=== PATIENT | female | born 1995 | race Caucasian/White ===

== ENCOUNTER 2025-06-30 09:51 | Inpatient (IN) | payer BC, SELFPAY ==
[2025-06-30] VITALS (17 sets, daily range): BP systolic 102–128; BP diastolic 62–83; PULSE 65–107; RESP 12–20; TEMP 35.9–36.8; O2SAT 95–100; BMI 37.8
[2025-06-30] MEDS: Lactated Ringers 1,000 ML 999 ML IV ×2 (10:20→15:11)
[2025-06-30 10:31] LABS: Hematocrit 33.8 % (37-47); Hemoglobin 11.8 g/dL (12.0-15.0); Immature Granulocytes Count 0.270 X10^3/uL (0.0-0.0); Mean Corp Hgb Conc 34.9 g/dL (32-36); Mean Corpuscular Volume 92.9 fL (81-99); Mean Platelet Vol. 11.2 fl (6.2-12.0); NRBC Flagged by Analyzer 0 % (0-5); Platelet Count 233 K/mm3 (150-450); RBC Distribution Width CV 13.2 % (11.6-14.6); RBC Distribution Width SD 44.2 fl (35.1-43.9); Red Blood Count 3.64 M/mm3 (4.2-5.4); White Blood Count 11.5 K/mm3 (4.4-11.0)
[2025-06-30 11:17] LABS: Syphilis Antibodies Nonreactive (Nonreactive)
[2025-06-30] MEDS: Lactated Ringers 1,000 ML 150 ML IV (11:19)
[2025-06-30] MEDS: Cefazolin 1 GM/5 ML Vial 2 GM IV (16:02)
[2025-06-30] MEDS: 0.9% Normal Saline (1000mL) 850 ML IV (16:03)
[2025-06-30] MEDS: morphine PF (epidural) 5 MG/10 ML Vial INTRATH (16:09)
[2025-06-30] MEDS: Azithromycin 500 MG in 0.9% Normal Saline (250mL Bag) 250 ML 250 MG IV (16:15)
[2025-06-30] MEDS: Azithromycin 500 MG Vial (SNAP) IV (16:15)
--- NOTE | 2025-06-30 16:16 | HP.PCM_ITS ---
History and Physical Date of Admission: 07/07/25 HPI: The patient is a 30 year old female presenting for pre-operative visit. She is scheduled for , for previous c/s on 07/04/25. Procedure discussed along with risks, benefits and complications. Other alternatives discussed for management. Consent form signed? Yes. ? ? PAST MEDICAL HISTORY No past medical history on file. ? ? PAST SURGICAL HISTORY PAST SURGICAL HISTORYProcedureLateralityDate? DELIVERY ONLY?11/11/2021? [facility] & in 2022?[facility]???Pt reported 08/09/2023 ? ? ? CURRENT MEDICATIONS Current Outpatient MedicationsMedicationSigDispenseRefill?sertraline (ZOLOFT) 50 mg tabletTake 1 tablet by mouth once daily.90 tablet1?ferrous sulfate (IRON PO) Take by mouth.???ondansetron (ZOFRAN) 4 mg tabletTake 1 tablet by mouth every 8 hours as needed for nausea/vomiting.10 tablet0?MAGNESIUM ORALTake by mouth.??? Vitamin w/ Iron ( VITAMIN PLUS LOW IRON) 27 mg iron- 1 mgTake 1 tablet by mouth once daily.???No current facility-administered medications for this visit. ? ? ALLERGIES: Patient has no known allergies. ? PERSONAL HISTORY: SOCIAL HISTORY Social History?Tobacco Use?Smoking status:Never?Smokeless tobacco:NeverVaping Use?Vaping status:Never UsedSubstance Use Topics?Alcohol use:Never?Drug use:Never ? FAMILY HISTORY: FAMILY HISTORY FAMILY HISTORY ProblemRelationAge of Onset?No Known ProblemsMother??No Known ProblemsFather??No Known ProblemsSister??No Known ProblemsBrother? ? ? REVIEW OF SYMPTOMS: GENERAL: denies fevers or chills ENDOCRINOLOGY: has not been on steroids Cardiology : denies palpitations or chest pain Respiratory: denies SOB or cough Hematology: denies history of prolonged bleeding or easy bruising or VTE Allergy: Denies history of personal or family history of allergy to anesthesia ? PHYSICAL EXAMINATION: ? VITALS: Blood pressure 118/73, pulse 100, height 157.5 cm (5' 2), weight 78.9 kg (174 lb), last menstrual period 10/03/2024, SpO2 97%, not currently . ? GENERAL: The patient is well nourished, well hydrated in no acute distress. , The patient is oriented to time, place, and person. NECK: Supple. No lynphadenopathy, normal thyroid, no thyromegaly. LUNGS: Clear to auscultation bilaterally. no wheezes, rhonchi or rales HEART: Regular rate and rhythm, Normal heart sounds, and No murmurs or gallops abd- soft, nontender, gravid ? IMPRESSION: Estimated Date of Delivery: 07/10/25 h/o 2 c/s ? PLAN: The risks/benefits/alternatives and personal involved for the planned c- section were reviewed with the patient. Her questions were answered to her satisfaction and she desires to proceed. Consent was signed. I reviewed with her postop instructions and expectations. ? ? I have reviewed and updated past medical and surgical history, medications and allergies Assessment & Plan Assessment/Plan (1) Previous delivery affecting : 06/19/25 0377 <Electronically signed by Paty Staton MD>
--- NOTE | 2025-06-30 16:18 | PCM.HP.OB ---
HPI - General General Date of Admission: 06/30/25 Date of Service: 06/30/25 Chief Complaint: c/sectoin HPI Narrative NOEMI NIELSEN, is a 30 F who presents 3 para 1-0-1-1 with a EDC of 07/07/2025 presents today for repeat section. She denies any vaginal bleeding or leaking of fluid. She has had good movement. [facility] Medical History (Updated 06/30/25 @ 16:[address] Paty Staton MD) History of blood transfusion Family history of hearing loss at age younger than 7 years hemorrhage depression Home Medications ?Medication ?Instructions ?Recorded ?Last Taken ?Type vit no.95-ferrous 1 tab PO DAILY 06/30/25 06/29/25 History fumarate 28 mg-folic acid 800 mcg tablet ( Formula) Allergy/AdvReac Type Severity Reaction Status Date / Time No Known Allergies Allergy Verified 06/30/25 10:14 Surgical History (Updated 06/30/25 @ 16:[address] Paty Staton MD) H/O wisdom tooth extraction Previous section Social History Smoking Status: Never smoker History Elective abortions Hx Para 1 Spontaneous abortions Hx # Term Pregnancies Ectopic pregnancies Hx # Pregnancies Multiple births # of living children ROS Constitutional Constitutional: Denies fatigue, fever(s) or malaise Eyes Eyes: Denies change in vision ENT HEENT: Denies dizziness or headache(s) Cardiovascular Cardiovascular: Denies chest pain, dyspnea or lightheadedness Respiratory/Chest Respiratory/Chest: Denies cough or dyspnea Gastrointestinal Gastrointestinal: Denies change in bowel habits Genitourinary Genitourinary: Denies burning urination or genital lesions Integumentary Integumentary: Denies rash Neurologic Neurologic: Denies confusion, dizziness, headache(s), numbness or weakness Vital Signs Vital Signs Vital Signs: 06/30/25 10:55 Temperature 98.3 F Temperature Source Temporal Pulse Rate 107 H Respiratory Rate 16 Blood Pressure 128/83 H Blood Pressure Mean 98 Blood Pressure Source Monitor Blood Pressure Position Semi-Fowlers Blood Pressure Location Right Arm Pulse Ox 96 Oxygen Delivery Method Room Air Weight Weight: 97 kg Body Mass Index (BMI) 37.8 Physical Exam Const alert and no apparent distress General Appearance: cooperative HEENT normocephalic Resp normal respiratory effort Cardio regular rate GI soft to palpation GI Narrative: gravid, nontender, appropriate for gestational age Extremity no calf tenderness General Extremity: edema Skin no wounds Rashes: No rashes noted Psych activity/motor behavior normal Labs Labs Labs: Blood Type A NEGATIVE Antibody Screen NEGATIVE Hct 33.8 % (37-47) L Hgb 11.8 g/dL (12.0-15.0) L Syphilis Total Ab Nonreactive (Nonreactive) Assessment & Plan (1) 39 weeks gestation of : PLAN: Response and alternatives to previous section were discussed with the patient her questions were answered to her satisfaction she desires to proceed. Will receive preop antibiotic prophylaxis. Otherwise preoperative and postoperative routine care anticipated. (2) Previous delivery affecting :
--- NOTE | 2025-06-30 17:00 | PCM.POST.ANE ---
Anesthesia: Postop Eval I Current Vital Signs Temperature: 98 F Pulse Rate: 85 Blood Pressure: 121/73 Respiratory Rate: 16 Pulse Ox: 95 Oxygen Delivery Method: Room Air Assessment Airway patent: Yes Spontaneous unlabored respirations: Yes Mental status: Awake and Calm nausea: No Vomiting: No Anesthesia Complication: No Fluid Hydration Crystalloid volume administer (ml): 1,000 Total IV fluid infused: 1,000 Progress Note Anesthesia document: Postop Eval 1 completed: Yes
--- NOTE | 2025-06-30 17:04 | OP.PCM_ITS ---
Assessment & Plan (1) Previous delivery affecting : (2) 39 weeks gestation of : Maternal Data Information Final NAGI: 07/07/25 Gestational age: 39 0/7 Operative Report (OB) Details Procedure Type: low transverse Date of Procedure: 06/30/25 Procedure Start Time: 16:27 Procedure Stop Time: 16:58 Time of Delivery: 16:29 Pre-Operative Diagnosis: Repeat Elective Post-Operative Diagnosis: Same as Pre-operative diagnosis Classification: Scheduled Type of Anesthesia: Spinal Antibiotic Given: Ancef 2 grams IV x1 and Zithromax 500 mg/5 mL X1 Drain: Valadez to straight drain Estimated Blood Loss: 700 Fluids Replaced: 1000 Findings Description of surgery: The patient was taken to the operating room. She was prepped and draped in the dorsal supine position with a leftward tilt. A Pfannenstiel skin incision was made approximately 2 cm above the symphysis pubis and carried through to underlying layer fascia with the scalpel. The fascia was incised incised in the midline and extended laterally with the Hurd scissors. The fascia was dissected off the rectus muscles with blunt and sharp dissection. The rectus muscles were in the midline and the peritoneum was entered bluntly. The peritoneal incision was stretched and the bladder blade was placed. The uterine incision was made in a low transverse fashion with the scalpel and extended superiorly and inferiorly with blunt dissection. The amniotic membranes were ruptured bluntly and clear amniotic fluid returned. The 's head was brought to the incision in the flexed position and delivered without difficulty. The remainder of the was delivered with gentle traction and fundal pressure in the standard fashion. The mouth and nares were bulb suctioned. The cord was clamped and cut as the was stimulated. Cord clamping was delayed. The was handed off to the waiting nursing staff. The placenta was delivered with fundal massage and gentle traction in the standard fashion. The uterus was exteriorized and cleared of all clots and debris. The cervix was dilated with a ring forcep. The uterine incision was closed with #1 Vicryl in a running locked fashion. A second layer of the same suture was used in an imbricating fashion. The incision was examined and was found to be hemostatic. The uterus was placed back into the peritoneal cavity and hemostasis was again confirmed. The rectus muscles were examined and any bleeding was Bovie cauterized. The parietal peritoneum and rectus muscles were closed en bloc with an 0 Vicryl running suture. The rectus fascia was examined and any bleeding was Bovie cauterized and the rectus fascia was closed with 1 Vicryl suture in a running standard fashion. The subcutaneous tissue was examining and any bleeding was Bovie cauterized. The subcutaneous tissue was reapproximated with 3-0 Vicryl suture. The skin was closed in a subcuticular fashion by the NETWORK INTERN with me present in the labor and delivery suite. I performed the remainder of the procedure with assistance. All sponge, lap, and needle counts were correct. The patient was taken to her room for recovery in a stable condition. Surgical findings: Vigorous female infant. Normal tubes and ovaries. Presentation: Vertex Amniotic Membrane Rupture Type: Artificial Amniotic Fluid Description: Clear Placental Delivery Description: Expressed Placenta Disposition: [facility] Specimen collected: No Cord Vessel Description: 3 Vessels Cord Entanglement: Around neck x 2, loose Nuchal Cord Compression: Without compression A gender: Female (Ivana) (1 minute): 8 (5 minute): 9 Delayed Cord Clamping: Yes Associate Professor Of Violin leather scraper: Yes Manager Of Investigations: Torsten Arevalo Tasks completed by congressional assistant: Closing and Retracting Additional assistant corporate controller?: No Complications Complications: No
--- NOTE | 2025-06-30 17:04 | POSTOPAN2_ITS ---
Anesthesia Postop Eval I Sum Postop Eval Completion status Anesthesia document: Postop Eval 1 completed: Yes Anesthesia Postop Eval I Summary Anesthesia Postop Eval I Summary: Anesthesia Postop Eval I: Assessment Summary Airway patent Yes 06/30/25 17:01 BOAT CREW DECK HAND.MDOT Spontaneous unlabored Yes 06/30/25 17:01 BOAT CREW DECK HAND.OT respirations Mental status Awake,Calm 06/30/25 17:01 BOAT CREW DECK HAND.MDOT nausea No 06/30/25 17:01 BOAT CREW DECK HAND.MDOT Vomiting No 06/30/25 17:01 BOAT CREW DECK HAND.MDOT Anesthesia Postop Eval I: Fluid Summary Crystalloid volume administer 1,000 06/30/25 17:01 BOAT CREW DECK HAND.MDOT (ml) Colloids volume administered ( ml) Blood Product volume administered (ml) Total IV fluid infused 1,000 06/30/25 17:01 BOAT CREW DECK HAND.CHRISTAL Anesthesia Postop Eval I: Summary Notes Anesthesia Complication No 06/30/25 17:01 BOAT CREW DECK HAND.CHRISTAL Anesthesia Complication Comment: Post-operative progress note Anesthesia: Postop Eval II Evaluation Mental status: Awake and Calm Pain Level: 0 nausea: No Vomiting: No Complications Anesthesia Complication: No
--- NOTE | 2025-06-30 17:04 | PCM.POSTANE2 ---
Anesthesia Postop Eval I Sum Postop Eval Completion status Anesthesia document: Postop Eval 1 completed: Yes Anesthesia Postop Eval I Summary Anesthesia Postop Eval I Summary: Anesthesia Postop Eval I: Assessment Summary Airway patent Yes 06/30/25 17:01 DIRECTOR OF GIFT PLANNING.MDOT Spontaneous unlabored Yes 06/30/25 17:01 DIRECTOR OF GIFT PLANNING.OT respirations Mental status Awake,Calm 06/30/25 17:01 DIRECTOR OF GIFT PLANNING.MDOT nausea No 06/30/25 17:01 DIRECTOR OF GIFT PLANNING.MDOT Vomiting No 06/30/25 17:01 DIRECTOR OF GIFT PLANNING.MDOT Anesthesia Postop Eval I: Fluid Summary Crystalloid volume administer 1,000 06/30/25 17:01 DIRECTOR OF GIFT PLANNING.MDOT (ml) Colloids volume administered ( ml) Blood Product volume administered (ml) Total IV fluid infused 1,000 06/30/25 17:01 DIRECTOR OF GIFT PLANNING.CHRISTAL Anesthesia Postop Eval I: Summary Notes Anesthesia Complication No 06/30/25 17:01 DIRECTOR OF GIFT PLANNING.CHRISTAL Anesthesia Complication Comment: Post-operative progress note Anesthesia: Postop Eval II Evaluation Mental status: Awake and Calm Pain Level: 0 nausea: No Vomiting: No Complications Anesthesia Complication: No
[2025-06-30] MEDS: Oxytocin 15 Units/NS 250ml 15 UNITS/250 ML IV.SOLN 83 UNITS IV (17:10)
[2025-06-30] MEDS: Ketorolac 30 MG/ML Syringe IV (17:59)
--- OUTSIDE RECORDS SUMMARY | 2025-06-30 21:22 | XMS RPT_ITS | CCD ---
Author Organization [facility] Care Team Providers Care Electrician Sound Name Role Phone JOSE BANQUET KITCHEN SUPERVISOR - RIKKI, SERGO Fischer Primary Care [facility] HEMAL LUIS Referring Unavailable SERGO FENG Primary Care Unavailable ROS MANSFIELD Attending Unavailable JOSESERGO GARCIA Primary Care Unavailable ROS MANSFIELD Attending Unavailable HEMAL LUIS Referring Unavailable HEMAL LUIS MD Attending Unavailable JOSE BANQUET KITCHEN SUPERVISOR - RIKKI, SERGO Fischer Primary Care U tara ZAMBRANO BANQUET KITCHEN SUPERVISOR-RIKKI, MARINA Attending Unavail able JOSE BANQUET KITCHEN SUPERVISOR - FIELD LABORER, SERGO Fischer Primary Care U AUNDREA Renteria MD Attending Unavailable JOSE BANQUET KITCHEN SUPERVISOR - FIELD LABORER, SERGO Fischer Primary Care U tara LUIS MD, HEMAL Attending Unavailable JOSE BANQUET KITCHEN SUPERVISOR - RIKKI, SERGO Fischer Primary Care U tara LUIS MD, HEMAL Attending Unavailable JOSE BANQUET KITCHEN SUPERVISOR - RIKKI, SERGO Fischer Primary Care U tara LUIS MD, HEMAL Attending Unavailable JOSE BANQUET KITCHEN SUPERVISOR - FIELD LABORER, SERGO Fischer Primary Care U tara LUIS MD, HEMAL Attending Unavailable JOSE BANQUET KITCHEN SUPERVISOR - FIELD LABORER, SERGO Fischer Primary Care U tara LUIS MD, HEMAL Attending Unavailable JOSE BANQUET KITCHEN SUPERVISOR - FIELD LABORER, SERGO Fischer Primary Care U tara LUIS MD, HEMAL Attending Unavailable JOSE BANQUET KITCHEN SUPERVISOR - RIKKI, SERGO Fischer Primary Care U JOEY Carbone Attending Unavailable JOSE BANQUET KITCHEN SUPERVISOR - FIELD LABORER, SERGO Fischer Primary Care U JOEY Carbone Admitting Unavailable AUNDREA ROBB MD Attending Unavailable JOSE BANQUET KITCHEN SUPERVISOR - RIKKI, SERGO Fischer Primary Care U AUNDREA Renteria MD Consulting Unavailable SpinkSergo lopez CNP Primary Care Provider Warner Tai MD Unavailable JOSE, SERGO Amado Primary Care Unavailable KYLE DUCKWORTH Attending Unavailable WISWELL, KALYANI Referring Unavailable JOSE, SERGO D Primary Care Unavailable WISWELL, KALYANI Referring Unavailable JOSE, SERGO D Primary Care Unavailable MARYBEL TAIKE Referring Unavailable JOSE, SERGO D Primary Care Unavailable REJI LEOS Attending Unavailable HEVER, DANIELLE Referring Unavailable JOSE, SERGO D Primary Care Unavailable WISWELL, KALYANI Attending Unavailable SELF Referring Unavailable JOSE, SERGO D Primary Care Unavailable DANIELLE KATHLEEN Referring Unavailable JOSE, SERGO Amado Primary Care Unavailable JOSE, SERGO D Primary Care Unavailable WARNER TAI Referring Unavailable JOSE, SERGO D Primary Care Unavailable ILDA MEDINA Attending Unavailable JOSE, SERGO D Primary Care Unavailable JOSE, SERGO D Primary Care Unavailable GIA ESCOBAR Attending Unavailable DANIELLE KATHLEEN Attending Unavailable JOSE, SERGO Amado Primary Care Unavailable SELF Referring Unavailable JOSE, SERGO D Primary Care Unavailable DANIELLE KATHLEEN Attending Unavailable WISWELL, KALYANI Referring Unavailable JOSE, SERGO Amado Primary Care Unavailable JOSE, SERGO D Primary Care Unavailable LEELA, KALYANI Referring Unavailable WARNER TAI Attending Unavailable JOSE, SERGO D Primary Care Unavailable WISWELL, KALYANI Referring Unavailable JOSE, SERGO D Primary Care Unavailable GIA ESCOBAR Attending Unavailable KALYANI DOUGHERTY Attending Unavailable JOSE, SERGO Amado Primary Care Unavailable JOSE, SERGO D Primary Care Unavailable NOE JOSE Attending Unavailable WISWELL, KALYANI Referring Unavailable JOSE, SERGO D Primary Care Unavailable JOSE, SERGO D Primary Care Unavailable GIA ESCOBAR Attending Unavailable REJI LEOS Attending Unavailable JOSE, SERGO Amado Primary Care Unavailable JOSE, SERGO D Primary Care Unavailable GIA ESCOBAR Attending Unavailable Reji Leos Attending Unavailable Spink MAINTENANCE TEAM MEMBER, Sergo Arroyo Primary Care Unav ailable Reji Leos Admitting Unavailable Reji Leos Referring Unavailable Medications Current Medications Medication Drug Class(es) Dates Sig (Normalized) Sig (Original) acetaminophen 500 mg oral tablet (2 sources) Start: 12-11-2022 End: 01-08-2023 Tylenol Extra Strength 500 mg oral tablet Dose : 500 mg = 1 tab(s), Oral, q4h, X 14 day(s), # 30 tab(s), 1 Refill(s), 01/08/23 19:44:00 EST, Pharmacy: [facility], 160, cm, 12/10/22 17:42:00 EST, Height Start Date: 12/11/22 Stop Date: 01/08/23 Status: Ordered acetaminophen 325 mg / oxyCODONE hydrochloride 5 mg oral tablet (1 source) Opioid Agonist Start: 12-11-2022 End: 12-18-2022 take 1 tablet by mouth every six hours as needed for pain Percocet 5 mg-325 mg oral tablet Dose = 1 tab(s), Oral, q6hr, PRN for pain, X 7 day(s), # 20 tab(s), 0 Refill(s), Pharmacy: [facility], S/P section, 160, cm, 12/10/22 17:42:00 EST, Height, 103.63 Start Date: 12/11/22 Stop Date: 12/18/22 Status: Ordered Breast Pump (5 sources) Start: 05-29-2025 End: 05-29-2026 Breast Pump Use as directed 1 each 05/29/2025 05/29/2026 Active calcium polycarbophil 625 mg oral tablet (3 sources) Start: 05-03-2022 take 1 tablet by mouth four times daily Fiber Tabs Dose : 625 mg =, Oral, QID, 0 Refill(s) Start Date: 05/03/22 Status: Ordered Zyrtec (4 sources) Histamine-1 Receptor Antagonist Start: 08-24-2022 ZyrTEC qDay, 0 Refill(s) Start Date: 08/24/22 Status: Ordered cetirizine HCl ( ZYRTEC PO) Take by mouth. Active docusate sodium 100 mg oral capsule (3 sources) Start: 05-03-2022 Colace 100 mg oral capsule Dose : 100 mg = 1 cap(s), Oral, BID, PRN as needed for constipation, # 20 cap(s), 0 Refill(s), Pharmacy: [facility], 7 weeks gestation of PCOS (polycystic ovarian syndrome), 162, cm, 06/21/22 9:49:00 EDT, Height Start Date: 05/03/22 Status: Ordered doxylamine succinate 25 mg oral tablet (3 sources) Start: 05-06-2022 doxylamine 25 mg oral tablet Dose : 25 mg = 1 tab(s), Oral, BID, PRN as needed for sleep, # 28 tab(s), 0 Refill(s), Pharmacy: [facility], Hyperemesis of , 162, cm, 05/03/22 9:49:00 EDT, Height Start Date: 05/06/22 Status: Ordered ferrous sulfate 325 mg oral tablet (6 sources) Start: 10-12-2022 IRON (ferrous sulfate 325 mg) 65 mg oral tablet Dose : 325 mg = 1 tab(s), Oral, qDay, Take with food., # 60 tab(s), 3 Refill(s) Start Date: 10/12/22 Status: Ordered fexofenadine hydrochloride 180 mg oral tablet (1 source) Histamine-1 Receptor Antagonist Start: 03-15-2022 End: 09-11-2022 Daisy 24 Hour Allergy oral tablet Dose : 180 mg = 1 tab(s), Oral, Daily, may change to generic, # 30 tab(s), 5 Refill(s), Pharmacy: [facility], Seasonal allergies, 162, cm, 03/15/22 8:16:00 EDT, Height Start Date: 03/15/22 Stop Date: 09/11/22 Status: Ordered ibuprofen 600 mg oral tablet (2 sources) Nonsteroidal Anti-inflammatory Drug Start: 12-26-2022 End: 01-15-2023 ibuprofen 600 mg oral tablet Dose : 600 mg = 1 tab(s), Oral, q6h, PRN for pain, Take with food or milk., X 10 day(s), # 40 tab(s), 1 Refill(s), 01/15/23 14:52:00 EST, Pharmacy: [facility], 160, cm, 12/10/22 17:42:00 EST, Height Start Date: 12/26/22 Stop Date: 01/15/23 Status: Ordered Start: 12-11-2022 End: 12-25-2022 ibuprofen 800 mg oral tablet Dose : 800 mg = 1 tab(s), Oral, q8h, X 14 day(s), # 42 tab(s), 0 Refill(s), 12/25/22 19:44:00 EST, Pharmacy: [facility], 160, cm, 12/10/22 17:42:00 EST, Height Start Date: 12/11/22 Stop Date: 12/25/22 Status: Ordered metFORMIN hydrochloride 500 mg oral tablet (1 source) Biguanide Start: 03-15-2022 End: 09-11-2022 metFORMIN 500 mg oral tablet EXTENDED RELEASE Dose : 500 mg = 1 tab(s), Oral, qDay, # 90 tab(s), 1 Refill(s), Pharmacy: [facility], PCOS (polycystic ovarian syndrome), 162, cm, 03/15/22 8:16:00 EDT, Height, kg, 03/15/22 8:16:00 EDT, Dosing Weight Start Date: 03/15/22 Stop Date: 09/11/22 Status: Ordered 25/iron/folate 6/dha (PRENA1 ORAL) (20 sources) take 1 tablet by mouth once daily 25/iron/folate 6/dha (PRENA1 ORAL) Take 1 tablet by mouth once daily. Active Multivitamins with Vitamin B Complex, Vitamin C, Minerals and L-Methylfolate oral capsule (17 sources) Start: 11-02-2021 take 1 capsule by mouth once daily Multivitamins with Vitamin B Complex, Vitamin C, Minerals and L-Methylfolate oral capsule Dose = 1 cap(s), Oral, Daily, 0 Refill(s) Start Date: 11/02/21 Status: Ordered promethazine hydrochloride 12.5 mg oral tablet (3 sources) Phenothiazine Start: 05-06-2022 promethazine 12.5 mg oral tablet Dose : 12.5 mg = 1 tab(s), Oral, q4h, PRN as needed for nausea/vomiting, # 30 tab(s), 1 Refill(s), Pharmacy: [facility], Hyperemesis of , 162, cm, 05/03/22 9:49:00 EDT, Height Start Date: 05/06/22 Status: Ordered sertraline 50 mg oral tablet (1 source) Serotonin Reuptake Inhibitor Start: 01-19-2023 End: 06-18-2023 sertraline 50 mg oral tablet Dose : 50 mg = 1 tab(s), Oral, qDay, # 30 tab(s), 4 Refill(s), Pharmacy: [id number], 160, cm, 12/10/22 17:42:00 EST, Height Start Date: 01/19/23 Stop Date: 06/18/23 Status: Ordered simethicone 125 mg oral capsule (1 source) Start: 12-13-2022 Gas-X Extra Strength 125 mg oral capsule Dose : 125 mg = 1 cap(s), Oral, QID, PRN abdominal discomfort, # 30 cap(s), 0 Refill(s), Pharmacy: [id number], 160, cm, 12/10/22 17:42:00 EST, Height Start Date: 12/13/22 Status: Ordered spironolactone 25 mg oral tablet (1 source) Aldosterone Antagonist Start: 03-15-2022 End: 09-11-2022 spironolactone 25 mg oral tablet Dose : 25 mg = 1 tab(s), Oral, qDay, # 30 tab(s), 5 Refill(s), Pharmacy: [id number], PCOS (polycystic ovarian syndrome), 162, cm, 03/15/22 8:16:00 EDT, Height Start Date: 03/15/22 Stop Date: 09/11/22 Status: Ordered Completed/Discontinued Medications Medication Drug Class(es) Dates Sig (Normalized) Sig (Original) norgestimate-ethinyl estradiol (SPRINTEC, 28, ORAL) (1 source) End: 12-05-2024 norgestimate-ethinyl estradiol (SPRINTEC, 28, ORAL) Take by mouth. 12/05/2024 Discontinued (Course of therapy completed) ondansetron 4 mg disintegrating oral tablet (17 sources) Serotonin-3 Receptor Antagonist Start: 12-05-2024 End: 02-18-2025 take 1 tablet by mouth every eight hours as needed ondansetron orally disintegrating (ZOFRAN ODT) 4 mg disintegrating tablet Indications: Nausea and vomiting during (HCC) Take 1 tablet by mouth every 8 hours as needed. 20 tablet 1 12/05/2024 02/18/2025 Discontinued (Course of therapy completed) Start: 04-25-2022 ondansetron 4 mg oral tablet Dose : 4 mg = 1 tab(s), Oral, q8h, PRN Nausea/Vomiting, # 20 tab(s), 0 Refill(s), Pharmacy: [facility], 162, cm, 04/15/22 8:23:00 EDT, Height Start Date: 04/25/22 Status: Ordered Vitamin B6 50 mg oral tablet (5 sources) Start: 05-06-2022 End: 06-17-2022 Vitamin B6 50 mg oral tablet Dose : 50 mg = 1 tab(s), Oral, BID, # 28 tab(s), 2 Refill(s), Pharmacy: [facility], Hyperemesis of , 162, cm, 05/03/22 9:49:00 EDT, Height Start Date: 05/06/22 Stop Date: 06/17/22 Status: Ordered Problems Active Problems Problem Classification Problem Date Documented Date Episodic/Chronic Allergic reactions (18 sources) Allergy to food 01-24-2020 Episodic Conditions associated with dizziness or vertigo (1 source) Lightheadedness; Translations: [Dizziness and giddiness] 02-18-2025 Episodic Contraceptive and procreative management (6 sources) Contraception 07-26-2019 Episodic Disorders of lipid metabolism (12 sources) Hypercholesterolemia 04-15-2022 Chronic Esophageal disorders (18 sources) Gastroesophageal reflux disease 05-11-2021 Chronic Immunizations and screening for infectious disease (2 sources) Vaccination needed; Translations: [Encounter for immunization] Onset: 04-17-2004-17-2025 Episodic Menstrual disorders (20 sources) Amenorrhea; Translations: [Irregular periods] 11-02-2021 Chronic Miscellaneous mental health disorders (1 source) depression 02-06-2023 Episodic Other complications of ; puerperium affecting management of mother (1 source) Failed induction of labor; Translations: [Failed induction of labor, unspecified] Onset: 12-11-19 Episodic Other complications of (13 sources) Maternal obesity complicating , childbirth and the puerperium, antepartum; Translations: [Obesity complicating , unspecified trimester] Onset: 01-28-20 23 Chronic Other complications of (5 sources) Obesity; Translations: [Obesity complicating , unspecified trimester] 04-17-2025 Chronic Other complications of (1 source) Obesity complicating , unspecified trimester; Translations: [Obesity in (HCC)] Onset: 05-01-20 Chronic Other complications of (1 source) Finding related to ; Translations: [Other specified related conditions, unspecified trimester] Onset: 12-10-19 Episodic Other complications of (1 source) Supervision of high risk , unspecified, second trimester; Translations: [Supervision of high risk in second trimester (HCC)] Onset: 05-29-20 Episodic Other congenital anomalies (20 sources) Metaphyseal chondrodysplasia, [place]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; Translations: [Other specified osteochondrodysplasias] 12-23-2024 Chronic Other congenital anomalies (1 source) Other specified osteochondrodysplasias; 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)] Onset: 12-23-19 Chronic Other endocrine disorders (13 sources) Polycystic ovary syndrome 11-18-2021 Chroni c Other female genital disorders (18 sources) History of abnormal cervical Papanicolaou smear 07-26-2019 Episodic Other gastrointestinal disorders (18 sources) Constipation 05-17-2021 Episodic Other lower respiratory disease (2 sources) Dyspnea; Translations: [Shortness of breath] 01-30-2025 Episodic Other screening for suspected conditions (not mental disorders or infectious disease) (5 sources) Cancer cervix screening status; Translations: [Encounter for screening for malignant neoplasm of cervix] Onset: 04-17-2012-05-2024 Episodic Other upper respiratory disease (13 sources) Seasonal allergy 03-15-2022 Chronic Polyhydramnios and other problems of amniotic cavity (1 source) Premature rupture of membranes; Translations: [Premature rupture of membranes, unspecified as to length of time between rupture and onset of labor, unspecified weeks of gestation] Onset: 12-10-19 Episodic Residual codes; unclassified (17 sources) Increased body mass index 06-11-2020 Episod ic Residual codes; unclassified (12 sources) H/O: miscarriage 03-15-2022 Episodic Residual codes; unclassified (1 source) Gestation period, 40 weeks; Translations: [40 weeks gestation of ] Onset: 12-10-19 Episodic Residual codes; unclassified (1 source) Genetic disorder carrier; 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] Onset: 12-10-19 Episodic Residual codes; unclassified (1 source) Gestation period, 9 weeks; Translations: [9 weeks gestation of ] 12-05-2024 Episodic Residual codes; unclassified (5 sources) Gestation period, 13 weeks; Translations: [13 weeks gestation of ] 01-02-2025 Episodic Residual codes; unclassified (2 sources) Gestation period, 17 weeks; Translations: [17 weeks gestation of ] 01-30-2025 Episodic Residual codes; unclassified (1 source) Gestation period, 20 weeks; Translations: [20 weeks gestation of ] 02-18-2025 Episodic Residual codes; unclassified (1 source) Gestation period, 24 weeks; Translations: [24 weeks gestation of ] 03-20-2025 Episodic Residual codes; unclassified (1 source) Gestation period, 30 weeks; Translations: [30 weeks gestation of ] 05-01-2025 Episodic Residual codes; unclassified (1 source) Gestation period, 32 weeks; Translations: [32 weeks gestation of ] 05-15-2025 Episodic Residual codes; unclassified (1 source) Gestation period, 34 weeks; Translations: [34 weeks gestation of ] 05-29-2025 Episodic Residual codes; unclassified (1 source) Gestation period, 36 weeks; Translations: [36 weeks gestation of ] 06-09-2025 Episodic Residual codes; unclassified (1 source) Gestation period, 38 weeks; Translations: [38 weeks gestation of ] 06-23-2025 Episodic Residual codes; unclassified (1 source) 38 weeks gestation of ; Translations: [38 weeks gestation of (HCC)] Onset: 06-23-20 Episodic Residual codes; unclassified (1 source) 37 weeks gestation of ; Translations: [37 weeks gestation of (HCC)] Onset: 06-17-20 Episodic Residual codes; unclassified (1 source) 36 weeks gestation of ; Translations: [36 weeks gestation of (HCC)] Onset: 06-09-20 Episodic Residual codes; unclassified (1 source) 34 weeks gestation of ; Translations: [34 weeks gestation of (HCC)] Onset: 05-29-20 25 Episodic Residual codes; unclassified (1 source) 32 weeks gestation of ; Translations: [32 weeks gestation of (HCC)] Onset: 05-15-20 25 Episodic Residual codes; unclassified (1 source) 30 weeks gestation of ; Translations: [30 weeks gestation of (HCC)] Onset: 05-01-20 25 Episodic Residual codes; unclassified (1 source) 24 weeks gestation of ; Translations: [24 weeks gestation of (HCC)] Onset: 04-17-20 25 Episodic Unclassified (20 sources) Patient encounter status 06-11-2020 Past or Other Problems Problem Classification Problem Date Documented Da te Episodic/Chronic Cardiac dysrhythmias (20 sources) Palpitations; Translations: [Palpitations] Onset: 02-20-2025 01-30-2025 Episodic Other circulatory disease (20 sources) Bleeds profusely; Translations: [Hemorrhage, not elsewhere classified] Onset: 01-02-2025 01-02-2025 Episodic Other circulatory disease (1 source) Hemorrhage, not elsewhere classified; Translations: [Excessive bleeding] Onset: 01-09-2025 Episodic Other complications of ; puerperium affecting management of mother (20 sources) hemorrhage; Translations: [Other immediate hemorrhage] Onset: 12-05-2024 Episodic Other complications of ; puerperium affecting management of mother (1 source) Other immediate hemorrhage; Translations: [Other immediate hemorrhage (HCC)] Onset: 12-05-2024 Episodic Other complications of (20 sources) Vomiting of , unspecified; Translations: [Unspecified vomiting of , unspecified as to episode of care or not applicable] Onset: 12-05-2024 12-05-2024 Episodic Other complications of (20 sources) RhD negative; Translations: [Other specified related conditions, unspecified trimester] Onset: 01-03-2025 01-03-2025 Episodic Other complications of (20 sources) High risk ; Translations: [Supervision of high risk , unspecified, second trimester] Onset: 12-05-2024 02-20-2025 Episodic Other complications of (1 source) Supervision of high risk , unspecified, third trimester; Translations: [Supervision of high risk in third trimester (HCC)] Onset: 02-20-2025 Episodic Other complications of (1 source) Other specified related conditions, unspecified trimester; Translations: [Rh negative state in antepartum period ([facility])] Onset: 01-03-2025 Episodic Other lower respiratory disease (1 source) Shortness of breath; Translations: [Shortness of breath] Onset: 01-30-2025 Episodic Other and delivery including normal (20 sources) test positive; Translations: [] Onset: 03-10-2022 04-15-2022 Episodic Comment on above: [facility] Status documented as Yes on Admission Residual codes; unclassified (2 sources) History of uterine scar from previous surgery; Translations: [History of uterine scar from previous surgery] Onset: 12-11-2022 Episodic Residual codes; unclassified (1 source) 20 weeks gestation of ; Translations: [20 weeks gestation of ([facility])] Onset: 02-20-2025 Episodic Residual codes; unclassified (1 source) Unspecified blood type, Rh negative; Translations: [Rh negative state in antepartum period ([facility])] Onset: 01-03-2025 Episodic Residual codes; unclassified (2 sources) 13 weeks gestation of ; Translations: [13 weeks gestation of ([facility])] Onset: 01-08-2025 Episodic Residual codes; unclassified (1 source) 17 weeks gestation of ; Translations: [17 weeks gestation of ([facility])] Onset: 02-18-2025 Episodic Residual codes; unclassified (1 source) 9 weeks gestation of ; Translations: [9 weeks gestation of ] Onset: 01-02-2025 Episodic Results Test Name Value Interpretation Reference Range Facility CBC W/Diff, Automatedon 06-13 Absolute Lymph 2.14 X10 3/uL Normal 0.83-4.51 [facility] Comment on above: Performed By: #### Brain JAQUEZ, L100.0100 #### [facility] [address] [place], [place], [address] Absolute Neut 7.8 X10 3/uL High 2.0-7.7 [facility] Comment on above: Performed By: #### Brain JAQUEZ, L100.0100 #### [facility] [address] [place], [address] Basophils/100 WBC (Bld) 0.3 % Normal 0-1 [facility] Comment on above: Performed By: #### Brain JAQUEZ, L100.0100 #### [facility] [address] [place], [address] Eosinophils/100 WBC (Bld) 0.5 % Normal 0-5 [facility] Comment on above: Performed By: #### Brain JAQUEZ, L100.0100 #### [facility] [address] [place], [address] Erythrocyte distribution width (RBC) [Ratio] 13.2 % Normal 11.6-14.6 [facility] Comment on above: Performed By: #### Brain JAQUEZ, L100.0100 #### [facility] [address] [place], [address] Hematocrit (Bld) [Volume fraction] 33.8 % Low 37-47 [facility] Comment on above: Performed By: #### Brain JAQUEZ, L100.0100 #### [facility] [address] [place], [address] Hemoglobin (Bld) [Mass/Vol] 11.8 g/dL Low 12.0-15.0 [facility] Comment on above: Performed By: #### Brain JAQUEZ, L100.0100 #### [facility] [address] [place], [address] IG% 2.300 High 0.0-0.9 [facility] Comment on above: Result Comment: IG% - Immature Granulocytes (promyelocytes, myelocytes and metamyelocytes) > 1% indicates that a LEFT SHIFT is Present. Performed By: #### Brain JAQUEZ, L100.0100 #### [facility] [address] [place], [address] Lymphocytes/100 WBC (Bld) 18.6 % Low 19-41 [facility] Comment on above: Performed By: #### Brain JAQUEZ, L100.0100 #### [facility] [address] [place], [address] MCH (RBC) [Entitic mass] 32.4 pg High 27.0-32.0 [facility] Comment on above: Performed By: #### Brain JAQUEZ, L100.0100 #### [facility] [address] [place], [address] MCHC (RBC) [Mass/Vol] 34.9 g/dL Normal 32-36 [facility] Comment on above: Performed By: #### Brain JAQUEZ, L100.0100 #### [facility] [address] [place], [address] MCV (RBC) [Entitic vol] 92.9 fL Normal 81-99 [facility] Comment on above: Performed By: #### Brain JAQUEZ, L100.0100 #### [facility] [address] [place], [address] Monocytes/100 WBC (Bld) 10.9 % High 0-10 [facility] Comment on above: Performed By: #### Brain JAQUEZ, L100.0100 #### [facility] [address] [place], [address] Neutrophils/100 WBC (Bld) 67.4 % Normal 47-70 [facility] Comment on above: Performed By: #### Brain JAQUEZ, L100.0100 #### [facility] [address] [place], [address] Nucleated RBC (Bld) [#/Vol] 0 10*3/uL Normal 0-5 [facility] Comment on above: Performed By: #### Brain JAQUEZ, L100.0100 #### [facility] [address] [place], [address] Platelet mean volume (Bld) [Entitic vol] 11.2 fL Normal 6.2-12.0 [facility] Comment on above: Performed By: #### Brain JAQUEZ, L100.0100 #### [facility] [address] [place], [address] Platelets (Bld) [#/Vol] 233 10*3/uL Normal 150-450 [facility] Comment on above: Performed By: #### Brain JAQUEZ, L100.0100 #### [facility] [address] [place], [address] RBC (Bld) [#/Vol] 3.64 10*6/uL Low 4.2-5.4 [facility] Comment on above: Performed By: #### Brain JAQUEZ, L100.0100 #### [facility] [address] [place], [address] RDW SD 44.2 fl High 35.1-43.9 [facility] Comment on above: Performed By: #### Brain JAQUEZ, L100.0100 #### [facility] [address] [place], [address] WBC (Bld) [#/Vol] 11.5 10*3/uL High 4.4-11.0 [facility] Comment on above: Performed By: #### Brain JAQUEZ, L100.0100 #### [facility] [address] [place], [address] Type AND Screenon 06-30-2025 ABO and Rh group Nom (Bld) Blood group A Rh(D) negative Normal [facility] Comment on above: Order Comment: S Performed By: #### Brain JAQUEZ, L100.0100 #### [facility] [address] [place], [address] URINE OB DIP B/Oon Glucose Ql (U) Negative Neg mg/dL [facility] Interpretation and review of laboratory results Normal [facility] Protein.monoclonal (U) [Mass/Vol] Negative Neg mg/dL [facility] HISTORY PHYSICALon HISTORY PHYSICAL HNO ID: [id number] Author: REJI LEOS MD Service: ? Author Type: Physician Type: H&P Filed: 06/17/2025 10:21 Note Text: Pre-Op History and Physical HPI: The patient is a 30 year old female presenting for pre-operative visit. She is scheduled for , for previous c/s on 06/30/25. Procedure discussed along with risks, benefits and complications. Other alternatives discussed for management. Consent form signed? Yes. 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 Breast Pump Use as directed 1 each 0 25/iron/folate 6/dha (PRENA1 ORAL) Take 1 tablet by mouth once daily. No current facility-administere d medications for this visit. ALLERGIES: Patient has no known allergies. PERSONAL HISTORY: Social History Tobacco Use Smoking status: Never Smokeless tobacco: Never Vaping Use Vaping status: Never Used Substance Use Topics Alcohol use: Not Currently Drug use: Never FAMILY HISTORY: FAMILY HISTORY Problem Relation Age of Onset No Known Problems Mother Heart Attack Father Diabetes Father No Known Problems Brother Diabetes Maternal Grandmother other (bone cancer) Paternal Grandfather Prostate Cancer Paternal Grandfather REVIEW OF SYMPTOMS: GENERAL: denies fevers or chills ENDOCRINOLOGY: has not been on steroids Cardiology : denies palpitations or chest pain Respiratory: denies SOB or cough Hematology: denies history of prolonged bleeding or easy bruising or VTE Allergy: Denies history of personal or family history of allergy to anesthesia PHYSICAL EXAMINATION: VITALS: Blood pressure 114/76, pulse 97, height 162.6 cm (5' 4), weight 97.5 kg (215 lb), last menstrual period 09/30/2024, SpO2 98%. GENERAL: The patient is well nourished, well hydrated in no acute distress. , The patient is oriented to time, place, and person. NECK: Supple. No lynphadenopathy, normal thyroid, no thyromegaly. LUNGS: Clear to auscultation bilaterally. no wheezes, rhonchi or rales HEART: Regular rate and rhythm, Normal heart sounds, and No murmurs or gallops abd- soft, nontender, gravid, pannus moderate IMPRESSION: Estimated Date of Delivery: 07/07/25` PLAN: The risks/benefits/alter natives and personal involved for the planned were reviewed with the patient. Her questions were answered to her satisfaction and she desires to proceed. Consent was signed. I reviewed with her postop instructions and expectations. I have reviewed and updated past medical and surgical history, medications and allergies Reji Leos M.D. Normal [facility] ROUTINE, GROUP B ST REPTOCOCCUS BY PCRon 06-09-2025 ROUTINE, GROUP B STREPTOCOCCUS BY PCR Not detected Normal [facility] Comment on above: Performed By: #### G BPCR ####[facility] LABCLIA [id number] [address]Marline 05-30-2025 [facility] ZULEYKA NIELSEN ([id number]) 1995 F Date Time Provider Department 05/30/25 REJI LEOS OBGYWM During your visit today, we recorded the following information about you: Katya Leonard RN 05/30/2025 9:43 AM Signed Written order received from [employer] for breast pump. Placed in RR inbox for signature. JOHN Gordillo Lindsey, RN 05/30/2025 10:37 AM Signed Order signed and faxed. Ena Wolff RN Allergies As of Date: 05/30/2025 (No Known Allergies) Date Reviewed: 05/29/2025 Reviewed by: Reji Leos MD - Fully Assessed Reason for Visit: Breast pump [Other] Prescriptions as of 05/30/2025 - Breast Pump Use as directed - 25/iron/folate 6/dha (PRENA1 ORAL) Take 1 tablet by mouth once daily. 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 Interpretation and review of laboratory results Normal [facility] Protein.monoclonal (U) [Mass/Vol] Negative Neg mg/dL [facility] CBC W Auto Differential pane l (Bld)on 04-17-2025 Basophils (Bld) [#/Vol] 0.06 10*3/uL Normal <0.11 [facility] Comment on above: Order Comment: Speci men Type: BLOOD SPECIMENOrdering Facility: [facility] Address: [address] [place], [place] [address] Performed By: #### 5 7021-8 ####[facility] [place] CORONELRED BOIL[place] SPRINGSCHRISTIN [id number] [place] [address] [place] Basophils/100 WBC (Bld) 0.5 % Normal [facility] Comment on above: Order Comment: Speci men Type: BLOOD SPECIMENOrdering Facility: [facility] Address: [address] [place] [address] Performed By: #### 5 7021-8 ####[facility] ERNCLIA [id number] [place] [address] [place] Differential cell count method Nom (Bld) Auto Normal [facility] Comment on above: Order Comment: Speci men Type: BLOOD SPECIMENOrdering Facility: [facility] Address: [address] [place] [address] Performed By: #### 5 7021-8 ####[facility]NC[facility] [id number] [place] [address] [place] Eosinophils (Bld) [#/Vol] 0.07 10*3/uL Normal <0.46 [facility] Comment on above: Order Comment: Speci men Type: BLOOD SPECIMENOrdering Facility: [facility] Address: [address] [place] [address] Performed By: #### 5 7021-8 ####[facility] ERNCLIA [id number] [place] [address] [place] Eosinophils/100 WBC (Bld) 0.6 % Normal [facility] Comment on above: Order Comment: Speci men Type: BLOOD SPECIMENOrdering Facility: [facility] Address: [address] [place] [address] Performed By: #### 5 7021-8 ####[facility] [id number] [place] [address] [place] Erythrocyte distribution width (RBC) [Ratio] 13.8 % Normal 11.5-15.0 [facility] Comment on above: Order Comment: Speci men Type: BLOOD SPECIMENOrdering Facility: [facility] Address: [address] [place] [address] Performed By: #### 5 7021-8 ####[facility] ERNCLI [id number] [place] [address] [place] Hematocrit (Bld) [Volume fraction] 32.9 % Low 36.0-46.0 [facility] Comment on above: Order Comment: Speci men Type: BLOOD SPECIMENOrdering Facility: [facility] Address: [address] [place] [address] Performed By: #### 5 7021-8 ####[facility] BERNARED [place]IL[place] SPRINGSCHRISTIN [id number] [place] [address] [place] Hemoglobin (Bld) [Mass/Vol] 11.2 g/dL Low 11.5-15.5 [facility] Comment on above: Order Comment: Speci men Type: BLOOD SPECIMENOrdering Facility: [facility] Address: [address] [place] [address] Performed By: #### 5 7021-8 ####[facility] ERNILESHJacquie [id number] [place] [address] [place] Immature granulocytes (Bld) [#/Vol] 0.28 10*3/uL High <0.10 [facility] Comment on above: Order Comment: Speci men Type: BLOOD SPECIMENOrdering Facility: [facility] Address: [address] [place] [address] Performed By: #### 5 7021-8 ####[facility] ERMARSHALA [id number] [place] [address] [place] Immature granulocytes/100 WBC (Bld) 2.5 % Normal [facility] Comment on above: Order Comment: Speci men Type: BLOOD SPECIMENOrdering Facility: [facility] Address: [address] [place] [address] Performed By: #### 5 7021-8 ####[facility] ERNCLIA [id number] [place] [address] [place] Lymphocytes (Bld) [#/Vol] 2.13 10*3/uL Normal 1.00-4.00 [facility] Comment on above: Order Comment: Speci men Type: BLOOD SPECIMENOrdering Facility: [facility] Address: [address] [place] [address] Performed By: #### 5 7021-8 ####[facility]NC[facility] [id number] [place] [address] [place] Lymphocytes/100 WBC (Bld) 18.7 % Normal [facility] Comment on above: Order Comment: Speci men Type: BLOOD SPECIMENOrdering Facility: [facility] Address: [address] [place] [address] Performed By: #### 5 7021-8 ####[facility]NC[facility] [id number] [place] [address] [place] MCH (RBC) [Entitic mass] 31.9 pg Normal 26.0-34.0 [facility] Comment on above: Order Comment: Speci men Type: BLOOD SPECIMENOrdering Facility: [facility] Address: [address] [place] [address] Performed By: #### 5 7021-8 ####[facility] [id number] [place] [address] [place] MCHC (RBC) [Mass/Vol] 34.0 g/dL Normal 30.5-36.0 [facility] Comment on above: Order Comment: Speci men Type: BLOOD SPECIMENOrdering Facility: [facility] Address: [address] [place] [address] Performed By: #### 5 7021-8 ####[facility] ERNC[facility] [id number] [place] [address] [place] MCV (RBC) [Entitic vol] 93.7 fL Normal 80.0-100.0 [facility] Comment on above: Order Comment: Speci men Type: BLOOD SPECIMENOrdering Facility: [facility] Address: [address] [place] [address] Performed By: #### 5 7021-8 ####[facility] MILLTOWNCLIA [id number] [place] [address] [place] Monocytes (Bld) [#/Vol] 0.98 10*3/uL High <0.87 [facility] Comment on above: Order Comment: Speci men Type: BLOOD SPECIMENOrdering Facility: [facility] Address: [address] [place] [address] Performed By: #### 5 7021-8 ####[facility] MILLWNCLIA [id number] [place] [address] [place] Monocytes/100 WBC (Bld) 8.6 % Normal [facility] Comment on above: Order Comment: Speci men Type: BLOOD SPECIMENOrdering Facility: [facility] Address: [address] [place] [address] Performed By: #### 5 7021-8 ####[facility] [id number] [place] [address] [place] Neutrophils (Bld) [#/Vol] 7.87 10*3/uL High 1.45-7.50 [facility] Comment on above: Order Comment: Speci men Type: BLOOD SPECIMENOrdering Facility: [facility] Address: [address] [place] [address] Performed By: #### 5 7021-8 ####[facility] MILLTOWNCLIA [id number] [place] [address] [place] Neutrophils/100 WBC (Bld) 69.1 % Normal [facility] Comment on above: Order Comment: Speci men Type: BLOOD SPECIMENOrdering Facility: [facility] Address: [address] [place] [address] Performed By: #### 5 7021-8 ####[facility] MILLWNCLIA [id number] [place] [address] [place] Nucleated RBC (Bld) [#/Vol] 10*3/uL Normal <0.01 [facility] Comment on above: Order Comment: Speci men Type: BLOOD SPECIMENOrdering Facility: [facility] Address: [address] [place] [address] Performed By: #### 5 7021-8 ####[facility] ERNILESHPATRICEA [id number] [place] [address] [place] Nucleated RBC/100 WBC (Bld) [Ratio] 0.0 /100 WBC Normal [facility] Comment on above: Order Comment: Speci men Type: BLOOD SPECIMENOrdering Facility: [facility] Address: [address] [place] [address] Performed By: #### 5 7021-8 ####[facility] ERNILESHJacquie [id number] [place] [address] [place] Platelet mean volume (Bld) [Entitic vol] 10.1 fL Normal 9.0-12.7 [facility] Comment on above: Order Comment: Speci men Type: BLOOD SPECIMENOrdering Facility: [facility] Address: [address] [place] [address] Performed By: #### 5 7021-8 ####[facility] ERMARSHALA [id number] [place] [address] [place] Platelets (Bld) [#/Vol] 224 10*3/uL Normal 150-400 [facility] Comment on above: Order Comment: Speci men Type: BLOOD SPECIMENOrdering Facility: [facility] Address: [address] [place] [address] Performed By: #### 5 7021-8 ####[facility] ERNCLIA [id number] [place] [address] [place] RBC (Bld) [#/Vol] 3.51 10*6/uL Low 3.90-5.20 [facility] Comment on above: Order Comment: Speci men Type: BLOOD SPECIMENOrdering Facility: [facility] Address: [address] [place] [address] Performed By: #### 5 7021-8 ####[facility] ERNC[facility] [id number] [place] [address] [place] WBC (Bld) [#/Vol] 11.39 10*3/uL High 3.70-11.00 [facility] Comment on above: Order Comment: Speci men Type: BLOOD SPECIMENOrdering Facility: [facility] Address: [address] [place] [address] Performed By: #### 5 7021-8 ####[facility] [id number] [place] [address] [place] GESTATIONAL GLUCOSE SCREEN, 1-HOUR, 50 GRAM, NON-FASTINGon 04-17-2025 Glucose [Mass/Vol] 91 mg/dL Normal 74-134 [facility] Comment on above: Order Comment: Speci men Type: BLOOD SPECIMENOrdering Facility: [facility] Address: [address] [place] [address] Result Comment: [facility] Congress of Obstetricians and Gynecologists (Ge/Shawn) guidelines state a gestational diabetes mellitus positive screen is made, in women not previously diagnosed with overt diabetes, when the 1 hr plasma glucose level is equal to or above 140 mg/dL. The [facility] [employer] [facility] [place] recommends a 135 mg/dL cutoff. Performed By: #### G LTGST ####[facility] [id number] [place] [address] [place] Reagin and Treponema pallidu m IgG and IgM [Interp]on 04-17-2025 T. pallidum IgG+IgM IA Ql (S) Non-Reactive Normal Nonreactive [facility] Comment on above: Order Comment: Speci men Type: BLOOD SPECIMENOrdering Facility: [facility] Address: [address] [place] [address] Performed By: #### 7 3752-8 ####[facility] LABCLIA [id number] [place] [address] [place] Reagin+T pallidum IgG+IgM Se rPl-Impon 04-17-2025 Reagin and Treponema pallidum IgG and IgM [Interp] Cannot exclude recent Treponemal infection if specimen collected within 7-10 days after appearance of suspect lesions or 2-3 weeks after an exposure. Clinical correlation is required. Normal [facility] Comment on above: Order Comment: Speci men Type: BLOOD SPECIMENOrdering Facility: [facility] Address: [address] [place] [address] Performed By: #### 7 3752-8 ####[facility] LABCLIA [id number] [place] [address] [place] TYPE + SCREEN PRENATALon ABO A Normal [facility] Comment on above: Order Comment: Speci men Type: BLOOD SPECIMENOrdering Facility: [facility] Address: [address] [place] [address] Performed By: #### T SPN ####[facility] BLOOD BANKCLIA [id number] [place] [address] [place] Rh Nom (Bld) Negative Normal [facility] Comment on above: Order Comment: Speci men Type: BLOOD SPECIMENOrdering Facility: [facility] Address: [address] [place] [address] Performed By: #### T SPN ####[facility] BLOOD BANKCLIA [id number] [place] [address] [place] TYPE AND SCREEN EXPIRATION 04/20/2025 23:59 Normal [facility] Comment on above: Order Comment: Speci men Type: BLOOD SPECIMENOrdering Facility: [facility] Address: [address] [place] [address] Performed By: #### T SPN ####[facility] BLOOD BANKIA [id number] [address] STATES OF [facility] ECHOon 03-06-2025 Echocardiography Echocardiography Report: Transthoracic Echo [facility] Date of service: 03/06/2025 8:51:11 AM OPERATOR Ordering physician: WARNER TAI Indication: Palpitations Technologist: Jayne Vang RD Interpreting physician: Jazmin Carvajal MD PATIENT: Name: ZULEYKA NIELSEN : 1995 Age: 30 years Gender: F Primary rhythm: sinus. Height: 162.60 cm BSA: 1.95 m Weight: 83.92 kg BMI: 31.7 kg/m Heart rate 89 bpm Blood pressure 118/70 mmHg Color Doppler was utilized to interrogate the cardiac valves assessed and spectral Doppler was utilized to determine the flow velocities and pressure gradients reported in this exam. Myocardial strain analysis was performed in this exam to aid in the assessment of cardiac function. MEASUREMENTS: Value Indexed Normal Max aortic dimension 2.6 cm Ao < 3.8 Left atrial volume 59 ml (biplane A-L) 30 ml/m Laila <= 34 LV ID (diastole) 5.3 cm (2D) 2.73 cm/m LV ID (systole) 3.7 cm (2D) 1.88 cm/m IVS, leaflet tips 0.8 cm (2D) Posterior wall thickness 0.8 cm (2D) Left ventricular mass 153 g (2D) 78 g/m Global peak long strain -20.5 % LV stroke volume 72 ml (2D biplane) LV end diastolic volume 124 ml (2D biplane) 63.9 ml/m 29<=EDVi<62 LV end systolic volume 52 ml (2D biplane) 26.9 ml/m Ejection Fraction 58 % (2D biplane) EF > 54 FINDINGS: LEFT VENTRICLE The left ventricle is mildly dilated. Left ventricular systolic function is normal. Global LV myocardial strain is normal. Normal left ventricular diastolic function. Mitral annular lateral E/e': 6.0. Mitral annular septal E/e': 9.0. Wall Motion: All scored segments are normal. RIGHT VENTRICLE The right ventricle is normal in size. Right ventricular systolic function is normal. RV systolic tissue Doppler velocity is 13.0 cm/s. Tricuspid annular displacement is 2.4 cm. Estimated right ventricular systolic pressure is likely underestimated due to a weak or incomplete tricuspid regurgitation signal and is, at least, 19 mmHg consistent with normal pulmonary artery pressures. Estimated right atrial pressure is 3 mmHg (although IVC not seen). LEFT ATRIUM The left atrial cavity is normal in size. Pulmonary Veins: The pulmonary venous pattern showed normal systolic flow. RIGHT ATRIUM The right atrial cavity is normal in size. Inferior Vena Cava: The inferior vena cava appears normal measuring 1.1 cm. MITRAL VALVE The mitral valve leaflets are structurally normal. There is trace mitral valve regurgitation. The pressure half time is 51 msec. The peak mitral E/A ratio is 1.73. The average mitral E/e' ratio is 7.5. The mitral flow deceleration time is 176 msec. TRICUSPID VALVE The tricuspid valve leaflets are structurally normal. There is trace tricuspid valve regurgitation. AORTIC VALVE The aortic valve cusps are structurally normal. There is no aortic valve regurgitation. Tricuspid aortic valve. The peak gradient is 13 mmHg (peak velocity = 178.6 cm/s). PULMONIC VALVE The pulmonic valve cusps are structurally normal. There is mild (1+) pulmonic valve regurgitation. AORTA The visualized aorta is normal in size. Measurements - Mid ascending aorta 2.6 cm. INTERATRIAL SEPTUM The interatrial septum is mobile. There is no evidence of intracardiac shunting as detected by Doppler. PERICARDIUM There is no pericardial effusion. CONCLUSIONS: - Exam indication: Palpitations - The left ventricle is mildly dilated. Left ventricular systolic function is normal. EF = 58 5% (2D biplane) Normal left ventricular diastolic function. - The right ventricle is normal in size. Right ventricular systolic function is normal. - The patient has not had a prior CC echocardiographic exam for comparison. * * * Final * * * [facility] [employer] : [id number]. [id number] Normal [facility] CNOVon 02-18-2025 CNOV Office Visit (CARD P) ZULEYKA NIELSEN ([id number]) 1995 F Date Time Provider Department 02/18/25 9:30 AM WARNER TAI During your visit today, we recorded the following information about you: Pulse Blood pressure 90/minute 111/64 Warner Tai MD 02/18/2025 10:18 AM Signed Heart, Vascular, [facility] Thor[facility] [place] Department of Cardiovascular Medicine SECTION OF PREVENTIVE CARDIOLOGY Zuleyka Nielsen 02/17/2025 CHIEF COMPLAINT: Patient presents with: CARD New Patient Consult: Heart rate goes up unexpectedly and feels like she can't catch breath. Palpitations Palpitations: Dizziness HISTORY OF PRESENT CARDIOVASCULAR ILLNESS: Zuleyka Nielsen is a 29 year old female with a PMH significant for family history of atherosclerotic cardiovascular disease and current (20 weeks). Presents for evaluation of palpitations and occasional light-headedness. Referred by Kalyani Dougherty MD. No issues with previous , delivered in 11/2022. For past appx 6 week she has noted heart rate higher (symptomatic and per her Apple Watch.) She has occasional light-headedness. Heart rate described as 130-140 bpm. Can last for 10-30 minutes. No overt syncope. Upon cardiovascular review of systems the patient denies chest pain, syncope, PND , orthopnea, intermittent claudication. CARDIAC RISK FACTORS: Not specified Family History of CAD: Positive (male<55, female<65) Father myocardial infarction in 40s (he was a smoker). 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 No current facility-administere d medications for this visit. ALLERGIES: ALLERGIES No Known Allergies FAMILY AND SOCIAL HISTORY: Lifestyle Tobacco use in the last year: No Alcohol Use: Not Currently PHYSICAL EXAMINATION: Vital Signs and General Appearance BP 111/64 (BP Site: Right Arm, BP Position: Sitting, BP Cuff Size: Regular Adult) Pulse 90 LMP 09/30/2024 Average Blood Pressure: No BP recorded. No weight on file for this encounter. Well developed, well nourished, alert, active 29 year old female in no apparent distress. Eyes: Normal, PERRLA Skin: Xanthomas - none Neck: Normal, supple with full range of motion Lungs: Clear to auscultation and percussion Lower Extremities: Normal exam of the extremities Neurological:Oriente d to person, place and time and No focal motor or sensory deficits Pulses: Carotid: Left: 2+, Right: 2+, Bruit: No Posterior Tibial:Right 2+, Posterior Tibial:Left 2+, Heart Sounds: S1: Normal S2: Normal S3: Absent S4: Absent Murmurs: Systolic Murmur Present: No Diastolic Murmur Present: No Xanthomas: No CLINICAL TESTING RESULTS: I have personally reviewed the following: Most recent ECG Tracing: (sinus with sinus arrhtymia and non-specific st abnormality), (performed on 02/18/25), which I independently visualized. Most Recent TTE: (none),(performed on none) Other recent cardiac testing: none LABS: No results found for: GLUC, BUN, CREAT, NA, K, CHLOR, CO2, TPROT, ALB, CA, ALKPHOS, TBILI, AST, ALT WBC (k/uL) Date Value 01/02/2025 9.17 RBC (m/uL) Date Value 01/02/2025 3.95 Hemoglobin (g/dL) Date Value 01/02/2025 11.9 Hematocrit (%) Date Value 01/09/2025 34.5 (L) MCV (fL) Date Value 01/02/2025 88.9 MCH (pg) Date Value 01/02/2025 30.1 MCHC (g/dL) Date Value 01/02/2025 33.9 RDW-CV (%) Date Value 01/02/2025 12.5 Platelet Count (k/uL) Date Value 01/09/2025 266 MPV (fL) Date Value 01/02/2025 9.5 INR (no units) Date Value 01/09/2025 1.0 No results found for: CHOL, HDL, LDL, TG PATIENT ENTERED QUESTIONNAIRE SCORES 02/17/2025 PHQ-9 PHQ-2 Score 0 02/17/2025 JOE - 2/7 SCORES JOE-2 Score 0 02/17/2025 PROMIS Global Health - (T-Scores - the mean of general population = 50. Five points is a clinically meaningful difference.) Physical T-Score 50.8 Mental T-Score 45.8 This consultation was requested by Kalyani Dougherty MD for an opinion regarding palpitations , and my final recommendations will be communicated back to the requesting physician and primary care provider by way of shared medical record or letter summarizing my evaluation. ASSESSMENT AND PLAN: In addition to the above history and physical exam, the results of prior labs and testing, were reviewed. The following plans and goals have been established to (more content not included)... Normal [facility] [id number] 02-18-2025 ECG01 Ventricular Rate : 89 BPM Atrial Rate : 89 BPM P-R Interval : 132 ms QRS Duration : 78 ms Q-T Interval : 340 ms QTC Calculation(Bazett) : 413 ms Calculated P Ravalli : 77 degrees Calculated R Ravalli : -10 degrees Calculated T Ravalli : 67 degrees NORMAL SINUS RHYTHM WITH SINUS ARRHYTHMIA NONSPECIFIC ST ABNORMALITY Confirmed by EDWIGE MOSER M.D. ([id number]) on 02/21/2025 10:35:20 AM NAME : ZULEYKA NIELSEN PID : [id number] : 1995 Gender : Female Race : ORD : Procedure Date : Feb 18 2025 08:54:25 Edit Date : Feb 21 2025 10:35:22 Diagnosis: NORMAL SINUS RHYTHM WITH SINUS ARRHYTHMIA NONSPECIFIC ST ABNORMALITY Confirmed by MTIZI MOSER M.D.OPAL ([id number]) on 02/21/2025 10:35:20 AM Test Reason : Location : 314 : J14 J14 Overread By : EDWIGE MOSER M.D. Edited By : EDWIGE MOSER M.D. Referred By : KALYANI DOUGHERTY Acquired by : DONALDO GOLDEN [facility] ZULEY[facility] NIELSEN ([id number]) 1995 F Date Time Provider Department 02/03/25 NOE JOSE During your visit today, we recorded the following information about you: Gianna Hidalgo 02/03/2025 1:59 PM Signed Patient was informed to follow up with Dr. Jose regarding 01/09 lab results, per Marina Dougherty. Please advise. Abdi Ford RN 02/03/2025 3:55 PM Signed Message was sent to Dr. Jose. Key Ford RN Allergies As of Date: 02/03/2025 (No Known Allergies) Date Reviewed: 01/30/2025 Reviewed by: Zuleyka Vargas MA - Fully Assessed Reason for Visit: Patient Question [0107] Prescriptions as of 02/04/2025 - ondansetron orally disintegrating (ZOFRAN ODT) 4 mg disintegrating tablet Take 1 tablet by mouth every 8 hours as needed. - 25/iron/folate 6/dha (PRENA1 ORAL) Take 1 tablet by mouth once daily. 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 No intervention needed now, but might be worth rechecking shortly after delivery, especially if there seems to be excessive post bleeding. Noe Jose MD February 03, 2025 Allergies As of Date: 02/03/2025 (No Known Allergies) Date Reviewed: 01/30/2025 Reviewed by: Zuleyka Vargas MA - Fully Assessed Prescriptions as of 02/03/2025 - ondansetron orally disintegrating (ZOFRAN ODT) 4 mg disintegrating tablet Take 1 tablet by mouth every 8 hours as needed. - 25/iron/folate 6/dha (PRENA1 ORAL) Take 1 tablet by mouth once daily. 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] Excessive bleeding [R58] 01/02/2025 Rh negative state in antepartum period [O26.899*01/03/2025 Encounter Status:Closed by NOE JOSE on 02/03/25 Normal [facility] T4 Free SerPl-mCncon 025 Free T4 [Mass/Vol] 0.9 ng/dL Normal 0.9-1.7 [facility] Comment on above: Order Comment: Speci men Type: BLOOD SPECIMENOrdering Facility: [facility] Address: [address] [place] [id number] Performed By: #### 3 024-7, 3016-3 ####[facility] LABIA [id number] [place] [address] [place] TSH SerPl-aCncon 01-30-2025 TSH Qn 1.710 m[IU]/L Normal 0.270-4.200 [facility] Comment on above: Order Comment: Godwin bella Type: BLOOD SPECIMENOrdering Facility: [facility] Address: [address] [place] [address] Result Comment: If t he patient is , TSH reference range varies by gestational period: First Trimester (weeks 9-12): 0.180-2.990 mIU/L Second Trimester: 0.110-3.980 mIU/L Third Trimester: 0.480-4.710 mIU/L García Porter et al. A Practical Approach for the Verifications and Determination of Site- and Trimester-Specific Reference Intervals for Thyroid Function tests in . Thyroid, 2019:29:3:412-420. Donald Peterson, et al. 2017 Guidelines of the [place] Thyroid Association for the Diagnosis and Management of Thyroid Disease during and the . Thyroid, 2017:27:3:315-389. Performed By: #### 3 024-7, 3016-3 ####[facility] LABIA [id number] [place] [id number] [place] Hematocrit Auto (Bld) [Volum e fraction]on 01-09-2025 Hematocrit (Bld) [Volume fraction] 34.5 % Low 36.0-46.0 [facility] Comment on above: Order Comment: Godwin bella Type: BLOOD SPECIMENOrdering Facility: [facility] Address: [address] [place] [address] Performed By: #### 4 544-3, 777-3 ####[facility] JAMILAH [facility] [id number] [place] [id number] [place] PLATELET FUNCTION SCREENon 0 01-09-2025 Platelet function (closure time) collagen+ADP induced (Bld) [Time] 78 CT (seconds) Normal <118 [facility] Comment on above: Order Comment: Godwin bella Type: BLOOD SPECIMENOrdering Facility: [facility] Address: [address] [place] [address] Performed By: #### P LTSCN ####[facility] LABIA [id number] [address] [place] Platelet function (closure time) collagen+EPINEPHrine induced (Bld) [Time] 111 CT (seconds) Normal <194 [facility] Comment on above: Order Comment: Godwin bella Type: BLOOD SPECIMENOrdering Facility: [facility] Address: [address] [place] [address] Performed By: #### P LTSCN ####[facility] LABIA [id number] [address] [place] PT panel Coag (PPP)on 2024 INR Coag (PPP) [Relative time] 1.0 {INR} Normal 0.9-1.3 [facility] Comment on above: Order Comment: Godwin jena Type: BLOOD SPECIMENOrdering Facility: [facility] Address: [address] [place] [address] Result Comment: Mery min K Antagonist (VKA) Therapeutic Range: INR 2 to 3 (Target INR of 2.5) Note: For patients treated with VKA drugs, such as warfarin, the [place] [employer] 2012 Guideline recommends a therapeutic INR range of 2 to 3 (target INR of 2.5). This recommendation includes high-risk patients with antiphospholipid syndrome with previous arterial or venous thromboembolism, current-generation mechanical or bioprosthetic aortic heart valve replacement. Note: Patients with mechanical aortic valve replacement and additional risk factors for thromboembolic events (atrial fibrillation, previous thromboembolism, LV dysfunction, hypercoagulable conditions) or an older generation mechanical AVR (i.e., ball in-Cage) or any mechanical MVR should have a INR therapeutic range of 2.5 to 3.5 (target INR of 3). Alejandra GH, et al. Chest 2012, 141:7S-47S Shy RA et al. JACC 2017, 70: 252-289 Performed By: #### 3 4528-0, 62189-0 ####[facility] ERNCLIA [id number] [place] [address] [place] PT Coag (PPP) [Time] 10.0 s Normal <13.1 [facility] Comment on above: Order Comment: Speci men Type: BLOOD SPECIMENOrdering Facility: [facility] Address: [address] [place] [address] Performed By: #### 3 4528-0, 71478-6 ####[facility] [id number] [place] [id number] [place] Platelets Auto (Bld) [#/Vol] on 01-09-2025 Platelets (Bld) [#/Vol] 266 10*3/uL Normal 150-400 [facility] Comment on above: Order Comment: Speci men Type: BLOOD SPECIMENOrdering Facility: [facility] Address: [address] [place] [address] Performed By: #### 4 544-3, 777-3 ####[facility] [id number] [address] [place] VON WILLEBRAND PNL (VWFPN)on 01-09-2025 Bound rFVIII/vWf Ag IA (P) [Relative ratio] 0.7 Normal >=0.5 [facility] Comment on above: Order Comment: Speci men Type: BLOOD SPECIMENOrdering Facility: [facility] Address: [address] [place] [address] Performed By: #### L [id number], [id number] ####[facility] LABCLIA [id number] [address] [place] Coagulation factor VIII activity actual/normal Coag (PPP) [Relative time] 138 % Normal 50-173 [facility] Comment on above: Order Comment: Speci men Type: BLOOD SPECIMENOrdering Facility: [facility] Address: [address] [place] [address] Performed By: #### L [id number], [id number] ####[facility] LABCLIA [id number] [place] [address] [place] GPIBM ACTIVITY >160 High 44-156 [facility] Comment on above: Order Comment: Speci men Type: BLOOD SPECIMENOrdering Facility: [facility] Address: [address] [place] [address] Result Comment: This test was developed, and its performance characteristics determined by the [facility] Department of Pathology and Laboratory Medicine. It has not been cleared or approved by the FDA. The [facility] Department of Pathology and Laboratory Medicine is regulated under CLIA as qualified to perform high-complexity testing. This test is used for clinical purposes. It should not be regarded as investigational or for research. Performed By: #### L [id number], [id number] ####[facility] LABCLIA [id number] [place] [address] [place] Platelet aggregation ristocetin induced Ql (PRP) Normal dose response Normal Normal dose response [facility] Comment on above: Order Comment: Speci men Type: BLOOD SPECIMENOrdering Facility: [facility] Address: [address] [place] [address] Performed By: #### L [id number], [id number] ####[facility] LABCLIA [id number] [place] [address] [place] vWf Ag actual/normal IA (PPP) [Relative mass conc] 191 % High 50-173 [facility] Comment on above: Order Comment: Speci men Type: BLOOD SPECIMENOrdering Facility: [facility] Address: [address] [place] [address] Performed By: #### L [id number], [id number] ####[facility] LABCLIA [id number] [place] [address] [place] vWf multimers Ql (PPP) Normal [facility] Comment on above: Order Comment: Speci men Type: BLOOD SPECIMENOrdering Facility: [facility] Address: [address] [place] [address] Result Comment: Assa y of von Willebrand multimers was performed by an agarose gel electrophoresis followed by immunofixation with anti-von Willebrand factor antiserum. There is a normal multimer distribution with high intensity of bands. Reviewed by Apryl Goddard DO, [facility] This test was developed, and its performance characteristics determined by the [facility] Department of Pathology and Laboratory Medicine. It has not been cleared or approved by the FDA. The [facility] Department of Pathology and Laboratory Medicine is regulated under CLIA as qualified to perform high-complexity testing. This test is used for clinical purposes. It should not be regarded as investigational or for research. Performed By: #### L [id number], [id number] ####[facility] LABCLIA [id number] [place] [address] [place] vWf ristocetin cofactor act/vWf Ag (PPP) [Ratio] Normal [facility] Comment on above: Order Comment: [facility] Type: BLOOD SPECIMENOrdering Facility: [facility] Address: [address] [place] [address] Result Comment: Not calculated Performed By: #### L [id number], [id number] ####[facility] LABCLIA [id number] [address] [place] vWf.collagen binding activity actual/normal IA (PPP) [Relative ratio] 178 % High 41-161 [facility] Comment on above: Order Comment: [facility] Type: BLOOD SPECIMENOrdering Facility: [facility] Address: [address] [place] [address] Result Comment: This test was developed, and its performance characteristics determined by the [facility] Department of Pathology and Laboratory Medicine. It has not been cleared or approved by the FDA. The [facility] Department of Pathology and Laboratory Medicine is regulated under CLIA as qualified to perform high-complexity testing. This test is used for clinical purposes. It should not be regarded as investigational or for research. Performed By: #### L [id number], [id number] ####[facility] LABCLIA [id number] [place] [address] [place] vWf.collagen binding activity/vWf Ag IA (PPP) [Ratio] 0.9 Normal >=0.6 [facility] Comment on above: Order Comment: Godwin bella Type: BLOOD SPECIMENOrdering Facility: [facility] Address: [address] [place] [address] Performed By: #### L [id number], [id number] ####[facility] [id number] [place] [address] [place] VWF PANEL (VWFPN) INTERPon 0 01-09-2025 Pathologist name Reviewed by Apryl Goddard DO, MPH Normal [facility] Comment on above: Order Comment: Godwin bella Type: BLOOD SPECIMENOrdering Facility: [facility] Address: [address] [place] [address] Performed By: #### L [id number], [id number] ####[facility] [id number] [address] [place] von Willebrand evaluation (PPP) [Interp] Normal [facility] Comment on above: Order Comment: Godwin bella Type: BLOOD SPECIMENOrdering Facility: [facility] Address: [address] [place] [address] Result Comment: Meagan jiang - see comment below. SIGNIFICANT FINDINGS: 1. Elevated levels of von Willebrand factor (VWF) antigen and VWF functional activity (GpIbM and collagen binding assay), in the setting of Laboratory testing was performed to evaluate the presence of von Willebrand Disease. Both the PT and APTT results are normal. PLATELET FUNCTION SCREEN: The closure times (platelet adhesion and aggregation) with both the COL/EPI cartridge and the COL/ADP cartridge are normal. A platelet disorder or von Willebrand disease are less likely. However, some patients with intrinsic platelet dysfunction, anti-platelet drug effect, or platelet storage pool disorders may have normal closure times with this test. A normal platelet function screening test result does not exclude abnormalities of the vasculature, coagulation system or fibrinolytic system as a cause of a bleeding disorder. VON WILLEBRAND TESTING: The von Willebrand factor (VWF) antigen and VWF functional activity (GpIbM and collagen binding assay) are elevated, with a normal level of factor VIII. The ristocetin induced platelet aggregation shows a normal dose response. The von Willebrand multimer assay was performed by agarose gel electrophoresis followed by immunofixation with anti-von Willebrand factor antiserum. There is a normal multimer distribution with high intensity of bands. SUMMARY: There is no definitive laboratory evidence for Von Willebrand Disease (VWD) at this time. There is increased VWF antigen and VWF activity. Increased VWF may be observed in a variety of acquired settings, including . The patient is currently 13 weeks . Increased VWF during may mask laboratory findings of von Willebrand disease. Consider repeat testing post- for further evaluation, if clinically indicated. Performed By: #### L [id number], [id number] ####[facility] LABCLIA [id number] [place] [address] [place] aPTT PPPon 01-09-2025 aPTT Coag (PPP) [Time] 25.5 s Normal 23.0-32.4 [facility] Comment on above: Order Comment: Speci men Type: BLOOD SPECIMENOrdering Facility: [facility] Address: [address] [place] [address] Performed By: #### 3 4528-0, 08257-4 ####[facility] [id number] [place] [address] [place] CNOVSPon 01-08-2025 CNOVSP Visit (SP) Office (NIECY) ZULEYKA NIELSEN ([id number]) 1995 F Date Time Provider Department 01/08/25 11:00 AM NOE JOSE During your visit today, we recorded the following information about you: Temperature Pulse Blood pressure Weight 98.4 degrees 95/minute 144/82 82.1 kg Height 1.626 m Noe Jose MD 01/08/2025 11:35 AM Signed HISTORY OF PRESENT ILLNESS: Zuleyka Nielsen is a 29 year old female 4 years ago wisdom teeth our 4 years. No unusual bleeding with that, also had addition tooth extractions 10 years ago also uneventful. Was on no meds. Had a c section with first , had hemorrhage with that, needed a blood transfusion. Had continued bleeding post , took a oral medicine which helped stop the bleeding. Periods had been heavy and irregular has been on OCP which helped. Mother also bled after first child, nut no issues with second delivery. She is currently 14 weeks . CLINICAL IMPRESSION: Episodes of hemorrhage in patients past history. Not clear she actually has a coagulopathy RECOMMENDATION/PLAN: 1. Will check vMD panel, though even if normal will not exclude as she is . 2. We can follow up after blood is drawn, ee if any interventions need to be planned. Written and verbal health teaching given to patient, patient verbalizes understanding and agrees with treatment plan. 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 PAST SURGICAL HISTORY Procedure Laterality Date DELIVERY ONLY 12/11/2022 TOOTH EXTRACTION 2019 had excessive bleeding with procedure FAMILY HISTORY Problem Relation Age of Onset No Known Problems Mother Heart Attack Father Diabetes Father No Known Problems Brother Diabetes Maternal Grandmother other (bone cancer) Paternal Grandfather Prostate Cancer Paternal Grandfather Social History Tobacco Use Smoking status: Never Smokeless tobacco: Never Vaping Use Vaping status: Never Used Substance Use Topics Alcohol use: Not Currently Drug use: Never ALLERGIES: ALLERGIES No Known Allergies CURRENT OUTPATIENT MEDICATIONS: ondansetron orally disintegrating (ZOFRAN ODT) 4 mg disintegrating tablet Take 1 tablet by mouth every 8 hours as needed. 25/iron/folate 6/dha (PRENA1 ORAL) Take 1 tablet by mouth once daily. REVIEW OF SYSTEMS: GENERAL: No fever, night sweats, weight loss or malaise. All other reviewed and negative other than HPI. PHYSICAL EXAMINATION: VITAL SIGNS: BP 144/82 Pulse 95 Temp (Src) 98.4 (Temporal) Ht 5' 4 (1.63m) Wt 181 lb (82.1kg) SpO2 100% LMP 09/30/2024 BMI 31.05 kg/(m2). GENERAL APPEARANCE: Well appearing, in no acute distress, alert and oriented x3, well-hydrated, well nourished. I spent a total of 45 minutes on the date of the service which included preparing to see the patient, [id number] patient care, completing clinical documentation, obtaining and/or reviewing separately obtained history, counseling and educating the patient/family/careg iver, ordering medications, tests, or procedures, independently interpreting results (not separately reported), and communicating results to the patient/family/careg iver. Electronically Signed: Noe Jose MD January 08, 2025 11:06 AM Referring Provider: KALYANI DOUGHERTY [[id number]] Allergies As of Date: 01/08/2025 (No Known Allergies) Date Reviewed: 01/08/2025 Reviewed by: Nita Mistry Ma, MA - Fully Assessed Reason for Visit: New Patient Evaluation [154] Visit Diagnoses:13 weeks gestation of [Z3A.13] Encounter for supervision of normal in multigravida [Z34.80] Excessive bleeding [R58] Order(s):CONSULT TO HEMATOLOGY [9014] Order #: [id number]: 1 VON [place] DX PANEL [SQVWFPN] Order #: [id number] FUTURE Follow-up and Disposition History for Encounter Date Provider Department Center 01/08/2025 [id number] JOSE [place] Prescriptions as of 01/08/2025 - ondansetron orally disintegrating (ZOFRAN ODT) 4 mg disintegrating tablet Take 1 tablet by mouth every 8 hours as needed. - 25/iron/folate 6/dha (PRENA1 ORAL) Take 1 tablet by mouth once daily. 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 Normal [facility] CBC W Auto Differential pane l (Bld)on 01-02-2025 Basophils (Bld) [#/Vol] 10*3/uL Normal <0.11 [facility] Comment on above: Order Comment: Speci men Type: BLOOD SPECIMENOrdering Facility: [facility] Address: [address] [place] [address] Performed By: #### 5 7021-8 ####[facility] MILLWNCLIA [id number] [place] [address] [place] Basophils/100 WBC (Bld) 0.2 % Normal [facility] Comment on above: Order Comment: Speci men Type: BLOOD SPECIMENOrdering Facility: [facility] Address: [address] [place] [address] Performed By: #### 5 7021-8 ####[facility] [id number] [place] [address] [place] Differential cell count method Nom (Bld) Auto Normal [facility] Comment on above: Order Comment: Speci men Type: BLOOD SPECIMENOrdering Facility: [facility] Address: [address] [place] [address] Performed By: #### 5 7021-8 ####[facility] MILLWNCLIA [id number] [place] [address] [place] Eosinophils (Bld) [#/Vol] 0.07 10*3/uL Normal <0.46 [facility] Comment on above: Order Comment: Speci men Type: BLOOD SPECIMENOrdering Facility: [facility] Address: [address] [place] [address] Performed By: #### 5 7021-8 ####[facility] MILLWNCLIA [id number] [place] [address] [place] Eosinophils/100 WBC (Bld) 0.8 % Normal [facility] Comment on above: Order Comment: Speci men Type: BLOOD SPECIMENOrdering Facility: [facility] Address: [address] [place] [address] Performed By: #### 5 7021-8 ####[facility] ERCHRISTIN [id number] [place] [address] [place] Erythrocyte distribution width (RBC) [Ratio] 12.5 % Normal 11.5-15.0 [facility] Comment on above: Order Comment: Speci men Type: BLOOD SPECIMENOrdering Facility: [facility] Address: [address] [place] [address] Performed By: #### 5 7021-8 ####[facility] ERNCKENDRICK [id number] [place] [address] [place] Hematocrit (Bld) [Volume fraction] 35.1 % Low 36.0-46.0 [facility] Comment on above: Order Comment: Speci men Type: BLOOD SPECIMENOrdering Facility: [facility] Address: [address] [place] [address] Performed By: #### 5 7021-8 ####[facility] ERNCPATRICE [id number] [place] [address] [place] Hemoglobin (Bld) [Mass/Vol] 11.9 g/dL Normal 11.5-15.5 [facility] Comment on above: Order Comment: Speci men Type: BLOOD SPECIMENOrdering Facility: [facility] Address: [address] [place] [address] Performed By: #### 5 7021-8 ####[facility] ERNCLIA [id number] [place] [address] [place] Immature granulocytes (Bld) [#/Vol] 0.05 10*3/uL Normal <0.10 [facility] Comment on above: Order Comment: Speci men Type: BLOOD SPECIMENOrdering Facility: [facility] Address: [address] [place] [address] Performed By: #### 5 7021-8 ####[facility] BERNAMaidaNCKENDRICK [id number] [place] [address] [place] Immature granulocytes/100 WBC (Bld) 0.5 % Normal [facility] Comment on above: Order Comment: Speci men Type: BLOOD SPECIMENOrdering Facility: [facility] Address: [address] [place] [address] Performed By: #### 5 7021-8 ####[facility] ERNCASH[facility] [id number] [place] [address] [place] Lymphocytes (Bld) [#/Vol] 2.86 10*3/uL Normal 1.00-4.00 [facility] Comment on above: Order Comment: Speci men Type: BLOOD SPECIMENOrdering Facility: [facility] Address: [address] [place] [address] Performed By: #### 5 7021-8 ####[facility] [id number] [place] [address] [place] Lymphocytes/100 WBC (Bld) 31.2 % Normal [facility] Comment on above: Order Comment: Speci men Type: BLOOD SPECIMENOrdering Facility: [facility] Address: [address] [place] [address] Performed By: #### 5 7021-8 ####[facility] [id number] [place] [address] [place] MCH (RBC) [Entitic mass] 30.1 pg Normal 26.0-34.0 [facility] Comment on above: Order Comment: Speci men Type: BLOOD SPECIMENOrdering Facility: [facility] Address: [address] [place] [address] Performed By: #### 5 7021-8 ####[facility] ERNCLIA [id number] [place] [address] [place] MCHC (RBC) [Mass/Vol] 33.9 g/dL Normal 30.5-36.0 [facility] Comment on above: Order Comment: Speci men Type: BLOOD SPECIMENOrdering Facility: [facility] Address: [address] [place] [address] Performed By: #### 5 7021-8 ####[facility] ERNCLIA [id number] [place] [address] [place] MCV (RBC) [Entitic vol] 88.9 fL Normal 80.0-100.0 [facility] Comment on above: Order Comment: Speci men Type: BLOOD SPECIMENOrdering Facility: [facility] Address: [address] [place] [address] Performed By: #### 5 7021-8 ####[facility] [id number] [place] [address] [place] Monocytes (Bld) [#/Vol] 0.75 10*3/uL Normal <0.87 [facility] Comment on above: Order Comment: Speci men Type: BLOOD SPECIMENOrdering Facility: [facility] Address: [address] [place] [address] Performed By: #### 5 7021-8 ####[facility] [id number] [address] [place] Monocytes/100 WBC (Bld) 8.2 % Normal [facility] Comment on above: Order Comment: Speci men Type: BLOOD SPECIMENOrdering Facility: [facility] Address: [address] [place] [address] Performed By: #### 5 7021-8 ####[facility] ERNCASH[facility] [id number] [place] [address] [place] Neutrophils (Bld) [#/Vol] 5.42 10*3/uL Normal 1.45-7.50 [facility] Comment on above: Order Comment: Speci men Type: BLOOD SPECIMENOrdering Facility: [facility] Address: [address] [place] [address] Performed By: #### 5 7021-8 ####[facility] [id number] [place] [address] [place] Neutrophils/100 WBC (Bld) 59.1 % Normal [facility] Comment on above: Order Comment: Speci men Type: BLOOD SPECIMENOrdering Facility: [facility] Address: [address] [place] [address] Performed By: #### 5 7021-8 ####[facility] ERNC[facility] [id number] [place] [address] [place] Nucleated RBC (Bld) [#/Vol] 10*3/uL Normal <0.01 [facility] Comment on above: Order Comment: Speci men Type: BLOOD SPECIMENOrdering Facility: [facility] Address: [address] [place] [address] Performed By: #### 5 7021-8 ####[facility] ERNCLI [id number] [place] [address] [place] Nucleated RBC/100 WBC (Bld) [Ratio] 0.0 /100 WBC Normal [facility] Comment on above: Order Comment: Speci men Type: BLOOD SPECIMENOrdering Facility: [facility] Address: [address] [place] [address] Performed By: #### 5 7021-8 ####[facility] ERNCLI [id number] [place] [address] [place] Platelet mean volume (Bld) [Entitic vol] 9.5 fL Normal 9.0-12.7 [facility] Comment on above: Order Comment: Speci men Type: BLOOD SPECIMENOrdering Facility: [facility] Address: [address] [place] [address] Performed By: #### 5 7021-8 ####[facility] MONAENCPATRICEA [id number] [place] [address] [place] Platelets (Bld) [#/Vol] 278 10*3/uL Normal 150-400 [facility] Comment on above: Order Comment: Speci men Type: BLOOD SPECIMENOrdering Facility: [facility] Address: [address] [place] [address] Performed By: #### 5 7021-8 ####[facility] BERNARED BOILING SPRINGSNCLIA [id number] [place] [address] [place] RBC (Bld) [#/Vol] 3.95 10*6/uL Normal 3.90-5.20 [facility] Comment on above: Order Comment: Speci men Type: BLOOD SPECIMENOrdering Facility: [facility] Address: [address] [place] [address] Performed By: #### 5 7021-8 ####[facility] ERNCLIA [id number] [place] [address] [place] WBC (Bld) [#/Vol] 9.17 10*3/uL Normal 3.70-11.00 [facility] Comment on above: Order Comment: Speci men Type: BLOOD SPECIMENOrdering Facility: [facility] Address: [address] [place] [address] Performed By: #### 5 7021-8 ####[facility] ERNCLIA [id number] [address] [place] Examination level ultrasound on 01-02-2025 Indication First trimester anatomic survey Maternal obesity, BMI >30 Impression REMOTE READ The patient is referred for a first trimester anatomy scan including nuchal translucency measurement as clinically indicated. - Single, live, intrauterine . - [place] rump length measurement is consistent with the established gestational age. - No malformations visualized on first trimester anatomic assessment. - The nuchal translucency measurement is 1.5 mm. - Not all structural malformations can be detected by ultrasound examination. Maternal Structures: Right Ovary: Size 37 mm x 15 mm x 23 mm Left Ovary: Size 36 mm x 29 mm x 13 mm Recommendations - A standard anatomic survey at 16 weeks can be offered and a detailed exam at 20 weeks is recommended for increased risk. Maternal Assessment Height 163 cm Height (ft) 5 ft Height (in) 4 in Physical Exam Initial weight (lb) 182 lb Initial BMI 31.24 kg/m Maternal assessment other: 3 Para 1 Method Transabdominal ultrasound examination Pratt . Number of fetuses: 1 Dating LMP on: 09/30/2024 GA by LMP 13 w + 3 d NAGI by LMP: 07/07/2025 GA by prior assessment 13 w + 3 d NAGI by prior assessment: 07/07/2025 Ultrasound examination on: 01/02/2025 GA by U/S based upon: CRL GA by U/S 13 w + 6 d NAGI by U/S: 07/04/2025 Assigned: based on stated NAGI, selected on 01/02/2025 Assigned GA 13 w + 3 d Assigned NAGI: 07/07/2025 General Evaluation Cardiac activity present Placenta: anterior Cord vessels: 3 vessel cord Amniotic fluid: normal amount Biometry Standard FHR 161 bpm CRL 77.9 mm 13w 6d 73% Hadlock NT 1.50 mm First Trimester Anatomy Calvarium: normal Falx cerebri: normal Choroid plexus: normal Profile: visualized Nasal bone: normal Retronasal triangle: normal Maxilla: normal Mandible: normal Nuchal translucency: Unremarkable Situs: normal Cardiac position: normal Cardiac axis: normal 4-chamber view: visualized 4-chamber view with color: normal 4-pkdfzo-mqfabgg view: normal Abdominal cord insertion: normal Stomach: normal Kidneys: normal Bladder: normal Color doppler of perivesical umbilical arteries: normal Vertebral alignment: normal Arms: normal Hands: normal Legs: normal Feet: normal Maternal Structures Uterus / Cervix Uterus: Visualized Uterus length 155 mm Uterus width 103 mm Uterus height 80 mm Uterus Vol 669.9 cm Ovaries / Tubes / Adnexa Rt ovary: Visualized Rt ovary D1 37 mm Rt ovary D2 15 mm Rt ovary D3 23 mm Rt ovary Vol 6.4 cm Lt ovary: Visualized Lt ovary D1 36 mm Lt ovary D2 29 mm Lt ovary D3 13 mm Lt ovary Vol 6.8 cm Performed By: Ena Brown RDMS, RVT Read By: Billie Gay M.D. MATERNAL MEDICINE [facility] Radiology Study observation (narrative) [facility] HBV surface Ag Ser Qlon 12-15 HBV surface Ag Ql (S) Negative Normal Negative [facility] Comment on above: Order Comment: Speci men Type: BLOOD SPECIMENOrdering Facility: [facility] Address: [address] [place] [address] Performed By: #### 5 195-3, 68786-2, 84505-6 ####[facility] LABCLIA [id number] [place] [address] [place] HCV Ab Ser Qlon 01-02-2025 HCV Ab Ql (S) Negative Normal Negative [facility] Comment on above: Order Comment: Speci men Type: BLOOD SPECIMENOrdering Facility: [facility] Address: [address] [place] [address] Result Comment: The result suggests no evidence of active infection with Hepatitis C virus. Should recent infection be suspected, repeat testing may be considered 4-6 weeks after this draw. Performed By: #### 1 6128-1 ####[facility] LABCLIA [id number] [place] [address] [place] HIV 1+2 Ab IA Qlon HIV 1 and 2 Ab IA.rapid Nom (S/P/Bld) Normal [facility] Comment on above: Order Comment: Speci men Type: BLOOD SPECIMENOrdering Facility: [facility] Address: [address] [place] [address] Result Comment: Test not indicated. Performed By: #### 5 195-3, 34074-6, 03414-6 ####[facility] LABCLIA [id number] [place] [address] [place] HIV 1+2 Ab+HIV1 p24 Ag IA Ql Non-Reactive Normal Nonreactive [facility] Comment on above: Order Comment: Speci men Type: BLOOD SPECIMENOrdering Facility: [facility] Address: [address] [place] [address] Performed By: #### 5 195-3, 33649-4, 99876-4 ####[facility] LABCLIA [id number] [place] [address] [place] HIV immunoassay testing algorithm interpretation (S/P/Bld) [Interp] Normal [facility] Comment on above: Order Comment: Speci men Type: BLOOD SPECIMENOrdering Facility: [facility] Address: [address] [place] [address] Result Comment: No e vidence of HIV-1 or HIV-2 infection. Should recent infection be suspected, repeat testing may be considered 2-3 weeks after this draw. [place] Rev. Code 3701.243(E): This information has been disclosed to you from confidential records protected from disclosure by state law. ???You shall make no further disclosure of this information without the specific, written, and informed release of the individual to whom it pertains or as otherwise permitted by state law. A general authorization for the release of medical or other information is not sufficient for the purpose of the release of HIV test results or diagnoses. Performed By: #### 5 195-3, 26864-7, 34757-3 ####[facility] LABCLIA [id number] [place] [address] [place] HbA1c (Bld)on 01-02-2025 Average glucose Estimated from glycated hemoglobin (Bld) [Mass/Vol] 94 mg/dL Normal [facility] Comment on above: Order Comment: Speci men Type: BLOOD SPECIMENOrdering Facility: [facility] Address: [address] [place] [address] Result Comment: eAG: (Estimated average glucose) is a calculated value from HgbA1c and is inbound customer service representative of the average blood glucose level in the last 2-3 month period. Performed By: #### 5 5454-3 ####[facility] LABCLIA [id number] [place] [address] [place] HbA1c (Bld) [Mass fraction] 4.9 % Normal 4.3-5.6 [facility] Comment on above: Order Comment: Godwin bella Type: BLOOD SPECIMENOrdering Facility: [facility] Address: [address] [place] [address] Result Comment: Amer [place] Diabetes Association guidelines indicate that patients with HgbA1c in the range 5.7-6.4% are at increased risk for development of diabetes, and intervention by lifestyle modification may be beneficial. HgbA1c greater or equal to 6.5% is considered diagnostic of diabetes. Performed By: #### 5 5454-3 ####[facility] LABCLIA [id number] [address] [place] RUBELLA IGG ANTIBODYon 01-02 RUBELLA IGG AB, QUAL Positive Normal Positive [facility] Comment on above: Order Comment: Godwin bella Type: BLOOD SPECIMENOrdering Facility: [facility] Address: [address] [place] [address] Result Comment: The result suggests recent or past exposure to Rubella virus or history of Rubella vaccination. Positive result may also be seen due to presence of passively-transferred antibodies. Please correlate with patient's history. Performed By: #### R UBIGG ####[facility] LABCLIA [id number] [place] [address] [place] Reagin and Treponema pallidu m IgG and IgM [Interp]on 01-02-2025 T. pallidum IgG+IgM IA Ql (S) Non-Reactive Normal Nonreactive [facility] Comment on above: Order Comment: Godwin bella Type: BLOOD SPECIMENOrdering Facility: [facility] Address: [address] [place] [address] Performed By: #### 5 195-3, 92869-6, 85150-1 ####[facility] LABCLIA [id number] [address] [place] Reagin+T pallidum IgG+IgM Se rPl-Impon 01-02-2025 Reagin and Treponema pallidum IgG and IgM [Interp] Cannot exclude recent Treponemal infection if specimen collected within 7-10 days after appearance of suspect lesions or 2-3 weeks after an exposure. Clinical correlation is required. Normal [facility] Comment on above: Order Comment: Speci men Type: BLOOD SPECIMENOrdering Facility: [facility] Address: [address] [place] [address] Performed By: #### 5 195-3, 01152-0, 75209-0 ####[facility] LABCLIA [id number] [place] [address] [place] TYPE + SCREEN PRENATALon ABO A Normal [facility] Comment on above: Order Comment: Speci men Type: BLOOD SPECIMENOrdering Facility: [facility] Address: [address] [place] [address] Performed By: #### T SPN ####[facility] BLOOD BANKCLIA [id number] [place] [address] [place] Rh Nom (Bld) Negative Normal [facility] Comment on above: Order Comment: Speci men Type: BLOOD SPECIMENOrdering Facility: [facility] Address: [address] [place] [address] Performed By: #### T SPN ####[facility] BLOOD BANKIA [id number] [place] [address] [place] TYPE AND SCREEN EXPIRATION 01/05/2025 23:59 Normal [facility] Comment on above: Order Comment: Speci men Type: BLOOD SPECIMENOrdering Facility: [facility] Address: [address] [place] [address] Performed By: #### T SPN ####[facility] BLOOD BANKCLIA [id number] [place] [address] [place] Bacteria Ur Culton Bacteria identified Cx Nom (U) ORGANISM ID: 1 10,000 -<50,000 CFU/ml Normal urogenital omntserrat Normal [facility] Comment on above: Performed By: #### 6 30-4 ####[facility] LABCLIA [id number] [place] [address] [place] C. trachomatis+N. gonorrhoea e DNA ALVARO+probe Ql (Unsp spec)on 12-05-2024 C. trachomatis rRNA ALVARO+probe Ql (Unsp spec) Not detected Normal Not detected [facility] Comment on above: Order Comment: Speci men Type: SWABOrdering Facility: [facility] Address: [address] [place] [address] Performed By: #### 3 6902-5 ####[facility] LABCLIA [id number] [place] [address] [place] N. gonorrhoeae rRNA ALVARO+probe Ql (Unsp spec) Not detected Normal Not detected [facility] Comment on above: Order Comment: Speci men Type: SWABOrdering Facility: [facility] Address: [address] [place] [address] Performed By: #### 3 6902-5 ####[facility] LABCLIA [id number] [place] [address] [place] PAP TESTon 12-05-2024 ADEQUACY Satisfactory for interpretation. Normal [facility] Comment on above: Order Comment: Speci men Type: FLUID SPECIMENOrdering Facility: [facility] Address: [address] [place] [address] Performed By: #### L [id number] ####[facility]ATORYCLIA [id number] [place] [address] [place] [facility] LABCLIA [id number] [place] [address] [place] CASE REPORT Normal [facility] Comment on above: Order Comment: Speci men Type: FLUID SPECIMENOrdering Facility: [facility] Address: [address], [place] [address] Result Comment: Gyne cologic Cytology Report Case: [id number] Authorizing Provider: Danielle Kathleen APRN.FIELD LABORER Collected: 12/05/2024 09:06 AM Ordering Location: OB/Gynecology Received: 12/05/2024 01:51 PM First Screen: [place], [place], ASCP Specimen: Pap Test, ThinPrep, Cervix Performed By: #### L [id number] ####[facility]ORATORYCLIA [id number] [address] LABCLIA [id number] [place] [address] [place] CLINICAL HISTORY, CYTOLOGY, SHEET MILL SUPERVISOR Routine Exam Normal [facility] Comment on above: Order Comment: Speci men Type: FLUID SPECIMENOrdering Facility: [facility] Address: [address] [place] [address] Performed By: #### L [id number] ####[facility] LABORATORYCLIA [id number] [address] LABCLIA [id number] [address] [place] FINAL PERFORMING LAB Normal [facility] Comment on above: Order Comment: Speci men Type: FLUID SPECIMENOrdering Facility: [facility] Address: [address] [place] [address] Result Comment: Tech nical component, dairy associate screening performed at [facility], [address] [facility], [place] [id number] CLIA# [id number] Diagnostic interpretation performed at [facility], [address] [place] [id number] CLIA# [id number] Phonograph Mechanic: Nithya Arellano M.D. Performed By: #### L [id number] ####[facility] LABORATORYCLIA [id number] [address] LABCLIA [id number] [place] [address] [place] INTERPRETATION, CYTOLOGY, SHEET MILL SUPERVISOR Normal [facility] Comment on above: Order Comment: Speci men Type: FLUID SPECIMENOrdering Facility: [facility] Address: [address] [place] [address] Result Comment: Nega tive for intraepithelial lesion or malignancy. Performed By: #### L [id number] ####[facility]ORATORYCLIA [id number] [address] LABCLIA [id number] [place] [address] [place] LMP 09/30/2024 Normal [facility] Comment on above: Order Comment: Speci men Type: FLUID SPECIMENOrdering Facility: [facility] Address: [address] [place] [address] Performed By: #### L [id number] ####[facility]ORATORYCLIA [id number] [address] LABCLIA [id number] [place] [address] [place] PAP DISCLAIMER COMMENT The Pap Smear is a screening test for cervical cancer. False negative results occur with all screening tests, emphasizing the need for rescreening at recommended intervals, and clinical correlation. Normal [facility] Comment on above: Order Comment: Speci men Type: FLUID SPECIMENOrdering Facility: [facility] Address: [address] [place] [address] Performed By: #### L [id number] ####[facility]ORATORYCLIA [id number] [address] LABCLIA [id number] [place] [address] [place] PAP TRIGONOMETRY TEACHER COMMENT This specimen has been analyzed by the ThinPrep Imaging System, an automated imaging and review system, which assists the laboratory in evaluating cells on ThinPrep Pap tests. Following automated imaging, selected chance from every slide are reviewed by a dairy associate. Normal [facility] Comment on above: Order Comment: Speci men Type: FLUID SPECIMENOrdering Facility: [facility] Address: [address] [place] [address] Performed By: #### L [id number] ####[facility]ORATORYCLIA [id number] [place] [id number] [facility] LABCLIA [id number] [address] POC GOLF COURSE MECHANIC ULTRASOUNDon 12-05-19 Indication Confirmation of intrauterine . Confirmation of cardiac activity. Estimation of gestational age Impression cardiac activity is visualized, CRL is appropriate for clinical dates, corresponding to NAGI 07/07/25 Recommendations Additional follow-up as clinically indicated. Method Transvaginal ultrasound examination. View: Adequate visualization Pratt . Number of embryos: 1 Dating LMP on: 09/30/2024 GA by LMP 9 w + 3 d NAGI by LMP: 07/07/2025 Ultrasound examination on: 12/05/2024 GA by U/S based upon: CRL GA by U/S 9 w + 3 d NAGI by U/S: 07/07/2025 Assigned: based on the LMP, selected on 12/05/2024 Assigned GA 9 w + 3 d Assigned NAGI: 07/07/2025 Biometry Standard FHR 151 bpm CRL 26.8 mm 9w 3d 52% Hadlock Assessment Gestational sac: visualized Location: intrauterine Yolk sac: visualized Embryo: visualized CRL 26.8 mm 9w 3d 52% Hadlock Cardiac activity: present FHR 151 bpm General Evaluation Cardiac activity present. FHR 151 bpm. movements: present Performed By: Danielle Kathleen CNP Read By: Danielle Kathleen CNP MATERNAL MEDICINE [facility] Radiology Study observation (narrative) [facility] [employer] Cytology Reporton 2022 [employer]ster Cytology Report . Pathology Reports Accession: Collected Date/Time: Received Date/Time: Pathologist: [id number] 05/25/2023 09:05 EDT 05/25/2023 18:00 EDT Fire [employer]ster Cytology Report SPECIMEN: Specimen Description: Liquid Prep Reflex ASCUS+ Specimen: Cervical/Endocervica l Screening or Diagnostic: Screening RELEVANT HISTORY: LMP: 04/2023 SPECIMEN ADEQUACY: SATISFACTORY FOR EVALUATION Endocervical/Transfo rmational zone component absent/insufficient INTERPRETATION/RESUL TS: NEGATIVE FOR INTRAEPITHELIAL LESION OR MALIGNANCY COMMENT: Shift in montserrat consistent with bacterial vaginosis Electronically Signed by Pathology report verified by [facility] Screened by: LDIsidor Electronically signed by Richard Pate Sign-Out Date: 06/02/2023 15:23 Performing Lab: [facility], [address] [place] [address] Pathology Dept Disclaimer The Pap test is a screening test for cervical cancer. As evidenced by published data, it is subject to both inherent false negative and false positive results. Your patient's results should be interpreted in context with pertinent clinical history including gynecological examination. Normal [facility] ([place]) .Auto Diffon 12-28-2022 Basophil, Absolute 0.1 10 3/mcL Normal 0.0-0.2 [facility] ([place]) Comment on above: Performed By: #### A OREN WEISSIFF, CBC #### [address] [address] Basophils/100 WBC (Bld) 0.6 % Normal 0.0-2.5 [facility] ([place] Comment on above: Performed By: #### A OREN WEISSIFF, CBC #### [address] [address] Eosinophil, Absolute 0.1 10 3/mcL Normal 0.0-0.4 [facility] ([place]) Comment on above: Performed By: #### A ISELAORENIFF, CBC #### [address] [address] Eosinophils/100 WBC (Bld) 1.2 % Normal 0.0-7.0 [facility] ([place] Comment on above: Performed By: #### A ISELAORENIFF, CBC #### [address] [address] Lymphocyte, Absolute 1.7 10 3/mcL Normal 0.8-3.9 [facility] ([place]) Comment on above: Performed By: #### A ISELAMARTIR, CBC #### [address] [address] Lymphocytes/100 WBC (Bld) 14.8 % Normal 10.0-50.0 [facility] ([place]) Comment on above: Performed By: #### A OREN WEISSIFF, CBC #### [address] [address] Monocyte, Absolute 0.9 10 3/mcL Normal 0.2-1.0 [facility] ([place]) Comment on above: Performed By: #### A ISELAMARTIR, CBC #### [address] [address] Monocytes/100 WBC (Bld) 7.3 % Normal 1.7-13.0 [facility] ([place]) Comment on above: Performed By: #### A MARTIR WEISS, CBC #### [address] [address] Neutrophils/100 WBC (Bld) 76.1 % Normal 37.0-80.0 [facility] ([place]) Comment on above: Performed By: #### A MARTIR WEISS, CBC #### [address] [address] .NEUABSon 12-28-2022 Neutrophil, Absolute 9.0 10 3/mcL High 2.9-6.2 [facility] ([place]) Comment on above: Performed By: #### A MARTIR WEISS, CBC #### [address] [address] CBCon 12-28-2022 Erythrocyte distribution width (RBC) [Ratio] 14.7 % High 11.5-14.5 [facility] ([place]) Comment on above: Performed By: #### A MARTIR WEISS, CBC #### [address] [address] Hematocrit (Bld) [Volume fraction] 34.1 % Low 37.0-47.0 [facility] ([place]) Comment on above: Performed By: #### A ISELA ADKULWINDER, CBC #### [address] [address] Hgb 11.2 G/dL Low 12.0-16.0 [facility] ([place] Comment on above: Performed By: #### A MARTIR WEISS, CBC #### [address] [address] MCH (RBC) [Entitic mass] 29.7 pg Normal 27.0-31.2 [facility] ([place] Comment on above: Performed By: #### A MARTIR WEISS, CBC #### [address] [address] MCHC 33.0 G/dL Normal 33.0-37.0 [facility] ([place] Comment on above: Performed By: #### A MARTIR WEISS, CBC #### [address] [address] MCV (RBC) [Entitic vol] 90.1 fL Normal 80.0-94.0 [facility] ([place] Comment on above: Performed By: #### A MARTIR WEISS, CBC #### [address] [address] Platelet 563 10 3/mcL High 130-400 [facility] ([place] Comment on above: Performed By: #### A MARTIR WEISS, CBC #### [address] [address] Platelet mean volume (Bld) [Entitic vol] 8.1 fL Normal 7.4-10.4 [facility] ([place] Comment on above: Performed By: #### A MARTIR WEISS, CBC #### [address] [address] RBC 3.78 10 6/mcL Low 4.20-5.40 [facility] ([place] Comment on above: Performed By: #### A MARTIR WEISS, CBC #### [address] [address] WBC 11.8 10 3/mcL High 4.6-10.8 [facility] ([place] Comment on above: Performed By: #### A MARTIR WEISS, CBC #### [place] [id number] [place] [address] LABORATORYOrdered By: Austen Toth on 12-28-2022 Basophil, Absolute 0.1 103/mcL Invalid Interpretation Code 0.0 - 0.2 10^3/mcL AO Workflow SS Basophils/100 WBC (Bld) 0.6 % Invalid Interpretation Code 0.0 - 2.5 % AO Workflow SS Eosinophil, Absolute 0.1 103/mcL Invalid Interpretation Code 0.0 - 0.4 10^3/mcL AO Workflow SS Eosinophils/100 WBC (Bld) 1.2 % Invalid Interpretation Code 0.0 - 7.0 % AO Workflow SS Erythrocyte distribution width (RBC) [Ratio] 14.7 % Invalid Interpretation Code 11.5 - 14.5 % AO Workflow SS Hematocrit (Bld) [Volume fraction] 34.1 % Invalid Interpretation Code 37.0 - 47.0 % AO Workflow SS Hemoglobin (Bld) [Mass/Vol] 11.2 G/dL Invalid Interpretation Code 12.0 - 16.0 G/dL AO Workflow SS Lymphocyte, Absolute 1.7 103/mcL Invalid Interpretation Code 0.8 - 3.9 10^3/mcL AO Workflow SS Lymphocytes/100 WBC (Bld) 14.8 % Invalid Interpretation Code 10.0 - 50.0 % AO Workflow SS MCH (RBC) [Entitic mass] 29.7 pg Invalid Interpretation Code 27.0 - 31.2 pg AO Workflow SS MCHC 33.0 G/dL Invalid Interpretation Code 33.0 - 37.0 G/dL AO Workflow SS MCV (RBC) [Entitic vol] 90.1 fL Invalid Interpretation Code 80.0 - 94.0 fL AO Workflow SS Monocyte, Absolute 0.9 103/mcL Invalid Interpretation Code 0.2 - 1.0 10^3/mcL AO Workflow SS Monocytes/100 WBC (Bld) 7.3 % Invalid Interpretation Code 1.7 - 13.0 % AO Workflow SS Neutrophil, Absolute 9.0 103/mcL Invalid Interpretation Code 2.9 - 6.2 10^3/mcL AO Workflow SS Neutrophils/100 WBC (Bld) 76.1 % Invalid Interpretation Code 37.0 - 80.0 % AO Workflow SS Platelet mean volume (Bld) [Entitic vol] 8.1 fL Invalid Interpretation Code 7.4 - 10.4 fL AO Workflow SS Platelets (Bld) [#/Vol] 563 103/mcL Invalid Interpretation Code 130 - 400 10^3/mcL AO Workflow SS RBC (Bld) [#/Vol] 3.78 106/mcL Invalid Interpretation Code 4.20 - 5.40 10^6/mcL AO Workflow SS WBC (Bld) [#/Vol] 11.8 103/mcL Invalid Interpretation Code 4.6 - 10.8 10^3/mcL AO Workflow SS HHon 12-13-2022 Hematocrit (Bld) [Volume fraction] 21.0 % Low 37.0-47.0 [facility] ([place] Comment on above: Performed By: #### A MARTIR WEISS, CBC #### [address] [address] Hgb 7.5 G/dL Low 12.0-16.0 [facility] ([place] Comment on above: Performed By: #### A MARTIR WEISS, CBC #### [address] [address] LABORATORYOrdered By: Angelica Doe on 12-13-2022 Hematocrit (Bld) [Volume fraction] 21.0 % Invalid Interpretation Code 37.0 - 47.0 % AO Workflow SS Hemoglobin (Bld) [Mass/Vol] 7.5 G/dL Invalid Interpretation Code 12.0 - 16.0 G/dL AO Workflow SS .Auto Diffon 12-12-2022 Basophil, Absolute 0.0 10 3/mcL Normal 0.0-0.2 [facility] ([place] Comment on above: Performed By: #### A DIFF, CBC, ANEU #### [address] [address] Basophils/100 WBC (Bld) 0.2 % Normal 0.0-2.5 [facility] ([place] Comment on above: Performed By: #### A DIFF, CBC, ANEU #### [address] [address] Eosinophil, Absolute 0.0 10 3/mcL Normal 0.0-0.4 [facility] ([place]) Comment on above: Performed By: #### A DIFF, CBC, ANEU #### [address] [address] Eosinophils/100 WBC (Bld) 0.0 % Normal 0.0-7.0 [facility] ([place] Comment on above: Performed By: #### A DIFF, CBC, ANEU #### [address] [address] Lymphocyte, Absolute 1.1 10 3/mcL Normal 0.8-3.9 [facility] ([place] Comment on above: Performed By: #### A DIFF, CBC, ANEU #### [address] [address] Lymphocytes/100 WBC (Bld) 7.2 % Low 10.0-50.0 [facility] ([place] Comment on above: Performed By: #### A DIFF, CBC, ANEU #### [address] [address] Monocyte, Absolute 1.2 10 3/mcL High 0.2-1.0 [facility] ([place] Comment on above: Performed By: #### A DIFF, CBC, ANEU #### [address] [address] Monocytes/100 WBC (Bld) 8.0 % Normal 1.7-13.0 [facility] ([place] Comment on above: Performed By: #### A DIFF, CBC, ANEU #### [address] [address] Neutrophils/100 WBC (Bld) 84.6 % High 37.0-80.0 [facility] ([place] Comment on above: Performed By: #### A DIFF, CBC, ANEU #### [address] [address] .NEUABSon 12-12-2022 Neutrophil, Absolute 12.4 10 3/mcL High 2.9-6.2 [facility] ([place] Comment on above: Performed By: #### A ISELA, ADIFF, CBC #### [address] [address] CBCon 12-12-2022 Erythrocyte distribution width (RBC) [Ratio] 14.1 % Normal 11.5-14.5 [facility] ([place] Comment on above: Performed By: #### A DIFF, CBC, ANEU #### [address] [address] Hematocrit (Bld) [Volume fraction] 22.6 % Low 37.0-47.0 [facility] ([place] Comment on above: Performed By: #### A DIFF, CBC, ANEU #### [address] [address] Hgb 7.9 G/dL Low 12.0-16.0 [facility] ([place] Comment on above: Performed By: #### A DIFF, CBC, ANEU #### [address] [address] MCH (RBC) [Entitic mass] 31.4 pg High 27.0-31.2 [facility] ([place] Comment on above: Performed By: #### A DIFF, CBC, ANEU #### [address] [address] MCHC 34.8 G/dL Normal 33.0-37.0 [facility] ([place] Comment on above: Performed By: #### A DIFF, CBC, ANEU #### [address] [address] MCV (RBC) [Entitic vol] 90.0 fL Normal 80.0-94.0 [facility] ([place] Comment on above: Performed By: #### A DIFF, CBC, ANEU #### [address] [address] Platelet 159 10 3/mcL Normal 130-400 [facility] ([place] Comment on above: Performed By: #### A DIFF, CBC, ANEU #### [address] [address] Platelet mean volume (Bld) [Entitic vol] 9.8 fL Normal 7.4-10.4 [facility] ([place] Comment on above: Performed By: #### A DIFF, CBC, ANEU #### [address] [address] RBC 2.51 10 6/mcL Low 4.20-5.40 [facility] ([place] Comment on above: Performed By: #### A DIFF, CBC, ANEU #### [address] [address] WBC 14.7 10 3/mcL High 4.6-10.8 [facility] ([place] Comment on above: Performed By: #### A DIFF, CBC, ANEU #### [place] [address] HHon 12-12-2022 Hematocrit (Bld) [Volume fraction] 19.6 % Low 37.0-47.0 [facility] ([place] Comment on above: Performed By: #### A ISELA, ADIFF, CBC #### [place] [address] Hgb 6.8 G/dL Critically abnormal 12.0-16.0 [facility] ([place] Comment on above: Performed By: #### A ISELA, ADIFF, CBC #### [place] [address] LABORATORYOrdered By: Chantel Maldonado on 12-12-2022 Hematocrit (Bld) [Volume fraction] 19.6 % Invalid Interpretation Code 37.0 - 47.0 % AO Workflow SS Hemoglobin (Bld) [Mass/Vol] 6.8 G/dL Invalid Interpretation Code 12.0 - 16.0 G/dL AO Workflow SS LABORATORYOrdered By: Ariana Burden on 12-12-2022 RBC Product Ready RBC Ready for Pickup (12/12/22 6:58 AM) Invalid Interpretation Code AO BB SS Basophil, Absolute 0.0 103/mcL Invalid Interpretation Code 0.0 - 0.2 10^3/mcL AO Workflow SS Basophils/100 WBC (Bld) 0.2 % Invalid Interpretation Code 0.0 - 2.5 % AO Workflow SS Eosinophil, Absolute 0.0 103/mcL Invalid Interpretation Code 0.0 - 0.4 10^3/mcL AO Workflow SS Eosinophils/100 WBC (Bld) 0.0 % Invalid Interpretation Code 0.0 - 7.0 % AO Workflow SS Erythrocyte distribution width (RBC) [Ratio] 14.1 % Invalid Interpretation Code 11.5 - 14.5 % AO Workflow SS Hematocrit (Bld) [Volume fraction] 22.6 % Invalid Interpretation Code 37.0 - 47.0 % AO Workflow SS Hemoglobin (Bld) [Mass/Vol] 7.9 G/dL Invalid Interpretation Code 12.0 - 16.0 G/dL AO Workflow SS Lymphocyte, Absolute 1.1 103/mcL Invalid Interpretation Code 0.8 - 3.9 10^3/mcL AO Workflow SS Lymphocytes/100 WBC (Bld) 7.2 % Invalid Interpretation Code 10.0 - 50.0 % AO Workflow SS MCH (RBC) [Entitic mass] 31.4 pg Invalid Interpretation Code 27.0 - 31.2 pg AO Workflow SS MCHC 34.8 G/dL Invalid Interpretation Code 33.0 - 37.0 G/dL AO Workflow SS MCV (RBC) [Entitic vol] 90.0 fL Invalid Interpretation Code 80.0 - 94.0 fL AO Workflow SS Monocyte, Absolute 1.2 103/mcL Invalid Interpretation Code 0.2 - 1.0 10^3/mcL AO Workflow SS Monocytes/100 WBC (Bld) 8.0 % Invalid Interpretation Code 1.7 - 13.0 % AO Workflow SS Neutrophil, Absolute 12.4 103/mcL Invalid Interpretation Code 2.9 - 6.2 10^3/mcL AO Workflow SS Neutrophils/100 WBC (Bld) 84.6 % Invalid Interpretation Code 37.0 - 80.0 % AO Workflow SS Platelet mean volume (Bld) [Entitic vol] 9.8 fL Invalid Interpretation Code 7.4 - 10.4 fL AO Workflow SS Platelets (Bld) [#/Vol] 159 103/mcL Invalid Interpretation Code 130 - 400 10^3/mcL AO Workflow SS RBC (Bld) [#/Vol] 2.51 106/mcL Invalid Interpretation Code 4.20 - 5.40 10^6/mcL AO Workflow SS WBC (Bld) [#/Vol] 14.7 103/mcL Invalid Interpretation Code 4.6 - 10.8 10^3/mcL AO Workflow SS RBC (Product)on 12-12-2022 RBC Product Ready RBC Ready for Pickup Normal [facility] ([place]) Comment on above: Performed By: #### A MARTIR WEISS, CBC #### [address] [address] RPRon 12-12-2022 Reagin Ab RPR Ql (S) Non-Reactive Normal Non-Reactive [facility] ([place]) Comment on above: Result Comment: The RPR test is a non-treponemal assay useful as an aid in the diagnosis of primary and secondary syphilis. It converts to positive generally within 2 weeks after the appearance of a lesion. This test is also useful for monitoring response to antibiotic therapy. A positive RPR screening test will be followed by the FTA ABS test. False positive RPR tests may occur in 1) patients with underlying autoimmune disorders, 2) elderly patients, 3) , and 4) other conditions with abnormal serum globulins. Performed By: #### A MARTIR WEISS, CBC #### [address] [address] .Auto Diffon 12-11-2022 Basophil, Absolute 0.1 10 3/mcL Normal 0.0-0.2 [facility] ([place] Comment on above: Performed By: #### A MARTIR WEISS, CBC #### [address] [address] Basophils/100 WBC (Bld) 0.6 % Normal 0.0-2.5 [facility] ([place] Comment on above: Performed By: #### A MARTIR WEISS, CBC #### [address] [address] Eosinophil, Absolute 0.0 10 3/mcL Normal 0.0-0.4 [facility] ([place]) Comment on above: Performed By: #### A MARTIR WEISS, CBC #### [address] [address] Eosinophils/100 WBC (Bld) 0.4 % Normal 0.0-7.0 [facility] ([place] Comment on above: Performed By: #### A MARTIR WEISS, CBC #### [address] [address] Lymphocyte, Absolute 1.5 10 3/mcL Normal 0.8-3.9 [facility] ([place]) Comment on above: Performed By: #### A MARTIR WEISS, CBC #### [address] [address] Lymphocytes/100 WBC (Bld) 13.9 % Normal 10.0-50.0 [facility] ([place] Comment on above: Performed By: #### A MARTIR WEISS, CBC #### [address] [address] Monocyte, Absolute 0.8 10 3/mcL Normal 0.2-1.0 [facility] ([place] Comment on above: Performed By: #### A MARTIR WEISS, CBC #### [address] [address] Monocytes/100 WBC (Bld) 7.7 % Normal 1.7-13.0 [facility] ([place] Comment on above: Performed By: #### A MARTIR WEISS, CBC #### [address] [address] Neutrophils/100 WBC (Bld) 77.4 % Normal 37.0-80.0 [facility] ([place] Comment on above: Performed By: #### A MARTIR WEISS, CBC #### [address] [address] .NEUABSon 12-11-2022 Neutrophil, Absolute 8.5 10 3/mcL High 2.9-6.2 [facility] ([place]) Comment on above: Performed By: #### A MARTIR WEISS, CBC #### [address] [address] CBCon 12-11-2022 Erythrocyte distribution width (RBC) [Ratio] 14.6 % High 11.5-14.5 [facility] ([place] Comment on above: Performed By: #### A MARTIR WEISS, CBC #### [address] [address] Hematocrit (Bld) [Volume fraction] 30.3 % Low 37.0-47.0 [facility] ([place] Comment on above: Performed By: #### A MARTIR WEISS, CBC #### [address] [address] Hgb 10.4 G/dL Low 12.0-16.0 [facility] ([place] Comment on above: Performed By: #### A MARTIR WEISS, CBC #### [address] [address] MCH (RBC) [Entitic mass] 31.3 pg High 27.0-31.2 [facility] ([place] Comment on above: Performed By: #### A MARTIR WEISS, CBC #### [address] [address] MCHC 34.4 G/dL Normal 33.0-37.0 [facility] ([place] Comment on above: Performed By: #### A MARTIR WEISS, CBC #### [address] [address] MCV (RBC) [Entitic vol] 90.9 fL Normal 80.0-94.0 [facility] ([place] Comment on above: Performed By: #### A MARTIR WEISS, CBC #### [address] [address] Platelet 192 10 3/mcL Normal 130-400 [facility] ([place] Comment on above: Performed By: #### A MARTIR WEISS, CBC #### [address] [address] Platelet mean volume (Bld) [Entitic vol] 9.9 fL Normal 7.4-10.4 [facility] ([place] Comment on above: Performed By: #### A MARTIR WEISS, CBC #### [address] [address] RBC 3.33 10 6/mcL Low 4.20-5.40 [facility] ([place] Comment on above: Performed By: #### A MARTIR WEISS, CBC #### [address] [address] WBC 11.0 10 3/mcL High 4.6-10.8 [facility] ([place] Comment on above: Performed By: #### A ISELA, ADIFF, CBC #### [place] [id number] [place], [place] [address] LABORATORYOrdered By: Светлана Marroquin on 12-11-2022 Basophil, Absolute 0.1 103/mcL Invalid Interpretation Code 0.0 - 0.2 10^3/mcL AO Workflow SS Basophils/100 WBC (Bld) 0.6 % Invalid Interpretation Code 0.0 - 2.5 % AO Workflow SS Eosinophil, Absolute 0.0 103/mcL Invalid Interpretation Code 0.0 - 0.4 10^3/mcL AO Workflow SS Eosinophils/100 WBC (Bld) 0.4 % Invalid Interpretation Code 0.0 - 7.0 % AO Workflow SS Erythrocyte distribution width (RBC) [Ratio] 14.6 % Invalid Interpretation Code 11.5 - 14.5 % AO Workflow SS Lymphocyte, Absolute 1.5 103/mcL Invalid Interpretation Code 0.8 - 3.9 10^3/mcL AO Workflow SS Lymphocytes/100 WBC (Bld) 13.9 % Invalid Interpretation Code 10.0 - 50.0 % AO Workflow SS MCH (RBC) [Entitic mass] 31.3 pg Invalid Interpretation Code 27.0 - 31.2 pg AO Workflow SS MCHC 34.4 G/dL Invalid Interpretation Code 33.0 - 37.0 G/dL AO Workflow SS MCV (RBC) [Entitic vol] 90.9 fL Invalid Interpretation Code 80.0 - 94.0 fL AO Workflow SS Monocyte, Absolute 0.8 103/mcL Invalid Interpretation Code 0.2 - 1.0 10^3/mcL AO Workflow SS Monocytes/100 WBC (Bld) 7.7 % Invalid Interpretation Code 1.7 - 13.0 % AO Workflow SS Neutrophil, Absolute 8.5 103/mcL Invalid Interpretation Code 2.9 - 6.2 10^3/mcL AO Workflow SS Neutrophils/100 WBC (Bld) 77.4 % Invalid Interpretation Code 37.0 - 80.0 % AO Workflow SS Platelet mean volume (Bld) [Entitic vol] 9.9 fL Invalid Interpretation Code 7.4 - 10.4 fL AO Workflow SS Platelets (Bld) [#/Vol] 192 103/mcL Invalid Interpretation Code 130 - 400 10^3/mcL AO Workflow SS RBC (Bld) [#/Vol] 3.33 106/mcL Invalid Interpretation Code 4.20 - 5.40 10^6/mcL AO Workflow SS WBC (Bld) [#/Vol] 11.0 103/mcL Invalid Interpretation Code 4.6 - 10.8 10^3/mcL AO Workflow SS .Auto Diffon 12-10-2022 Basophil, Absolute 0.0 10 3/mcL Normal 0.0-0.2 [facility] ([place] Comment on above: Performed By: #### A MARTIR WEISS, CBC #### [address] [address] Basophils/100 WBC (Bld) 0.4 % Normal 0.0-2.5 [facility] ([place] Comment on above: Performed By: #### A MARTIR WEISS, CBC #### [address] [address] Eosinophil, Absolute 0.0 10 3/mcL Normal 0.0-0.4 [facility] ([place]) Comment on above: Performed By: #### A MARTIR WEISS, CBC #### [address] [address] Eosinophils/100 WBC (Bld) 0.5 % Normal 0.0-7.0 [facility] ([place] Comment on above: Performed By: #### A MARTIR WEISS, CBC #### [address] [address] Lymphocyte, Absolute 1.4 10 3/mcL Normal 0.8-3.9 [facility] ([place]) Comment on above: Performed By: #### A MARTIR WEISS, CBC #### [address] [id number] Lymphocytes/100 WBC (Bld) 15.2 % Normal 10.0-50.0 [facility] ([place]) Comment on above: Performed By: #### A MARTIR WEISS, CBC #### [address] [address] Monocyte, Absolute 0.8 10 3/mcL Normal 0.2-1.0 [facility] ([place]) Comment on above: Performed By: #### A MARTIR WEISS, CBC #### [address] [address] Monocytes/100 WBC (Bld) 8.0 % Normal 1.7-13.0 [facility] ([place]) Comment on above: Performed By: #### A MARTIR WEISS, CBC #### [address] [address] Neutrophils/100 WBC (Bld) 75.9 % Normal 37.0-80.0 [facility] ([place]) Comment on above: Performed By: #### A MARTIR WEISS, CBC #### [address] [address] .NEUABSon 12-10-2022 Neutrophil, Absolute 7.1 10 3/mcL High 2.9-6.2 [facility] ([place]) Comment on above: Performed By: #### A MARTIR WEISS, CBC #### [address] [address] CBCon 12-10-2022 Erythrocyte distribution width (RBC) [Ratio] 14.6 % High 11.5-14.5 [facility] ([place] Comment on above: Performed By: #### A MARTIR WEISS, CBC #### [address] [address] Hematocrit (Bld) [Volume fraction] 35.4 % Low 37.0-47.0 [facility] ([place] Comment on above: Performed By: #### A MARTIR WEISS, CBC #### [address] [address] Hgb 12.2 G/dL Normal 12.0-16.0 [facility] ([place] Comment on above: Performed By: #### A MARTIR WEISS, CBC #### [address] [address] MCH (RBC) [Entitic mass] 31.4 pg High 27.0-31.2 [facility] ([place] Comment on above: Performed By: #### A MARTIR WEISS, CBC #### [address] [address] MCHC 34.6 G/dL Normal 33.0-37.0 [facility] ([place] Comment on above: Performed By: #### A MARTIR WEISS, CBC #### [place] [address] [address] MCV (RBC) [Entitic vol] 90.7 fL Normal 80.0-94.0 [facility] ([place] Comment on above: Performed By: #### A MARTIR WEISS, CBC #### [place] [address] [address] Platelet 199 10 3/mcL Normal 130-400 [facility] ([place] Comment on above: Performed By: #### A MARTIR WEISS, CBC #### [place] [address] [address] Platelet mean volume (Bld) [Entitic vol] 10.5 fL High 7.4-10.4 [facility] ([place] Comment on above: Performed By: #### A MARTIR WEISS, CBC #### [address] [address] RBC 3.90 10 6/mcL Low 4.20-5.40 [facility] ([place] Comment on above: Performed By: #### A MARTIR WEISS, CBC #### [address] [address] WBC 9.4 10 3/mcL Normal 4.6-10.8 [facility] ([place] Comment on above: Performed By: #### A MARTIR WEISS, CBC #### [place] [address] [address] Gel ABOon 12-10-2022 ABO/Rh Interp Negative Invalid Interpretation Code [facility] ([place] Comment on above: Performed By: #### A MARTIR WEISS, CBC #### [place] [address] [address] Gel ABSon 12-10-2022 Antibody Screen Gel Negative Normal [facility] ([place]) Comment on above: Performed By: #### A MARTIR WEISS, CBC #### [place] [address] LABORATORYOrdered By: Светлана Marroquin on 12-10-2022 ABO/Rh Interp Negative Invalid Interpretation Code AO BB SS Antibody Screen Gel Negative ABSC (12/10/22 7:06 PM) Invalid Interpretation Code AO BB SS Basophil, Absolute 0.0 103/mcL Invalid Interpretation Code 0.0 - 0.2 10^3/mcL AO Workflow SS Basophils/100 WBC (Bld) 0.4 % Invalid Interpretation Code 0.0 - 2.5 % AO Workflow SS Eosinophil, Absolute 0.0 103/mcL Invalid Interpretation Code 0.0 - 0.4 10^3/mcL AO Workflow SS Eosinophils/100 WBC (Bld) 0.5 % Invalid Interpretation Code 0.0 - 7.0 % AO Workflow SS Erythrocyte distribution width (RBC) [Ratio] 14.6 % Invalid Interpretation Code 11.5 - 14.5 % AO Workflow SS Lymphocyte, Absolute 1.4 103/mcL Invalid Interpretation Code 0.8 - 3.9 10^3/mcL AO Workflow SS Lymphocytes/100 WBC (Bld) 15.2 % Invalid Interpretation Code 10.0 - 50.0 % AO Workflow SS MCH (RBC) [Entitic mass] 31.4 pg Invalid Interpretation Code 27.0 - 31.2 pg AO Workflow SS MCHC 34.6 G/dL Invalid Interpretation Code 33.0 - 37.0 G/dL AO Workflow SS MCV (RBC) [Entitic vol] 90.7 fL Invalid Interpretation Code 80.0 - 94.0 fL AO Workflow SS Monocyte, Absolute 0.8 103/mcL Invalid Interpretation Code 0.2 - 1.0 10^3/mcL AO Workflow SS Monocytes/100 WBC (Bld) 8.0 % Invalid Interpretation Code 1.7 - 13.0 % AO Workflow SS Neutrophil, Absolute 7.1 103/mcL Invalid Interpretation Code 2.9 - 6.2 10^3/mcL AO Workflow SS Neutrophils/100 WBC (Bld) 75.9 % Invalid Interpretation Code 37.0 - 80.0 % AO Workflow SS Platelet mean volume (Bld) [Entitic vol] 10.5 fL Invalid Interpretation Code 7.4 - 10.4 fL AO Workflow SS Platelets (Bld) [#/Vol] 199 103/mcL Invalid Interpretation Code 130 - 400 10^3/mcL AO Workflow SS RBC (Bld) [#/Vol] 3.90 106/mcL Invalid Interpretation Code 4.20 - 5.40 10^6/mcL AO Workflow SS WBC (Bld) [#/Vol] 9.4 103/mcL Invalid Interpretation Code 4.6 - 10.8 10^3/mcL AO Workflow SS LABORATORYOrdered By: Nicanor Cadet on 12-10-2022 Reagin Ab RPR Ql (S) Non-Reactive (12/10/22 7:06 PM) Invalid Interpretation Code Non-Reactive AH Man Viro/Sero SS GBSPCRon 11-11-2022 Group B Strep (PCR) Negative Normal Negative [facility] ([place]) Comment on above: Performed By: #### T 3 #### [place] [address] #### TSH #### [place] [address] Group B Strep PCR Int Normal [facility] ([place]) Comment on above: Result Comment: Grou p B Streptococcus DNA not detected by real-time PCR. A negative result does not rule out the possibility of Group B streptococcus. Assay should be used as an adjunct to clinical observations and other information available to the physician. The test is not intended to differentiate carriers of Group B streptococcus from those with streptococcal disease. See Below Performed By: #### T 3 #### [place] [address] #### TSH #### [place] [address] LABORATORYOrdered By: Chantel Maldonado on 11-10-2022 Group B Strep PCR Int Group B Streptococcus DNA not detected by real-time PCR. A negative result does not rule out the possibility of Group B streptococcus. Assay should be used as an adjunct to clinical observations and other information available to the physician. The test is not intended to differentiate carriers of Group B streptococcus from those with streptococcal disease. Invalid Interpretation Code AO Auto Urine SS S. agalactiae DNA ALVARO+probe Ql (Unsp spec) Negative *NA* (11/10/22 8:15 AM) Invalid Interpretation Code Negative AO Auto Urine SS Gel ABOon 09-21-2022 ABO/Rh Interp Negative Invalid Interpretation Code [facility] ([place] Comment on above: Performed By: #### A MARTIR WEISS, CBC #### [address] [address] Gel ABSon 09-21-2022 Antibody Screen Gel Negative Normal [facility] ([place] Comment on above: Performed By: #### A MARTIR WEISS, CBC #### [address] [address] LABORATORYOrdered By: Josiah Ledezma on 09-21-2022 ABO/Rh Interp Negative Invalid Interpretation Code AO BB SS Antibody Screen Gel Negative ABSC (09/21/22 10:07 AM) Invalid Interpretation Code AO BB SS RPRon 09-07-2022 Reagin Ab RPR Ql (S) Non-Reactive Normal Non-Reactive [facility] ([place]) Comment on above: Result Comment: The RPR test is a non-treponemal assay useful as an aid in the diagnosis of primary and secondary syphilis. It converts to positive generally within 2 weeks after the appearance of a lesion. This test is also useful for monitoring response to antibiotic therapy. A positive RPR screening test will be followed by the FTA ABS test. False positive RPR tests may occur in 1) patients with underlying autoimmune disorders, 2) elderly patients, 3) , and 4) other conditions with abnormal serum globulins. Performed By: #### T 3 #### [place] [address] #### TSH #### [address] [address] .Manual Diffon 09-06-2022 Bands 2.0 % Normal 0.0-5.0 [facility] ([place] Comment on above: Performed By: #### A MARTIR WEISS, CBC #### [address] [address] Basophil %, Manual 0.0 % Normal 0.0-2.5 [facility] ([place]) Comment on above: Performed By: #### A MARTIR WEISS, CBC #### [address] [address] Basophil, Abs Manual 0.0 10 3/mcL Normal 0.0-0.2 [facility] ([place]) Comment on above: Performed By: #### A MARTIR WEISS, CBC #### [address] [address] Eosinophil %, Manual 0.0 % Normal 0.0-7.0 [facility] ([place]) Comment on above: Performed By: #### A MARTIR WEISS, CBC #### [address] [address] Eosinophil, Abs Manual 0.0 10 3/mcL Normal 0.0-0.4 [facility] ([place] Comment on above: Performed By: #### A MARTIR WEISS, CBC #### [address] [address] Lymphocyte %, Manual 11.0 % Normal 10.0-50.0 [facility] ([place] Comment on above: Performed By: #### A MARTIR WEISS, CBC #### [address] [address] Lymphocyte, Abs Manual 1.4 10 3/mcL Normal 0.8-3.9 [facility] ([place] Comment on above: Performed By: #### A MARTIR WEISS, CBC #### [address] [address] Metamyelocyte 2.0 % Normal [facility] ([place] Comment on above: Performed By: #### A MARTIR WEISS, CBC #### [address] [address] Monocyte %, Manual 7.0 % Normal 1.7-13.0 [facility] ([place] Comment on above: Performed By: #### A MARTIR WEISS, CBC #### [address] [address] Monocyte, Abs Manual 0.9 10 3/mcL Normal 0.2-1.0 [facility] ([place] Comment on above: Performed By: #### A MARTIR WEISS, CBC #### [place] [id number] Neutrophil %, Manual 78.0 % Normal 37.0-80.0 [facility] ([place] Comment on above: Performed By: #### A MARTIR WEISS, CBC #### [address] [address] Neutrophil, Abs Manual 10.1 10 3/mcL High 2.9-6.2 [facility] ([place] Comment on above: Performed By: #### A MARTIR WEISS, CBC #### [address] [address] Nucleated RBC 0.0 /100 WBC Normal [facility] ([place] Comment on above: Performed By: #### A MARTIR WEISS, CBC #### [address] [address] .Morphon 09-06-2022 Platelet Estimate Normal Normal [facility] ([place] Comment on above: Performed By: #### A MARTIR WEISS, CBC #### [address] [address] Toxic Gran 1+ Normal [facility] ([place] Comment on above: Performed By: #### A MARTIR WEISS, CBC #### [address] [address] CBCon 09-06-2022 Erythrocyte distribution width (RBC) [Ratio] 14.0 % Normal 11.5-14.5 [facility] ([place] Comment on above: Performed By: #### A MARTIR WEISS, CBC #### [address] [address] Hematocrit (Bld) [Volume fraction] 32.8 % Low 37.0-47.0 [facility] ([place] Comment on above: Performed By: #### A MARTIR WEISS, CBC #### [address] [address] Hgb 11.7 G/dL Low 12.0-16.0 [facility] ([place] Comment on above: Performed By: #### A MARTIR WEISS, CBC #### [address] [address] MCH (RBC) [Entitic mass] 32.6 pg High 27.0-31.2 [facility] ([place] Comment on above: Performed By: #### A MARTIR WEISS, CBC #### [address] [address] MCHC 35.6 G/dL Normal 33.0-37.0 [facility] ([place] Comment on above: Performed By: #### A MARTIR WEISS, CBC #### [address] [address] MCV (RBC) [Entitic vol] 91.5 fL Normal 80.0-94.0 [facility] ([place] Comment on above: Performed By: #### A MARTIR WEISS, CBC #### [address] [address] Platelet 259 10 3/mcL Normal 130-400 [facility] ([place] Comment on above: Performed By: #### A MARTIR WEISS, CBC #### [address] [address] Platelet mean volume (Bld) [Entitic vol] 8.9 fL Normal 7.4-10.4 [facility] ([place] Comment on above: Performed By: #### A MARTIR WEISS, CBC #### [address] [address] RBC 3.58 10 6/mcL Low 4.20-5.40 [facility] ([place] Comment on above: Performed By: #### A MARTIR WEISS, CBC #### [address] [address] WBC 12.9 10 3/mcL High 4.6-10.8 [facility] ([place] Comment on above: Performed By: #### A MARTIR WEISS, CBC #### [address] [address] [id number] 09-06-2022 Glucose [Mass/Vol] 95 mg/dL Normal 70-140 [facility] ([place]) Comment on above: Performed By: #### A MARTIR WEISS, CBC #### [place] [address] LABORATORYOrdered By: Светлана Marroquin on 09-06-2022 Glucose [Mass/Vol] 95 mg/dL Invalid Interpretation Code 70 - 140 mg/dL AO ADM SS LABORATORYOrdered By: Lucila Velásquez on 09-06-2022 Bands 2.0 1 Invalid Interpretation Code 0.0 - 5.0 % AO Workflow SS Basophil %, Manual 0.0 1 Invalid Interpretation Code 0.0 - 2.5 % AO Workflow SS Basophil, Abs Manual 0.0 103/mcL Invalid Interpretation Code 0.0 - 0.2 10^3/mcL AO Workflow SS Eosinophil %, Manual 0.0 1 Invalid Interpretation Code 0.0 - 7.0 % AO Workflow SS Eosinophils (Bld) [#/Vol] 0.0 103/mcL Invalid Interpretation Code 0.0 - 0.4 10^3/mcL AO Workflow SS Erythrocyte distribution width (RBC) [Ratio] 14.0 % Invalid Interpretation Code 11.5 - 14.5 % AO Workflow SS Hematocrit (Bld) [Volume fraction] 32.8 % Invalid Interpretation Code 37.0 - 47.0 % AO Workflow SS Hemoglobin (Bld) [Mass/Vol] 11.7 G/dL Invalid Interpretation Code 12.0 - 16.0 G/dL AO Workflow SS Lymphocyte %, Manual 11.0 1 Invalid Interpretation Code 10.0 - 50.0 % AO Workflow SS Lymphocyte, Abs Manual 1.4 103/mcL Invalid Interpretation Code 0.8 - 3.9 10^3/mcL AO Workflow SS MCH (RBC) [Entitic mass] 32.6 pg Invalid Interpretation Code 27.0 - 31.2 pg AO Workflow SS MCHC 35.6 G/dL Invalid Interpretation Code 33.0 - 37.0 G/dL AO Workflow SS MCV (RBC) [Entitic vol] 91.5 fL Invalid Interpretation Code 80.0 - 94.0 fL AO Workflow SS Metamyelocytes/100 WBC (Bld) 2.0 % Invalid Interpretation Code AO Workflow SS Monocyte %, Manual 7.0 1 Invalid Interpretation Code 1.7 - 13.0 % AO Workflow SS Monocyte, Abs Manual 0.9 103/mcL Invalid Interpretation Code 0.2 - 1.0 10^3/mcL AO Workflow SS Neutrophil %, Manual 78.0 1 Invalid Interpretation Code 37.0 - 80.0 % AO Workflow SS Neutrophil, Abs Manual 10.1 103/mcL Invalid Interpretation Code 2.9 - 6.2 10^3/mcL AO Workflow SS Nucleated RBC 0.0 /100 WBC Invalid Interpretation Code AO Workflow SS Platelet Estimate Normal *NA* (09/06/22 8:02 AM) Invalid Interpretation Code AO Workflow SS Platelet mean volume (Bld) [Entitic vol] 8.9 fL Invalid Interpretation Code 7.4 - 10.4 fL AO Workflow SS Platelets (Bld) [#/Vol] 259 103/mcL Invalid Interpretation Code 130 - 400 10^3/mcL AO Workflow SS RBC (Bld) [#/Vol] 3.58 106/mcL Invalid Interpretation Code 4.20 - 5.40 10^6/mcL AO Workflow SS Toxic Gran 1+ *NA* (09/06/22 8:02 AM) Invalid Interpretation Code AO Workflow SS WBC (Bld) [#/Vol] 12.9 103/mcL Invalid Interpretation Code 4.6 - 10.8 10^3/mcL AO Workflow SS .Auto Diffon 08-02-2022 Basophil, Absolute 0.0 10 3/mcL Normal 0.0-0.2 [facility] ([place] Comment on above: Performed By: #### T 3 #### [place] [address] #### TSH #### [address] [address] Basophils/100 WBC (Bld) 0.3 % Normal 0.0-2.5 [facility] ([place] Comment on above: Performed By: #### T 3 #### [place] [address] #### TSH #### [address] [address] Eosinophil, Absolute 0.1 10 3/mcL Normal 0.0-0.4 [facility] ([place]) Comment on above: Performed By: #### T 3 #### [place] [address] #### TSH #### [address] [address] Eosinophils/100 WBC (Bld) 0.8 % Normal 0.0-7.0 [facility] ([place]) Comment on above: Performed By: #### T 3 #### [place] [address] #### TSH #### [address] [address] Lymphocyte, Absolute 1.7 10 3/mcL Normal 0.8-3.9 [facility] ([place]) Comment on above: Performed By: #### T 3 #### [place] [address] #### TSH #### [address] [address] Lymphocytes/100 WBC (Bld) 14.0 % Normal 10.0-50.0 [facility] ([place]) Comment on above: Performed By: #### T 3 #### [place] [address] #### TSH #### [address] [address] Monocyte, Absolute 1.2 10 3/mcL High 0.2-1.0 [facility] ([place]) Comment on above: Performed By: #### T 3 #### [place] [address] #### TSH #### [address] [address] Monocytes/100 WBC (Bld) 9.3 % Normal 1.7-13.0 [facility] ([place]) Comment on above: Performed By: #### T 3 #### [place] [address] #### TSH #### [address] [address] Neutrophils/100 WBC (Bld) 75.6 % Normal 37.0-80.0 [facility] ([place]) Comment on above: Performed By: #### T 3 #### [place] [address] #### TSH #### [address] [address] .NEUABSon 08-02-2022 Neutrophil, Absolute 9.4 10 3/mcL High 2.9-6.2 [facility] ([place]) Comment on above: Performed By: #### T 3 #### [place] [address] #### TSH #### [address] [address] CBCon 08-02-2022 Erythrocyte distribution width (RBC) [Ratio] 14.1 % Normal 11.5-14.5 [facility] ([place] Comment on above: Performed By: #### T 3 #### [place] [address] #### TSH #### [place] [address] Hematocrit (Bld) [Volume fraction] 32.5 % Low 37.0-47.0 [facility] ([place] Comment on above: Performed By: #### T 3 #### [place] [address] #### TSH #### [place] [address] Hgb 11.3 G/dL Low 12.0-16.0 [facility] ([place] Comment on above: Performed By: #### T 3 #### [place] [address] #### TSH #### [place] [address] MCH (RBC) [Entitic mass] 31.3 pg High 27.0-31.2 [facility] ([place] Comment on above: Performed By: #### T 3 #### [place] [address] #### TSH #### [place] [address] MCHC 34.7 G/dL Normal 33.0-37.0 [facility] ([place] Comment on above: Performed By: #### T 3 #### [place] [address] #### TSH #### [address] [address] MCV (RBC) [Entitic vol] 90.3 fL Normal 80.0-94.0 [facility] ([place] Comment on above: Performed By: #### T 3 #### [place] [address] #### TSH #### [address] [address] Platelet 257 10 3/mcL Normal 130-400 [facility] ([place] Comment on above: Performed By: #### T 3 #### [place] [address] #### TSH #### [address] [address] Platelet mean volume (Bld) [Entitic vol] 8.7 fL Normal 7.4-10.4 [facility] ([place] Comment on above: Performed By: #### T 3 #### [place] [address] #### TSH #### [place] [address] RBC 3.60 10 6/mcL Low 4.20-5.40 [facility] ([place] Comment on above: Performed By: #### T 3 #### [place] [address] #### TSH #### [place] [address] WBC 12.5 10 3/mcL High 4.6-10.8 [facility] ([place] Comment on above: Performed By: #### T 3 #### [place] [address] #### TSH #### [place] [address] LABORATORYOrdered By: Ariana Burden on 08-02-2022 Basophil, Absolute 0.0 103/mcL Invalid Interpretation Code 0.0 - 0.2 10^3/mcL AO Workflow SS Basophils/100 WBC (Bld) 0.3 % Invalid Interpretation Code 0.0 - 2.5 % AO Workflow SS Eosinophil, Absolute 0.1 103/mcL Invalid Interpretation Code 0.0 - 0.4 10^3/mcL AO Workflow SS Eosinophils/100 WBC (Bld) 0.8 % Invalid Interpretation Code 0.0 - 7.0 % AO Workflow SS Erythrocyte distribution width (RBC) [Ratio] 14.1 % Invalid Interpretation Code 11.5 - 14.5 % AO Workflow SS Hematocrit (Bld) [Volume fraction] 32.5 % Invalid Interpretation Code 37.0 - 47.0 % AO Workflow SS Hemoglobin (Bld) [Mass/Vol] 11.3 G/dL Invalid Interpretation Code 12.0 - 16.0 G/dL AO Workflow SS Lymphocyte, Absolute 1.7 103/mcL Invalid Interpretation Code 0.8 - 3.9 10^3/mcL AO Workflow SS Lymphocytes/100 WBC (Bld) 14.0 % Invalid Interpretation Code 10.0 - 50.0 % AO Workflow SS MCH (RBC) [Entitic mass] 31.3 pg Invalid Interpretation Code 27.0 - 31.2 pg AO Workflow SS MCHC 34.7 G/dL Invalid Interpretation Code 33.0 - 37.0 G/dL AO Workflow SS MCV (RBC) [Entitic vol] 90.3 fL Invalid Interpretation Code 80.0 - 94.0 fL AO Workflow SS Monocyte, Absolute 1.2 103/mcL Invalid Interpretation Code 0.2 - 1.0 10^3/mcL AO Workflow SS Monocytes/100 WBC (Bld) 9.3 % Invalid Interpretation Code 1.7 - 13.0 % AO Workflow SS Neutrophil, Absolute 9.4 103/mcL Invalid Interpretation Code 2.9 - 6.2 10^3/mcL AO Workflow SS Neutrophils/100 WBC (Bld) 75.6 % Invalid Interpretation Code 37.0 - 80.0 % AO Workflow SS Platelet mean volume (Bld) [Entitic vol] 8.7 fL Invalid Interpretation Code 7.4 - 10.4 fL AO Workflow SS Platelets (Bld) [#/Vol] 257 103/mcL Invalid Interpretation Code 130 - 400 10^3/mcL AO Workflow SS RBC (Bld) [#/Vol] 3.60 106/mcL Invalid Interpretation Code 4.20 - 5.40 10^6/mcL AO Workflow SS TSH Qn 2.08 m[IU]/L Invalid Interpretation Code 0.36 - 3.74 mcIU/mL AO ADM SS WBC (Bld) [#/Vol] 12.5 103/mcL Invalid Interpretation Code 4.6 - 10.8 10^3/mcL AO Workflow SS LABORATORYOrdered By: SYSTEM SYSTEM on 08-02-2022 T3 [Mass/Vol] 156 ng/dL Invalid Interpretation Code 60 - 181 ng/dL AH ADM SS T3on 08-02-2022 Total T3 156 ng/dL Normal 60-181 [facility] ([place] Comment on above: Performed By: #### T 3 #### [place] [address] #### TSH #### [address] [address] TSHon 08-02-2022 TSH Qn 2.08 m[IU]/L Normal 0.36-3.74 [facility] ([place]) Comment on above: Performed By: #### T 3 #### [place] [address] #### TSH #### [address] [address] Progress Noteon 07-04-2022 [employer] Authentication Interface Message Text [facility] - at [address] [place] OFFICE VISIT NOTE DOS: 07/04/2022 07/04/2022 Chief Complaint She presents for review of progress in thus far and for comprehensive review of her maternal -obstetric- risks in this . The reasons for the visit are as highlighted in the concluding summary communication to director of teenage activities which is my problem-based office review. History of Present Illness Zuleyka is a 27 y.o. female at 17w5d. She denies history of for fever, chills, breathing difficulties, chest pain, or abdominal pain. The patient feels well. No history of vaginal bleeding or leakage of fluid vaginally. Obstetric History OB History Para Term AB Living 2 0 0 0 1 0 SAB IAB Ectopic Multiple Live Births 1 0 0 0 # Outcome Date GA Lbr [place]/2nd Weight Sex Delivery Anes PTL Lv 2 Current 1 SAB 10/2021 9w0d - I reviewed it at patient encounter and pertinent aspects are integrated into the below problem list-based assessment Past Medical History No past medical history on file. - I reviewed it at patient encounter and pertinent aspects are integrated into the below problem list-based assessment Social History - I reviewed it at patient encounter and pertinent aspects are integrated into the below problem list-based assessment Family History - I reviewed it at patient encounter, including screening genetic pedigree as available, and pertinent aspects are integrated into the below problem list-based assessment Medications and Allergies . No Known Allergies - I reviewed it at patient encounter and are integrated into the below problem list-based assessment. Allergies were reviewed Laboratory Studies and Imaging studies - I reviewed it at patient encounter and pertinent aspects are integrated into assessments. Vitals BP 129/73 Pulse 98 Temp 36.9 C (98.4 F) (Oral) Resp 18 Ht 160 cm Wt 81.1 kg (178 lb 14.4 oz) LMP 03/10/2022 SpO2 97% BMI 31.69 kg/m - heart rate as per imaging report today, as applicable and available. ASSESSMENT AND PLAN After integrating maternal and obstetric and considerations, my recommendations are as assembled. Active Non-Hospital Problems Diagnosis Date Noted Advice given about COVID-19 virus infection 07/04/2022 07/04/2022 - Office Visit - MD Viktor: 17w5d . Infectious disease: She has not received COVID vaccination. The CDC and ACOG recommendation is in favor of COVID vaccination, given the increased risk for severe disease when COVID infection occurs during . care, antepartum 07/04/2022 07/04/2022 - Office Visit - MD Viktor: 17w5d . Stable Co-Morbidities and Lifestyle: She is in excellent general health. She has no adverse lifestyle. Care: Reviewed care. She is Rh- and is implications were discussed. Covid precautions are in place. Her BP is 129/73. She presently has complaint. She provides no history of abdominal pain or cramping, nausea, vomiting, or vaginal bleeding. Care plan discussed with patient 07/04/2022 07/04/2022 - Office Visit - MD Viktor: 17w5d . Current Medications: Daily Vitamins. She will start aspirin 81 mg daily. 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 She decides against Vistara and MaterniT Genome which would mitigate some of the risks associated with generous nuchal translucency. She has a low risk NIPT Follow-Up Imaging: She is scheduled with us for echocardiography at 22 weeks given history of generous nuchal translucency in the first trimester in the office. Additionally because the placenta circumvallate and pedigree indicative of skeletal dysplasia risk, follow-up ultrasound at 32 and 36 weeks have been scheduled. Patient Education: COVID vaccination was recommended. Optimal weight gain of 20 pounds. Advised to start low-dose aspirin. Delivery Plans: The obstetric goal is for vaginal delivery at complete-term gestation i.e., 39-40 weeks as per routine obstetric practices. Ultimately, the mode and timing of delivery should be based on potentially evolving obstetric and condition. Post-Delivery Care: Standard maternal and care is anticipated. pediatric evaluation of the , prior to discharge, is recommended to identify any need for pediatric evaluations and follow-up - based on findings at examination and the finding of generous nuchal translucency in the first trimester. At risk for genetic disorder 07/04/2022 07/04/2022 - Office Visit - MD Viktor: [id number] . Genetic Risks: She met with our genetic counselor and subsequently met with me for MFM cons (more content not included)... Normal [facility] LABORATORYOrdered By: Josiah Ledezma on 05-18-2022 ABO/Rh Interp Negative Invalid Interpretation Code AO BB SS Antibody Screen Gel Negative ABSC (05/18/22 1:25 PM) Invalid Interpretation Code AO BB SS LABORATORYOrdered By: Светлана Marroquin on 05-18-2022 Basophil, Absolute 0.0 103/mcL Invalid Interpretation Code 0.0 - 0.2 10^3/mcL AO Workflow SS Basophils/100 WBC (Bld) 0.3 % Invalid Interpretation Code 0.0 - 2.5 % AO Workflow SS Eosinophil, Absolute 0.1 103/mcL Invalid Interpretation Code 0.0 - 0.4 10^3/mcL AO Workflow SS Eosinophils/100 WBC (Bld) 0.7 % Invalid Interpretation Code 0.0 - 7.0 % AO Workflow SS Erythrocyte distribution width (RBC) [Ratio] 12.5 % Invalid Interpretation Code 11.5 - 14.5 % AO Workflow SS Hematocrit (Bld) [Volume fraction] 36.9 % Invalid Interpretation Code 37.0 - 47.0 % AO Workflow SS Hemoglobin (Bld) [Mass/Vol] 13.0 G/dL Invalid Interpretation Code 12.0 - 16.0 G/dL AO Workflow SS Lymphocyte, Absolute 2.4 103/mcL Invalid Interpretation Code 0.8 - 3.9 10^3/mcL AO Workflow SS Lymphocytes/100 WBC (Bld) 22.5 % Invalid Interpretation Code 10.0 - 50.0 % AO Workflow SS MCH (RBC) [Entitic mass] 31.1 pg Invalid Interpretation Code 27.0 - 31.2 pg AO Workflow SS MCHC 35.4 G/dL Invalid Interpretation Code 33.0 - 37.0 G/dL AO Workflow SS MCV (RBC) [Entitic vol] 87.9 fL Invalid Interpretation Code 80.0 - 94.0 fL AO Workflow SS Monocyte, Absolute 0.7 103/mcL Invalid Interpretation Code 0.2 - 1.0 10^3/mcL AO Workflow SS Monocytes/100 WBC (Bld) 6.5 % Invalid Interpretation Code 1.7 - 13.0 % AO Workflow SS Neutrophil, Absolute 7.5 103/mcL Invalid Interpretation Code 2.9 - 6.2 10^3/mcL AO Workflow SS Neutrophils/100 WBC (Bld) 70.0 % Invalid Interpretation Code 37.0 - 80.0 % AO Workflow SS Platelet mean volume (Bld) [Entitic vol] 8.8 fL Invalid Interpretation Code 7.4 - 10.4 fL AO Workflow SS Platelets (Bld) [#/Vol] 284 103/mcL Invalid Interpretation Code 130 - 400 10^3/mcL AO Workflow SS RBC (Bld) [#/Vol] 4.19 106/mcL Invalid Interpretation Code 4.20 - 5.40 10^6/mcL AO Workflow SS WBC 10.7 103/mcL Invalid Interpretation Code 4.6 - 10.8 10^3/mcL AO Workflow SS LABORATORYOrdered By: SYSTEM SYSTEM on 05-18-2022 Hep B Surf Ag Non-Reactive (05/18/22 1:25 PM) Invalid Interpretation Code Non-Reactive AH ADM SS Monocyte distribution width Auto (Bld) [Entitic vol] Not Performed 1 *NA* (05/18/22 1:25 PM) Invalid Interpretation Code 0.00 - 20.00 AO Hematology S Comment on above: Result Comment: MDW testing performed only on adult ER patients between the ages of 18-89 years. LABORATORYOrdered By: Chantel Norman on 05-18-2022 HIV 1 p24 Ab Ql (S) Non-Reactive (05/18/22 1:25 PM) Invalid Interpretation Code Non-Reactive AO Rapid Testing SS HIV 1+2 Ab IA.rapid Ql (Unsp spec) Non-Reactive (05/18/22 1:25 PM) Invalid Interpretation Code Non-Reactive AO Rapid Testing SS HIV P24 Int Non-Reactive Invalid Interpretation Code AO Rapid Testing SS RHIV 1/2 Ab Int Non-Reactive Invalid Interpretation Code AO Rapid Testing SS LABORATORYOrdered By: Nithya Haro on 05-18-2022 Hep C Ab Non-Reactive (05/18/22 1:24 PM) Invalid Interpretation Code Non-Reactive AH ADM SS Hep C Ab Int Nonreactive: Samples with a value < 0.80 are considered nonreactive (negative) for antibodies to HCV.A negative test result does not exclude the possibility of exposure to or infection with HCV. HCV antibodies may be undetectable in some stages of the infection and in some clinical conditions. Invalid Interpretation Code AH Chemistry S LABORATORYOrdered By: Chantel Maldonado on 05-18-2022 TSH Qn 0.72 m[IU]/L Invalid Interpretation Code 0.36 - 3.74 mcIU/mL AO ADM SS LABORATORYOrdered By: Ariana Burden on 03-23-2022 Albumin BCP dye [Mass/Vol] 4.1 G/dL Invalid Interpretation Code 3.5 - 5.0 G/dL AO ADM SS Albumin/Globulin [Mass ratio] 1.1 {ratio} Invalid Interpretation Code 1.1 - 2.5 ratio AO ADM SS ALP [Catalytic activity/Vol] 64 U/L Invalid Interpretation Code 40 - 135 U/L AO ADM SS ALT With P-5'-P [Catalytic activity/Vol] 27 U/L Invalid Interpretation Code 14 - 59 U/L AO ADM SS AST With P-5'-P [Catalytic activity/Vol] 13 U/L Invalid Interpretation Code 10 - 40 U/L AO ADM SS Bilirubin [Mass/Vol] 0.4 mg/dL Invalid Interpretation Code 0.2 - 1.0 mg/dL AO ADM SS Calcium [Mass/Vol] 9.3 mg/dL Invalid Interpretation Code 8.4 - 10.2 mg/dL AO ADM SS Chloride [Moles/Vol] 101 mmol/L Invalid Interpretation Code 98 - 107 mmol/L AO ADM SS Cholesterol [Mass/Vol] 216 mg/dL Invalid Interpretation Code 0 - 200 mg/dL AO ADM SS Cholesterol in HDL [Mass/Vol] 65 mg/dL Invalid Interpretation Code 40 - 60 mg/dL AO ADM SS Cholesterol in LDL [Mass/Vol] 142 mg/dL Invalid Interpretation Code 0 - 130 mg/dL AO ADM SS CO2 [Moles/Vol] 28 mmol/L Invalid Interpretation Code 22 - 29 mmol/L AO ADM SS Creatinine [Mass/Vol] 0.90 mg/dL Invalid Interpretation Code 0.55 - 1.02 mg/dL AO ADM SS Electrolyte Balance 8.0 mEq/L Invalid Interpretation Code 4.0 - 15.0 mEq/L AO ADM SS Globulin 3.9 G/dL Invalid Interpretation Code AO ADM SS Glucose [Mass/Vol] 92 mg/dL Invalid Interpretation Code 70 - 105 mg/dL AO ADM SS Potassium [Moles/Vol] 4.2 mmol/L Invalid Interpretation Code 3.5 - 5.1 mmol/L AO ADM SS Protein [Mass/Vol] 8.0 G/dL Invalid Interpretation Code 6.4 - 8.2 G/dL AO ADM SS Sodium [Moles/Vol] 137 mmol/L Invalid Interpretation Code 136 - 145 mmol/L AO ADM SS Triglyceride [Mass/Vol] 43 mg/dL Invalid Interpretation Code 0 - 150 mg/dL AO ADM SS TSH Qn 2.44 m[IU]/L Invalid Interpretation Code 0.36 - 3.74 mcIU/mL AO ADM SS Urea nitrogen [Mass/Vol] 14 mg/dL Invalid Interpretation Code 7 - 18 mg/dL AO ADM SS Urea nitrogen/Creatinine [Mass ratio] 16 ratio Invalid Interpretation Code 7 - 27 ratio AO ADM SS LABORATORYOrdered By: SYSTEM SYSTEM on 03-23-2022 GFR 92 ml/min/1.73sqm Invalid Interpretation Code AO Chemistry S GFR Non- 76 ml/min/1.73sqm Invalid Interpretation Code AO Chemistry S Parathyrin.intact [Mass/Vol] 34.3 pg/mL Invalid Interpretation Code 18.5 - 88.0 pg/mL AH ADM SS Prolactin [Mass/Vol] 22.3 ng/mL Invalid Interpretation Code 2.0 - 30.0 ng/mL AH ADM SS LABORATORYOrdered By: Chantel Maldonado on 11-02-2021 HCG Qn mIU/mL Invalid Interpretation Code AO ADM SS LABORATORYOrdered By: Chantel Maldonado on 10-29-2021 HCG Qn 1.8 m[IU]/mL Invalid Interpretation Code AO ADM SS Albumin BCP dye [Mass/Vol] 4.1 G/dL Invalid Interpretation Code 3.5 - 5.0 G/dL AO ADM SS Albumin/Globulin [Mass ratio] 1.1 {ratio} Invalid Interpretation Code 1.1 - 2.5 ratio AO ADM SS ALP [Catalytic activity/Vol] 69 U/L Invalid Interpretation Code 40 - 135 U/L AO ADM SS ALT With P-5'-P [Catalytic activity/Vol] 37 U/L Invalid Interpretation Code 14 - 59 U/L AO ADM SS AST With P-5'-P [Catalytic activity/Vol] 15 U/L Invalid Interpretation Code 10 - 40 U/L AO ADM SS Bilirubin [Mass/Vol] 0.3 mg/dL Invalid Interpretation Code 0.2 - 1.0 mg/dL AO ADM SS Calcium [Mass/Vol] 9.4 mg/dL Invalid Interpretation Code 8.4 - 10.2 mg/dL AO ADM SS Chloride [Moles/Vol] 102 mmol/L Invalid Interpretation Code 98 - 107 mmol/L AO ADM SS CO2 [Moles/Vol] 25 mmol/L Invalid Interpretation Code 22 - 29 mmol/L AO ADM SS Creatinine [Mass/Vol] 1.02 mg/dL Invalid Interpretation Code 0.55 - 1.02 mg/dL AO ADM SS Electrolyte Balance 12.0 mEq/L Invalid Interpretation Code AO ADM SS Globulin 3.9 G/dL Invalid Interpretation Code AO ADM SS Glucose [Mass/Vol] 113 mg/dL Invalid Interpretation Code 70 - 105 mg/dL AO ADM SS Potassium [Moles/Vol] 4.0 mmol/L Invalid Interpretation Code 3.5 - 5.1 mmol/L AO ADM SS Protein [Mass/Vol] 8.0 G/dL Invalid Interpretation Code 6.4 - 8.2 G/dL AO ADM SS Sodium [Moles/Vol] 139 mmol/L Invalid Interpretation Code 136 - 145 mmol/L AO ADM SS TSH Qn 2.10 m[IU]/L Invalid Interpretation Code 0.36 - 3.74 mcIU/mL AO ADM SS Urea nitrogen [Mass/Vol] 15 mg/dL Invalid Interpretation Code 7 - 18 mg/dL AO ADM SS Urea nitrogen/Creatinine [Mass ratio] 15 ratio Invalid Interpretation Code 7 - 27 ratio AO ADM SS LABORATORYOrdered By: Austen Toth on 10-29-2021 Basophil, Absolute 0.00 103/mcL Invalid Interpretation Code 0.00 - 0.19 10^3/mcL AO Auto Heme SS Basophils/100 WBC (Bld) 0.5 % Invalid Interpretation Code 0.0 - 2.5 % AO Auto Heme SS Eosinophil, Absolute 0.10 103/mcL Invalid Interpretation Code 0.00 - 0.40 10^3/mcL AO Auto Heme SS Eosinophils/100 WBC (Bld) 1.4 % Invalid Interpretation Code 0.0 - 7.0 % AO Auto Heme SS Erythrocyte distribution width (RBC) [Ratio] 12.5 % Invalid Interpretation Code 11.5 - 14.5 % AO Auto Heme SS Hematocrit (Bld) [Volume fraction] 40.0 % Invalid Interpretation Code 37.0 - 47.0 % AO Auto Heme SS Hemoglobin (Bld) [Mass/Vol] 13.6 G/dL Invalid Interpretation Code 12.0 - 16.0 G/dL AO Auto Heme SS Lymphocyte, Absolute 2.60 103/mcL Invalid Interpretation Code 0.77 - 3.85 10^3/mcL AO Auto Heme SS Lymphocytes/100 WBC (Bld) 26.9 % Invalid Interpretation Code 10.0 - 50.0 % AO Auto Heme SS MCH (RBC) [Entitic mass] 29.7 pg Invalid Interpretation Code 27.0 - 31.2 pg AO Auto Heme SS MCHC (RBC) [Mass/Vol] 34.0 G/dL Invalid Interpretation Code 33.0 - 37.0 G/dL AO Auto Heme SS MCV (RBC) [Entitic vol] 87.5 fL Invalid Interpretation Code 80.0 - 94.0 fL AO Auto Heme SS Monocyte, Absolute 1.10 103/mcL Invalid Interpretation Code 0.15 - 1.00 10^3/mcL AO Auto Heme SS Monocytes/100 WBC (Bld) 11.2 % Invalid Interpretation Code 1.7 - 13.0 % AO Auto Heme SS Neutrophil, Absolute 5.80 103/mcL Invalid Interpretation Code 2.85 - 6.16 10^3/mcL AO Auto Heme SS Neutrophils/100 WBC (Bld) 60.0 % Invalid Interpretation Code 37.0 - 80.0 % AO Auto Heme SS Platelet mean volume (Bld) [Entitic vol] 9.0 fL Invalid Interpretation Code 7.4 - 10.4 fL AO Auto Heme SS Platelets (Bld) [#/Vol] 305 103/mcL Invalid Interpretation Code 130 - 400 10^3/mcL AO Auto Heme SS RBC (Bld) [#/Vol] 4.57 106/mcL Invalid Interpretation Code 4.20 - 5.40 10^6/mcL AO Auto Heme SS WBC (Bld) [#/Vol] 9.80 103/mcL Invalid Interpretation Code 4.60 - 10.80 10^3/mcL AO Auto Heme SS LABORATORYOrdered By: SYSTEM SYSTEM on 10-29-2021 Follitropin Qn 2.1 m[IU]/mL Invalid Interpretation Code AH ADM SS GFR 81 ml/min/1.73sqm Invalid Interpretation Code AO Chemistry S GFR Non- 67 ml/min/1.73sqm Invalid Interpretation Code AO Chemistry S Lutropin Qn 7.3 m[IU]/mL Invalid Interpretation Code ADM SS Parathyrin.intact [Mass/Vol] 36.1 pg/mL Invalid Interpretation Code 18.5 - 88.0 pg/mL AH ADM SS Progesterone [Mass/Vol] 7.9 ng/mL Invalid Interpretation Code AH ADM SS Prolactin [Mass/Vol] 11.8 ng/mL Invalid Interpretation Code 2.0 - 30.0 ng/mL AH ADM SS Vital Signs Date Time Vital Sign Value Performing Clinician Facility 06-23-2025 09:47-0400 Body mass index (BMI) [Ratio] 37.08 kg/m2 Gia Escobar MD Work Phone: [facility] 06-23-2025 09:47-0400 Body weight 97.98 kg Gia Escobar MD Work Phone: [facility] 06-23-2025 09:47-0400 Diastolic blood pressure 80 mm[Hg] Gia Escobar MD Work Phone: [facility] 06-23-2025 09:47-0400 Systolic blood pressure 128 mm[Hg] Gia Escobar MD Work Phone: [facility] 06-09-2025 09:44-0400 Body mass index (BMI) [Ratio] 36.39 kg/m2 Gia Escobar MD Work Phone: [facility] 06-09-2025 09:44-0400 Body weight 96.16 kg Gia Escobar MD Work Phone: [facility] 06-09-2025 09:44-0400 Diastolic blood pressure 64 mm[Hg] Gia Escobar MD Work Phone: [facility] 06-09-2025 09:44-0400 Systolic blood pressure 118 mm[Hg] Gia Escobar MD Work Phone: [facility] 05-29-2025 15:55-0400 Body mass index (BMI) [Ratio] 36.22 kg/m2 Reji Leos MD Work Phone: [facility] 05-29-2025 15:55-0400 Body weight 95.71 kg Reji Leos MD Work Phone: [facility] 05-29-2025 15:55-0400 Diastolic blood pressure 70 mm[Hg] Reji Leos MD Work Phone: [facility] 05-29-2025 15:55-0400 Systolic blood pressure 124 mm[Hg] Reji Leos MD Work Phone: [facility] 05-15-2025 09:52-0400 Body mass index (BMI) [Ratio] 35.36 kg/m2 Gia Escobar MD Work Phone: [facility] 05-15-2025 09:52-0400 Body weight 93.44 kg Gia Escobar MD Work Phone: [facility] 05-15-2025 09:52-0400 Diastolic blood pressure 60 mm[Hg] Gia Escobar MD Work Phone: [facility] 05-15-2025 09:52-0400 Systolic blood pressure 116 mm[Hg] Gia Escobar MD Work Phone: [facility] 05-01-2025 09:54-0400 Body mass index (BMI) [Ratio] 34.67 kg/m2 Ilda Medina MD Work Phone: [facility] 05-01-2025 09:54-0400 Body weight 91.63 kg Ilda Medina MD Work Phone: [facility] 05-01-2025 09:54-0400 Diastolic blood pressure 64 mm[Hg] Ilda Medina MD Work Phone: [facility] 05-01-2025 09:54-0400 Systolic blood pressure 106 mm[Hg] Ilda Medina MD Work Phone: [facility] 04-17-2025 09:01-0400 Body mass index (BMI) [Ratio] 34.67 kg/m2 Gia Escobar MD Work Phone: [facility] 04-17-2025 09:01-0400 Body weight 91.63 kg Gia Escobar MD Work Phone: [facility] 04-17-2025 09:01-0400 Diastolic blood pressure 60 mm[Hg] Gia Escobar MD Work Phone: [facility] 04-17-2025 09:01-0400 Systolic blood pressure 124 mm[Hg] Gia Escobar MD Work Phone: [facility] 03-20-2025 09:31-0400 Body mass index (BMI) [Ratio] 32.89 kg/m2 Danielle Hever [employer] Work Phone: [facility] 03-20-2025 09:31-0400 Body weight 86.91 kg Danielle Hever [employer] Work Phone: [facility] 03-20-2025 09:31-0400 Diastolic blood pressure 72 mm[Hg] Danielle Brighton [employer] Work Phone: [facility] 03-20-2025 09:31-0400 Systolic blood pressure 120 mm[Hg] Danielle Brighton [employer] Work Phone: [facility] 02-18-2025 09:26-0400 Diastolic blood pressure 64 mm[Hg] Warner Tai MD Work Phone: [facility] 02-18-2025 09:26-0400 Heart rate 90 /min Warner Tai MD Work Phone: [facility] 02-18-2025 09:26-0400 Systolic blood pressure 111 mm[Hg] Warner Tai MD Work Phone: [facility] 01-30-2025 09:11-0400 Body mass index (BMI) [Ratio] 31.38 kg/m2 Kalyani Dougherty MD Work Phone: [facility] 01-30-2025 09:11-0400 Body weight 82.92 kg Kalyani Dougherty MD Work Phone: [facility] 01-30-2025 09:11-0400 Diastolic blood pressure 78 mm[Hg] Kalyani Dougherty MD Work Phone: [facility] 01-30-2025 09:11-0400 Systolic blood pressure 110 mm[Hg] Kalyani Dougherty MD Work Phone: [facility] 01-08-2025 10:56-0500 Body height 162.6 cm Noe Jose MD Work Phone: [facility] 01-08-2025 10:56-0500 Body mass index (BMI) [Ratio] 31.07 kg/m2 Noe Jose MD Work Phone: [facility] 01-08-2025 10:56-0500 Body temperature 98.4 [degF] Noe Jose MD Work Phone: [facility] 01-08-2025 10:56-0500 Body weight 82.1 kg Noe Jose MD Work Phone: [facility] 01-08-2025 10:56-0500 Diastolic blood pressure 82 mm[Hg] Noe Jose MD Work Phone: [facility] 01-08-2025 10:56-0500 Heart rate 95 /min Noe Jose MD Work Phone: [facility] 01-08-2025 10:56-0500 SaO2% (BldA) [Mass fraction] 100 % Noe Jose MD Work Phone: [facility] 01-08-2025 10:56-0500 Systolic blood pressure 144 mm[Hg] Noe Jose MD Work Phone: [facility] 01-02-2025 10:03-0500 Body height 161.3 cm Kalyani Dougherty MD Work Phone: [facility] 01-02-2025 10:03-0500 Body mass index (BMI) [Ratio] 31.56 kg/m2 Kalyani Dougherty MD Work Phone: [facility] 01-02-2025 10:03-0500 Body weight 82.1 kg Kalyani Dougherty MD Work Phone: [facility] 01-02-2025 10:03-0500 Diastolic blood pressure 60 mm[Hg] Kalyani Dougherty MD Work Phone: [facility] 01-02-2025 10:03-0500 Systolic blood pressure 100 mm[Hg] Kalyani Dougherty MD Work Phone: [facility] 12-05-2024 08:52-0500 Body height 63 cm Danielle Hever [employer] Work Phone: [facility] 12-05-2024 08:19-0500 Body mass index (BMI) [Ratio] 208.23 kg/m2 Danielle Brighton [employer] Work Phone: [facility] 12-05-2024 08:19-0500 Body weight 82.64 kg Danielle Hever [employer] Work Phone: [facility] 12-05-2024 08:19-0500 Diastolic blood pressure 70 mm[Hg] Danielle Brighton [employer] Work Phone: [facility] 12-05-2024 08:19-0500 Systolic blood pressure 124 mm[Hg] Danielle Kathleen [employer] Work Phone: [facility] 12-13-2022 15:12-0500 Body temperature 98.42 [degF] JOEY CAMPBELL MD [facility] 12-13-2022 15:12-0500 Diastolic Blood Pressure Non-Invasive 79 1 JOEY CAMPBELL MD [facility] 12-13-2022 15:12-0500 Heart rate 59 /min JOEY CAMPBELL MD [facility] 12-13-2022 15:12-0500 Respiratory rate 16 /min JOEY CAMPBELL MD [facility] 12-13-2022 15:12-0500 Systolic Blood Pressure Non-Invasive 143 1 JOEY CAMPBELL MD [facility] 12-13-2022 08:10-0500 Body temperature 98.6 [degF] JOEY CAMPBELL MD [facility] 12-13-2022 08:10-0500 Diastolic Blood Pressure Non-Invasive 79 1 JOEY CAMPBELL MD [facility] 12-13-2022 08:10-0500 Heart rate 75 /min JOEY CAMPBELL MD [facility] 12-13-2022 08:10-0500 Respiratory rate 16 /min JOEY CAMPBELL MD [facility] 12-13-2022 08:10-0500 Systolic Blood Pressure Non-Invasive 126 1 JOEY CAMPBELL MD [facility] 12-13-2022 01:00-0500 Body temperature 97.7 [degF] JOEY CAMPBELL MD [facility] 12-13-2022 01:00-0500 Diastolic Blood Pressure Non-Invasive 68 1 JOEY CAMPBELL MD [facility] 12-13-2022 01:00-0500 Heart rate 76 /min JOEY CAMPBELL MD [facility] 12-13-2022 01:00-0500 Respiratory rate 18 /min JOEY CAMPBELL MD [facility] 12-13-2022 01:00-0500 Systolic Blood Pressure Non-Invasive 119 1 JOEY CAMPBELL MD [facility] 12-12-2022 17:06-0500 Signs/Symptoms Transfusion Reaction JOEY CAMPBELL MD [facility] 12-12-2022 16:06-0500 Signs/Symptoms Transfusion Reaction No JOEY CAMPBELL MD [facility] 12-12-2022 16:06-0500 Diastolic blood pressure 78 mm[Hg] JOEY CAMPBELL MD [facility] 12-12-2022 16:06-0500 Heart rate 85 /min JOEY CAMPBELL MD [facility] 12-12-2022 16:06-0500 Systolic blood pressure 129 mm[Hg] JOEY CAMPBELL MD [facility] 12-12-2022 15:57-0500 Signs/Symptoms Transfusion Reaction JOEY CAMPBELL MD [facility] 12-12-2022 13:35-0500 Inspected Blood Donor Unit Appearance JOEY CAMPBELL MD [facility] 12-11-2022 20:40-0500 Respiratory Rate - Anes 0 br/min JOEY CAMPBELL MD [facility] 12-11-2022 20:35-0500 Respiratory Rate - Anes 0 br/min JOEY CAMPBELL MD [facility] 12-11-2022 20:30-0500 Respiratory Rate - Anes 0 br/min JOEY CAMPBELL MD [facility] 12-11-2022 18:30-0500 Blood Pressure Cuff Size JOEY CAMPBELL MD [facility] 12-11-2022 18:30-0500 Blood Pressure Location JOEY CAMPBELL MD [facility] 12-11-2022 18:30-0500 Blood Pressure Method JOEY CAMPBELL MD [facility] 12-11-2022 18:30-0500 Body temperature 97.88 [degF] JOEY CAMPBELL MD [facility] 12-11-2022 17:48-0500 Body temperature 97.52 [degF] JOEY CAMPBELL MD [facility] 12-11-2022 16:45-0500 Blood Pressure Cuff Size JOEY CAMPBELL MD [facility] 12-11-2022 16:45-0500 Blood Pressure Location JOEY CAMPBELL MD [facility] 12-11-2022 16:45-0500 Blood Pressure Method JOEY CAMPBELL MD [facility] 12-11-2022 16:30-0500 Body temperature 97.88 [degF] JOEY CAMPBELL MD [facility] 12-11-2022 15:30-0500 Blood Pressure Cuff Size JOEY CAMPBELL MD [facility] 12-11-2022 15:30-0500 Blood Pressure Location JOEY CAMPBELL MD [facility] 12-11-2022 15:30-0500 Blood Pressure Method JOEY CAMPBELL MD [facility] 12-10-2022 17:42-0500 Body height 160 cm JOEY CAMPBELL MD [facility] 12-10-2022 17:42-0500 Body weight 103.63 kg JOEY CAMPBELL MD [facility] 12-10-2022 17:42-0500 Body weight 40.48 kg/m2 JOEY CAMPBELL MD [facility] Encounters Encounter Date Encounter Type Care Provider Facility Start: 06-30-2025 Evaluation and manag ement of inpatient Reji Leos Facility:[facility] Start: 06-24-2025 End: 06-24-2025 ambulatory Zuleyka Liao MA [facility] Start: 06-24-2025 End: 06-24-2025 Patient encounter procedure Zuleyka Liao MA [facility] Comment on above: Population Health Na vigation Outreach (Ob/peds) Start: 06-23-2025 End: 06-23-2025 Patient encounter procedure Gia Escobar MD Work Phone: OB/Gynecology Comment on above: 38 weeks gestation o f (HCC) (Primary Dx); Supervision of high risk in third trimester (HCC); Hx of section; Obesity in (HCC) Start: 06-23-2025 End: 06-23-2025 ambulatory SERGO FENG Facility:[facility] Start: 06-17-2025 End: 06-17-2025 ambulatory REJI LEOS Facility:[facility] Start: 06-09-2025 End: 06-09-2025 Patient encounter procedure Gia Escobar MD Work Phone: OB/Gynecology Comment on above: Supervision of high risk in third trimester (HCC) (Primary Dx); 36 weeks gestation of (HCC); Hx of section; Obesity in (HCC) Start: 06-09-2025 End: 06-09-2025 ambulatory SERGO FENG Facility:[facility] Start: 05-30-2025 End: 05-30-2025 Telephone encounter Reji Leos MD Work Phone: OB/Gynecology Comment on above: Breast pump Start: 05-29-2025 End: 05-29-2025 Patient encounter procedure Reji Leos MD Work Phone: OB/Gynecology Comment on above: Supervision of high risk in third trimester (HCC) (Primary Dx); Hx of section; 34 weeks gestation of (HCC); Supervision of high risk in second trimester (HCC) Start: 05-29-2025 End: 05-29-2025 ambulatory SERGO FENG Facility:[facility] Start: 05-15-2025 End: 05-15-2025 Patient encounter procedure Gia Escobar MD Work Phone: OB/Gynecology Comment on above: Supervision of high risk in third trimester (HCC) (Primary Dx); Hx of section; Obesity in (HCC); Cartilage-hair hypoplasia syndrome (HCC); Other immediate hemorrhage (HCC); 32 weeks gestation of (HCC) Start: 05-15-2025 End: 05-15-2025 ambulatory SERGO FENG Facility:[facility] Start: 05-01-2025 End: 05-01-2025 Patient encounter procedure Ilda Medina MD Work Phone: OB/Gynecology Comment on above: Supervision of high risk in third trimester (HCC) (Primary Dx); Hx of section; Obesity in (HCC); 30 weeks gestation of (HCC) Start: 05-01-2025 End: 05-01-2025 ambulatory SERGO FEGN Facility:[facility] Start: 04-17-2025 End: 04-17-2025 Patient encounter procedure Gia Escobar MD Work Phone: OB/Gynecology Comment on above: Supervision of high risk in third trimester (HCC) (Primary Dx); Hx of section; Cartilage-hair hypoplasia syndrome (HCC); Other immediate hemorrhage (HCC); Heart palpitations; Obesity in (HCC); Need for vaccination Start: 04-17-2025 End: 04-17-2025 ambulatory SERGO FENG Facility:[facility] Start: 03-20-2025 End: 03-20-2025 ambulatory SERGO FENG Facility:[facility] Start: 03-20-2025 End: 03-20-2025 Patient encounter procedure Danielle Kathleen APRN.CNP Work Phone: OB/Gynecology Comment on above: Screening for diabet es mellitus (Primary Dx); 24 weeks gestation of (HCC); Supervision of high risk in second trimester (HCC); Rh negative state in antepartum period (HCC) Start: 03-07-2025 End: 05-07-2025 Follow-up encounter Warner Tai MD Work Phone: Preventive Cardiology Start: 03-06-2025 End: 03-06-2025 ambulatory SERGO FENG Facility:[facility] Start: 02-20-2025 End: 04-22-2025 Follow-up encounter Kalyani Dougherty MD Work Phone: OB/Gynecology Start: 02-20-2025 End: 02-20-2025 ambulatory SERGO FENG Facility:[facility] Start: 02-18-2025 End: 02-18-2025 ambulatory [facility] Work Phone: Cardiology Comment on above: Event (Zio patch- 14 days) Start: 02-18-2025 End: 02-18-2025 Patient encounter procedure Warner Tai MD Work Phone: Preventive Cardiology Comment on above: Palpitations (Primar y Dx); 20 weeks gestation of (HCC); Lightheaded Start: 02-18-2025 End: 02-18-2025 ambulatory SERGO FENG Facility:[facility] Start: 02-03-2025 End: 02-04-2025 Telephone encounter Noe Jose MD Work Phone: Hematology/Oncology Comment on above: Patient Question Start: 01-30-2025 End: 01-30-2025 ambulatory KALYANI DOUGHERTY Facility:[facility] Start: 01-30-2025 End: 01-30-2025 Patient encounter procedure Kalyani Dougherty MD Work Phone: OB/Gynecology Comment on above: Encounter for superv ision of normal in multigravida (Primary Dx); 17 weeks gestation of ; Shortness of breath; Palpitations Start: 01-09-2025 End: 01-09-2025 ambulatory SERGO FENG Facility:[facility] Start: 01-08-2025 End: 01-08-2025 ambulatory Noe Jose MD Work Phone: Hematology/Oncology Comment on above: 13 weeks gestation o f ; Encounter for supervision of normal in multigravida; Excessive bleeding Start: 01-08-2025 End: 01-08-2025 Patient encounter procedure Noe Jose MD Work Phone: Hematology/Oncology Start: 01-02-2025 End: 03-04-2025 Follow-up encounter Reji Leos MD Work Phone: OB/Gynecology Start: 01-02-2025 End: 01-02-2025 ambulatory [facility] Facility:[facility] Start: 01-02-2025 End: 01-02-2025 [facility] Facility:[facility] Start: 01-02-2025 End: 01-02-2025 Patient encounter procedure Whi Tech [employer] Maternal Medicine Comment on above: Encounter for antena elizabeth screening for malformation using ultrasound (Primary Dx); 13 weeks gestation of ; Encounter for (NT) nuchal translucency scan 13 weeks gestation o f (Primary Dx); Encounter for supervision of normal in multigravida; Excessive bleeding; Hx of section Start: 12-05-2024 End: 12-05-2024 ambulatory [facility] Facility:[facility] Start: 12-05-2024 End: 12-05-2024 Patient encounter procedure Danielle Kathleen [employer] SUPERVISOR.FIELD LABORER Work Phone: OB/Gynecology Comment on above: with uncer tain dates, antepartum (Primary Dx); 9 weeks gestation of ; Screening for cervical cancer; Encounter for supervision of normal in multigravida; Nausea and vomiting during ; Hx of section; Other immediate hemorrhage Start: 05-25-2023 End: 05-30-2023 ambulatory AUNDREA ROBB MD Facility:B Start: 05-25-2023 End: 05-30-2023 Encounter for gynecological examination (general) (routine) without abnormal findings AUNDREA ROBB MD Facility:B Start: 05-25-2023 End: 05-29-2023 Outreach Lab AUNDREA ROBB MD [facility] Start: 12-28-2022 End: 12-29-2022 ambulatory MARINA ZAMBRANO [employer] SUPERVISOR-FIELD LABORER Facility:B Start: 12-28-2022 End: 12-28-2022 Patient encounter procedure MARINA ZAMBRANO [employer] SUPERVISOR-FIELD LABORER [facility] Start: 12-10-2022 End: 12-13-2022 Evaluation and management of inpatient JOEY CAMPBELL Facility:B Start: 12-10-2022 End: 12-13-2022 Evaluation and management of inpatient JOEY CAMPBELL MD [facility] Start: 12-09-2022 End: 12-10-2022 ambulatory HEMAL LUIS MD Facility:B Start: 12-09-2022 End: 12-09-2022 Patient encounter procedure HEMAL LUIS MD [facility] Start: 11-10-2022 End: 11-15-2022 ambulatory AUNDREA ROBB MD Facility:B Start: 11-10-2022 End: 11-14-2022 Outreach Lab AUNDREA ROBB MD [facility] Start: 10-26-2022 End: 10-27-2022 ambulatory HEMAL LUIS MD Facility:B Start: 10-26-2022 End: 10-26-2022 Patient encounter procedure HEMAL LUIS MD [facility] Start: 09-21-2022 End: 09-22-2022 ambulatory HEMAL LUIS MD Facility:B Start: 09-21-2022 End: 09-21-2022 Patient encounter procedure HEMAL LUIS MD [facility] Start: 09-06-2022 End: 09-07-2022 ambulatory HEMAL LUIS MD Facility:B Start: 09-06-2022 End: 09-06-2022 Patient encounter procedure HEMAL LUIS MD [facility] Start: 08-02-2022 End: 08-03-2022 ambulatory HEMAL LUIS MD Facility:B Start: 08-02-2022 End: 08-02-2022 Patient encounter procedure HEMAL LUIS MD [facility] Start: 08-02-2022 End: 08-02-2022 ambulatory HEMAL LIUS [facility] Start: 07-04-2022 End: 07-04-2022 ambulatory SERGO FENG [facility] Start: 06-14-2022 End: 06-15-2022 ambulatory HEMAL LUIS MD Facility:B Start: 06-14-2022 End: 06-14-2022 Patient encounter procedure HEMAL LUIS MD [facility] Start: 06-10-2022 End: 06-11-2022 ambulatory HEMAL LUIS MD Facility:B Start: 06-10-2022 End: 06-10-2022 Patient encounter procedure HEMAL LUIS MD [facility] Start: 05-18-2022 End: 05-18-2022 Patient encounter procedure HEMAL LUIS MD [facility] Start: 03-23-2022 End: 03-23-2022 Patient encounter procedure SERGO FENG [employer] SUPERVISOR - FIELD LABORER [facility] Start: 11-15-2021 End: 11-15-2021 Patient encounter procedure SERGO FENG [employer] SUPERVISOR - FIELD LABORER [facility] Start: 11-02-2021 End: 11-06-2021 Outreach Lab HEMAL LUIS MD [facility] Start: 11-02-2021 End: 11-02-2021 Patient encounter procedure SERGO FENG [employer] SUPERVISOR - FIELD LABORER [facility] Start: 10-29-2021 End: 10-29-2021 Patient encounter procedure SERGO FENG [employer] SUPERVISOR - FIELD LABORER [facility] Procedures Date Procedure Procedure Detail Performing Clinician Start: 06-23-2025 Urnls dip stick/tabl et rgnt non-auto w/o micrscp Gia Escobar MD Work Phone: Start: 05-29-2025 Urnls dip stick/tabl et rgnt non-auto w/o micrscp Reji Leos MD Work Phone: Start: 06-05-2025 Antibody screen SERGO FENG Comment on above: Order Comment: Speci men Type: BLOOD SPECIMENOrdering Facility: [facility] Address: [address] [place] [address] Performed By: #### T SPN ####CC MAIN BLOOD BANKCLIA [id number] [address] Start: 01-02-2025 Antibody screen SERGO FENG Comment on above: Order Comment: Speci men Type: BLOOD SPECIMENOrdering Facility: [facility] Address: [address] [place] [address] Performed By: #### T SPN ####CC MAIN BLOOD BANKCLIA [id number] [address] [place] Start: 01-02-2025 Us preg uterus after 1st trimest 11/13 gestation Danielle Hever [employer] SUPERVISOR.FIELD LABORER Work Phone: Start: 12-05-2024 H/O: section Hx of ce sarean section Danielle Brighton [employer] SUPERVISOR.FIELD LABORER Work Phone: Start: 12-05-2024 Us uterus l imited fetuses Danielle Brighton [employer] SUPERVISOR.FIELD LABORER Work Phone: Start: 12-05-2024 Adult depression scr eening assessment Kalyani Dougherty MD Work Phone: Start: 12-11-2022 section MARINA ZAMBRANO [employer] SUPERVISOR-FIELD LABORER Dentition (body structure) R JUAN FENG [employer] SUPERVISOR - FIELD LABORER Comment on above: wisdom teeth H/O: section Hx of cesa rean section Kalyani Dougherty MD Work Phone: H/O: section Hx of cesa rean section Gia Escobar MD Work Phone: H/O: section Hx of cesa rean section Ilda Medina MD Work Phone: H/O: section Hx of cesa rean section Gia Escobar MD Work Phone: H/O: section Hx of cesa rean section Reji Leos MD Work Phone: H/O: section Hx of cesa rean section Gia Escobar MD Work Phone: H/O: section Hx of cesa rean section Gia Escobar MD Work Phone: Plan of Treatment Date Care Activity Detail Author Start: 02-27-2072 RSV Vaccine (1 - 1-d ose 75+ series) RSV Vaccine (1 - 1-dose 75+ series) [facility] Start: 04-17-2035 Urine microalbumin profile [facility] Start: 10-12-2032 Urine microalbumin profile DTaP,Tdap,Td Vaccine (2 - Td or Tdap) [facility] Start: 12-05-2027 Screening for malign ant neoplasm of cervix Cervical Cancer Screening [facility] Start: 12-05-2025 Anxiety Screening Anxiety Screening [facility] Start: 12-05-2025 Depression Screening Depression Scre ening [facility] Start: 08-11-2025 End: 08-11-2025 Patient encounter procedure 08/11/2025 11:30 AM EDT Office Visit OB/Gynecology [address] [place] [id number] Reji Leos MD [address] [phone] [phone] WEEK POST OP OB/Gynecology Comment on above: 6 WEEK POST OP Start: 07-14-2025 Influenza vaccination C [facility] Start: 07-07-2025 End: 07-07-2025 Patient encounter procedure 07/07/2025 9:20 AM EDT Office Visit OB/Gynecology [address] [place] [phone] Reji Leos MD [address] [place] [id number] 1 week incision check OB/Gynecology Comment on above: 1 week incision chec k Start: 06-23-2025 End: 06-23-2025 Patient encounter procedure 06/23/2025 9:50 AM EDT Routine Office Visit OB/Gynecology [address] [place] [address] Gia Escobar MD [address] [place] [address] OB OB/Gynecology Comment on above: OB Start: 06-17-2025 End: 06-17-2025 Patient encounter procedure 06/17/2025 10:10 AM EDT Routine Office Visit OB/Gynecology [address] [place] [address] Reji Leos MD [address] [place] [address] OB Pre Op C/S 06/30 @ [facility] OB/Gynecology Comment on above: OB Pre Op C/S 06/30 @ [facility] Start: 06-09-2025 End: 06-09-2025 Patient encounter procedure 06/09/2025 9:40 AM EDT Routine Office Visit OB/Gynecology [address] [place] [address] Gia Escobar MD [address] [place] [address] OB OB/Gynecology Comment on above: OB Start: 05-29-2025 End: 05-29-2025 Patient encounter procedure 05/29/2025 1:50 PM EDT Routine Office Visit OB/Gynecology [address] [place] [address] Reji Leos MD [address] [place] [address] Ob OB/Gynecology Comment on above: Ob Start: 05-15-2025 End: 05-15-2025 Patient encounter procedure 05/15/2025 9:50 AM EDT Routine Office Visit OB/Gynecology [address] [place] [address] Gia Escobar MD [address] [place] [address] Ob OB/Gynecology Comment on above: Ob Start: 05-01-2025 End: 05-01-2025 Patient encounter procedure 05/01/2025 9:50 AM EDT Routine Office Visit OB/Gynecology [address] [place] [address] Ilda Medina MD [address] [place] [address] ob OB/Gynecology Comment on above: ob Start: 04-20-2025 End: 07-20-2025 ANEMIA REFLEX PANEL ANEMIA REFLEX PANEL Lab Routine 24 weeks gestation of ([facility]) Supervision of high risk in second trimester ([facility]) Rh negative state in antepartum period ([facility]) Expected: 04/20/2025 (Approximate), Expires: 07/20/[address] [facility] Comment on above: Expected: 04/20/2025 (Approximate), Expires: 07/20/2025 Start: 04-20-2025 End: 03-20-2026 GESTATIONAL GLUCOSE SCREEN, 1-HOUR, 50 GRAM, NON-FASTING GESTATIONAL GLUCOSE SCREEN, 1-HOUR, 50 GRAM, NON-FASTING Lab Routine Screening for diabetes mellitus 24 weeks gestation of ([facility]) Supervision of high risk in second trimester ([facility]) Rh negative state in antepartum period ([facility]) Expected: 04/20/2025 (Approximate), Expires: 03/20/2026 [facility] Work Phone: Comment on above: Expected: 04/20/2025 (Approximate), Expires: 03/20/2026 Start: 04-20-2025 End: 03-20-2026 SYPHILIS TREPONEMAL W/REFLEX SYPHILIS TREPONEMAL W/REFLEX Lab Routine 24 weeks gestation of ([facility]) Supervision of high risk in second trimester ([facility]) Rh negative state in antepartum period ([facility]) Expected: 04/20/2025 (Approximate), Expires: 03/20/[address] [facility] Comment on above: Expected: 04/20/2025 (Approximate), Expires: 03/20/2026 Start: 04-20-2025 End: 07-20-2025 TYPE + SCREEN TYPE + SCREEN Blood Bank Routine 24 weeks gestation of ([facility]) Supervision of high risk in second trimester ([facility]) Rh negative state in antepartum period ([facility]) Expected: 04/20/2025 (Approximate), Expires: 07/20/[address] [facility] Comment on above: Expected: 04/20/2025 (Approximate), Expires: 07/20/2025 Start: 04-17-2025 End: 04-17-2025 Patient encounter procedure 04/17/2025 9:00 AM EDT Routine Office Visit OB/Gynecology [address] [place] [address] Gia Escobar MD [address] [place] [address] OB OB/Gynecology Comment on above: OB Start: 04-17-2025 End: 04-17-2025 ambulatory 04/17/2025 8:45 AM EDT Results Only [facility] [address] [place] [address] Glucose test [facility] Comment on above: Glucose test Start: 03-20-2025 End: 03-20-2025 Patient encounter procedure 03/20/2025 9:10 AM EDT Routine Office Visit OB/Gynecology [address] [place] [address] Kalyani Dougherty MD [address] [place] [address] OB OB/Gynecology Comment on above: OB Start: 03-06-2025 End: 03-06-2025 Patient encounter procedure 03/06/2025 8:50 AM EDT Office Visit Cardiology [address] [place] [address] Palpitations [R00.2] Cardiology Comment on above: Palpitations [R00.2] Start: 02-20-2025 End: 02-20-2025 Patient encounter procedure Maternal Medicine Comment on above: Anatomy Anatomy/OB Start: 01-30-2025 End: 05-01-2025 Thyrotropin [Units/volume] in Serum or Plasma [facility] Work Phone: Comment on above: Expected: 01/30/2025 , Expires: 05/01/2025 Start: 01-30-2025 End: 05-01-2025 Thyroxine (T4) free [Mass/volume] in Serum or Plasma [facility] Comment on above: Expected: 01/30/2025 , Expires: 05/01/2025 Start: 01-30-2025 End: 01-30-2025 Patient encounter procedure 01/30/2025 9:10 AM EDT Routine Office Visit OB/Gynecology [address] [place] [address] Kalyani Dougherty MD [address] [place] [address] OB OB/Gynecology Comment on above: OB Start: 01-09-2025 End: 01-09-2025 ambulatory 01/09/2025 8:00 AM EST Results Only [place] [facility] [address] [place] [address] [facility]* [facility] Comment on above: [facility]ON WILLEBRAND* Start: 01-08-2025 End: 04-09-2025 VON WILLE[facility]AND DX PANEL VON WILLEBRAND DX PANEL Lab Routine Excessive bleeding Expected: 01/08/2025, Expires: 04/09/2025 [facility] Work Phone: Comment on above: Expected: 01/08/2025 , Expires: 04/09/2025 Start: 01-02-2025 End: 01-02-2026 OBSTETRIC ULTRASOUND WHI OBSTETRIC ULTRASOUND WHI Anc Imaging Routine 13 weeks gestation of Encounter for supervision of normal in multigravida Expected: 01/02/2025, Expires: 01/02/2026 [facility] Work Phone: Comment on above: Expected: 01/02/2025 , Expires: 01/02/2026 Start: 01-02-2025 End: 01-02-2025 Patient encounter procedure Maternal Medicine Comment on above: Nuchal [place] LMP 09/30 Start: 12-05-2024 End: 03-06-2025 ANEMIA REFLEX PANEL ANEMIA REFLEX PANEL Lab Routine with uncertain dates, antepartum 9 weeks gestation of Encounter for supervision of normal in multigravida Expected: 12/05/2024, Expires: 03/06/[address] [facility] [place] Work Phone: Comment on above: Expected: 12/05/2024 , Expires: 03/06/2025 Start: 12-05-2024 End: 03-06-2025 Hemoglobin A1c in Blood HEMOGLOBIN A1C Lab Routine with uncertain dates, antepartum 9 weeks gestation of Encounter for supervision of normal in multigravida Expected: 12/05/2024, Expires: 03/06/[address] [facility] Comment on above: Expected: 12/05/2024 , Expires: 03/06/2025 Start: 12-05-2024 End: 03-06-2025 Hepatitis B virus surface Ag [Presence] in Serum HEPATITIS B SURFACE ANTIGEN Lab Routine with uncertain dates, antepartum 9 weeks gestation of Encounter for supervision of normal in multigravida Expected: 12/05/2024, Expires: 03/06/[address] [facility] Comment on above: Expected: 12/05/2024 , Expires: 03/06/2025 Start: 12-05-2024 End: 03-06-2025 Hepatitis C virus Ab [Presence] in Serum HEPATITIS C ANTIBODY IA WITH CONFIRMATION Lab Routine with uncertain dates, antepartum 9 weeks gestation of Encounter for supervision of normal in multigravida Expected: 12/05/2024, Expires: 03/06/[address] [facility] Comment on above: Expected: 12/05/2024 , Expires: 03/06/2025 Start: 12-05-2024 End: 03-06-2025 HIV 1+2 Ab [Presence] in Serum or Plasma by Immunoassay HIV 1/2 COMBO WITH REFLEX TO DIFFERENTIATION Lab Routine with uncertain dates, antepartum 9 weeks gestation of Encounter for supervision of normal in multigravida Expected: 12/05/2024, Expires: 03/06/[address] [facility] Comment on above: Expected: 12/05/2024 , Expires: 03/06/2025 Start: 12-05-2024 End: 12-05-2025 OBSTETRIC ULTRASOUND WHI OBSTETRIC ULTRASOUND WHI Anc Imaging Routine with uncertain dates, antepartum 9 weeks gestation of Encounter for supervision of normal in multigravida Expected: 12/05/2024, Expires: 12/05/[address] [facility] Comment on above: Expected: 12/05/2024 , Expires: 12/05/2025 Start: 12-05-2024 End: 03-06-2025 RUBELLA IGG ANTIBODY RUBELLA IGG ANTIBODY Lab Routine with uncertain dates, antepartum 9 weeks gestation of Encounter for supervision of normal in multigravida Expected: 12/05/2024, Expires: 03/06/[address] [facility] Comment on above: Expected: 12/05/2024 , Expires: 03/06/2025 Start: 12-05-2024 End: 03-06-2025 SYPHILIS TREPONEMAL W/REFLEX SYPHILIS TREPONEMAL W/REFLEX Lab Routine with uncertain dates, antepartum 9 weeks gestation of Encounter for supervision of normal in multigravida Expected: 12/05/2024, Expires: 03/06/[address] [facility] Comment on above: Expected: 12/05/2024 , Expires: 03/06/2025 Start: 12-05-2024 End: 03-06-2025 TYPE + SCREEN TYPE + SCREEN Blood Bank Routine with uncertain dates, antepartum 9 weeks gestation of Encounter for supervision of normal in multigravida Expected: 12/05/2024, Expires: 03/06/[address] [facility] Comment on above: Expected: 12/05/2024 , Expires: 03/06/2025 Start: 07-14-2024 Covid-19 Vaccine () Covid-19 Vaccine () [facility] Start: 07-14-2024 Influenza vaccination Influenza Vacc ine (#1) [facility] Start: 02-27-2024 HPV Vaccine (1 - 3-d ose SCDM series) HPV Vaccine (1 - 3-dose SCDM series) [facility] Start: 2018 Screening for malign ant neoplasm of cervix Cervical Cancer Screening [facility] Start: 02-27-2016 Hepatitis B Vaccine (1 of 3 - 19+ 3-dose series) Hepatitis B Vaccine (1 of 3 - 19+ 3-dose series) [facility] Start: 02-27-2016 Urine microalbumin profile DTaP,Tdap,Td Vaccine (1 - Tdap) [facility] Start: 2015 Anxiety Screening Anxiety Screening [facility] Start: 2015 [facility]: 2015 Hepatitis C screening Hepatitis C Sc reening [facility] Start: 2015 HIV screening HIV Screening [facility] Bacteria identified in Urine by Culture BACTERIAL CULTURE, URINE Microbiology Routine with uncertain dates, antepartum 9 weeks gestation of Encounter for supervision of normal in multigravida 12/05/2024 9:06 AM [facility] Chlamydia trachomatis+Neisseria gonorrhoeae DNA [Presence] in Unspecified specimen by ALVARO with probe detection GONORRHEA/CHLAMYDIA NAAT Lab Routine with uncertain dates, antepartum 9 weeks gestation of Encounter for supervision of normal in multigravida 12/05/2024 9:06 AM [facility] End: 02-18-2026 Echocardiography ECHO Cardiology Routine Palpitations 1 Occurrences starting 02/18/2025 until 02/18/[address] [facility] Comment on above: 1 Occurrences starti ng 02/18/2025 until 02/18/2026 OUTSIDE VENDOR CARDI AC OUTPATIENT EXTENDED RHYTHM RECORDING (WITHOUT TELEMETRY) OUTSIDE VENDOR CARDIAC OUTPATIENT EXTENDED RHYTHM RECORDING (WITHOUT TELEMETRY) Holter Routine Palpitations Ordered: 02/18/2025 [facility] Work Phone: Comment on above: Ordered: 02/18/2025 PAP TEST PAP TEST Lab Rou reji with uncertain dates, antepartum 9 weeks gestation of Screening for cervical cancer Encounter for supervision of normal in multigravida 12/05/2024 9:06 AM [facility] ROUTINE, GR OUP B STREPTOCOCCUS BY PCR ROUTINE, GROUP B STREPTOCOCCUS BY PCR Microbiology Routine 36 weeks gestation of (HCC) 06/09/2025 1:44 PM EDT [facility] URINE OB DIP B/O URINE OB DIP B/ O Lab Routine Supervision of high risk in third trimester (HCC) Hx of section Obesity in (HCC) Cartilage-hair hypoplasia syndrome (HCC) Other immediate hemorrhage (HCC) 32 weeks gestation of (HCC) Ordered: 05/15/2025 [facility] Work Phone: Comment on above: Ordered: 05/15/2025 URINE OB DIP B/O URINE OB DIP B/ O Lab Routine 36 weeks gestation of (HCC) Supervision of high risk in third trimester (HCC) Hx of section Obesity in (HCC) Ordered: 06/09/2025 [facility] Work Phone: Comment on above: Ordered: 06/09/2025 Immunizations Immunization Date Immunization Notes Care Provider Mariel river 04-17-2025 RHO(D) immune globul in- IV or IM Gia Escobar MD Work Phone: [facility] 04-17-2025 tetanus toxoid, redu rishi diphtheria toxoid, and acellular pertussis vaccine, adsorbed Gia Escobar MD Work Phone: [facility] 10-12-2022 tetanus toxoid, redu rishi diphtheria toxoid, and acellular pertussis vaccine, adsorbed; Translations: [Boostrix (Tdap)] HEMAL LUIS MD [facility] Comment on above: Result Comment: [facility]# [id number] 06-07-2002 diphtheria, tetanus toxoids and acellular pertussis vaccine, unspecified formulation Reji Leos MD Work Phone: [facility] 06-07-2002 measles, mumps and rubella virus vaccine Reji Leos MD Work Phone: [facility] 06-07-2002 poliovirus vaccine, inactivated Reji Leos MD Work Phone: [facility] 03-15-1999 diphtheria, tetanus toxoids and acellular pertussis vaccine, unspecified formulation Reji Leos MD Work Phone: [facility] 03-15-1999 haemophilus influenz ae type b vaccine, PRP-OMP conjugate Reji Leos MD Work Phone: [facility] 03-15-1999 hepatitis B vaccine, pediatric or pediatric/adolescent dosage Reji Leos MD Work Phone: [facility] 03-23-1998 diphtheria, tetanus toxoids and acellular pertussis vaccine, unspecified formulation Reji Leos MD Work Phone: [facility] 03-23-1998 haemophilus influenz ae type b vaccine, PRP-OMP conjugate Reji Leos MD [facility] Phone: [facility] [facility] 03-23-1998 measles, mumps and rubella virus vaccine Reji Leos MD Work Phone: [facility] 03-23-1998 trivalent poliovirus vaccine, live, oral Reji Leos MD Work Phone: [facility] 1997 diphtheria, tetanus toxoids and acellular pertussis vaccine, unspecified formulation Reji Leos MD Work Phone: [facility] 1997 haemophilus influenz ae type b vaccine, PRP-OMP conjugate Reji Leos MD Work Phone: [facility] 1997 trivalent poliovirus vaccine, live, oral Reji Leos MD Work Phone: [facility] 1997 diphtheria, tetanus toxoids and acellular pertussis vaccine, unspecified formulation Reji Leos MD Work Phone: [facility] 1997 hepatitis B vaccine, pediatric or pediatric/adolescent dosage Reji Leos MD Work Phone: [facility] 1997 trivalent poliovirus vaccine, live, oral Reji Leos MD Work Phone: [facility] 1997 hepatitis B vaccine, pediatric or pediatric/adolescent dosage Reji Leos MD Work Phone: [facility] Payers Date Payer Category Payer Self-pay 2024 [facility] [id number] 2024 Unknown RASHAD QUINONES [employer] PPO [id number] 2024-Present [phone] [id number] [place] [address] PPO [id number] 2022 Unknown [id number] 2022 Unknown [id number] 1997 Unknown [id number] .9 1997 Unknown [id number] [id number] 1997 Unknown [id number] [id number] .1997 Unknown [id number] 2.840.1.747075.3.579.2 .1997 Unknown [id number] [id number] .1997 Unknown [id number] [id number] .1997 Unknown [id number] [id number] .1997 Unknown [id number] [id number] .1997 Unknown [id number] [id number] .627 1997 Unknown [id number] [id number] .627 1997 Unknown [id number] [id number] .627 1997 Unknown [id number] [id number] .627 1997 Unknown [id number] [id number] .627 Unknown [id number] .462 Social History Date Type Detail Facility Start: 07-26-2019 End: 11-29-2024 Never smoked tobacco (finding) [facility] Comment on above: No smoke exposure Start: 1995 Sex Assigned At Female A [facility] Start: 11-29-2024 Tobacco use and exposure Smokeless tobacco non-user [facility] Start: 12-05-2024 End: 06-23-2025 Alcoholic beverage intake Ex-drinker (finding) [facility] Start: 12-05-2024 End: 01-02-2025 History of Social function [facility] Start: 12-05-2024 End: 01-02-2025 Tobacco use panel [facility] Start: 04-04-2018 National Score (1-10 0), lower number is lower risk Not on file [facility] Start: 11-29-2024 Education [address] [facility] Start: 10-14-[address] [facility] Start: 11-29-2024 Gender identity Identifies as female gender (finding) [facility] Start: 11-29-2024 Sexual orientation Heterosexual (vero carranza) [facility] Goals Date Patient Goal Desired Activity /State Personal health goal Functional Status Date Assessment Result Facility 12-13-2022 Functional Status Precautions maintained [facility] 12-13-2022 Functional Status [facility] 12-13-2022 [facility] [place] [facility] Functional Status [facility]-12-[facility] [place] 12-11-2022 Functional Status [facility]iated [facility] 12-10-2022 Functional Status [facility] 12-10-2022 [facility] Mental Status Date Assessment Result Facility 12-13-2022 Mental Status Orientation Oriented x 4 [facility] 12-13-2022 Mental Status [facility] 12-12-2022 Mental Status [facility] Clinical Notes 06-09-2022 to 06-24-2025 Zuleyka Liao MA - 06/24/2025 10:28 AM EDTPrenatal Quick Notes - Gia Escobar MD - 06/23/2025 9:54 AM EDTPrenatal Quick Notes - Gia Escobar MD - 06/23/2025 9:54 AM EDTPatient Instructions Note Date & Type Note Facility 06-24-2025 Note HNO ID: [id number] Author: ZULEYKA LIAO MA Service: ? Author Type: Director Process Engineering Type: Progress Notes Filed: 06/24/2025 14:15 Note Text: POPULATION HEALTH NAVIGATION OUTREACH Action/FYI Embedded Engineer updated per documentation. Reason for Outreach Medicaid OB/Peds Care Gaps due: N/A Patient Contacted: Unable or unnecessary to reach patient: [place] global security architect added Navigation Signature: Zuleyka Hummel MA June 24, 2025 10:28 AM [facility] 06-24-2025 History of Presen t illness Narrative POPULATION HEALTH NAVIGATION OUTREACH Action/FYI Embedded Engineer updated per documentation. Reason for Outreach Medicaid OB/Peds Care Gaps due: N/A Patient Contacted: Unable or unnecessary to reach patient: [place] global security architect added Navigation Signature: Zuleyka Hummel MA June 24, 2025 10:28 AM documented in this encounter [facility] 06-24-2025 Note Patient Outreach (SARANYA TROTTER) ZULEYKA NIELSEN ([id number]) 1995 F Date Time Provider Department 06/24/25 ZULEYKA LIAO During your visit today, we recorded the following information about you: Zuleyka Liao MA 06/24/2025 2:15 PM Signed POPULATION HEALTH NAVIGATION OUTREACH Action/FYI Embedded Engineer updated per documentation. Reason for Outreach Medicaid OB/Peds Care Gaps due: N/A Patient Contacted: Unable or unnecessary to reach patient: [place] [employer] security architect added Navigation Signature: Zuleyka Hummel MA June 24, 2025 10:28 AM Allergies As of Date: 06/24/2025 (No Known Allergies) Date Reviewed: 06/23/2025 Reviewed by: Gia Escobar MD - Fully Assessed Reason for Visit: Population Health Navigation Outreach [3910] Cmt: Ob/peds Prescriptions as of 06/24/2025 - cetirizine HCl (ZYRTEC PO) Take by mouth. - Breast Pump Use as directed - 25/iron/folate 6/dha (PRENA1 ORAL) Take 1 tablet by mouth once daily. 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 S: Zuleyka Nielsen is a 30 year old female who presents at 07/07/2025, by Last Menstrual Period for a routine visit. Denies headache, visual changes, chest pain, shortness of breath, vaginal bleeding, leakage of fluid, or dysuria. Feeling well, no complaints. Good movement, No contractions O: See flow sheet Gen: No apparent distress Abd: Gravid, nontender Repeat scheduled for next week ASSESSMENT/PLAN: 1. 38 weeks gestation of ([facility]) - ICD9: V22.2, ICD10: Z3A.38 (primary diagnosis) - URINE OB DIP B/O 2. Supervision of high risk in third trimester ([facility]) - ICD9: V23.9, ICD10: O09.93 - URINE OB DIP B/O 3. Hx of section - ICD9: V45.89, ICD10: Z98.891 - URINE OB DIP B/O 4. Obesity in ([facility]) - ICD9: 649.10, ICD10: O99.210 - URINE OB DIP B/O Gia Escobar MD [facility] 06-23-2025 Miscellaneous Notes S: Zuleyka Nielsen is a 30 year old female who presents at 07/07/2025, by Last Menstrual Period for a routine visit. Denies headache, visual changes, chest pain, shortness of breath, vaginal bleeding, leakage of fluid, or dysuria. Feeling well, no complaints. Good movement, No contractions O: See flow sheet Gen: No apparent distress Abd: Gravid, nontender Repeat scheduled for next week ASSESSMENT/PLAN: 1. 38 weeks gestation of ([facility]) - ICD9: V22.2, ICD10: Z3A.38 (primary diagnosis) - URINE OB DIP B/O 2. Supervision of high risk in third trimester ([facility]) - ICD9: V23.9, ICD10: O09.93 - URINE OB DIP B/O 3. Hx of section - ICD9: V45.89, ICD10: Z98.891 - URINE OB DIP B/O 4. Obesity in (HCC) - ICD9: 649.10, ICD10: O99.210 - URINE OB DIP B/O Gia Escobar MD documented in this encounter [facility] 06-23-2025 Instructions Zuleyka Vargas MA - 06/23/2025 9:45 AM EDT SEQUENTIAL SCREENINGS The [facility] offers sequential screenings for women who are interested in screenings for chromosomal abnormalities and certain defects during a . The sequential screen combines ultrasound and blood tests to determine the risk of chromosomal abnormalities, including Down's Syndrome (Trisomy 21) and Trisomy 18, as well as open neural tube defects including spina bifida. Ultrasound examination is performed between 11 weeks and 13 weeks gestational age. Blood tests are drawn after the ultrasound and again later in the between 15 and 21 weeks gestational age. Please let your physician know if you are interested in this testing. It will require an appointment with our auto brake technician. This is not an ultrasound performed by a physician in our office during a routine visit. SIGNS AND SYMPTOMS OF LABOR 1. Contractions every 10 minutes or more often 2. Clear, pink, or brownish fluid (water) leaking from vagina 3. Feeling that baby is pushing down, pressure 4. Low, dull backache 5. Cramps that feel like a period 6. Cramps with or without diarrhea If you notice any of the above symptoms, contact our office at [phone] and ask to speak with a nurse. After hours, you can call doctors registry at [phone] OR call [facility] at [phone] and ask to have the doctor conference reservationist paged. If you consider this an emergency, dial or go to your nearest emergency department. NEED HELP? Are you dealing with a violent or abusive relationship? Are you a victim of rape or sexual assult? Call [facility] ([place]) 24 hour Crisis Hotline: 303.716.3473 or 369-038-7802. MANUAL Your Guide to a Healthy manual is now on-line. Visit [email or web address] to download your free copy documented in this encounter [facility] 06-09-2025 Progress note Formatting of t his note might be different from the original. S: Zuleyka Nielsen is a 30 year old female who presents at 07/07/2025, by Last Menstrual Period for a routine visit. Denies headache, visual changes, chest pain, shortness of breath, vaginal bleeding, leakage of fluid, or dysuria. Feeling well, no complaints. Good movement, No contractions O: See flow sheet Gen: No apparent distress Abd: Gravid, nontender SENSITIVE EXAMINATION CONSENT: The sensitive examination was discussed with the Patient or Patient's Authorized Records Clerk. As applicable, any other physician, advance practice provider, medical student, or other health professional student that will be observing or involved in the sensitive examination for educational or training purposes was discussed with the Patient or Authorized Records Clerk. The Patient or Authorized Records Clerk has agreed to proceed with the sensitive examination. GBS done today ASSESSMENT/PLAN: 1. Supervision of high risk in third trimester (HCC) - ICD9: V23.9, ICD10: O09.93 (primary diagnosis) - URINE OB DIP B/O 2. 36 weeks gestation of (HCC) - ICD9: V22.2, ICD10: Z3A.36 - URINE OB DIP B/O 3. Hx of section - ICD9: V45.89, ICD10: Z98.891 Scheduled - URINE OB DIP B/O 4. Obesity in (HCC) - ICD9: 649.10, ICD10: O99.210 Prepregnancy BMI 30 - URINE OB DIP B/O Gia Escobar MD [facility] 06-09-2025 Miscellaneous Notes S: Zuleyka Nielsen is a 30 year old female who presents at 07/07/2025, by Last Menstrual Period for a routine visit. Denies headache, visual changes, chest pain, shortness of breath, vaginal bleeding, leakage of fluid, or dysuria. Feeling well, no complaints. Good movement, No contractions O: See flow sheet Gen: No apparent distress Abd: Gravid, nontender SENSITIVE EXAMINATION CONSENT: The sensitive examination was discussed with the Patient or Patient's Authorized Records Clerk. As applicable, any other physician, advance practice provider, medical student, or other health professional student that will be observing or involved in the sensitive examination for educational or training purposes was discussed with the Patient or Authorized Records Clerk. The Patient or Authorized Records Clerk has agreed to proceed with the sensitive examination. GBS done today ASSESSMENT/PLAN: 1. Supervision of high risk in third trimester (HCC) - ICD9: V23.9, ICD10: O09.93 (primary diagnosis) - URINE OB DIP B/O 2. 36 weeks gestation of (HCC) - ICD9: V22.2, ICD10: Z3A.36 - URINE OB DIP B/O 3. Hx of section - ICD9: V45.89, ICD10: Z98.891 Scheduled - URINE OB DIP B/O 4. Obesity in (HCC) - ICD9: 649.10, ICD10: O99.210 Prepregnancy BMI 30 - URINE OB DIP B/O Gia Escobar MD documented in this encounter [facility] 06-09-2025 Instructions Meghana Lopez MA - 06/09/2025 9:41 AM EDT SEQUENTIAL SCREENINGS The [facility] offers sequential screenings for women who are interested in screenings for chromosomal abnormalities and certain defects during a . The sequential screen combines ultrasound and blood tests to determine the risk of chromosomal abnormalities, including Down's Syndrome (Trisomy 21) and Trisomy 18, as well as open neural tube defects including spina bifida. Ultrasound examination is performed between 11 weeks and 13 weeks gestational age. Blood tests are drawn after the ultrasound and again later in the between 15 and 21 weeks gestational age. Please let your physician know if you are interested in this testing. It will require an appointment with our auto brake technician. This is not an ultrasound performed by a physician in our office during a routine visit. SIGNS AND SYMPTOMS OF LABOR 1. Contractions every 10 minutes or more often 2. Clear, pink, or brownish fluid (water) leaking from vagina 3. Feeling that baby is pushing down, pressure 4. Low, dull backache 5. Cramps that feel like a period 6. Cramps with or without diarrhea If you notice any of the above symptoms, contact our office at [phone] and ask to speak with a nurse. After hours, you can call doctors registry at [phone] OR call [facility] at [phone] and ask to have the doctor conference reservationist paged. If you consider this an emergency, dial or go to your nearest emergency department. NEED HELP? Are you dealing with a violent or abusive relationship? Are you a victim of rape or sexual assult? Call [facility] ([place]) 24 hour Crisis Hotline: 687.484.2748 or 641-904-4004. MANUAL Your Guide to a Healthy manual is now on-line. Visit [email or web address] nancyGuide to download your free copy documented in this encounter [facility] 05-30-2025 Telephone encounter Note Order signed and faxed. Ena Wolff RN [facility] 05-30-2025 Miscellaneous Notes Order signed and faxed. Ena Wolff RN Written order received from [employer] for breast pump. Placed in RR inbox for signature. Katya Leonard RN documented in this encounter [facility] 05-30-2025 Telephone encounter Note Written order received from [employer] for breast pump. Placed in RR inbox for signature. Katya Leonard, RN [facility] 05-29-2025 Progress note Formatting of t his note might be different from the original. RR- VB No. LOF No. CTXS few BH Movement: present. Other c/o: No. Medication list reviewed. SENSITIVE EXAM: Sensitive exam not performed. Physical Exam See Flow Sheet Abd: soft, nontender, gravid Ext: edema: 1+ A/P 34w3d Estimated Date of Delivery: 07/07/25 Assessment & Plan Supervision of high risk in third trimester (HCC) Orders: URINE OB DIP B/O Hx of section Orders: URINE OB DIP B/O 34 weeks gestation of (HCC) Orders: URINE OB DIP B/O Supervision of high risk in second trimester (HCC) Reji Leos M.D. [facility] 05-29-2025 Miscellaneous Notes RR- VB No. LOF No. CTXS few BH Movement: present. Other c/o: No. Medication list reviewed. SENSITIVE EXAM: Sensitive exam not performed. Physical Exam See Flow Sheet Abd: soft, nontender, gravid Ext: edema: 1+ A/P 34w3d Estimated Date of Delivery: 07/07/25 Assessment & Plan Supervision of high risk in third trimester (HCC) Orders: URINE OB DIP B/O Hx of section Orders: URINE OB DIP B/O 34 weeks gestation of (HCC) Orders: URINE OB DIP B/O Supervision of high risk in second trimester ([facility]) Reji Leos M.D. documented in this encounter [facility] 05-29-2025 Instructions Meghana Lopez MA - 05/29/2025 3:55 PM EDT SEQUENTIAL SCREENINGS The [facility] offers sequential screenings for women who are interested in screenings for chromosomal abnormalities and certain defects during a . The sequential screen combines ultrasound and blood tests to determine the risk of chromosomal abnormalities, including Down's Syndrome (Trisomy 21) and Trisomy 18, as well as open neural tube defects including spina bifida. Ultrasound examination is performed between 11 weeks and 13 weeks gestational age. Blood tests are drawn after the ultrasound and again later in the between 15 and 21 weeks gestational age. Please let your physician know if you are interested in this testing. It will require an appointment with our auto brake technician. This is not an ultrasound performed by a physician in our office during a routine visit. SIGNS AND SYMPTOMS OF LABOR 1. Contractions every 10 minutes or more often 2. Clear, pink, or brownish fluid (water) leaking from vagina 3. Feeling that baby is pushing down, pressure 4. Low, dull backache 5. Cramps that feel like a period 6. Cramps with or without diarrhea If you notice any of the above symptoms, contact our office at [phone] and ask to speak with a nurse. After hours, you can call doctors registry at [phone] OR call [facility] at [phone] and ask to have the doctor conference reservationist paged. If you consider this an emergency, dial 9-1-2 or go to your nearest emergency department. NEED HELP? Are you dealing with a violent or abusive relationship? Are you a victim of rape or sexual assult? Call [facility] ([place]) 24 hour Crisis Hotline: 142.586.7483 or 028-244-5781. MANUAL Your Guide to a Healthy manual is now on-line. Visit [email or web address] to download your free copy documented in this encounter [facility] 05-15-2025 Progress note Formatting of t his note might be different from the original. S: Zuleyka Nielsen is a 30 year old female who presents at 07/07/2025, by Last Menstrual Period for a routine visit. Denies headache, visual changes, chest pain, shortness of breath, vaginal bleeding, leakage of fluid, or dysuria. Feeling well, no complaints. Good movement, No contractions O: See flow sheet Gen: No apparent distress Abd: Gravid, nontender Repeat c/s scheduled 06/30 ASSESSMENT/PLAN: 1. Supervision of high risk in third trimester (HCC) - ICD9: V23.9, ICD10: O09.93 (primary diagnosis) - URINE OB DIP B/O 2. Hx of section - ICD9: V45.89, ICD10: Z98.891 - URINE OB DIP B/O 3. 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 Other immediate hemorrhage (HCC) - ICD9: 666.14, ICD10: O72.1 - URINE OB DIP B/O 6. 32 weeks gestation of (HCC) - ICD9: V22.2, ICD10: Z3A.32 - URINE OB DIP B/O Gia Escobar MD [facility] 05-15-2025 Miscellaneous Notes S: Zuleyka Nielsen is a 30 year old female who presents at 07/07/2025, by Last Menstrual Period for a routine visit. Denies headache, visual changes, chest pain, shortness of breath, vaginal bleeding, leakage of fluid, or dysuria. Feeling well, no complaints. Good movement, No contractions O: See flow sheet Gen: No apparent distress Abd: Gravid, nontender Repeat c/s scheduled 06/30 ASSESSMENT/PLAN: 1. Supervision of high risk in third trimester (HCC) - ICD9: V23.9, ICD10: O09.93 (primary diagnosis) - URINE OB DIP B/O 2. Hx of section - ICD9: V45.89, ICD10: Z98.891 - URINE OB DIP B/O 3. 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 Other immediate hemorrhage (HCC) - ICD9: 666.14, ICD10: O72.1 - URINE OB DIP B/O 6. 32 weeks gestation of (HCC) - ICD9: V22.2, ICD10: Z3A.32 - URINE OB DIP B/O Gia Escobar MD documented in this encounter [facility] 05-15-2025 Instructions Concepcion Cintron MA - 05/15/2025 9:49 AM EDT SEQUENTIAL SCREENINGS The [facility] offers sequential screenings for women who are interested in screenings for chromosomal abnormalities and certain defects during a . The sequential screen combines ultrasound and blood tests to determine the risk of chromosomal abnormalities, including Down's Syndrome (Trisomy 21) and Trisomy 18, as well as open neural tube defects including spina bifida. Ultrasound examination is performed between 11 weeks and 13 weeks gestational age. Blood tests are drawn after the ultrasound and again later in the between 15 and 21 weeks gestational age. Please let your physician know if you are interested in this testing. It will require an appointment with our auto brake technician. This is not an ultrasound performed by a physician in our office during a routine visit. SIGNS AND SYMPTOMS OF LABOR 1. Contractions every 10 minutes or more often 2. Clear, pink, or brownish fluid (water) leaking from vagina 3. Feeling that baby is pushing down, pressure 4. Low, dull backache 5. Cramps that feel like a period 6. Cramps with or without diarrhea If you notice any of the above symptoms, contact our office at [phone] and ask to speak with a nurse. After hours, you can call doctors registry at [phone] OR call [facility] at [phone] and ask to have the doctor conference reservationist paged. If you consider this an emergency, dial or go to your nearest emergency department. NEED HELP? Are you dealing with a violent or abusive relationship? Are you a victim of rape or sexual assult? Call [facility] ([place]) 24 hour Crisis Hotline: 987.934.7427 or 397-879-5348. MANUAL Your Guide to a Healthy manual is now on-line. Visit [email or web address] to download your free copy documented in this encounter [facility] 05-01-2025 Progress note Formatting of t his note might be different from the original. KJ - S: Zuleyka denies LOF, contractions or vaginal bleeding. O: 30w3d, see flow sheet SENSITIVE EXAM: Sensitive exam not performed. A/P: Assessment & Plan Supervision of high risk in third trimester (HCC) Hx of section Plans repeat Obesity in (HCC) 30 weeks gestation of (HCC) Reviewed PTL & FM precautions Ilda Medina MD [facility] 05-01-2025 Miscellaneous Notes KJ - S: Zuleyka denies LOF, contractions or vaginal bleeding. O: 30w3d, see flow sheet SENSITIVE EXAM: Sensitive exam not performed. A/P: Assessment & Plan Supervision of high risk in third trimester (HCC) Hx of section Plans repeat Obesity in (HCC) 30 weeks gestation of (HCC) Reviewed PTL & FM precautions Ilda Medina MD documented in this encounter [facility] 05-01-2025 Meghana Le MA - 05/01/2025 9:55 AM EDT SEQUENTIAL SCREENINGS The [facility] offers sequential screenings for women who are interested in screenings for chromosomal abnormalities and certain defects during a . The sequential screen combines ultrasound and blood tests to determine the risk of chromosomal abnormalities, including Down's Syndrome (Trisomy 21) and Trisomy 18, as well as open neural tube defects including spina bifida. Ultrasound examination is performed between 11 weeks and 13 weeks gestational age. Blood tests are drawn after the ultrasound and again later in the between 15 and 21 weeks gestational age. Please let your physician know if you are interested in this testing. It will require an appointment with our auto brake technician. This is not an ultrasound performed by a physician in our office during a routine visit. SIGNS AND SYMPTOMS OF LABOR 1. Contractions every 10 minutes or more often 2. Clear, pink, or brownish fluid (water) leaking from vagina 3. Feeling that baby is pushing down, pressure 4. Low, dull backache 5. Cramps that feel like a period 6. Cramps with or without diarrhea If you notice any of the above symptoms, contact our office at [phone] and ask to speak with a nurse. After hours, you can call doctors registry at [phone] OR call [facility] at [phone] and ask to have the doctor conference reservationist paged. If you consider this an emergency, dial 9-1-7 or go to your nearest emergency department. NEED HELP? Are you dealing with a violent or abusive relationship? Are you a victim of rape or sexual assult? Call [facility] ([place]) 24 hour Crisis Hotline: 451.120.7282 or 240-155-7309. MANUAL Your Guide to a Healthy manual is now on-line. Visit [email or web address] to download your free copy documented in this encounter [facility] 04-17-2025 Progress note Formatting of t his note might be different from the original. S: Zuleyka Nielsen is a 30 year old female who presents at 07/07/2025, by Last Menstrual Period for a routine visit. Denies headache, visual changes, chest pain, shortness of breath, vaginal bleeding, leakage of fluid, or dysuria. Feeling well, no complaints. Good movement, No contractions O: See flow sheet Gen: No apparent distress Abd: Gravid, nontender TDAP today LARC declined GCT today Rhogam today ASSESSMENT/PLAN: 1. Supervision of high risk in third trimester (HCC) - ICD9: V23.9, ICD10: O09.93 (primary diagnosis) 2. Hx of section - ICD9: V45.89, ICD10: Z98.891 Planning repeat c/s 3. Obesity in (HCC) - ICD9: 649.10, ICD10: O99.210 4. Need for vaccination - ICD9: V05.9, ICD10: Z23 - TDAP VACCINE, AGE 7+ YR (ADACEL, BOOSTRIX) Gia Escobar MD [facility] 04-17-2025 Miscellaneous Notes S: Zuleyka Nielsen is a 30 year old female who presents at 07/07/2025, by Last Menstrual Period for a routine visit. Denies headache, visual changes, chest pain, shortness of breath, vaginal bleeding, leakage of fluid, or dysuria. Feeling well, no complaints. Good movement, No contractions O: See flow sheet Gen: No apparent distress Abd: Gravid, nontender TDAP today LARC declined GCT today Rhogam today ASSESSMENT/PLAN: 1. Supervision of high risk in third trimester (HCC) - ICD9: V23.9, ICD10: O09.93 (primary diagnosis) 2. Hx of section - ICD9: V45.89, ICD10: Z98.891 Planning repeat c/s 3. Obesity in (HCC) - ICD9: 649.10, ICD10: O99.210 4. Need for vaccination - ICD9: V05.9, ICD10: Z23 - TDAP VACCINE, AGE 7+ YR (ADACEL, BOOSTRIX) Gia Escobar MD documented in this encounter [facility] 04-17-2025 Note HNO ID: [id number] Author: MARY NARVAEZ LPN Service: ? Author Type: LICENSED NURSE Type: Progress Notes Filed: 04/17/2025 16:19 Note Text: Patient identified by name and date of . Zuleyka Nielsen presents today for a vaccination of Tdap. Patient denies an allergy to latex: yes Patient denies a severe (life-threatening) allergy to a previous dose of Tdap, DTP, DTaP, DT or Td vaccine. Yes Patient denies history of epilepsy or neurological problems: Yes Patient is afebrile and denies being moderately or severely ill: Yes Patient denies history of Guillain-Manville Syndrome (a severe paralytic illness): Yes Tdap Adacel injection was given without incident. See immunizations for details of immunizations administered today. VIS sheet provided: Yes Provider Dr. Gia Escobar was present in office at time of injection. Mary Narvaez LPN [facility] 04-17-2025 History of Presen t illness Narrative Patient identified by name and date of . Zuleyka Nielsen presents today for a vaccination of Tdap. Patient denies an allergy to latex: yes Patient denies a severe (life-threatening) allergy to a previous dose of Tdap, DTP, DTaP, DT or Td vaccine. Yes Patient denies history of epilepsy or neurological problems: Yes Patient is afebrile and denies being moderately or severely ill: Yes Patient denies history of Guillain-Manville Syndrome (a severe paralytic illness): Yes Tdap Adacel injection was given without incident. See immunizations for details of immunizations administered today. VIS sheet provided: Yes Provider Dr. Gia Escobar was present in office at time of injection. Mary Narvaez LPN documented in this encounter [facility] 04-17-2025 Instructions Concepcion Cintron MA - 04/17/2025 8:59 AM EDT SEQUENTIAL SCREENINGS The [facility] offers sequential screenings for women who are interested in screenings for chromosomal abnormalities and certain defects during a . The sequential screen combines ultrasound and blood tests to determine the risk of chromosomal abnormalities, including Down's Syndrome (Trisomy 21) and Trisomy 18, as well as open neural tube defects including spina bifida. Ultrasound examination is performed between 11 weeks and 13 weeks gestational age. Blood tests are drawn after the ultrasound and again later in the between 15 and 21 weeks gestational age. Please let your physician know if you are interested in this testing. It will require an appointment with our auto brake technician. This is not an ultrasound performed by a physician in our office during a routine visit. SIGNS AND SYMPTOMS OF LABOR 1. Contractions every 10 minutes or more often 2. Clear, pink, or brownish fluid (water) leaking from vagina 3. Feeling that baby is pushing down, pressure 4. Low, dull backache 5. Cramps that feel like a period 6. Cramps with or without diarrhea If you notice any of the above symptoms, contact our office at [phone] and ask to speak with a nurse. After hours, you can call doctors registry at [phone] OR call [facility] at [phone] and ask to have the doctor conference reservationist paged. If you consider this an emergency, dial [phone] or go to your nearest emergency department. NEED HELP? Are you dealing with a violent or abusive relationship? Are you a victim of rape or sexual assult? Call [facility] ([place]) 24 hour Crisis Hotline: 402.636.6522 or 840-429-0259. MANUAL Your Guide to a Healthy manual is now on-line. Visit [email or web address] to download your free copy documented in this encounter [facility] 03-20-2025 Progress note Formatting of t his note might be different from the original. RM- Pt doing well today. Denies Vaginal Bleeding, Leaking fluid, or contractions. Pt reports good movement. ASSESSMENT/PLAN: 1. Screening for diabetes mellitus - ICD9: V77.1, ICD10: Z13.1 (primary diagnosis) - GESTATIONAL GLUCOSE SCREEN, 1-HOUR, 50 GRAM, NON-FASTING 2. 24 weeks gestation of (HCC) - ICD9: V22.2, ICD10: Z3A.24 - GESTATIONAL GLUCOSE SCREEN, 1-HOUR, 50 GRAM, NON-FASTING - SYPHILIS TREPONEMAL W/REFLEX - ANEMIA REFLEX PANEL - TYPE + SCREEN 3. Supervision of high risk in second trimester (HCC) - ICD9: V23.9, ICD10: O09.92 - GESTATIONAL GLUCOSE SCREEN, 1-HOUR, 50 GRAM, NON-FASTING - SYPHILIS TREPONEMAL W/REFLEX - ANEMIA REFLEX PANEL - TYPE + SCREEN 4. Rh negative state in antepartum period ([facility]) - ICD9: 646.83, ICD10: O26.899, Z67.91 - GESTATIONAL GLUCOSE SCREEN, 1-HOUR, 50 GRAM, NON-FASTING - SYPHILIS TREPONEMAL W/REFLEX - ANEMIA REFLEX PANEL - TYPE + SCREEN RTO to office in 4 wks Danielle Kathleen APRN.FIELD LABORER [facility] 03-20-2025 Miscellaneous Notes RM- Pt doing well today. Denies Vaginal Bleeding, Leaking fluid, or contractions. Pt reports good movement. ASSESSMENT/PLAN: 1. Screening for diabetes mellitus - ICD9: V77.1, ICD10: Z13.1 (primary diagnosis) - GESTATIONAL GLUCOSE SCREEN, 1-HOUR, 50 GRAM, NON-FASTING 2. 24 weeks gestation of ([facility]) - ICD9: V22.2, ICD10: Z3A.24 - GESTATIONAL GLUCOSE SCREEN, 1-HOUR, 50 GRAM, NON-FASTING - SYPHILIS TREPONEMAL W/REFLEX - ANEMIA REFLEX PANEL - TYPE + SCREEN 3. Supervision of high risk in second trimester ([facility]) - ICD9: V23.9, ICD10: O09.92 - GESTATIONAL GLUCOSE SCREEN, 1-HOUR, 50 GRAM, NON-FASTING - SYPHILIS TREPONEMAL W/REFLEX - ANEMIA REFLEX PANEL - TYPE + SCREEN 4. Rh negative state in antepartum period ([facility]) - ICD9: 646.83, ICD10: O26.899, Z67.91 - GESTATIONAL GLUCOSE SCREEN, 1-HOUR, 50 GRAM, NON-FASTING - SYPHILIS TREPONEMAL W/REFLEX - ANEMIA REFLEX PANEL - TYPE + SCREEN RTO to office in 4 wks Danielle Kathleen APRN.FIELD LABORER documented in this encounter [facility] 03-20-2025 Instructions Zuleyka Vargas MA - 03/20/2025 9:31 AM EDT SEQUENTIAL SCREENINGS The [facility] offers sequential screenings for women who are interested in screenings for chromosomal abnormalities and certain defects during a . The sequential screen combines ultrasound and blood tests to determine the risk of chromosomal abnormalities, including Down's Syndrome (Trisomy 21) and Trisomy 18, as well as open neural tube defects including spina bifida. Ultrasound examination is performed between 11 weeks and 13 weeks gestational age. Blood tests are drawn after the ultrasound and again later in the between 15 and 21 weeks gestational age. Please let your physician know if you are interested in this testing. It will require an appointment with our auto brake technician. This is not an ultrasound performed by a physician in our office during a routine visit. SIGNS AND SYMPTOMS OF LABOR 1. Contractions every 10 minutes or more often 2. Clear, pink, or brownish fluid (water) leaking from vagina 3. Feeling that baby is pushing down, pressure 4. Low, dull backache 5. Cramps that feel like a period 6. Cramps with or without diarrhea If you notice any of the above symptoms, contact our office at [phone] and ask to speak with a nurse. After hours, you can call doctors registry at [phone] OR call [facility] at [phone] and ask to have the doctor conference reservationist paged. If you consider this an emergency, dial 9-4-7 or go to your nearest emergency department. NEED HELP? Are you dealing with a violent or abusive relationship? Are you a victim of rape or sexual assult? Call [facility] ([place]) 24 hour Crisis Hotline: 378.407.9740 or 825-353-5529. MANUAL Your Guide to a Healthy manual is now on-line. Visit [email or web address] to download your free copy documented in this encounter [facility] 02-18-2025 Note Education (CARDMN) ZULEYKA NIELSEN ([id number]) 1995 F Date Time Provider Department 02/18/25 10:45 AM ARRHYTHMIA MONITORING LAB [facility] Reason for Visit: Event [921] Cmt: Zio patch- 14 days Primary Visit Diagnosis:Palpitations [R00.2] During your visit today, we recorded the following information about you: Allergies As of Date: 02/18/2025 (No Known Allergies) Date Reviewed: 02/18/2025 Reviewed by: Magnus Santacruz MA - Fully Assessed Prescriptions as of 02/18/2025 - 25/iron/folate 6/dha (PRENA1 ORAL) Take 1 tablet by mouth once daily. Encounter Status:Closed by NORAH ENRIQUEZ on 02/18/25 [facility] 02-18-2025 Note HNO ID: [id number] Author: ?, ?, ? Service: ? Author Type: ? Type: Progress Notes Filed: 02/18/2025 10:34 Note Text: EVENT MONITOR DISPOSABLE PATCH INSTRUCTIONS Patient Name: Zuleyka Nielsen Clinic Number: [id number] Skin prepped and cleansed with alcohol Patch secured to prepped area Monitor Activated Serial #: [id number] Patient Instructed: Prescribed order timeframe Bathing guidelines Usage of event button and diary documentation Return of monitor at the end of prescribed order Call with problems [phone] or [phone]. [phone] Patient expresses a good understanding of instructions Norah Dobson [facility] 02-18-2025 History of Presen t illness Narrative EVENT MONITOR DISPOSABLE PATCH INSTRUCTIONS Patient Name: Zuleyka Nielsen Clinic Number: [id number] Skin prepped and cleansed with alcohol Patch secured to prepped area Monitor Activated Serial #: [id number] Patient Instructed: Prescribed order timeframe Bathing guidelines Usage of event button and diary documentation Return of monitor at the end of prescribed order Call with problems [phone] or [phone]. [phone] Patient expresses a good understanding of instructions Norah Dobson documented in this encounter [facility] 02-18-2025 History of Presen t illness Narrative Images from the original note were not included. Heart, Vascular, and Thoracic [place] [facility] Department of Cardiovascular Medicine SECTION OF PREVENTIVE CARDIOLOGY Zuleyka Nielsen 02/17/2025 CHIEF COMPLAINT: Patient presents with: CARD New Patient Consult: Heart rate goes up unexpectedly and feels like she can't catch breath. Palpitations Palpitations: Dizziness HISTORY OF PRESENT CARDIOVASCULAR ILLNESS: Zuleyka Nielsen is a 29 year old female with a PMH significant for family history of atherosclerotic cardiovascular disease and current (20 weeks). Presents for evaluation of palpitations and occasional light-headedness. Referred by Kalyani Dougherty MD. No issues with previous , delivered in 11/2022. For past appx 6 week she has noted heart rate higher (symptomatic and per her Apple Watch.) She has occasional light-headedness. Heart rate described as 130-140 bpm. Can last for 10-30 minutes. No overt syncope. Upon cardiovascular review of systems the patient denies chest pain, syncope, PND , orthopnea, intermittent claudication. CARDIAC RISK FACTORS: Not specified Family History of CAD: Positive (male<55, female<65) Father myocardial infarction in 40s (he was a smoker). 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 No current facility-administered medications for this visit. ALLERGIES: ALLERGIES No Known Allergies FAMILY AND SOCIAL HISTORY: Lifestyle Tobacco use in the last year: No Alcohol Use: Not Currently PHYSICAL EXAMINATION: Vital Signs and General Appearance BP 111/64 (BP Site: Right Arm, BP Position: Sitting, BP Cuff Size: Regular Adult) Pulse 90 LMP 09/30/2024 Average Blood Pressure: No BP recorded. No weight on file for this encounter. Well developed, well nourished, alert, active 29 year old female in no apparent distress. Eyes: Normal, PERRLA Skin: Xanthomas - none Neck: Normal, supple with full range of motion Lungs: Clear to auscultation and percussion Lower Extremities: Normal exam of the extremities Neurological:Oriented to person, place and time and No focal motor or sensory deficits Pulses: Carotid: Left: 2+, Right: 2+, Bruit: No Posterior Tibial:Right 2+, Posterior Tibial:Left 2+, Heart Sounds: S1: Normal S2: Normal S3: Absent S4: Absent Murmurs: Systolic Murmur Present: No Diastolic Murmur Present: No Xanthomas: No CLINICAL TESTING RESULTS: I have personally reviewed the following: Most recent ECG Tracing: (sinus with sinus arrhtymia and non-specific st abnormality), (performed on 02/18/25), which I independently visualized. Most Recent TTE: (none),(performed on none) Other recent cardiac testing: none LABS: No results found for: GLUC, BUN, CREAT, NA, K, CHLOR, CO2, TPROT, ALB, CA, ALKPHOS, TBILI, AST, ALT WBC (k/uL) Date Value 01/02/2025 9.17 RBC (m/uL) Date Value 01/02/2025 3.95 Hemoglobin (g/dL) Date Value 01/02/2025 11.9 Hematocrit (%) Date Value 01/09/2025 34.5 (L) MCV (fL) Date Value 01/02/2025 88.9 MCH (pg) Date Value 01/02/2025 30.1 MCHC (g/dL) Date Value 01/02/2025 33.9 RDW-CV (%) Date Value 01/02/2025 12.5 Platelet Count (k/uL) Date Value 01/09/2025 266 MPV (fL) Date Value 01/02/2025 9.5 INR (no units) Date Value 01/09/2025 1.0 No results found for: CHOL, HDL, LDL, TG PATIENT ENTERED QUESTIONNAIRE SCORES 02/17/2025 PHQ-9 PHQ-2 Score 0 02/17/2025 JOE - 2/7 SCORES JOE-2 Score 0 02/17/2025 PROMIS Global Health - (T-Scores - the mean of general population = 50. Five points is a clinically meaningful difference.) Physical T-Score 50.8 Mental T-Score 45.8 This consultation was requested by Kalyani Dougherty MD for an opinion regarding palpitations , and my final recommendations will be communicated back to the requesting physician and primary care provider by way of shared medical record or letter summarizing my evaluation. ASSESSMENT AND PLAN: In addition to the above history and physical exam, the results of prior labs and testing, were reviewed. The following plans and goals have been established to address current medical problems and optimize control of cardiovascular risk factors to reduce the risk of future heart disease: Active Medical Problems: 1) Palpitations, light-headedness, family history of atherosclerotic cardiovascular disease Discussed possibility of being sinus tachycardia given increased metabolic demand in 2nd trimester, PACs or SVT. No signs of symptoms of heart failure on exam. She has no overt syncope. Recommended 14-day tourist home keeper (zio patch) and transthoracic echocardiogram. If tourist home keeper reveals SVT and she becomes more symptomatic, could attempt a trial of low dose labetalol, but would prefer to avoid if possible. FOLLOW UP: We recommend an as needed follow-up The medical decision making for this patient encounter was of moderate complexity I provided Zuleyka Nielsen with my contact information at this visit (or a prior visit.) This information includes my office phone number, office fax number, [employer]ocket[employer] instructions, and my work email address. Zuleyka Nielsen was strongly encouraged to use [employer]ocket[employer] for communication if possible, but my email address was provided if needed. Warner Tai MD AMBULATORY PATIENT EDUCATION Topic: Arrhythmias/Palpitations Instruction Provided To: Patient Barriers: None Motivation to Learn: Interested Methods of Instruction: Verbal instruction and/or handouts. Patient Leans Best By: Multiple Methods Patient Verbalized: Understanding documented in this encounter [facility] 02-18-2025 Note HNO ID: [id number] Author: WARNER TAI MD Service: ? Author Type: Physician Type: Progress Notes Filed: 02/18/2025 10:18 Note Text: Heart, Vascular, and Thoracic [place] [facility] Department of Cardiovascular Medicine SECTION OF PREVENTIVE CARDIOLOGY Zuleyka Nielsen 02/17/2025 CHIEF COMPLAINT: Patient presents with: CARD New Patient Consult: Heart rate goes up unexpectedly and feels like she can't catch breath. Palpitations Palpitations: Dizziness HISTORY OF PRESENT CARDIOVASCULAR ILLNESS: Zuleyka Nielsen is a 29 year old female with a PMH significant for family history of atherosclerotic cardiovascular disease and current (20 weeks). Presents for evaluation of palpitations and occasional light-headedness. Referred by Kalyani Dougherty MD. No issues with previous , delivered in 11/2022. For past appx 6 week she has noted heart rate higher (symptomatic and per her Apple Watch.) She has occasional light-headedness. Heart rate described as 130-140 bpm. Can last for 10-30 minutes. No overt syncope. Upon cardiovascular review of systems the patient denies chest pain, syncope, PND , orthopnea, intermittent claudication. CARDIAC RISK FACTORS: Not specified Family History of CAD: Positive (male<55, female<65) Father myocardial infarction in 40s (he was a smoker). 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 No current facility-administered medications for this visit. ALLERGIES: ALLERGIES No Known Allergies FAMILY AND SOCIAL HISTORY: Lifestyle Tobacco use in the last year: No Alcohol Use: Not Currently PHYSICAL EXAMINATION: Vital Signs and General Appearance BP 111/64 (BP Site: Right Arm, BP Position: Sitting, BP Cuff Size: Regular Adult) Pulse 90 LMP 09/30/2024 Average Blood Pressure: No BP recorded. No weight on file for this encounter. Well developed, well nourished, alert, active 29 year old female in no apparent distress. Eyes: Normal, PERRLA Skin: Xanthomas - none Neck: Normal, supple with full range of motion Lungs: Clear to auscultation and percussion Lower Extremities: Normal exam of the extremities Neurological:Oriented to person, place and time and No focal motor or sensory deficits Pulses: Carotid: Left: 2+, Right: 2+, Bruit: No Posterior Tibial:Right 2+, Posterior Tibial:Left 2+, Heart Sounds: S1: Normal S2: Normal S3: Absent S4: Absent Murmurs: Systolic Murmur Present: No Diastolic Murmur Present: No Xanthomas: No CLINICAL TESTING RESULTS: I have personally reviewed the following: Most recent ECG Tracing: (sinus with sinus arrhtymia and non-specific st abnormality), (performed on 02/18/25), which I independently visualized. Most Recent TTE: (none),(performed on none) Other recent cardiac testing: none LABS: No results found for: GLUC, BUN, CREAT, NA, K, CHLOR, CO2, TPROT, ALB, CA, ALKPHOS, TBILI, AST, ALT WBC (k/uL) Date Value 01/02/2025 9.17 RBC (m/uL) Date Value 01/02/2025 3.95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 facility-administered medications for this visit. Allergies As of Date: 12/05/2024 (No Known Allergies) Fully Assessed 12/05/2024 Does patient have penicillin allergy: No REVIEW OF SYSTEMS: GENERAL: Negative for: Fever or Chills HEENT: Negative for: Headache, Impaired Vision, Ringing in Ears, Nosebleeds NECK: Negative for: Swelling, Pain, Stiffness RESPIRATORY: Negative for: Cough, Shortness of breath, Wheezing GASTROINTESTINAL: Positive for: Nausea and Vomiting MUSCULOSKELETAL: Negative for: Muscle or joint pain, stiffness, Joint swelling NEUROLOGIC/PSYCHIATRIC: Negative for: Weakness, Paralysis, Numbness, Tingling, Tremor, Anxiety, Depression, Memory loss SKIN: Negative for: Rash, Itching GENITOURINARY: Negative for: vaginal itching, vaginal discharge, hematuria or dysuria SENSITIVE EXAM: The sensitive examination was discussed with the Patient or Patient's Authorized Records Clerk. As applicable, any other physician, advance practice provider, medical student, or other health professional student that will be observing or involved in the sensitive examination for educational or training purposes was discussed with the Patient or Authorized Records Clerk. The Patient or Authorized Records Clerk has agreed to proceed with the sensitive examination. (Sensitive examination includes inspection and/or palpation of the breasts, pelvis, prostate and anorectal regions). PHYSICAL EXAM: BP 124/70 Ht 2' .803 (0.63m) Wt 182 lb 3.2 oz (82.6kg) LMP 09/30/2024 BMI 208.23 kg/(m^2). GENERAL: pleasant in no apparent distress DERMATOLOGY: Normal, without lesions, non-icteric, and non-hirsute NECK: Supple, full range of motion, no adenopathy, and thyroid normal CHEST: Normal inspiratory effort BREAST: soft, non-tender, symmetric, no dominant mass, normal nipple-areolar complex, no lymphadenopathy, and no nipple discharge ABDOMEN: soft, non-tender, and no masses NEURO: alert and oriented x3,exam grossly non-focal PELVIS: External genitalia normal without lesions. Perineal body intact. No vaginal or cervical lesions. Scant bleeding with exam. Cervix closed. No adnexal masses or tenderness. Clinical Pelvimetry: Pelvimetry clinically assessed as adequate Limited OB ultrasound exam: single intrauterine , positive cardiac activity, and POCUS performed. +cardiac activity, CRL consistent with LMP. Danielle Kathleen, BANQUET KITCHEN SUPERVISOR.FIELD LABORER ASSESSMENT: 29 year old at 9w3d wks gestational age PLAN: 1) Patient oriented to practice. Patient given new OB orientation folder. Discussed nutrition, folic acid supplementation, dietary guidelines, exercise, smoking, alcohol, caffeine, and drug use. Discussed gestational weight gain guidelines. Discussed routine OB labs including STD/HIV. Discussed how to access Your guide to a health and the [employer]. Reviewed midwifery and roof assembler services that are available. 2) Screening: Hemoglobin A1C: ordered Baby Aspirin: The patient has been counseled about the potential benefits of low dose aspirin in and our recommendation that this be offered to all patients, regardless of whether they meet the high risk criteria specified above. Discuss at next appt Aneuploidy Screening: Discussed aneuploidy screening, nuchal translucency/first trimester early anatomy ultrasound and NIPT. The risks/benefits and limitations of NIPT/aneuploidy screening were reviewed including the potential for false negative and false positive results. The availability of genetic counseling was reviewed. Information on aneuploidy screening was provided. The patient chooses to proceed with First trimester early anatomy ultrasound (12-13w6d) Myriad Carrier Screening: Discussed myriad carrier screening. We discussed the availability of professional-society guided carrier screening and reviewed the conditions screened and limitations of screening. The availability of genetic counseling was reviewed. Information on carrier screening was provided. The patient Previously ordered at previous REHABILITATION DIRECTOR waiting on records 3) Patient offered option of Virtual Visits. Patient unsure. May consider in future. 4) History of section: Problem list updated, mode of delivery counseling with primary OB provider at the next visit. Hx of hemorrhagia with last delivery FYI pt has excessive bleeding with wisdom teeth removal Follow up in 4 weeks or sooner prn. Danielle Kathleen APRN.CNP documented in this encounter [facility] 11-29-2024 Instructions Mary Narvaez LPN - 11/29/2024 12:14 PM EST Please select the following link to access the [facility] Your Guide to a Healthy . [email or web address] Please select the following link to access the [facility] Your Guide to a Healthy . [email or web address] documented in this encounter [facility] 12-13-2022 Note Date of Service 12/11/21 After section initial fundal massage revealed some large clots. Fundus firm at that time and bleeding normalized. BP was noted to be low with high pulse although patient feeling well. Stat CBC collected with hgb> 10. one dose of albumin ordered and given as patient had significant LE edema from IVF during labor. repeat CBC in AM Monitor closely. [facility] Digitally Signed by JOEY CAMPBELL MD on 12/13/2022 01:04 PM [facility] 12-12-2022 Evaluation + Plan note Extrac josue from: Title:Clinical Document Author:HEMAL LUIS MD Date:12/12/22 Subjective Comfortable with pain meds Lochia small. Baby is nursing well. . Objective Looks well and no significant pallor. CVS: RRR Lungs: CTA B, decreased AE at bases. Abdomen: Soft, uterus firm at U- 1. Dressing with small stains,; dry. Extremities: Nontender with tr edema , SCDS on VITALS [id number](kg) 12/12 08:0036.5--[id number]/21712.6 12/12 07:00----82--95RA 12/12 05:58----74--97RA 12/12 05:00----66--95RA 12/12 04:0036.4--77--95RA 24 Hr Tmax: 37.2 at 12/11 12:30 36 Hr Tmax: 37.3 at 12/10 21:03 Vital Signs are the last 5 in the past 48 hours. Weights display the last 5 within 7 days. Initial Wt: 12/10 103.6 kg 228 lb Current Wt: 12/10 103.6 kg 228 lb LABS 12/12 05:45 WBC: 14.7 H Hgb: 7.9 L Hct: 22.6 L Platelet: 159 Neutrophil %: 84.6 H 12/11 21:16 WBC: 11.0 H Hgb: 10.4 L Hct: 30.3 L Platelet: 192 Neutrophil %: 77.4 Medications Active Inpt Meds: .PharmacyCommunication (Pharmacy See ORDER COMMENTS) Start: 12/11/22 21:45:00 EST, Daily, 24 hour(s), Stop: 12/12/22 9:00:00 EST, 12/11/22 20:36:00 EST .PharmacyCommunication (Pharmacy See ORDER COMMENTS) Start: 12/11/22 21:45:00 EST, Daily, 20 hour(s), Stop: 12/12/22 9:00:00 EST, 12/11/22 21:04:00 EST acetaminophen (Tylenol) Start: 12/12/22 3:00:00 EST, Dose = 650 mg, = 2 tab(s), Oral, q6hr, 0, 12/11/22 23:36:00 EST ferrous sulfate (Feosol) Start: 12/11/22 21:50:00 EST, Dose = 325 mg, = 1 tab(s), Oral, BID, 0, 12/11/22 20:36:00 EST ibuprofen (Motrin) Start: 12/12/22 0:00:00 EST, Dose = 600 mg, = 1 tab(s), Oral, q6hr, 12/11/22 23:36:00 EST methylergonovine (Methergine) Start: 12/11/22 22:30:00 EST, Dose = 0.2 mg, = 1 mL, Intramuscular, q6h, 4 dose(s), Stop: 12/12/22 21:00:00 EST, 0, 12/11/22 22:30:00 EST Active PRN Meds: RHo (D) immune globulin (Rhophylac) Start: 12/11/22 20:36:00 EST, Dose = 300 mcg, = 2 mL, Intramuscular, AsDirected, PRN, if Rh factor neg per policy, 1 dose(s), Stop: Limited # of times, 12/11/22 20:36:00 EST acetaminophen-oxyCODONE (Percocet 325/5) Start: 12/12/22 20:03:00 EST, Dose = 1 tab(s), Tab, Oral, q4h, PRN, Pain, scale 4-6, 0, 12/12/22 20:36:00 EST acetaminophen-oxyCODONE (Percocet 325/5) Start: 12/12/22 20:03:00 EST, Dose = 2 tab(s), Tab, Oral, q4h, PRN, Pain, scale 7-10, 0, 12/12/22 20:36:00 EST acetaminophen (Ofirmev IVPB) Start: 12/11/22 21:04:00 EST, Dose = 1,000 mg, = 100 mL, IV Piggyback, q6h, PRN, Pain, 24 hour(s), Stop: 12/12/22 21:03:00 EST, Rate: 400 mL/hr, Infuse over: 15 minute(s), 12/11/22 21:04:00 EST benzocaine topical (Dermoplast topical spray) Start: 12/11/22 20:36:00 EST, Dose = 1 spray(s), Mcdaniel, Perineum, q1h, PRN, Other (see order comments), 12/11/22 20:36:00 EST diphenhydrAMINE (Benadryl) Start: 12/11/22 21:04:00 EST, Dose = 12.5 mg, = 0.25 mL, IV Push, q6h, PRN, Itching, 20 hour(s), Stop: 12/12/22 17:03:00 EST, 12/11/22 21:04:00 EST docusate (Colace) Start: 12/11/22 20:36:00 EST, Dose = 100 mg, = 1 cap(s), Oral, BID, PRN, Constipation, 12/11/22 20:36:00 EST glycerin-witch kimberly topical (glycerin-witch kimberly 50% topical pad) Start: 12/11/22 20:36:00 EST, Dose = 1 rose, Pad, Topical, AsDirected, PRN, Hemorrhoids, 12/11/22 20:36:00 EST hydrocortisone topical (Anusol-HC 25 mg rectal suppository) Start: 12/11/22 20:36:00 EST, Dose = 25 mg, = 1 supp, Rectal, BID, PRN, hemorrhoidal discomfort, 12/11/22 20:36:00 EST hydrocortisone-pramoxine topical (Analpram-HC 2.5%-1% rectal cream) Start: 12/11/22 20:36:00 EST, Dose = 1 rose, Cream, Perineum, q1h, PRN, hemorrhoidal or perineal discomfort, 12/11/22 20:36:00 EST lanolin topical (Lansinoh for Breast Feeding Mothers) Start: 12/11/22 20:36:00 EST, 7 gram(s), Dose = 1 EA, Topical, AsDirected, PRN, Other (see order comments), Apply to: nipple area, Ointment, 12/11/22 20:36:00 EST morphine Start: 12/11/22 21:04:00 EST, Dose = 2 mg, = 1 mL, IV Push, q1h, PRN, Pain, breakthrough, 20 hour(s), Stop: 12/12/22 17:03:00 EST, 12/11/22 21:04:00 EST nalbuphine (Nubain) Start: 12/11/22 21:04:00 EST, Dose = 5 mg, = 0.5 mL, IV Push, q6h, PRN, Itching, 20 hour(s), Stop: 12/12/22 17:03:00 EST, 12/11/22 21:04:00 EST naloxone (Narcan) Start: 12/11/22 21:04:00 EST, Dose = 0.1 mg, = 0.25 mL, IV Push, AsDirected, PRN, Control symptoms, 24 hour(s), Stop: 12/12/22 21:03:00 EST, If respiratory rate is < 6 breaths/minute. May repeat 0.1 mg IV every 2 minutes for a total of 0.6 mg until re... ondansetron (Zofran) Start: 12/11/22 20:36:00 EST, Dose = 4 mg, = 1 tab(s), Oral, q8h, PRN, Nausea, 0, 12/11/22 20:36:00 EST ondansetron (Zofran) Start: 12/11/22 20:36:00 EST, Dose = 4 mg, = 2 mL, IV Push, q8h, PRN, Nausea, 12/11/22 20:36:00 EST ondansetron (Zofran) Start: 12/11/22 21:04:00 EST, Dose = 4 mg, = 2 mL, IV Push, q6h, PRN, Nausea/Vomiting, 24 hour(s), Stop: 12/12/22 21:03:00 EST, 12/11/22 21:04:00 EST simethicone (Mylicon) Start: 12/11/22 20:36:00 EST, Dose = 80 mg, = 1 tab(s), Chewed, TID, PRN, Gas, 12/11/22 20:36:00 EST One Time Meds: (Completed) acetaminophen (Ofirmev IVPB (ANES)) IV Piggyback, Once, Stop: 12/11/22 21:02:00 EST (Completed) albumin human (albumin human 5% intravenous solution) Start: 12/11/22 22:00:00 EST, Dose = 25 gram(s), = 500 mL, IV Piggyback (MED), Once, Stop: 12/11/22 22:00:00 EST, 0, 12/11/22 21:59:00 EST (Completed) azithromycin (Zithromax IV) Start: 12/11/22 19:15:00 EST, Dose = 500 mg, = 5 mL, IV Piggyback, Once, Stop: 12/11/22 19:15:00 EST, Rate: 250 mL/hr, Infuse over: 1 hour(s), 0, 12/11/22 19:10:00 EST (Completed) bupivacaine (Marcaine Spinal (ANES)) Soln, Intrathecal, Once, Stop: 12/11/22 20:45:00 EST (Completed) carboprost (Hemabate (ANES)) Intramuscular, Once, Stop: 12/11/22 20:40:00 EST (Completed) dexamethasone (Decadron (ANES)) IV Push, Once, Stop: 12/11/22 21:02:00 EST (Completed) ePHEDrine (ePHEDrine (ANES)) IV Push, Once, Stop: 12/11/22 21:02:00 EST (Completed) esmolol (Brevibloc (ANES)) IV Push, Once, Stop: 12/11/22 21:02:00 EST (Completed) glycopyrrolate (glycopyrrolate (ANES)) IV Push, Once, Stop: 12/11/22 21:02:00 EST (Completed) methylergonovine (Methergine (ANES)) Intramuscular, Once, Stop: 12/11/22 20:40:00 EST (Completed) morphine (Duramorph PF) Start: 12/11/22 21:15:00 EST, Dose = 0.225 mg, = 0.23 mL, Intrathecal, Once, Stop: 12/11/22 21:15:00 EST, 12/11/22 21:04:00 EST (Completed) ondansetron (Zofran (ANES)) IV Push, Once, Stop: 12/11/22 21:02:00 EST (Completed) oxytocin (Pitocin (ANES)) Intramuscular, Once, Stop: 12/11/22 20:40:00 EST (Completed) oxytocin (Pitocin (ANES)) Intravenous, Once, Stop: 12/11/22 20:50:00 EST Active IV Meds: None Problems (18) Absence of menstruation (47496471) Allergy, food (4449229573) Amenorrhea (87380653) Bleeding (7591020989) Constipation (54797416) Encounter for supervision of normal in multigravida in third trimester (396530592) GERD (gastroesophageal reflux disease) (318430891) History of abnormal cervical Pap smear (1943188943) History of miscarriage (033033401) Hypercholesteremia (91460640) Increased BMI (body mass index) (25744980) Irregular periods/menstrual cycles (572541394) PCOS (polycystic ovarian syndrome) (730215432) Positive test (773676735) (392226879) Screening for cardiovascular condition (515936370) Screening for diabetes mellitus (963920495) Seasonal allergies (3304078467) ASSESSMENT/PLAN: POD #1 after complicated by atony -> PPH. Hb currently 7.9, lochia small. Will try to move patient this am. For ransfusion if symptomatic or Hb dropping significantly. 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: partner tested: negative Obesity in growth US 88%le yesterday PROM (premature rupture of membranes) start induction of labor with pitocin Rh negative status during s/p rhogam, will give pp as indicated Orders: carboprost, Start: 12/10/22 18:13:00 EST, Dose = 250 mcg, = 1 mL, Intramuscular, Once, PRN, Other (see order comments), 12/10/22 18:13:00 EST citric acid-sodium citrate, Start: 12/10/22 18:13:00 EST, Dose = 30 mL, Soln, Oral, AsDirected, PRN, Gastric Upset, 12/10/22 18:13:00 EST Lactated Ringers Infusion, Start: 12/10/22 18:13:00 EST, Dose = 500 mL, Soln, IV Bolus, AsDirected, PRN, Other (see order comments), Rate: 999 mL/hr, hour(s), 12/10/22 18:13:00 EST Lactated Ringers Infusion 1,000 mL, Start: 12/10/22 18:13:00 EST, Rate: 125 mL/hr, 12/10/22 18:13: EST lidocaine, Start: 12/10/22: EST, Dose = 20 mg, = 2 mL, Perineum, AsDirected, PRN, to perineal sutures, 1 dose(s), Stop: Limited # of times, 12/10/22 1813: EST methylergonovine, Start: 12/10/22 18 EST, Dose = 0.2 mg, = 1 mL, Intramuscular, Once, PRN, Other (see order comments), 12/10/22 18: EST miSOPROStol, Start: 12/10/22: EST, Dose = 1,000 mcg, = 5 tab(s), Rectal, Once, PRN, Other (see order comments), 0, 12/10/22: EST ondansetron, Start: 12/10/22: EST, Dose = 4 mg, = 2 mL, IV Push, q4h, PRN, Nausea, 12/10/22: EST oxytocin, Start: 12/10/22 1813: EST, Dose = 20 unit(s), = 2 mL, Intramuscular, Once, PRN, Other (see order comments), 0, 12/10/22: EST oxytocin 20 unit(s) + LR Premix Diluent 1,000 mL, Start: 12/10/22 18:13:00 EST, Rate: 999 mL/hr, 12/10/22 18 EST oxytocin 20 unit(s) [2 munit/min] + LR Premix Diluent 1,000 mL, Start: 12/10/22 18:16:00 EST, Start at 2 milliunits/minute Piggyback at closest IV port via infusion pump. Increase rate 2 milliunits every 30 minutes until contractions are no closer than every 2 minutes. Do not exceed 30 milliunits/minute, Rate: 6... terbutaline, Start: 12/10/22 1816:00 EST, Dose = 0.25 mg, = 0.25 mL, Subcutaneous, AsDirected, PRN, Control symptoms, directed by physician for episode of tachysystole resulting in prolonged bradycardia (lasting greater than 3 minutes) and/or late decelerat... terbutaline, Start: 12/10/22 18:13:00 EST, Dose = 0.25 mg, = 0.25 mL, Subcutaneous, AsDirected, PRN, Other (see order comments), 12/10/22 18:13:00 EST tranexamic acid, Start: 12/10/22 18:13:00 EST, Dose = 1 gram(s), = 100 mL, IV Piggyback, AsDirected, PRN, Other (see order comments), Rate: 300 mL/hr, Infuse over: 20 minute(s), 0, 12/10/22 18:13:00 EST Ambulate Call Parameters Communication Order (continuous) Complete Blood Count Consult to Anesthesia Diet Order Discontinue Order Epidural Anesthesia Monitoring Monitoring Monitoring Intake and Output IV Catheter Insertion/Care Oxygen Administration (LDRP) Prn Adapter Rapid Plasma Reagin Test Reason VTE Prophylaxis Not Received Straight Cath Type and Screen (AO) Urinary Catheter Insertion/Care Vital Signs Vital Signs Vital Signs Call Parameters Vital Signs Call Parameters Future Scheduled Tests Laboratory* [facility] Lab Send out (Blood Specimens) 06/09/22 * [facility] Lab Send out (Blood Specimens) 06/09/22 [facility] 01-30-2023 Anesthesiology Consult note Patient: ZULEYKA NIELSEN Age: 27 years Sex: Female : 1995 Associated Diagnoses: None Author: URI STONE BANQUET KITCHEN SUPERVISOR-STAKER SURVEYING Assessment Postanesthesia assessment Vitals: Vital signs from flowsheet : Vital Signs 12/12/2022 5:00 EST Heart Rate Monitored 66 bpm Systolic Blood Pressure Non-Invasive 120 mmHg Diastolic Blood Pressure Non-Invasive 69 mmHg 12/12/2022 4:00 EST Temperature Oral 36.4 DegC Heart Rate Monitored 77 bpm Systolic Blood Pressure Non-Invasive 114 mmHg Diastolic Blood Pressure Non-Invasive 96 mmHg HI 12/12/2022 3:00 EST Heart Rate Monitored 58 bpm LOW Systolic Blood Pressure Non-Invasive 144 mmHg HI Diastolic Blood Pressure Non-Invasive 87 mmHg 12/12/2022 2:00 EST Temperature Oral 36.4 DegC Heart Rate Monitored 69 bpm Systolic Blood Pressure Non-Invasive 130 mmHg Diastolic Blood Pressure Non-Invasive 84 mmHg 12/12/2022 1:33 EST Heart Rate Monitored 62 bpm Systolic Blood Pressure Non-Invasive 134 mmHg Diastolic Blood Pressure Non-Invasive 84 mmHg 12/12/2022 1:02 EST Heart Rate Monitored 69 bpm Systolic Blood Pressure Non-Invasive 112 mmHg Diastolic Blood Pressure Non-Invasive 66 mmHg 12/12/2022 0:37 EST Temperature Oral 36.4 DegC Heart Rate Monitored 70 bpm Respiratory Rate 18 br/min Systolic Blood Pressure Non-Invasive 137 mmHg Diastolic Blood Pressure Non-Invasive 68 mmHg 12/12/2022 0:00 EST Heart Rate Monitored 62 bpm Systolic Blood Pressure Non-Invasive 122 mmHg Diastolic Blood Pressure Non-Invasive 77 mmHg 12/11/2022 23:30 EST Heart Rate Monitored 71 bpm Systolic Blood Pressure Non-Invasive 125 mmHg Diastolic Blood Pressure Non-Invasive 75 mmHg 12/11/2022 23:15 EST Heart Rate Monitored 70 bpm Systolic Blood Pressure Non-Invasive 118 mmHg Diastolic Blood Pressure Non-Invasive 72 mmHg 12/11/2022 23:00 EST Heart Rate Monitored 65 bpm Systolic Blood Pressure Non-Invasive 101 mmHg Diastolic Blood Pressure Non-Invasive 52 mmHg LOW 12/11/2022 22:45 EST Heart Rate Monitored 92 bpm Systolic Blood Pressure Non-Invasive 111 mmHg Diastolic Blood Pressure Non-Invasive 69 mmHg 12/11/2022 22:30 EST Temperature Oral 36.4 DegC Heart Rate Monitored 71 bpm Systolic Blood Pressure Non-Invasive 105 mmHg Diastolic Blood Pressure Non-Invasive 61 mmHg 12/11/2022 22:15 EST Heart Rate Monitored 67 bpm Systolic Blood Pressure Non-Invasive 98 mmHg Diastolic Blood Pressure Non-Invasive 47 mmHg 12/11/2022 22:00 EST Heart Rate Monitored 118 bpm HI Systolic Blood Pressure Non-Invasive 90 mmHg Diastolic Blood Pressure Non-Invasive 54 mmHg LOW 12/11/2022 21:48 EST Heart Rate Monitored 106 bpm HI Systolic Blood Pressure Non-Invasive 91 mmHg Diastolic Blood Pressure Non-Invasive 60 mmHg 12/11/2022 21:38 EST Heart Rate Monitored 116 bpm HI Systolic Blood Pressure Non-Invasive 91 mmHg Diastolic Blood Pressure Non-Invasive 54 mmHg LOW 12/11/2022 21:30 EST Heart Rate Monitored 126 bpm HI Systolic Blood Pressure Non-Invasive 94 mmHg Diastolic Blood Pressure Non-Invasive 59 mmHg LOW 12/11/2022 21:22 EST Heart Rate Monitored 13 bpm LOW Systolic Blood Pressure Non-Invasive 97 mmHg Diastolic Blood Pressure Non-Invasive 51 mmHg LOW 12/11/2022 21:10 EST Heart Rate Monitored 143 bpm HI Systolic Blood Pressure Non-Invasive 89 mmHg LOW Diastolic Blood Pressure Non-Invasive 57 mmHg LOW 12/11/2022 21:09 EST Heart Rate Monitored 165 bpm HI Systolic Blood Pressure Non-Invasive 78 mmHg Diastolic Blood Pressure Non- Invasive 58 mmHg LOW 12/11/2022 21:06 EST Heart Rate Monitored 156 bpm HI Systolic Blood Pressure Non-Invasive 60 mmHg Diastolic Blood Pressure Non- Invasive 33 mmHg 12/11/2022 21:00 EST Heart Rate Monitored 136 bpm HI Respiratory Rate 18 br/min Systolic Blood Pressure Non-Invasive 88 mmHg LOW Diastolic Blood Pressure Non-Invasive 59 mmHg LOW 12/11/2022 20:58 EST Heart Rate Monitored 137 bpm HI Systolic Blood Pressure Non-Invasive 82 mmHg Diastolic Blood Pressure Non- Invasive 56 mmHg LOW 12/11/2022 20:56 EST Heart Rate Monitored 145 bpm HI Systolic Blood Pressure Non-Invasive 89 mmHg LOW Diastolic Blood Pressure Non-Invasive 46 mmHg 12/11/2022 20:40 EST Heart Rate Monitored 130 bpm bpm Respiratory Rate - Anes 0 br/min br/min Systolic Blood Pressure Non-Invasive 97 mmHg mmHg Diastolic Blood Pressure Non-Invasive 60 mmHg mmHg 12/11/2022 20:36 EST Systolic Blood Pressure Non-Invasive 96 mmHg mmHg Diastolic Blood Pressure Non-Invasive 59 mmHg mmHg 12/11/2022 20:35 EST Heart Rate Monitored 136 bpm bpm Respiratory Rate - Anes 0 br/min br/min Systolic Blood Pressure Non-Invasive 93 mmHg mmHg Diastolic Blood Pressure Non-Invasive 56 mmHg mmHg 12/11/2022 20:30 EST Heart Rate Monitored 147 bpm bpm Respiratory Rate - Anes 0 br/min br/min Systolic Blood Pressure Non-Invasive 104 mmHg mmHg Diastolic Blood Pressure Non-Invasive 56 mmHg mmHg 12/11/2022 20:25 EST Heart Rate Monitored 141 bpm bpm Respiratory Rate - Anes 0 br/min br/min Systolic Blood Pressure Non-Invasive 129 mmHg mmHg Diastolic Blood Pressure Non-Invasive 81 mmHg mmHg 12/11/2022 20:20 EST Heart Rate Monitored 139 bpm bpm Respiratory Rate - Anes 0 br/min br/min Systolic Blood Pressure Non-Invasive 161 mmHg mmHg Diastolic Blood Pressure Non-Invasive 83 mmHg mmHg 12/11/2022 20:15 EST Heart Rate Monitored 143 bpm bpm Respiratory Rate - Anes 0 br/min br/min Systolic Blood Pressure Non-Invasive 166 mmHg mmHg Diastolic Blood Pressure Non-Invasive 98 mmHg mmHg 12/11/2022 20:12 EST Systolic Blood Pressure Non-Invasive 169 mmHg mmHg Diastolic Blood Pressure Non-Invasive 91 mmHg mmHg 12/11/2022 20:10 EST Heart Rate Monitored 62 bpm bpm Respiratory Rate - Anes 0 br/min br/min Systolic Blood Pressure Non-Invasive 165 mmHg mmHg Diastolic Blood Pressure Non-Invasive 85 mmHg mmHg 12/11/2022 20:06 EST Systolic Blood Pressure Non-Invasive 139 mmHg mmHg Diastolic Blood Pressure Non-Invasive 83 mmHg mmHg 12/11/2022 20:05 EST Respiratory Rate - Anes 0 br/min br/min 12/11/2022 20:00 EST Respiratory Rate - Anes 0 br/min br/min 12/11/2022 18:30 EST Temperature Temporal Artery 36.6 DegC Heart Rate Monitored 74 bpm Respiratory Rate 18 br/min Systolic Blood Pressure Non-Invasive 135 mmHg Diastolic Blood Pressure Non-Invasive 79 mmHg Blood Pressure Method Automatic Blood Pressure Location Right arm Blood Pressure Cuff Size Large 12/11/2022 17:48 EST Temperature Temporal Artery 36.4 DegC Heart Rate Monitored 64 bpm Respiratory Rate 18 br/min Systolic Blood Pressure Non-Invasive 116 mmHg Diastolic Blood Pressure Non-Invasive 71 mmHg 12/11/2022 16:45 EST Heart Rate Monitored 55 bpm LOW Respiratory Rate 18 br/min Systolic Blood Pressure Non-Invasive 124 mmHg Diastolic Blood Pressure Non-Invasive 67 mmHg Blood Pressure Method Automatic Blood Pressure Location Right arm Blood Pressure Cuff Size Large 12/11/2022 16:30 EST Temperature Temporal Artery 36.6 DegC 12/11/2022 15:30 EST Temperature Temporal Artery 36.8 DegC Heart Rate Monitored 55 bpm LOW Respiratory Rate 18 br/min Systolic Blood Pressure Non-Invasive 124 mmHg Diastolic Blood Pressure Non-Invasive 69 mmHg Blood Pressure Method Automatic Blood Pressure Location Right arm Blood Pressure Cuff Size Large 12/11/2022 14:30 EST Temperature Temporal Artery 36.8 DegC Heart Rate Monitored 54 bpm LOW Respiratory Rate 16 br/min Systolic Blood Pressure Non-Invasive 128 mmHg Diastolic Blood Pressure Non-Invasive 66 mmHg Blood Pressure Method Automatic Blood Pressure Location Right arm Blood Pressure Cuff Size Large 12/11/2022 13:30 EST Temperature Temporal Artery 37 DegC Heart Rate Monitored 60 bpm Respiratory Rate 18 br/min Systolic Blood Pressure Non-Invasive 124 mmHg Diastolic Blood Pressure Non-Invasive 78 mmHg Blood Pressure Method Automatic Blood Pressure Location Right arm Blood Pressure Cuff Size Large 12/11/2022 12:30 EST Temperature Temporal Artery 37.2 DegC Heart Rate Monitored 88 bpm Respiratory Rate 18 br/min Systolic Blood Pressure Non-Invasive 132 mmHg Diastolic Blood Pressure Non-Invasive 77 mmHg Blood Pressure Method Automatic Blood Pressure Location Right arm Blood Pressure Cuff Size Large 12/11/2022 11:30 EST Temperature Temporal Artery 37.2 DegC Heart Rate Monitored 73 bpm Respiratory Rate 18 br/min Systolic Blood Pressure Non-Invasive 134 mmHg Diastolic Blood Pressure Non-Invasive 88 mmHg Blood Pressure Method Automatic Blood Pressure Location Right arm Blood Pressure Cuff Size Large 12/11/2022 10:30 EST Temperature Temporal Artery 36.7 DegC Heart Rate Monitored 54 bpm LOW Respiratory Rate 18 br/min Systolic Blood Pressure Non-Invasive 133 mmHg Diastolic Blood Pressure Non-Invasive 79 mmHg Blood Pressure Method Automatic Blood Pressure Location Right arm Blood Pressure Cuff Size Large 12/11/2022 9:30 EST Temperature Temporal Artery 36.7 DegC Heart Rate Monitored 56 bpm LOW Respiratory Rate 18 br/min Systolic Blood Pressure Non-Invasive 134 mmHg Diastolic Blood Pressure Non-Invasive 82 mmHg Blood Pressure Method Automatic Blood Pressure Location Right arm Blood Pressure Cuff Size Large 12/11/2022 8:30 EST Temperature Temporal Artery 36.6 DegC Heart Rate Monitored 57 bpm LOW Respiratory Rate 18 br/min Systolic Blood Pressure Non-Invasive 116 mmHg Diastolic Blood Pressure Non-Invasive 70 mmHg Blood Pressure Method Automatic Blood Pressure Location Right arm Blood Pressure Cuff Size Large 12/11/2022 7:30 EST Temperature Temporal Artery 36.7 DegC Heart Rate Monitored 53 bpm LOW Respiratory Rate 18 br/min Systolic Blood Pressure Non-Invasive 134 mmHg Diastolic Blood Pressure Non-Invasive 83 mmHg Blood Pressure Method Automatic Blood Pressure Location Right arm Blood Pressure Cuff Size Large 12/11/2022 6:02 EST Temperature Temporal Artery 36.7 DegC Heart Rate Monitored 78 bpm Systolic Blood Pressure Non-Invasive 115 mmHg Diastolic Blood Pressure Non-Invasive 63 mmHg 12/11/2022 5:00 EST Temperature Temporal Artery 37 DegC Heart Rate Monitored 55 bpm LOW Respiratory Rate 18 br/min Systolic Blood Pressure Non-Invasive 125 mmHg Diastolic Blood Pressure Non-Invasive 71 mmHg 12/11/2022 3:59 EST Temperature Temporal Artery 36.6 DegC Heart Rate Monitored 58 bpm LOW Systolic Blood Pressure Non-Invasive 106 mmHg Diastolic Blood Pressure Non-Invasive 61 mmHg 12/11/2022 3:15 EST Temperature Temporal Artery 37 DegC Heart Rate Monitored 57 bpm LOW Systolic Blood Pressure Non-Invasive 125 mmHg Diastolic Blood Pressure Non-Invasive 67 mmHg 12/11/2022 2:05 EST Temperature Temporal Artery 36.9 DegC Heart Rate Monitored 50 bpm LOW Respiratory Rate 18 br/min Systolic Blood Pressure Non-Invasive 125 mmHg Diastolic Blood Pressure Non-Invasive 68 mmHg 12/11/2022 0:04 EST Temperature Temporal Artery 36.6 DegC Heart Rate Monitored 56 bpm LOW Systolic Blood Pressure Non-Invasive 120 mmHg Diastolic Blood Pressure Non-Invasive 75 mmHg , Measurements from flowsheet . Mental status: alert & oriented x 4. Respiratory function: respirations are non-labored. Respiratory support: none. CV function: Normal rate. Cardiovascular support: none. Pain. Nausea status: see nursing documentation of medications. Postoperative hydration status: within normal limits. Digitally Signed by URI STONE on 12/12/2022 08:08 AM [facility]01-29-2023 Hospital Discharge instructions Patient Education 12/11/2022 19:43:53 7b- Depression and Blues (08/2020) (CUSTOM) [place] Depression and Blues All mothers are at risk of developing depression or the blues. These mood changes can occur right after giving , or they may occur many months after giving . blues or depression can be mild or severe. Additionally, depression can goaway rather quickly, or it can be a long-term condition. CAUSES Raised hormone levels and the rapid drop in those levels are thought to be a main cause of depression and blues. A number of hormones change during and after . Estrogenand progesterone usually decrease right after delivery. The levels of thyroid hormone and various cortisol steroids also rapidly drop. Other factors that play a role in these mood changes include major life events and genetics. RISK FACTORS If you have any of the following risks for blues or depression, know what symptoms to watch out for during the period. Risk factors that may increase the likelihood of getting blues or depression include: Having a personal or family history of depression. Having depression while being . Having premenstrual mood issues or mood issues related to oral contraceptives. Having a lot of life stress. Having marital conflict. Lacking a social support network. Having health problems, such as diabetes. SIGNS AND SYMPTOMS Symptoms of blues include: Brief changes in mood, such as going from extreme happiness to sadness. Decreased concentration. Difficulty sleeping. Crying spells, tearfulness. Irritability. Anxiety. Symptoms of depression typically begin within the first month after giving . These symptoms include: Difficulty sleeping or excessive sleepiness. Marked weight loss. Agitation. Feelings of worthlessness. Lack of interest in activity or food. psychosis is a very serious condition and can be dangerous. Fortunately, it is rare. Displaying any of the following symptoms is cause for immediate medical attention. Symptoms of psychosis include: Hallucinations and delusions. Bizarre or disorganized behavior. Confusion or disorientation. DIAGNOSIS A diagnosis is made by an evaluation of your symptoms. There are no medical or lab tests that lead to a diagnosis, but there are various questionnaires that a health care provider may use to identifythose with blues, depression, or psychosis. Often, a screening tool called the Hope Depression Scale is used to diagnose depression in the period. TREATMENT blues usually goes away on its own in 1 2 weeks. Social support is often all that is needed. You will be encouraged to get adequate sleep and rest. Occasionally, you may be given medicinesto help you sleep. depression requires treatment because it can last several months or longer if it is not treated. Treatment may include individual or group therapy, medicine, or both to address any social,physiological, and psychological factors that may play a role in the depression. Regular exercise, a healthy diet, rest, and social support may also be strongly recommended. psychosis is more serious and needs treatment right away. Hospitalization is often needed. HOME CARE INSTRUCTIONS Get as much rest as you can. Exercise regularly. Some women find yoga and walking to be beneficial. Eat a balanced and nourishing diet. Do little things that you enjoy. Have a cup of tea, take a bubble bath, read your favorite magazine, or listen to your favorite music. Avoid alcohol. Ask for help with middle school football coach, cooking, grocery shopping, or running errands as needed. Do nottry to do everything. Talk to people close to you about how you are feeling. Get support from your partner, family members, and friends. Try to stay positive in how you think. Think about the things you are grateful for. Do not spend a lot of time alone. Only take clen-pho-jlowpmt or prescription medicine as directed by your health care provider. Keep all your appointments. Let your health care provider know if you have any concerns. SEEK MEDICAL CARE IF: You are having a reaction to or problems with your medicine. SEEK IMMEDIATE MEDICAL CARE IF: You have suicidal feelings. You think you may harm yourself or someone else. MAKE SURE YOU: Understand these instructions. Will watch your condition. Will get help right away if you are not doing well or get worse. Resource: ExitCare Patient Information 2014 [employer]. This information is not intended to replace advicegiven to you by your health care provider. Make sure you discuss any questions you have with your health care provider. 12/11/2022 19:43:50 7- Section ( Care) (05/2017) (CUSTOM) Section ( Care) These discharge instructions provide you with general information on section (caesarean, cesarian, caesarian) and caring for yourself after you leave the hospital. Your caregiver may also give you specific instructions. Please read these instructions and refer to them in the next few weeks. If you have any problems after discharge, please call your doctor. If you are unable to reach your doctor, you should seek helpat the nearest Emergency Department. ACTIVITY Rest as much as possible the first two weeks at home. When possible, have someone help you with your household activities for 2 to 3 weeks. Limit your housework and social activity. Increase your activity gradually as your strength returns. Do not climb stairs more than two or three times a day. Do not lift anything heavier than 10 pounds. Follow your doctor's instructions about driving a car. Limit wearing support panties or control-top hose, since relying on your own muscles helps strengthen them. Ask your doctor about exercises. NUTRITION You may return to your usual diet. Drink 6 to 8 glasses of fluid a day. Eat a well-balanced diet. Include portions of food from the meat/protein, milk, fruit, vegetable and bread groups. Keep taking your or multivitamins. ELIMINATION You should return to your usual bowel function. If constipation is a problem, you may take a mild laxative such as Milk of Magnesia with your caregiver s permission. Gradually add fruit, vegetables and bran to your diet. Make sure to increase your fluids. HYGIENE You may shower, wash your hair and take tub baths unless your doctor tells you otherwise. Continue kim-care until your vaginal bleeding and discharge stops. Do not douche or use tampons until your caregiver says it is OK. FEVER If you feel feverish or have shaking chills, take your temperature. If your temperature is 101 F (38.3 C), or is 100.4 F (38 C) two times in a four hour period, call your doctor. The fever may indicate infection. If you call early, infection can be treated with medicines that kill germs (antibiotics). Hospitalization may be avoided. PAIN CONTROL You may still have mild discomfort. Only take eomm-szm-mammpkz or prescription medicine as directedby your caregiver. Do not take aspirin unless instructed by your physician; it can cause bleeding. If the pain is not relieved by your medicine or becomes worse, call your caregiver. INCISION CARE Clean your cut (incision) gently with soap and water. If your caregiver says it is okay, leave the incision without a dressing unless it is draining or irritated. If you have small adhesive strips across the incision and they do not fall off within 7 days, carefully peel them off. Check the incision daily for increased redness, drainage, swelling or separation of skin. Call your caregiver if any of these happen. VAGINAL CARE You may have a vaginal discharge or bleeding for up to 6 weeks. If the vaginal discharge becomes bright red, bad smelling, heavy in amount, has blood clots or if you have burning or frequency when urinating, call your caregiver. SEXUAL INTERCOURSE No sexual intercourse until seen by your physician. You can become before you have a period. If you decide to have sexual intercourse, you should use control if you do not want to become right away. HEALTH PRACTICES It is still important to have a yearly pelvic exam. Continue monthly self-breast exams and yearly physical exams with a Pap test. BREAST CARE If you are not and your breasts become tender, hard or leak milk, you may wear a firmfitting bra and apply ice to the breasts. If you are , wear a good support bra. Call your caregiver if you have breast pain, flu-like symptoms, fever or hardness and reddening of your breasts. BLUES You may commonly have a period of low spirits or blues. Discuss your feelings with your partner, family and friends. This may be caused by the changing hormone levels in your body. You may want to contact your caregiver if this is worrisome. SEEK MEDICAL CARE IF: You develop a temperature greater than 100.4 degrees Fahrenheit. There is swelling, redness or increasing pain in the wound area. Pus is coming from the wound. You notice a bad smell from the wound or surgical dressing. You have pain, redness and swelling from the intravenous site. The wound is breaking open (the edges are not staying together). You feel dizzy or feel like fainting. You develop pain or bleeding when you urinate. You develop diarrhea. You develop nausea and vomiting. You develop abnormal vaginal discharge. You develop a rash. You have any type of abnormal reaction or develop an allergy to your medication. You need stronger pain medication for your pain. SEEK IMMEDIATE MEDICAL CARE: You develop abdominal pain. You develop chest pain. You develop shortness of breath. You pass out. You develop pain, swelling or redness of your leg. You develop heavy vaginal bleeding with or without blood clots. Document Released: 07/22/2003 Document Re-Released: 08/27/2010 [facility] Patient Information 2011 [employer]. 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 Family's history: negative. Health Status Allergies: Allergic Reactions (Selected) NKA, Allergies (1) ActiveReaction NKANone Documented Current medications: (Selected) Inpatient Medications Ordered Analpram-HC 2.5%-1% rectal cream: 1 rose, Perineum, q1h, PRN: hemorrhoidal or perineal discomfort Ancef: 2 g, 100 mL, 200 mL/hr, IV Piggyback, PREOP pharm Anusol-HC 25 mg rectal suppository: 25 mg, 1 supp, Rectal, BID, PRN: hemorrhoidal discomfort Bicitra: 30 mL, Oral, AsDirected, PRN: Gastric Upset Brethine: 0.25 mg, 0.25 mL, Subcutaneous, AsDirected, PRN: Other (see order comments) Colace: 100 mg, 1 cap(s), Oral, BID, PRN: Constipation Cytotec: 1,000 mcg, 5 tab(s), Rectal, Once, PRN: Other (see order comments) Dermoplast topical spray: 1 spray(s), Perineum, q1h, PRN: Other (see order comments) Feosol: 325 mg, 1 tab(s), Oral, BID Hemabate: 250 mcg, 1 mL, Intramuscular, Once, PRN: Other (see order comments) LR 1,000 mL: 125 mL/hr, Intravenous LR 500 mL Bolus: 500 mL, IV Bolus, AsDirected, PRN: Other (see order comments) Lansinoh for Breast Feeding Mothers: 7 gram(s), 1 EA, Topical, AsDirected, PRN: Other (see order comments) Methergine: 0.2 mg, 1 mL, Intramuscular, Once, PRN: Other (see order comments) Methergine: 0.2 mg, 1 mL, Intramuscular, q6h Motrin: 600 mg, 1 tab(s), Oral, q6hr Mylicon: 80 mg, 1 tab(s), Chewed, TID, PRN: Gas Oxytocin for IV (mL/hr) 20 unit(s) + LR Premix Diluent 1,000 mL: 999 mL/hr, Intravenous Percocet 325/5: 1 tab(s), Oral, q4h, PRN: Pain, scale 4-6 Percocet 325/5: 2 tab(s), Oral, q4h, PRN: Pain, scale 7-10 Pharmacy See ORDER COMMENTS: 1 EA, Miscellaneous, Daily Pitocin: 20 unit(s), 2 mL, Intramuscular, Once, PRN: Other (see order comments) Rhophylac: 300 mcg, 2 mL, Intramuscular, AsDirected, PRN: if Rh factor neg per policy Tylenol: 650 mg, 2 tab(s), Oral, q6hr Xylocaine HCl 1% injectable solution: 20 mg, 2 mL, Perineum, AsDirected, PRN: to perineal sutures Zithromax IV: 500 mg, 5 mL, 250 mL/hr, IV Piggyback, Once Zofran: 4 mg, 2 mL, IV Push, q4h, PRN: Nausea Zofran: 4 mg, 2 mL, IV Push, q8h, PRN: Nausea Zofran: 4 mg, Oral, q8h, PRN: Nausea glycerin-witch kimberly 50% topical pad: 1 rose, Topical, AsDirected, PRN: Hemorrhoids tranexamic acid 1 g / 100 mL 0.7% NaCl PMX: 1 gram(s), 100 mL, 300 mL/hr, IV Piggyback, AsDirected,PRN: Other (see order comments) Prescriptions Prescribed Percocet 5 mg-325 mg oral tablet: 1 tab(s), Oral, q6hr, for 7 day(s), PRN: for pain, 20 tab(s), 0 Refill(s) Tylenol Extra Strength 500 mg oral tablet: 500 mg, 1 tab(s), Oral, q4h, for 14 day(s), 30 tab(s), 1Refill(s) ibuprofen 800 mg oral tablet: 800 mg, 1 tab(s), Oral, q8h, for 14 day(s), 42 tab(s), 0 Refill(s) Documented Medications Documented IRON (ferrous sulfate 325 mg) 65 mg oral tablet: 325 mg, 1 tab(s), Oral, qDay, Take with food., 60 tab(s), 3 Refill(s) Multivitamins with Vitamin B Complex, Vitamin C, Minerals and L- Methylfolate oral capsule...: 1 cap(s), Oral, Daily, 0 Refill(s), Medications (31) Active Scheduled: (7) acetaminophen 325 mg Tablet 650 mg 2 tab(s), Oral, q6hr azithromycin IV 500 mg 5 mL, IV Piggyback, Once ceFAZolin 2 g 100 mL, IV Piggyback, PREOP pharm ferrous sulfate 325 mg Tablet 325 mg 1 tab(s), Oral, BID ibuprofen 600 mg tablet 600 mg 1 tab(s), Oral, q6hr methylergonovine 0.2 mg/mL (1 mL) ampule 0.2 mg 1 mL, Intramuscular, q6h Misc communication order 1 EA, Miscellaneous, Daily Continuous: (2) Lactated Ringers 1,000 mL 1,000 mL, Intravenous, 125 mL/hr Oxytocin 20 units in Lactated Ringers 1000 mL 20 unit(s) + LR Premix Diluent 1,000 mL 1,000 mL, Intravenous, 999 mL/hr PRN: (22) acetaminophen-OXYcodone 325 mg-5 mg Tablet 1 tab(s), Oral, q4h acetaminophen-OXYcodone 325 mg-5 mg Tablet 2 tab(s), Oral, q4h benzocaine topical 20% Mcdaniel 1 spray(s), Perineum, q1h carboprost 250 mcg/ml 1mL ampule 250 mcg 1 mL, Intramuscular, Once citric acid-sodium citrate 334 mg-500 mg/5 mL (30 mL) Nuris UD 30 mL, Oral, AsDirected docusate sodium 100 mg Capsule 100 mg 1 cap(s), Oral, BID glycerin-witch kimberly topical 10%-50% Pad 1 rose, Topical, AsDirected hydrocortisone topical 25 mg rectal supp 25 mg 1 supp, Rectal, BID hydrocortisone-pramoxine topical 2.5%-1% Cream 4 gram(s) 1 rose, Perineum, q1h Lactated Ringers Injection 500 mL * Bolus * 500 mL, IV Bolus, AsDirected lanolin (purified) 7 gram(s) 1 EA, Topical, AsDirected lidocaine 1% (MPF) 2 mL vial pf 20 mg 2 mL, Perineum, AsDirected methylergonovine 0.2 mg/mL (1 mL) ampule 0.2 mg 1 mL, Intramuscular, Once misoprostol 200 mcg tablet 1,000 mcg 5 tab(s), Rectal, Once ondansetron 4 mg, Oral, q8h ondansetron 2 mg/ 1 mL 2 mL INJ 4 mg 2 mL, IV Push, q4h ondansetron 2 mg/ 1 mL 2 mL INJ 4 mg 2 mL, IV Push, q8h oxytocin 10 units/mL 1 mL vial 20 unit(s) 2 mL, Intramuscular, Once RHo (D) immune globulin 300 mcg/2 mL Soln 300 mcg 2 mL, Intramuscular, AsDirected simethicone 80 mg Chewable 80 mg 1 tab(s), Chewed, TID terbutaline 1 mg/ml vial 0.25 mg 0.25 mL, Subcutaneous, AsDirected tranexamic acid PMX 1 gram(s) 100 mL, IV Piggyback, AsDirected Problem list: Medical Allergy, food / SNOMED CT 3233076108 / Confirmed Amenorrhea / SNOMED CT 17108350 / Confirmed Absence of menstruation / SNOMED CT 38902721 / Confirmed Constipation / SNOMED CT 37714091 / Confirmed GERD (gastroesophageal reflux disease) / SNOMED CT 430522973 / Confirmed History of miscarriage / SNOMED CT 255942196 / Confirmed History of abnormal cervical Pap smear / SNOMED CT 5496782730 / Confirmed Hypercholesteremia / SNOMED CT 55807755 / Confirmed Increased BMI (body mass index) / SNOMED CT 02955410 / Confirmed Irregular periods/menstrual cycles / SNOMED CT 381580614 / Confirmed Encounter for supervision of normal in multigravida in third trimester / SNOMED CT 492448992 / Confirmed Screening for diabetes mellitus / SNOMED CT 026622052 / Confirmed Screening for cardiovascular condition / SNOMED CT 679763458 / Confirmed PCOS (polycystic ovarian syndrome) / SNOMED CT 869032430 / Confirmed Positive test / SNOMED CT 197543580 / Confirmed / SNOMED CT 612140032 / Confirmed Seasonal allergies / SNOMED CT 4707307284 / Confirmed, Active Problems (17) Absence of menstruation Allergy, food Amenorrhea Constipation Encounter for supervision of normal in multigravida in third trimester GERD (gastroesophageal reflux disease) History of abnormal cervical Pap smear History of miscarriage Hypercholesteremia Increased BMI (body mass index) Irregular periods/menstrual cycles PCOS (polycystic ovarian syndrome) Positive test Screening for cardiovascular condition Screening for diabetes mellitus Seasonal allergies Histories Past Medical History: Resolved ([id number]): Onset on 08/11/2021 at 26 years. Resolved in the month of 10/2021 at 26 years. Contraceptive management (85258135): Resolved. Annual physical exam (061178973): Resolved. Screening cholesterol level ([id number]): Resolved. Family History: Cancer Grandparent Hypothyroid Grandparent Hypertension Father Heart disease Father Heart attack Father Diabetes Grandparent Father Prostate cancer Grandparent Procedure history: Teeth ([id number]). Comments: 11/02/2021 14:19 EST - Lalita Herrera LPN wisdom teeth Social History Social & Psychosocial Habits Alcohol 07/26/2019 Use: Never Substance Abuse 07/26/2019 Use: Never Tobacco 07/26/2019 Tobacco Use: Never (less than 100 in l Comment: No smoke exposure - 07/26/2019 10:51 - Devora Nielsen LPN Home/Environment 07/26/2019 Primary Gl Accountant: Self Nutrition/Health 07/26/2019 Caffeine intake amount: All of the above . Physical Examination Vital Signs 12/11/2022 20:40 EST Heart Rate Monitored 130 bpm bpm Respiratory Rate - Anes 0 br/min br/min Systolic Blood Pressure Non-Invasive 97 mmHg mmHg Diastolic Blood Pressure Non-Invasive 60 mmHg mmHg 12/11/2022 20:36 EST Systolic Blood Pressure Non-Invasive 96 mmHg mmHg Diastolic Blood Pressure Non-Invasive 59 mmHg mmHg 12/11/2022 20:35 EST Heart Rate Monitored 136 bpm bpm Respiratory Rate - Anes 0 br/min br/min Systolic Blood Pressure Non-Invasive 93 mmHg mmHg Diastolic Blood Pressure Non-Invasive 56 mmHg mmHg 12/11/2022 20:30 EST Heart Rate Monitored 147 bpm bpm Respiratory Rate - Anes 0 br/min br/min Systolic Blood Pressure Non-Invasive 104 mmHg mmHg Diastolic Blood Pressure Non-Invasive 56 mmHg mmHg 12/11/2022 20:25 EST Heart Rate Monitored 141 bpm bpm Respiratory Rate - Anes 0 br/min br/min Systolic Blood Pressure Non-Invasive 129 mmHg mmHg Diastolic Blood Pressure Non-Invasive 81 mmHg mmHg 12/11/2022 20:20 EST Heart Rate Monitored 139 bpm bpm Respiratory Rate - Anes 0 br/min br/min Systolic Blood Pressure Non-Invasive 161 mmHg mmHg Diastolic Blood Pressure Non-Invasive 83 mmHg mmHg 12/11/2022 20:15 EST Heart Rate Monitored 143 bpm bpm Respiratory Rate - Anes 0 br/min br/min Systolic Blood Pressure Non-Invasive 166 mmHg mmHg Diastolic Blood Pressure Non-Invasive 98 mmHg mmHg 12/11/2022 20:12 EST Systolic Blood Pressure Non-Invasive 169 mmHg mmHg Diastolic Blood Pressure Non-Invasive 91 mmHg mmHg 12/11/2022 20:10 EST Heart Rate Monitored 62 bpm bpm Respiratory Rate - Anes 0 br/min br/min Systolic Blood Pressure Non-Invasive 165 mmHg mmHg Diastolic Blood Pressure Non-Invasive 85 mmHg mmHg 12/11/2022 20:06 EST Systolic Blood Pressure Non-Invasive 139 mmHg mmHg Diastolic Blood Pressure Non-Invasive 83 mmHg mmHg 12/11/2022 20:05 EST Respiratory Rate - Anes 0 br/min br/min 12/11/2022 20:00 EST Respiratory Rate - Anes 0 br/min br/min 12/11/2022 18:30 EST Temperature Temporal Artery 36.6 DegC Heart Rate Monitored 74 bpm Respiratory Rate 18 br/min Systolic Blood Pressure Non-Invasive 135 mmHg Diastolic Blood Pressure Non-Invasive 79 mmHg Blood Pressure Method Automatic Blood Pressure Location Right arm Blood Pressure Cuff Size Large 12/11/2022 17:48 EST Temperature Temporal Artery 36.4 DegC Heart Rate Monitored 64 bpm Respiratory Rate 18 br/min Systolic Blood Pressure Non-Invasive 116 mmHg Diastolic Blood Pressure Non-Invasive 71 mmHg 12/11/2022 16:45 EST Heart Rate Monitored 55 bpm LOW Respiratory Rate 18 br/min Systolic Blood Pressure Non-Invasive 124 mmHg Diastolic Blood Pressure Non-Invasive 67 mmHg Blood Pressure Method Automatic Blood Pressure Location Right arm Blood Pressure Cuff Size Large 12/11/2022 16:30 EST Temperature Temporal Artery 36.6 DegC 12/11/2022 15:30 EST Temperature Temporal Artery 36.8 DegC Heart Rate Monitored 55 bpm LOW Respiratory Rate 18 br/min Systolic Blood Pressure Non-Invasive 124 mmHg Diastolic Blood Pressure Non-Invasive 69 mmHg Blood Pressure Method Automatic Blood Pressure Location Right arm Blood Pressure Cuff Size Large 12/11/2022 14:30 EST Temperature Temporal Artery 36.8 DegC Heart Rate Monitored 54 bpm LOW Respiratory Rate 16 br/min Systolic Blood Pressure Non-Invasive 128 mmHg Diastolic Blood Pressure Non-Invasive 66 mmHg Blood Pressure Method Automatic Blood Pressure Location Right arm Blood Pressure Cuff Size Large 12/11/2022 13:30 EST Temperature Temporal Artery 37 DegC Heart Rate Monitored 60 bpm Respiratory Rate 18 br/min Systolic Blood Pressure Non-Invasive 124 mmHg Diastolic Blood Pressure Non-Invasive 78 mmHg Blood Pressure Method Automatic Blood Pressure Location Right arm Blood Pressure Cuff Size Large 12/11/2022 12:30 EST Temperature Temporal Artery 37.2 [facility] Heart Rate Monitored 88 bpm Respiratory Rate 18 br/min Systolic Blood Pressure Non-Invasive 132 mmHg Diastolic Blood Pressure Non-Invasive 77 mmHg Blood Pressure Method Automatic Blood Pressure Location Right arm Blood Pressure Cuff Size Large 12/11/2022 11:30 EST Temperature Temporal Artery 37.2 DegC Heart Rate Monitored 73 bpm Respiratory Rate 18 br/min Systolic Blood Pressure Non-Invasive 134 mmHg Diastolic Blood Pressure Non-Invasive 88 mmHg Blood Pressure Method Automatic Blood Pressure Location Right arm Blood Pressure Cuff Size Large 12/11/2022 10:30 EST Temperature Temporal Artery 36.7 DegC Heart Rate Monitored 54 bpm LOW Respiratory Rate 18 br/min Systolic Blood Pressure Non-Invasive 133 mmHg Diastolic Blood Pressure Non-Invasive 79 mmHg Blood Pressure Method Automatic Blood Pressure Location Right arm Blood Pressure Cuff Size Large 12/11/2022 9:30 EST Temperature Temporal Artery 36.7 DegC Heart Rate Monitored 56 bpm LOW Respiratory Rate 18 br/min Systolic Blood Pressure Non-Invasive 134 mmHg Diastolic Blood Pressure Non-Invasive 82 mmHg Blood Pressure Method Automatic Blood Pressure Location Right arm Blood Pressure Cuff Size Large 12/11/2022 8:30 EST Temperature Temporal Artery 36.6 DegC Heart Rate Monitored 57 bpm LOW Respiratory Rate 18 br/min Systolic Blood Pressure Non-Invasive 116 mmHg Diastolic Blood Pressure Non-Invasive 70 mmHg Blood Pressure Method Automatic Blood Pressure Location Right arm Blood Pressure Cuff Size Large 12/11/2022 7:30 EST Temperature Temporal Artery 36.7 DegC Heart Rate Monitored 53 bpm LOW Respiratory Rate 18 br/min Systolic Blood Pressure Non-Invasive 134 mmHg Diastolic Blood Pressure Non-Invasive 83 mmHg Blood Pressure Method Automatic Blood Pressure Location Right arm Blood Pressure Cuff Size Large 12/11/2022 6:02 EST Temperature Temporal Artery 36.7 DegC Heart Rate Monitored 78 bpm Systolic Blood Pressure Non-Invasive 115 mmHg Diastolic Blood Pressure Non-Invasive 63 mmHg 12/11/2022 5:00 EST Temperature Temporal Artery 37 DegC Heart Rate Monitored 55 bpm LOW Respiratory Rate 18 br/min Systolic Blood Pressure Non-Invasive 125 mmHg Diastolic Blood Pressure Non-Invasive 71 mmHg 12/11/2022 3:59 EST Temperature Temporal Artery 36.6 DegC Heart Rate Monitored 58 bpm LOW Systolic Blood Pressure Non-Invasive 106 mmHg Diastolic Blood Pressure Non-Invasive 61 mmHg 12/11/2022 3:15 EST Temperature Temporal Artery 37 DegC Heart Rate Monitored 57 bpm LOW Systolic Blood Pressure Non-Invasive 125 mmHg Diastolic Blood Pressure Non-Invasive 67 mmHg 12/11/2022 2:05 EST Temperature Temporal Artery 36.9 DegC Heart Rate Monitored 50 bpm LOW Respiratory Rate 18 br/min Systolic Blood Pressure Non-Invasive 125 mmHg Diastolic Blood Pressure Non-Invasive 68 mmHg 12/11/2022 0:04 EST Temperature Temporal Artery 36.6 DegC Heart Rate Monitored 56 bpm LOW Systolic Blood Pressure Non-Invasive 120 mmHg Diastolic Blood Pressure Non-Invasive 75 mmHg 12/10/2022 22:59 EST Temperature Temporal Artery 36.6 DegC Heart Rate Monitored 111 bpm HI Respiratory Rate 18 br/min Systolic Blood Pressure Non-Invasive 125 mmHg Diastolic Blood Pressure Non-Invasive 83 mmHg Blood Pressure Method Automatic Blood Pressure Location Right arm Blood Pressure Cuff Size Large 12/10/2022 22:04 EST Temperature Temporal Artery 37 DegC Heart Rate Monitored 76 bpm Respiratory Rate 18 br/min Systolic Blood Pressure Non-Invasive 121 mmHg Diastolic Blood Pressure Non-Invasive 84 mmHg Blood Pressure Method Automatic Blood Pressure Location Right arm Blood Pressure Cuff Size Large 12/10/2022 21:03 EST Temperature Temporal Artery 37.3 DegC Heart Rate Monitored 55 bpm LOW Respiratory Rate 18 br/min Systolic Blood Pressure Non-Invasive 138 mmHg Diastolic Blood Pressure Non-Invasive 74 mmHg Blood Pressure Method Automatic Blood Pressure Location Right arm Blood Pressure Cuff Size Large 12/10/2022 20:02 EST Temperature Temporal Artery 37.2 DegC Heart Rate Monitored 76 bpm Respiratory Rate 18 br/min Systolic Blood Pressure Non-Invasive 121 mmHg Diastolic Blood Pressure Non-Invasive 83 mmHg Blood Pressure Method Automatic Blood Pressure Location Right arm Blood Pressure Cuff Size Large 12/10/2022 18:00 EST Temperature Temporal Artery 36.8 DegC Heart Rate Monitored 65 bpm Respiratory Rate 18 br/min Systolic Blood Pressure Non-Invasive 138 mmHg Diastolic Blood Pressure Non-Invasive 83 mmHg Blood Pressure Method Automatic Blood Pressure Location Left arm Blood Pressure Cuff Size Large 12/10/2022 17:51 EST Heart Rate Monitored 69 bpm Respiratory Rate 18 br/min Systolic Blood Pressure Non-Invasive 133 mmHg Diastolic Blood Pressure Non-Invasive 82 mmHg Blood Pressure Method Automatic Blood Pressure Location Left arm Blood Pressure Cuff Size Large 12/10/2022 17:30 EST Temperature Temporal Artery 36.6 DegC Heart Rate Monitored 59 bpm LOW Respiratory Rate 18 br/min Systolic Blood Pressure Non-Invasive 145 mmHg HI Diastolic Blood Pressure Non-Invasive 75 mmHg Blood Pressure Method Automatic Blood Pressure Location Left arm Blood Pressure Cuff Size Large Vital Signs(last 24 hrs) Last Charted Heart Rate [id number] bpm (DEC 11 20:40) Resp Rate 18 br/min (DEC 11 18:30) SBP97 mmHg (DEC 11 20:40) DBP60 mmHg (DEC 11 20:40) Measurements from flowsheet : Measurements 12/10/2022 17:42 EST Height 160 cm Admission Weight 103.63 kg [place] Body Weight 52.38 kg BSA Admission 2.05 Body Mass Index 40.48 kg/m2 Pain assessment: Pain Assessment 12/11/2022 18:30 EST Primary Pain Location Abdomen Abdominal Pain Location LLQ, RLQ Primary Pain Laterality Bilateral Primary Pain Intensity 4 Primary Pain Time Pattern intermittent Primary Pain Onset Gradual Primary Pain Duration Intermittent Primary Pain Quality Cramping Primary Pain Non-Pharma Intervention Repositioning Primary Pain Aggravating Factors None Primary Pain Alleviating Factors Repositioning Primary Pain Nonverbal Response Appears restful Pain Scale Type 0-10 Pain scale 12/11/2022 17:30 EST Primary Pain Location Abdomen Abdominal Pain Location LLQ, RLQ Primary Pain Laterality Bilateral Primary Pain Intensity 4 Primary Pain Time Pattern intermittent Primary Pain Onset Gradual Primary Pain Duration Intermittent Primary Pain Quality Cramping Primary Pain Non-Pharma Intervention Repositioning Primary Pain Aggravating Factors None Primary Pain Alleviating Factors Repositioning Primary Pain Nonverbal Response Appears restful Pain Scale Type 0-10 Pain scale 12/11/2022 16:30 EST Primary Pain Location Abdomen Abdominal Pain Location LLQ, RLQ Primary Pain Laterality Bilateral Primary Pain Intensity 4 Primary Pain Time Pattern intermittent Primary Pain Onset Gradual Primary Pain Duration Intermittent Primary Pain Quality Cramping Primary Pain Non-Pharma Intervention Repositioning Primary Pain Aggravating Factors None Primary Pain Alleviating Factors Repositioning Primary Pain Nonverbal Response Appears restful Pain Scale Type 0-10 Pain scale 12/11/2022 15:30 EST Primary Pain Location Abdomen Abdominal Pain Location LLQ, RLQ Primary Pain Laterality Bilateral Primary Pain Intensity 4 Primary Pain Time Pattern intermittent Primary Pain Onset Gradual Primary Pain Duration Intermittent Primary Pain Quality Cramping Primary Pain Non-Pharma Intervention Repositioning Primary Pain Aggravating Factors None Primary Pain Alleviating Factors Repositioning Primary Pain Nonverbal Response Appears restful Pain Associated Symptoms None Pain Scale Type 0-10 Pain scale 12/11/2022 14:30 EST Primary Pain Intensity 0 Pain Associated Symptoms None Pain Scale Type 0-10 Pain scale 12/11/2022 13:30 EST Primary Pain Intensity 0 Pain Associated Symptoms None Pain Scale Type 0-10 Pain scale 12/11/2022 12:30 EST Primary Pain Intensity 0 Pain Associated Symptoms None Pain Scale Type 0-10 Pain scale 12/11/2022 11:30 EST Primary Pain Intensity 0 Pain Associated Symptoms None Pain Scale Type 0-10 Pain scale 12/11/2022 10:30 EST Primary Pain Intensity 0 Pain Associated Symptoms None Pain Scale Type 0-10 Pain scale 12/11/2022 9:30 EST Primary Pain Intensity 0 Pain Associated Symptoms None Pain Scale Type 0-10 Pain scale 12/11/2022 8:30 EST Primary Pain Intensity 0 Pain Associated Symptoms None Pain Scale Type 0-10 Pain scale 12/11/2022 7:30 EST Primary Pain Intensity 0 Pain Associated Symptoms None Pain Scale Type 0-10 Pain scale 12/11/2022 6:02 EST Primary Pain Intensity 4 Pain Scale Type 0-10 Pain scale 12/11/2022 5:00 EST Primary Pain Intensity 2 Pain Scale Type 0-10 Pain scale 12/11/2022 4:01 EST Primary Pain Intensity 2 Pain Scale Type 0-10 Pain scale 12/11/2022 2:05 EST Primary Pain Intensity 2 Pain Scale Type 0-10 Pain scale 12/10/2022 23:01 EST Primary Pain Location Low back Primary Pain Laterality Bilateral Primary Pain Intensity 2 Primary Pain Quality Aching, Dull Primary Pain Nonverbal Response Appears restful Pain Scale Type 0-10 Pain scale 12/10/2022 22:32 EST Primary Pain Location Low back Primary Pain Laterality Bilateral Primary Pain Intensity 2 Primary Pain Quality Aching, Dull Primary Pain Non-Pharma Intervention Lights dimmed, Repositioning Primary Pain Nonverbal Response Appears restful Pain Scale Type 0-10 Pain scale 12/10/2022 22:04 EST Primary Pain Location Low back Primary Pain Laterality Bilateral Primary Pain Intensity 2 Primary Pain Quality Aching, Dull Primary Pain Non-Pharma Intervention Lights dimmed, Repositioning Primary Pain Nonverbal Response Appears restful Pain Scale Type 0-10 Pain scale 12/10/2022 21:31 EST Primary Pain Location Low back Primary Pain Laterality Bilateral Primary Pain Intensity 2 Primary Pain Time Pattern acute, intermittent Primary Pain Onset Gradual Primary Pain Quality Aching, Dull Primary Pain Radiation Characteristics bilateral sides Primary Pain Non-Pharma Intervention Lights dimmed, Conversation, Repositioning, Walking, Birthing ball Primary Pain Nonverbal Response Appears restful Pain Scale Type 0-10 Pain scale 12/10/2022 21:03 EST Primary Pain Intensity 0 Primary Pain Nonverbal Response Appears restful Pain Scale Type 0-10 Pain scale 12/10/2022 20:30 EST Primary Pain Intensity 0 Primary Pain Nonverbal Response Appears restful Pain Scale Type 0-10 Pain scale 12/10/2022 20:02 EST Primary Pain Intensity 0 Primary Pain Nonverbal Response Appears restful Pain Scale Type 0-10 Pain scale 12/10/2022 19:33 EST Primary Pain Intensity 0 Primary Pain Nonverbal Response Appears restful Pain Scale Type 0-10 Pain scale 12/10/2022 18:00 EST Primary Pain Location Abdomen Abdominal Pain Location LLQ, RLQ Primary Pain Laterality Bilateral Primary Pain Intensity 2 Primary Pain Time Pattern intermittent Primary Pain Onset Gradual Primary Pain Duration Intermittent Primary Pain Quality Cramping Primary Pain Non-Pharma Intervention Repositioning Primary Pain Aggravating Factors None Primary Pain Alleviating Factors Repositioning Primary Pain Nonverbal Response Appears restful Pain Scale Type 0-10 Pain scale 12/10/2022 17:30 EST Primary Pain Location Abdomen Abdominal Pain Location LLQ, RLQ Primary Pain Laterality Bilateral Primary Pain Intensity 2 Primary Pain Time Pattern intermittent Primary Pain Onset Gradual Primary Pain Duration Intermittent Primary Pain Quality Cramping Primary Pain Non-Pharma Intervention Repositioning Primary Pain Aggravating Factors None Primary Pain Alleviating Factors Repositioning Primary Pain Nonverbal Response Appears restful Pain Associated Symptoms None Pain Scale Type 0-10 Pain scale . General: Alert and oriented. Airway: Normal temporomandibular joint mobility, Normal mouth, Normal neck range of motion. Mallampati classification: III (soft palate, base of uvula visible). Dentition Evaluation: Denies loose/chipped teeth. Respiratory: Respirations are non-labored. Cardiovascular: Normal rate. Neurologic: Alert, Oriented. Review / Management Results review: Labs (Last four charted values) WBC 9.4(DEC 10) Hgb 12.2(DEC 10) Hct L 35.4(DEC 10) Plt 199(DEC 10) , Lab results 12/11/2022 21:02 EST Lactated Ringers Injection 200 mL mL 12/11/2022 20:50 EST SN - CTm - Anesthesia Stop Time Anesthesia Stop Anesthesia Final Record 12/11/2022 20:44 EST SN - TDC - Device Type TRAY ZHANG CATH 16F W/BAG 10/CA [id number] 12/11/2022 20:42 EST SN - CTm - Surgery Stop 12/11/2022 20:42 12/11/2022 20:42 EST SN - CTm - Surgery Stop Surgery Stop Intra-Op Urine Catheter 200 mL AO OB Surgery Intraop Record AO OB Surgery Intraop Record 12/11/2022 20:41 EST SN - DRS - Site and Details [place] dressing to lower abdominal proceduresite 12/11/2022 20:40 EST Heart Rate Monitored 130 bpm bpm Respiratory Rate - Anes 0 br/min br/min Systolic Blood Pressure Non-Invasive 97 mmHg mmHg Diastolic Blood Pressure Non-Invasive 60 mmHg mmHg Oxygen Saturation 99.7 % % 12/11/2022 20:39 EST Intra-Op EBL 800 mL 12/11/2022 20:38 EST [place] Delivery Summary PCS Operative Report Note 12/11/2022 20:36 EST Systolic Blood Pressure Non-Invasive 96 mmHg mmHg Diastolic Blood Pressure Non-Invasive 59 mmHg mmHg 12/11/2022 20:35 EST Heart Rate Monitored 136 bpm bpm Respiratory Rate - Anes 0 br/min br/min Systolic Blood Pressure Non-Invasive 93 mmHg mmHg Diastolic Blood Pressure Non-Invasive 56 mmHg mmHg Oxygen Saturation 99.6 % % oxytocin 20 unit(s) unit(s) Lactated Ringers Injection Begin Bag 1,000 mL mL Lactated Ringers Injection 1,000 mL mL 12/11/2022 20:34 EST SN - Proc - EBL 800 mL 12/11/2022 20:33 EST methylergonovine 0.2 mg mg 12/11/2022 20:30 EST Heart Rate Monitored 147 bpm bpm Respiratory Rate - Anes 0 br/min br/min Systolic Blood Pressure Non-Invasive 104 mmHg mmHg Diastolic Blood Pressure Non-Invasive 56 mmHg mmHg Oxygen Saturation 99.6 % % 12/11/2022 20:27 EST SN - GCD - ASA Class 2E 12/11/2022 20:27 EST SN - CTm - Delivery Time 12/11/2022 20:18 12/11/2022 20:25 EST Heart Rate Monitored 141 bpm bpm Respiratory Rate - Anes 0 br/min br/min Systolic Blood Pressure Non-Invasive 129 mmHg mmHg Diastolic Blood Pressure Non-Invasive 81 mmHg mmHg Oxygen Saturation 99.2 % % 12/11/2022 20:24 EST oxytocin 10 unit(s) unit(s) 12/11/2022 20:23 EST esmolol 30 mg mg 12/11/2022 20:22 EST carboprost 250 mcg mcg 12/11/2022 20:20 EST Heart Rate Monitored 139 bpm bpm Respiratory Rate - Anes 0 br/min br/min Systolic Blood Pressure Non-Invasive 161 mmHg mmHg Diastolic Blood Pressure Non-Invasive 83 mmHg mmHg Oxygen Saturation 99.1 % % 12/11/2022 20:19 EST oxytocin 20 unit(s) unit(s) 12/11/2022 20:18 EST esmolol 30 mg mg 12/11/2022 20:15 EST SN - Cul - Culture Type No Specimen per Surgeon 12/11/2022 20:15 EST SN - CTm - Surgery Start 12/11/2022 20:15 12/11/2022 20:15 EST Heart Rate Monitored 143 bpm bpm Respiratory Rate - Anes 0 br/min br/min Systolic Blood Pressure Non-Invasive 166 mmHg mmHg Diastolic Blood Pressure Non-Invasive 98 mmHg mmHg Oxygen Saturation 99.6 % % SN - CTm - Surgery Start Surgery Start acetaminophen 1,000 mg mg esmolol 30 mg mg 12/11/2022 20:13 EST dexamethasone 4 mg mg ondansetron 4 mg mg 12/11/2022 20:12 EST Systolic Blood Pressure Non-Invasive 169 mmHg mmHg Diastolic Blood Pressure Non-Invasive 91 mmHg mmHg 12/11/2022 20:10 EST Heart Rate Monitored 62 bpm bpm Respiratory Rate - Anes 0 br/min br/min Systolic Blood Pressure Non-Invasive 165 mmHg mmHg Diastolic Blood Pressure Non-Invasive 85 mmHg mmHg Oxygen Saturation 100 % % glycopyrrolate 0.2 mg mg 12/11/2022 20:08 EST ePHEDrine 10 mg mg 12/11/2022 20:07 EST glycopyrrolate 0.2 mg mg 12/11/2022 20:06 EST Systolic Blood Pressure Non-Invasive 139 mmHg mmHg Diastolic Blood Pressure Non-Invasive 83 mmHg mmHg 12/11/2022 20:05 EST Respiratory Rate - Anes 0 br/min br/min ePHEDrine 10 mg mg 12/11/2022 20:03 EST bupivacaine 1.5 mL mL 12/11/2022 20:00 EST Respiratory Rate - Anes 0 br/min br/min 12/11/2022 19:58 EST SN - CAt - Case Attendee SN - CAt - Case Attendee SN - CAt - Role Performed OB RN 12/11/2022 19:55 EST SN - CTm - Anesthesia Start Time Anesthesia Start Lactated Ringers Injection Begin Bag 1,000 mL mL 12/11/2022 19:50 EST SN - CAt - Case Attendee SN - CAt - Case Attendee SN - CAt - Role Performed Respiratory Therapist 12/11/2022 19:48 EST SN - TDC - Location URETHRA SN - TDC - DC'd at End of Case No 12/11/2022 19:40 EST SN - GCD - Post-operative Diagnosis FAILED INDUCTION 12/11/2022 19:38 EST SN - Proc - Actual Procedure PRIMARY SECTION 12/11/2022 19:38 EST SN - Proc - Anesthesia Type Spinal 12/11/2022 19:38 EST SN - SP - Prep Agents Chloraprep SN - SP - HR - Method N/A 12/11/2022 19:37 EST SN - PP - Body Position Supine Standard Intra-op 12/11/2022 19:36 EST [place] [facility] Progress Note Progress Note 12/11/2022 19:36 EST SN - PTCare - Anti-thromboembolism Dorys Sequential Compression Device (SCD) 12/11/2022 19:36 EST SN - Assess - LOC Alert, Awake SN - Assess - Orientation Oriented X 3 SN - Assess - Post-op Skin Integrity Intact/Dry 12/11/2022 19:35 EST SN - CAt - Case Attendee SN - CAt - Case Attendee SN - CAt - Case Attendee SN - CAt - Case Attendee SN - CAt - Case Attendee SN - CAt - Case Attendee SN - CAt - Case Attendee SN - CAt - Case Attendee SN - CAt - Role Performed STAKER SURVEYING SN - CAt - Role Performed Lawn Caretaker 1 SN - CAt - Role Performed Scrub 1 SN - CAt - Role Performed Head Of Digital Advertising & Integration 1 12/11/2022 19:33 EST SN - CAt - Case Attendee SN - CAt - Case Attendee SN - CAt - Role Performed Primary Surgeon 12/11/2022 19:33 EST SN - GCD - Case Level Flat-Fee 12/11/2022 19:23 EST Last Void 12/11/2022 19:15 12/11/2022 19:20 EST Nurse Receiving Report Tyler Hawkins RN Date/Time Nurse Received Report 12/11/2022 19:20 12/11/2022 19:15 EST Preoperative Instructions Verbalizes/Nonverbally indicates understanding Individuals Taught Patient, Spouse Learning Readiness Willing to learn Barriers to Learning None evident Teaching Method Explanation Preferred Written Language [place] Family/Caregiver Prefer Written Language [place] Preferred Spoken Language [place] Family/Caregiver Prefer Spoken Language [place] Ed-Surgery Verbalizes/Nonverbally indicates understanding 12/11/2022 19:14 EST Anesthesia Consent Signed Yes 12/11/2022 19:10 EST Notify date/time 12/11/2022 19:10 Provider Notified JOEY CAMPBELL MD Notification Method Phone Information Communicated Nurse communication Details Communicated updated on pt Notification Outcome Orders received Person Reporting Result(s) john ennis Details of Results Received orders for orders with 2 gm ancef and 500mg zithromax IV ordered Results Read Back Yes 12/11/2022 19:08 EST oxytocin munit/min unit(s) LR Premix Diluent LR Premix Diluent mL 12/11/2022 19:00 EST Urinary Elimination Voiding, no difficulties Uterine Contraction Monitoring Method External toco Uterine Contraction Frequency Q 3 min Uterine Contraction Duration 60-70 sec Uterine Contraction Intensity, Ext Palp Mild Uterine Resting Tone, External Soft Uterine Activity Regular contractions Baby A FHR Baseline: 145 bpm FHR Baseline Variability: Moderate variability FHR Accelerations: Present FHR Deceleration: Absent FHR Monitoring Method: External US transducer D-EGA at Documented Date, Time 40W 4D IV Present Present Allergies No Anesthesia Extension Set Applied Yes Consent Form Signed Yes Patient Dressed In Hospital gown Pre-op Preparation Shave prep done by clippers CHG Preoperative Wash/Wipe Day of procedure Decision for 11/13/2022 18:55 NPO Status Initiated Patient ID Band on and Verified Yes Blood Consent Signed Yes Last Fluid Intake 12/11/2022 18:30 Last Food Intake 12/10/2022 17:00 12/11/2022 18:59 EST Notify date/time 12/11/2022 18:55 Provider Notified JOEY CAMPBELL MD Notification Method Phone Information Communicated Nurse communication Details Communicated Notified of VE Notification Outcome Orders received Person Reporting Result(s) Kristen Ennis RN Results Read Back Yes 12/11/2022 18:57 EST Monitoring Annotations Surgery team & anesthesia notified of 8pm primary section. 12/11/2022 18:45 EST Cervix Dilation 0 cm Cervix Effacement 70 Station -2 Vaginal Exam Performed By JOHN Tanner 12/11/2022 18:31 EST Monitoring Annotations Ambulating in hallway 12/11/2022 18:30 EST Temperature Temporal Artery 36.6 DegC Heart Rate Monitored 74 bpm Respiratory Rate 18 br/min Systolic Blood Pressure Non-Invasive 135 mmHg Diastolic Blood Pressure Non-Invasive 79 mmHg Blood Pressure Method Automatic Blood Pressure Location Right arm Blood Pressure Cuff Size Large Primary Pain Location Abdomen Abdominal Pain Location LLQ, RLQ Primary Pain Laterality Bilateral Primary Pain Intensity 4 Primary Pain Time Pattern intermittent Primary Pain Onset Gradual Primary Pain Duration Intermittent Primary Pain Quality Cramping Primary Pain Non-Pharma Intervention Repositioning Primary Pain Aggravating Factors None Primary Pain Alleviating Factors Repositioning Primary Pain Nonverbal Response Appears restful Pain Scale Type 0-10 Pain scale Heart Rhythm Regular Oxygen Therapy Room air Oxygen Saturation 100 % Tolerating Oral Intake Yes Uterine Contraction Monitoring Method External toco Uterine Contraction Frequency Q 3 min Uterine Contraction Duration 50 sec Uterine Contraction Intensity, Ext Palp Mild Uterine Resting Tone, External Soft Uterine Activity Regular contractions Baby A FHR Baseline: 145 bpm FHR Baseline Variability: Moderate variability FHR Accelerations: Present FHR Deceleration: Absent FHR Monitoring Method: External US transducer Hand Left 12/10/2022 18 gauge Peripheral IV Activity: Assessed Peripheral IV Dressing Condition: Clean, Dry, Intact Peripheral IV Dressing Activity: Transparent dressing Peripheral IV Line Status/Patency: Continuous infusion Peripheral IV Site Condition: No complications Peripheral IV Equipment: Extension set, Stopcock, IV Pump, PRN Adaptor Activity Status ADL Ambulating in torres, Awake Standard Safety Safety level maintained, Precautions maintained 12/11/2022 18:28 EST Lactated Ringers Injection Begin Bag 1,000 mL mL 12/11/2022 18:00 EST Uterine Contraction Monitoring Method External toco Uterine Contraction Frequency Q 2 min Uterine Contraction Duration 40 sec Uterine Contraction Intensity, Ext Palp Mild Uterine Resting Tone, External Soft Uterine Activity Regular contractions Patient Position, OB Semi-Valente's Baby A FHR Baseline: 135 bpm FHR Baseline Variability: Moderate variability FHR Accelerations: Present FHR Deceleration: Absent FHR Monitoring Method: External US transducer 12/11/2022 17:48 EST Temperature Temporal Artery 36.4 DegC Heart Rate Monitored 64 bpm Respiratory Rate 18 br/min Systolic Blood Pressure Non-Invasive 116 mmHg Diastolic Blood Pressure Non-Invasive 71 mmHg Oxygen Therapy Room air 12/11/2022 17:30 EST Primary Pain Location Abdomen Abdominal Pain Location LLQ, RLQ Primary Pain Laterality Bilateral Primary Pain Intensity 4 Primary Pain Time Pattern intermittent Primary Pain Onset Gradual Primary Pain Duration Intermittent Primary Pain Quality Cramping Primary Pain Non-Pharma Intervention Repositioning Primary Pain Aggravating Factors None Primary Pain Alleviating Factors Repositioning Primary Pain Nonverbal Response Appears restful Pain Scale Type 0-10 Pain scale Tolerating Oral Intake Yes Uterine Contraction Monitoring Method External toco Uterine Contraction Frequency [place] readjusted Uterine Contraction Intensity, Ext Palp Mild Uterine Resting Tone, External Soft Patient Position, OB Shower Baby A FHR Baseline: 135 bpm FHR Baseline Variability: Moderate variability FHR Accelerations: Present FHR Deceleration: Absent FHR Monitoring Method: External US transducer Hand Left 12/10/2022 18 gauge Peripheral IV Activity: Assessed Peripheral IV Dressing Condition: Clean, Dry, Intact Peripheral IV Dressing Activity: Transparent dressing Peripheral IV Line Status/Patency: Continuous infusion Peripheral IV Site Condition: No complications Peripheral IV Equipment: Extension set, Stopcock, IV Pump, PRN Adaptor Activity Status ADL Awake Standard Safety Safety level maintained, Precautions maintained 12/11/2022 17:21 EST Monitoring Annotations Up to shower 12/11/2022 17:21 EST Monitoring Annotations Tocotransducer adjusted 12/11/2022 17:20 EST Monitoring Annotations Tocotransducer adjusted 12/11/2022 17:15 EST Monitoring Annotations Tocotransducer adjusted 12/11/2022 17:02 EST Uterine Contraction Monitoring Method External toco Uterine Contraction Frequency Q 1-2 mins Uterine Contraction Duration 40-60 secs Uterine Contraction Intensity, Ext Palp Mild Uterine Resting Tone, External Soft Uterine Activity Regular contractions Baby A FHR Baseline: 135 bpm FHR Baseline Variability: Moderate variability FHR Accelerations: Present FHR Deceleration: Absent FHR Monitoring Method: External US transducer 12/11/2022 16:45 EST Heart Rate Monitored 55 bpm LOW Respiratory Rate 18 br/min Systolic Blood Pressure Non-Invasive 124 mmHg Diastolic Blood Pressure Non-Invasive 67 mmHg Blood Pressure Method Automatic Blood Pressure Location Right arm Blood Pressure Cuff Size Large Heart Rhythm Regular Oxygen Therapy Room air Oxygen Saturation 100 % 12/11/2022 16:30 EST Temperature Temporal Artery 36.6 DegC Primary Pain Location Abdomen Abdominal Pain Location LLQ, RLQ Primary Pain Laterality Bilateral Primary Pain Intensity 4 Primary Pain Time Pattern intermittent Primary Pain Onset Gradual Primary Pain Duration Intermittent Primary Pain Quality Cramping Primary Pain Non-Pharma Intervention Repositioning Primary Pain Aggravating Factors None Primary Pain Alleviating Factors Repositioning Primary Pain Nonverbal Response Appears restful Pain Scale Type 0-10 Pain scale Tolerating Oral Intake Yes Uterine Contraction Monitoring Method External toco Uterine Contraction Frequency [place] readjusted Uterine Contraction Intensity, Ext Palp Mild Uterine Resting Tone, External Soft Uterine Activity Regular contractions Patient Position, OB Left lateral, Peanut ball Baby A FHR Baseline: 135 bpm FHR Baseline Variability: Moderate variability FHR Accelerations: Present FHR Deceleration: Absent FHR Monitoring Method: External US transducer Hand Left 12/10/2022 18 gauge Peripheral IV Activity: Assessed Peripheral IV Dressing Condition: Clean, Dry, Intact Peripheral IV Dressing Activity: Transparent dressing Peripheral IV Line Status/Patency: Continuous infusion Peripheral IV Site Condition: No complications Peripheral IV Equipment: Extension set, Stopcock, IV Pump, PRN Adaptor Standard Safety Safety level maintained, Precautions maintained 12/11/2022 16:00 EST Uterine Contraction Monitoring Method External toco Uterine Contraction Frequency Q 3-4 min Uterine Contraction Duration 70-80 sec Uterine Contraction Intensity, Ext Palp Mild Uterine Resting Tone, External Soft Uterine Activity Regular contractions Patient Position, OB Left lateral, Peanut ball Baby A FHR Baseline: 130 bpm FHR Baseline Variability: Moderate variability FHR Accelerations: Present FHR Deceleration: Absent FHR Monitoring Method: External US transducer 12/11/2022 15:54 EST oxytocin Begin Bag 2 mL unit(s) LR Premix Diluent Begin Bag 1,000 mL mL 12/11/2022 15:30 EST Temperature Temporal Artery 36.8 DegC Heart Rate Monitored 55 bpm LOW Respiratory Rate 18 br/min Systolic Blood Pressure Non-Invasive 124 mmHg Diastolic Blood Pressure Non-Invasive 69 mmHg Blood Pressure Method Automatic Blood Pressure Location Right arm Blood Pressure Cuff Size Large Primary Pain Location Abdomen Abdominal Pain Location LLQ, RLQ Primary Pain Laterality Bilateral Primary Pain Intensity 4 Primary Pain Time Pattern intermittent Primary Pain Onset Gradual Primary Pain Duration Intermittent Primary Pain Quality Cramping Primary Pain Non-Pharma Intervention Repositioning Primary Pain Aggravating Factors None Primary Pain Alleviating Factors Repositioning Primary Pain Nonverbal Response Appears restful Pain Associated Symptoms None Pain Scale Type 0-10 Pain scale Heart Rhythm Regular Murmur Auscultated No Dorsalis Pedis Pulse, Left 2+ Normal Dorsalis Pedis Pulse, Right 2+ Normal Pedal edema Bilateral Edema Ratin+ moderate/6mm Leg edema Bilateral Edema Ratin+ moderate/6mm Respirations Unlabored Respiratory Pattern Regular Breath Sounds Auscultated Anterior and posterior All Lobes Breath Sounds Clear, Equal Cough None Oxygen Therapy Room air Oxygen Saturation 100 % Abdomen Description Soft Bowel Continence Continent Swallowing Disorder None Bowel Sounds All Quadrants Present Urinary Elimination Voiding, no difficulties Bladder Distention Absent Uterine Contraction Monitoring Method External toco Uterine Contraction Frequency Q 2-3 min Uterine Contraction Duration 50-80 sec Uterine Contraction Intensity, Ext Palp Mild Uterine Resting Tone, External Soft Uterine Activity Regular contractions Patient Position, OB Left lateral, Peanut ball Baby A FHR Baseline: 135 bpm FHR Baseline Variability: Moderate variability FHR Accelerations: Present FHR Deceleration: Absent FHR Monitoring Method: External US transducer Patient Coping Julee w/stresses of , care Support Person Present Support Person Involvement Supportive/involved Patient feelings/concerns Discusses care, feelings, concerns Skin Temperature Warm Skin Description [place], Dry Skin Integrity Intact, Pressure points intact Sensory Perception Alfonso No impairment Moisture Alfonso Rarely moist Activity Alfonso Walks occasionally Mobility Alfonso No limitations Nutrition Alfonso Adequate Friction and Shear Alfonso No apparent problem Alfonso Score 21 Hospital Acquired Pressure Injury Risk None/minimal risk (score 19-23) Hand Left 12/10/2022 18 gauge Peripheral IV Activity: Assessed Peripheral IV Dressing Condition: Clean, Dry, Intact Peripheral IV Dressing Activity: Transparent dressing Peripheral IV Line Status/Patency: Continuous infusion Peripheral IV Site Condition: No complications Peripheral IV Equipment: Extension set, Stopcock, IV Pump, PRN Adaptor Neurological Symptoms Patient denies Level of Consciousness Alert Strength All Extremities Strong Tone All Extremities Normal [place] Screen Daily History of Fall in Last 3 Months [place] No Presence of Secondary Diagnosis Mor (more content not included)... [facility]01-29-2023 Note Date of Service 12/11/22 Chief Complaint PROM Subjective 27 yo @40.4 admitted with PROM. Patient comfortable, not feeling contractions. Despite being on high dose pitocin for 24 hours and rupture of membranes approaching 36 hours without any cervical change, discussed with patient primary section for failed induction. tracing has been reactive and reassuring the entire time. Contractions have been regular up to 2q minutes but still palpable mild and non painful. Fetus known to be approaching macrosomia. All patient and partner questions answered to their stated satisfaction. Reviewed operation. Appropriate consents signed. Objective Vitals and Measurements T: 36.6 C (Temporal Artery) TMIN: 36.4 C (Temporal Artery) TMAX: 37.3 C (Temporal Artery) HR: 74(Monitored) RR: 18 BP: 135/79 SpO2: 100% Intake and Output 7AM Yesterday to 7AM Today Intake and Output (Last 24 hours) Intake Output Total Summary Total Intake 0.00 Total Output 0.00 Fluid Balance 0.00 Physical Exam Weight Dosing Weight: 103.63 kg (12/10/22) Medications Medications (16) Active Scheduled: (2) azithromycin IV 500 mg 5 mL, IV Piggyback, Once ceFAZolin 2 g 100 mL, IV Piggyback, PREOP pharm Continuous: (3) Lactated Ringers 1,000 mL 1,000 mL, Intravenous, 125 mL/hr Oxytocin 20 units in Lactated Ringers 1000 mL 20 unit(s) + LR Premix Diluent 1,000 mL 1,000 mL, Intravenous, 999 mL/hr Oxytocin 20 units in Lactated Ringers 1000 mL 20 unit(s) [2 munit/min] + LR Premix Diluent 1,000 mL1,000 mL, Intravenous, 6 mL/hr PRN: (11) carboprost 250 mcg/ml 1mL ampule 250 mcg 1 mL, Intramuscular, Once citric acid-sodium citrate 334 mg-500 mg/5 mL (30 mL) Nuris UD 30 mL, Oral, AsDirected Lactated Ringers Injection 500 mL * Bolus * 500 mL, IV Bolus, AsDirected lidocaine 1% (MPF) 2 mL vial pf 20 mg 2 mL, Perineum, AsDirected methylergonovine 0.2 mg/mL (1 mL) ampule 0.2 mg 1 mL, Intramuscular, Once misoprostol 200 mcg tablet 1,000 mcg 5 tab(s), Rectal, Once ondansetron 2 mg/ 1 mL 2 mL INJ 4 mg 2 mL, IV Push, q4h oxytocin 10 units/mL 1 mL vial 20 unit(s) 2 mL, Intramuscular, Once terbutaline 1 mg/ml vial 0.25 mg 0.25 mL, Subcutaneous, AsDirected terbutaline 1 mg/ml vial 0.25 mg 0.25 mL, Subcutaneous, AsDirected tranexamic acid PMX 1 gram(s) 100 mL, IV Piggyback, AsDirected Lab Results 12/10 19:06 WBC: 9.4 Hgb: 12.2 Hct: 35.4 L Platelet: 199 Neutrophil %: 75.9 EKG No qualifying data available. 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 Obesity in PROM (premature rupture of membranes) Rh negative status during failed induction to OR for PLTCS Ancef and azithro for abx Orders: azithromycin, Start: 12/11/22 19:15:00 EST, Dose = 500 mg, = 5 mL, IV Piggyback, Once, Stop: 12/11/22 19:15:00 EST, Rate: 250 mL/hr, Infuse over: 1 hour(s), 0, 12/11/22 19:10:00 EST ceFAZolin, Start: 12/11/22 19:08:00 EST, Dose= 2 g, = 100 mL, IV Piggyback, PREOP pharm, Routine, Rate: 200 mL/hr, Infuse over: 30 minute(s), 100 mL, 12/11/22 19:08:00 EST Abdominal Prep Communication Order (continuous) Communication Order (continuous) Communication Order (scheduled) Communication Order (scheduled) Consult to Anesthesia NPO Sequential Compression Device Application Sign Consent Skin Prep/Scrub Urinary Catheter Insertion/Care Digitally Signed by JOEY CAMPBELL MD on 12/11/2022 07:42 PM [facility]01-28-2023 Note Date of Service 12/10/22 Chief Complaint SROM History of Present Illness 27 yo @ 40.3 by 11 week US presents for term PROM. Had rupture of membranes at 0930 this AM. Starting to feel some mild cramping but no painful contractions. 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 Her initial US showed some prominent nuchal fold however follow up was normal as well as her level 2 US with [facility]. She recieved rhogam and tdap during . Growth US at 40 weeks was in the 88%le. 8#15oz. 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, low risk nipt 28 week labs CBC 12.9/11.7/32.8/259 1 hour OGCT 95 RPR non reactive 36 week labs GBS negative Imaging Results and Diagnostics 12/09/22:s/v/4067g/145bpm/22cm/ant-gr3 Assessment/Plan 40 weeks gestation of cefm, toco epidural prn 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: partner tested: negative Obesity in growth US 88%le yesterday PROM (premature rupture of membranes) start induction of labor with pitocin Rh negative status during s/p rhogam, will give pp as indicated Orders: carboprost, Start: 12/10/22 18:13:00 EST, Dose = 250 mcg, = 1 mL, Intramuscular, Once, PRN, Other (see order comments), 12/10/22 18:13:00 EST citric acid-sodium citrate, Start: 12/10/22 18:13:00 EST, Dose = 30 mL, Soln, Oral, AsDirected, PRN, Gastric Upset, 12/10/22 18:13:00 EST Lactated Ringers Infusion, Start: 12/10/22 18:13:00 EST, Dose = 500 mL, Soln, IV Bolus, AsDirected,PRN, Other (see order comments), Rate: 999 mL/hr, hour(s), 12/10/22 18:13:00 EST Lactated Ringers Infusion 1,000 mL, Start: 12/10/22 18:13:00 EST, Rate: 125 mL/hr, 12/10/22 18:13:00 EST lidocaine, Start: 12/10/22 18:13:00 EST, Dose = 20 mg, = 2 mL, Perineum, AsDirected, PRN, to perineal sutures, 1 dose(s), Stop: Limited # of times, 12/10/22 1813: EST methylergonovine, Start: 12/10/22 18: EST, Dose = 0.2 mg, = 1 mL, Intramuscular, Once, PRN, Other (see order comments), 12/10/22 1813:00 EST miSOPROStol, Start: 12/10/2213: EST, Dose = 1,000 mcg, = 5 tab(s), Rectal, Once, PRN, Other (see order comments), 0, 12/10/22: EST ondansetron, Start: 12/10/22: EST, Dose = 4 mg, = 2 mL, IV Push, q4h, PRN, Nausea, 12/10/2317:13: EST oxytocin, Start: 12/10/2213: EST, Dose = 20 unit(s), = 2 mL, Intramuscular, Once, PRN, Other (see order comments), 0, 12/10/2213: EST oxytocin 20 unit(s) + LR Premix Diluent 1,000 mL, Start: 12/10/22 18:13:00 EST, Rate: 999 mL/hr, 12/10/22: EST oxytocin 20 unit(s) [2 munit/min] + LR Premix Diluent 1,000 mL, Start: 12/10/22 18:16:00 EST, Startat 2 milliunits/minute Piggyback at closest IV port via infusion pump. Increase rate 2 milliunits every 30 minutes until contractions are no closer than every 2 minutes. Do not exceed 30 milliunits/minute, Rate: 6... terbutaline, Start: 12/10/22 18:16:00 EST, Dose = 0.25 mg, = 0.25 mL, Subcutaneous, AsDirected, PRN, Control symptoms, directed by physician for episode of tachysystole resulting in prolonged bradycardia (lasting greater than 3 minutes) and/or late decelerat... terbutaline, Start: 12/10/22 18:13:00 EST, Dose = 0.25 mg, = 0.25 mL, Subcutaneous, AsDirected, PRN, Other (see order comments), 12/10/22 18:13:00 EST tranexamic acid, Start: 12/10/22 18:13:00 EST, Dose = 1 gram(s), = 100 mL, IV Piggyback, AsDirected, PRN, Other (see order comments), Rate: 300 mL/hr, Infuse over: 20 minute(s), 0, 12/10/22 18:13:00 EST Ambulate Call Parameters Communication Order (continuous) Complete Blood Count Consult to Anesthesia Diet Order Discontinue Order Epidural Anesthesia Monitoring Monitoring Monitoring Intake and Output IV Catheter Insertion/Care Oxygen Administration (LDRP) Prn Adapter Rapid Plasma Reagin Test Reason VTE Prophylaxis Not Received Straight Cath Type and Screen (AO) Urinary Catheter Insertion/Care Vital Signs Vital Signs Vital Signs Call Parameters Vital Signs Call Parameters Problem List/Past Medical History Ongoing Absence of menstruation Allergy, food Amenorrhea Constipation Encounter for supervision of normal in multigravida in third trimester GERD (gastroesophageal reflux disease) History of abnormal cervical Pap smear History of miscarriage Hypercholesteremia Increased BMI (body mass index) Irregular periods/menstrual cycles PCOS (polycystic ovarian syndrome) Positive test Screening for cardiovascular condition Screening for diabetes mellitus Seasonal allergies Historical Annual physical exam Contraceptive management Screening cholesterol level Procedure/Surgical History Teeth Medications Home Medications (2) Active IRON (ferrous sulfate 325 mg) 65 mg oral tablet 325 mg = 1 tab(s), Oral, qDay Multivitamins with Vitamin B Complex, Vitamin C, Minerals and L- Methylfolate oral capsule 1 cap(s), Oral, Daily Allergies NKA Social History Smoking Status - 07/07/2018 Never smoker Alcohol Use: Never., 07/26/2019 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 Diabetes: Father and Grandparent. Heart attack: Father. Heart disease: Father. Hypertension: Father. Hypothyroid: Grandparent. Prostate cancer: Grandparent. Immunizations tetanus/diphth/pertuss (Tdap) adult/adol: 0.5 mL (10/12/22) Code Status No qualifying data available. 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: PERFORM, SIGN, VERIFY Event Display: Anesthesiology Consultation Authored Date: [id number] Patient: ZULEYKA NIELSEN Age: 27 years Sex: Female : 1995 Associated Diagnoses: None Author: [employer]N-[employer]AK[employer] SURVEYING Assessment Postanesthesia assessment Vitals: Vital signs from flowsheet : Vital Signs 12/12/2022 5:00 EST Heart Rate Monitored 66 bpm Systolic Blood Pressure Non-Invasive 120 mmHg Diastolic Blood Pressure Non-Invasive 69 mmHg 12/12/2022 4:00 EST Temperature Oral 36.4 DegC Heart Rate Monitored 77 bpm Systolic Blood Pressure Non-Invasive 114 mmHg Diastolic Blood Pressure Non-Invasive 96 mmHg HI 12/12/2022 3:00 EST Heart Rate Monitored 58 bpm LOW Systolic Blood Pressure Non-Invasive 144 mmHg HI Diastolic Blood Pressure Non-Invasive 87 mmHg 12/12/2022 2:00 EST Temperature Oral 36.4 DegC Heart Rate Monitored 69 bpm Systolic Blood Pressure Non-Invasive 130 mmHg Diastolic Blood Pressure Non-Invasive 84 mmHg 12/12/2022 1:33 EST Heart Rate Monitored 62 bpm Systolic Blood Pressure Non-Invasive 134 mmHg Diastolic Blood Pressure Non-Invasive 84 mmHg 12/12/2022 1:02 EST Heart Rate Monitored 69 bpm Systolic Blood Pressure Non-Invasive 112 mmHg Diastolic Blood Pressure Non-Invasive 66 mmHg 12/12/2022 0:37 EST Temperature Oral 36.4 DegC Heart Rate Monitored 70 bpm Respiratory Rate 18 br/min Systolic Blood Pressure Non-Invasive 137 mmHg Diastolic Blood Pressure Non-Invasive 68 mmHg 12/12/2022 0:00 EST Heart Rate Monitored 62 bpm Systolic Blood Pressure Non-Invasive 122 mmHg Diastolic Blood Pressure Non-Invasive 77 mmHg 12/11/2022 23:30 EST Heart Rate Monitored 71 bpm Systolic Blood Pressure Non-Invasive 125 mmHg Diastolic Blood Pressure Non-Invasive 75 mmHg 12/11/2022 23:15 EST Heart Rate Monitored 70 bpm Systolic Blood Pressure Non-Invasive 118 mmHg Diastolic Blood Pressure Non-Invasive 72 mmHg 12/11/2022 23:00 EST Heart Rate Monitored 65 bpm Systolic Blood Pressure Non-Invasive 101 mmHg Diastolic Blood Pressure Non-Invasive 52 mmHg LOW 12/11/2022 22:45 EST Heart Rate Monitored 92 bpm Systolic Blood Pressure Non-Invasive 111 mmHg Diastolic Blood Pressure Non-Invasive 69 mmHg 12/11/2022 22:30 EST Temperature Oral 36.4 DegC Heart Rate Monitored 71 bpm Systolic Blood Pressure Non-Invasive 105 mmHg Diastolic Blood Pressure Non-Invasive 61 mmHg 12/11/2022 22:15 EST Heart Rate Monitored 67 bpm Systolic Blood Pressure Non-Invasive 98 mmHg Diastolic Blood Pressure Non-Invasive 47 mmHg <LLOW 12/11/2022 22:00 EST Heart Rate Monitored 118 bpm HI Systolic Blood Pressure Non-Invasive 90 mmHg Diastolic Blood Pressure Non-Invasive 54 mmHg LOW 12/11/2022 21:48 EST Heart Rate Monitored 106 bpm HI Systolic Blood Pressure Non-Invasive 91 mmHg Diastolic Blood Pressure Non-Invasive 60 mmHg 12/11/2022 21:38 EST Heart Rate Monitored 116 bpm HI Systolic Blood Pressure Non-Invasive 91 mmHg Diastolic Blood Pressure Non-Invasive 54 mmHg LOW 12/11/2022 21:30 EST Heart Rate Monitored 126 bpm HI Systolic Blood Pressure Non-Invasive 94 mmHg Diastolic Blood Pressure Non-Invasive 59 mmHg LOW 12/11/2022 21:22 EST Heart Rate Monitored 13 bpm LOW Systolic Blood Pressure Non-Invasive 97 mmHg Diastolic Blood Pressure Non-Invasive 51 mmHg LOW 12/11/2022 21:10 EST Heart Rate Monitored 143 bpm HI Systolic Blood Pressure Non-Invasive 89 mmHg LOW Diastolic Blood Pressure Non-Invasive 57 mmHg LOW 12/11/2022 21:09 EST Heart Rate Monitored 165 bpm HI Systolic Blood Pressure Non-Invasive 78 mmHg <LLOW Diastolic Blood Pressure Non-Invasive 58 mmHg LOW 12/11/2022 21:06 EST Heart Rate Monitored 156 bpm HI Systolic Blood Pressure Non-Invasive 60 mmHg <LLOW Diastolic Blood Pressure Non-Invasive 33 mmHg <LLOW 12/11/2022 21:00 EST Heart Rate Monitored 136 bpm HI Respiratory Rate 18 br/min Systolic Blood Pressure Non-Invasive 88 mmHg LOW Diastolic Blood Pressure Non-Invasive 59 mmHg LOW 12/11/2022 20:58 EST Heart Rate Monitored 137 bpm HI Systolic Blood Pressure Non-Invasive 82 mmHg <LLOW Diastolic Blood Pressure Non-Invasive 56 mmHg LOW 12/11/2022 20:56 EST Heart Rate Monitored 145 bpm HI Systolic Blood Pressure Non-Invasive 89 mmHg LOW Diastolic Blood Pressure Non-Invasive 46 mmHg <LLOW 12/11/2022 20:40 EST Heart Rate Monitored 130 bpm bpm Respiratory Rate - Anes 0 br/min br/min Systolic Blood Pressure Non-Invasive 97 mmHg mmHg Diastolic Blood Pressure Non-Invasive 60 mmHg mmHg 12/11/2022 20:36 EST Systolic Blood Pressure Non-Invasive 96 mmHg mmHg Diastolic Blood Pressure Non-Invasive 59 mmHg mmHg 12/11/2022 20:35 EST Heart Rate Monitored 136 bpm bpm Respiratory Rate - Anes 0 br/min br/min Systolic Blood Pressure Non-Invasive 93 mmHg mmHg Diastolic Blood Pressure Non-Invasive 56 mmHg mmHg 12/11/2022 20:30 EST Heart Rate Monitored 147 bpm bpm Respiratory Rate - Anes 0 br/min br/min Systolic Blood Pressure Non-Invasive 104 mmHg mmHg Diastolic Blood Pressure Non-Invasive 56 mmHg mmHg 12/11/2022 20:25 EST Heart Rate Monitored 141 bpm bpm Respiratory Rate - Anes 0 br/min br/min Systolic Blood Pressure Non-Invasive 129 mmHg mmHg Diastolic Blood Pressure Non-Invasive 81 mmHg mmHg 12/11/2022 20:20 EST Heart Rate Monitored 139 bpm bpm Respiratory Rate - Anes 0 br/min br/min Systolic Blood Pressure Non-Invasive 161 mmHg mmHg Diastolic Blood Pressure Non-Invasive 83 mmHg mmHg 12/11/2022 20:15 EST Heart Rate Monitored 143 bpm bpm Respiratory Rate - Anes 0 br/min br/min Systolic Blood Pressure Non-Invasive 166 mmHg mmHg Diastolic Blood Pressure Non-Invasive 98 mmHg mmHg 12/11/2022 20:12 EST Systolic Blood Pressure Non-Invasive 169 mmHg mmHg Diastolic Blood Pressure Non-Invasive 91 mmHg mmHg 12/11/2022 20:10 EST Heart Rate Monitored 62 bpm bpm Respiratory Rate - Anes 0 br/min br/min Systolic Blood Pressure Non-Invasive 165 mmHg mmHg Diastolic Blood Pressure Non-Invasive 85 mmHg mmHg 12/11/2022 20:06 EST Systolic Blood Pressure Non-Invasive 139 mmHg mmHg Diastolic Blood Pressure Non-Invasive 83 mmHg mmHg 12/11/2022 20:05 EST Respiratory Rate - Anes 0 br/min br/min 12/11/2022 20:00 EST Respiratory Rate - Anes 0 br/min br/min 12/11/2022 18:30 EST Temperature Temporal Artery 36.6 DegC Heart Rate Monitored 74 bpm Respiratory Rate 18 br/min Systolic Blood Pressure Non-Invasive 135 mmHg Diastolic Blood Pressure Non-Invasive 79 mmHg Blood Pressure Method Automatic Blood Pressure Location Right arm Blood Pressure Cuff Size Large 12/11/2022 17:48 EST Temperature Temporal Artery 36.4 DegC Heart Rate Monitored 64 bpm Respiratory Rate 18 br/min Systolic Blood Pressure Non-Invasive 116 mmHg Diastolic Blood Pressure Non-Invasive 71 mmHg 12/11/2022 16:45 EST Heart Rate Monitored 55 bpm LOW Respiratory Rate 18 br/min Systolic Blood Pressure Non-Invasive 124 mmHg Diastolic Blood Pressure Non-Invasive 67 mmHg Blood Pressure Method Automatic Blood Pressure Location Right arm Blood Pressure Cuff Size Large 12/11/2022 16:30 EST Temperature Temporal Artery 36.6 DegC 12/11/2022 15:30 EST Temperature Temporal Artery 36.8 DegC Heart Rate Monitored 55 bpm LOW Respiratory Rate 18 br/min Systolic Blood Pressure Non-Invasive 124 mmHg Diastolic Blood Pressure Non-Invasive 69 mmHg Blood Pressure Method Automatic Blood Pressure Location Right arm Blood Pressure Cuff Size Large 12/11/2022 14:30 EST Temperature Temporal Artery 36.8 DegC Heart Rate Monitored 54 bpm LOW Respiratory Rate 16 br/min Systolic Blood Pressure Non-Invasive 128 mmHg Diastolic Blood Pressure Non-Invasive 66 mmHg Blood Pressure Method Automatic Blood Pressure Location Right arm Blood Pressure Cuff Size Large 12/11/2022 13:30 EST Temperature Temporal Artery 37 DegC Heart Rate Monitored 60 bpm Respiratory Rate 18 br/min Systolic Blood Pressure Non-Invasive 124 mmHg Diastolic Blood Pressure Non-Invasive 78 mmHg Blood Pressure Method Automatic Blood Pressure Location Right arm Blood Pressure Cuff Size Large 12/11/2022 12:30 EST Temperature Temporal Artery 37.2 DegC Heart Rate Monitored 88 bpm Respiratory Rate 18 br/min Systolic Blood Pressure Non-Invasive 132 mmHg Diastolic Blood Pressure Non-Invasive 77 mmHg Blood Pressure Method Automatic Blood Pressure Location Right arm Blood Pressure Cuff Size Large 12/11/2022 11:30 EST Temperature Temporal Artery 37.2 DegC Heart Rate Monitored 73 bpm Respiratory Rate 18 br/min Systolic Blood Pressure Non-Invasive 134 mmHg Diastolic Blood Pressure Non-Invasive 88 mmHg Blood Pressure Method Automatic Blood Pressure Location Right arm Blood Pressure Cuff Size Large 12/11/2022 10:30 EST Temperature Temporal Artery 36.7 DegC Heart Rate Monitored 54 bpm LOW Respiratory Rate 18 br/min Systolic Blood Pressure Non-Invasive 133 mmHg Diastolic Blood Pressure Non-Invasive 79 mmHg Blood Pressure Method Automatic Blood Pressure Location Right arm Blood Pressure Cuff Size Large 12/11/2022 9:30 EST Temperature Temporal Artery 36.7 DegC Heart Rate Monitored 56 bpm LOW Respiratory Rate 18 br/min Systolic Blood Pressure Non-Invasive 134 mmHg Diastolic Blood Pressure Non-Invasive 82 mmHg Blood Pressure Method Automatic Blood Pressure Location Right arm Blood Pressure Cuff Size Large 12/11/2022 8:30 EST Temperature Temporal Artery 36.6 DegC Heart Rate Monitored 57 bpm LOW Respiratory Rate 18 br/min Systolic Blood Pressure Non-Invasive 116 mmHg Diastolic Blood Pressure Non-Invasive 70 mmHg Blood Pressure Method Automatic Blood Pressure Location Right arm Blood Pressure Cuff Size Large 12/11/2022 7:30 EST Temperature Temporal Artery 36.7 DegC Heart Rate Monitored 53 bpm LOW Respiratory Rate 18 br/min Systolic Blood Pressure Non-Invasive 134 mmHg Diastolic Blood Pressure Non-Invasive 83 mmHg Blood Pressure Method Automatic Blood Pressure Location Right arm Blood Pressure Cuff Size Large 12/11/2022 6:02 EST Temperature Temporal Artery 36.7 DegC Heart Rate Monitored 78 bpm Systolic Blood Pressure Non-Invasive 115 mmHg Diastolic Blood Pressure Non-Invasive 63 mmHg 12/11/2022 5:00 EST Temperature Temporal Artery 37 DegC Heart Rate Monitored 55 bpm LOW Respiratory Rate 18 br/min Systolic Blood Pressure Non-Invasive 125 mmHg Diastolic Blood Pressure Non-Invasive 71 mmHg 12/11/2022 3:59 EST Temperature Temporal Artery 36.6 DegC Heart Rate Monitored 58 bpm LOW Systolic Blood Pressure Non-Invasive 106 mmHg Diastolic Blood Pressure Non-Invasive 61 mmHg 12/11/2022 3:15 EST Temperature Temporal Artery 37 DegC Heart Rate Monitored 57 bpm LOW Systolic Blood Pressure Non-Invasive 125 mmHg Diastolic Blood Pressure Non-Invasive 67 mmHg 12/11/2022 2:05 EST Temperature Temporal Artery 36.9 DegC Heart Rate Monitored 50 bpm LOW Respiratory Rate 18 br/min Systolic Blood Pressure Non-Invasive 125 mmHg Diastolic Blood Pressure Non-Invasive 68 mmHg 12/11/2022 0:04 EST Temperature Temporal Artery 36.6 DegC Heart Rate Monitored 56 bpm LOW Systolic Blood Pressure Non-Invasive 120 mmHg Diastolic Blood Pressure Non-Invasive 75 mmHg , Measurements from flowsheet . Mental status: alert & oriented x 4. Respiratory function: respirations are non-labored. Respiratory support: none. CV function: Normal rate. Cardiovascular support: none. Pain. Nausea status: see nursing documentation of medications. Postoperative hydration status: within normal limits. Digitally Signed by URI STONE on 12/12/2022 08:08 AM * URI STONE: PERFORM, SIGN, VERIFY Event Display: Anesthesiology Consultation Authored Date: [id number] Patient: ZULEYKA NIELSEN Age: 27 years Sex: Female : 1995 Associated Diagnoses: None Author: URI STONE Preoperative Information Time of last food or liquid consumption: 12/11/2022 00:00:00 laboring Anesthesia history Patient's history: negative. Family's history: negative. Health Status Allergies: Allergic Reactions (Selected) NKA, Allergies (1) ActiveReaction NKANone Documented Current medications: (Selected) Inpatient Medications Ordered Analpram-HC 2.5%-1% rectal cream: 1 rose, Perineum, q1h, PRN: hemorrhoidal or perineal discomfort Ancef: 2 g, 100 mL, 200 mL/hr, IV Piggyback, PREOP pharm Anusol-HC 25 mg rectal suppository: 25 mg, 1 supp, Rectal, BID, PRN: hemorrhoidal discomfort Bicitra: 30 mL, Oral, AsDirected, PRN: Gastric Upset Brethine: 0.25 mg, 0.25 mL, Subcutaneous, AsDirected, PRN: Other (see order comments) Colace: 100 mg, 1 cap(s), Oral, BID, PRN: Constipation Cytotec: 1,000 mcg, 5 tab(s), Rectal, Once, PRN: Other (see order comments) Dermoplast topical spray: 1 spray(s), Perineum, q1h, PRN: Other (see order comments) Feosol: 325 mg, 1 tab(s), Oral, BID Hemabate: 250 mcg, 1 mL, Intramuscular, Once, PRN: Other (see order comments) LR 1,000 mL: 125 mL/hr, Intravenous LR 500 mL Bolus: 500 mL, IV Bolus, AsDirected, PRN: Other (see order comments) Lansinoh for Breast Feeding Mothers: 7 gram(s), 1 EA, Topical, AsDirected, PRN: Other (see order comments) Methergine: 0.2 mg, 1 mL, Intramuscular, Once, PRN: Other (see order comments) Methergine: 0.2 mg, 1 mL, Intramuscular, q6h Motrin: 600 mg, 1 tab(s), Oral, q6hr Mylicon: 80 mg, 1 tab(s), Chewed, TID, PRN: Gas Oxytocin for IV (mL/hr) 20 unit(s) + LR Premix Diluent 1,000 mL: 999 mL/hr, Intravenous Percocet 325/5: 1 tab(s), Oral, q4h, PRN: Pain, scale 4-6 Percocet 325/5: 2 tab(s), Oral, q4h, PRN: Pain, scale 7-10 Pharmacy See ORDER COMMENTS: 1 EA, Miscellaneous, Daily Pitocin: 20 unit(s), 2 mL, Intramuscular, Once, PRN: Other (see order comments) Rhophylac: 300 mcg, 2 mL, Intramuscular, AsDirected, PRN: if Rh factor neg per policy Tylenol: 650 mg, 2 tab(s), Oral, q6hr Xylocaine HCl 1% injectable solution: 20 mg, 2 mL, Perineum, AsDirected, PRN: to perineal sutures Zithromax IV: 500 mg, 5 mL, 250 mL/hr, IV Piggyback, Once Zofran: 4 mg, 2 mL, IV Push, q4h, PRN: Nausea Zofran: 4 mg, 2 mL, IV Push, q8h, PRN: Nausea Zofran: 4 mg, Oral, q8h, PRN: Nausea glycerin-witch kimberly 50% topical pad: 1 rose, Topical, AsDirected, PRN: Hemorrhoids tranexamic acid 1 g / 100 mL 0.7% NaCl PMX: 1 gram(s), 100 mL, 300 mL/hr, IV Piggyback, AsDirected,PRN: Other (see order comments) Prescriptions Prescribed Percocet 5 mg-325 mg oral tablet: 1 tab(s), Oral, q6hr, for 7 day(s), PRN: for pain, 20 tab(s), 0 Refill(s) Tylenol Extra Strength 500 mg oral tablet: 500 mg, 1 tab(s), Oral, q4h, for 14 day(s), 30 tab(s), 1Refill(s) ibuprofen 800 mg oral tablet: 800 mg, 1 tab(s), Oral, q8h, for 14 day(s), 42 tab(s), 0 Refill(s) Documented Medications Documented IRON (ferrous sulfate 325 mg) 65 mg oral tablet: 325 mg, 1 tab(s), Oral, qDay, Take with food., 60 tab(s), 3 Refill(s) Multivitamins with Vitamin B Complex, Vitamin C, Minerals and L- Methylfolate oral capsule...: 1 cap(s), Oral, Daily, 0 Refill(s), Medications (31) Active Scheduled: (7) acetaminophen 325 mg Tablet 650 mg 2 tab(s), Oral, q6hr azithromycin IV 500 mg 5 mL, IV Piggyback, Once ceFAZolin 2 g 100 mL, IV Piggyback, PREOP pharm ferrous sulfate 325 mg Tablet 325 mg 1 tab(s), Oral, BID ibuprofen 600 mg tablet 600 mg 1 tab(s), Oral, q6hr methylergonovine 0.2 mg/mL (1 mL) ampule 0.2 mg 1 mL, Intramuscular, q6h Mis communication order 1 EA, Miscellaneous, Daily Continuous: (2) Lactated Ringers 1,000 mL 1,000 mL, Intravenous, 125 mL/hr Oxytocin 20 units in Lactated Ringers 1000 mL 20 unit(s) + LR Premix Diluent 1,000 mL 1,000 mL, Intravenous, 999 mL/hr PRN: (22) acetaminophen-OXYcodone 325 mg-5 mg Tablet 1 tab(s), Oral, q4h acetaminophen-OXYcodone 325 mg-5 mg Tablet 2 tab(s), Oral, q4h benzocaine topical 20% Mcdaniel 1 spray(s), Perineum, q1h carboprost 250 mcg/ml 1mL ampule 250 mcg 1 mL, Intramuscular, Once citric acid-sodium citrate 334 mg-500 mg/5 mL (30 mL) Nuris UD 30 mL, Oral, AsDirected docusate sodium 100 mg Capsule 100 mg 1 cap(s), Oral, BID glycerin-witch kimberly topical 10%-50% Pad 1 rose, Topical, AsDirected hydrocortisone topical 25 mg rectal supp 25 mg 1 supp, Rectal, BID hydrocortisone-pramoxine topical 2.5%-1% Cream 4 gram(s) 1 rose, Perineum, q1h Lactated Ringers Injection 500 mL * Bolus * 500 mL, IV Bolus, AsDirected lanolin (purified) 7 gram(s) 1 EA, Topical, AsDirected lidocaine 1% (MPF) 2 mL vial pf 20 mg 2 mL, Perineum, AsDirected methylergonovine 0.2 mg/mL (1 mL) ampule 0.2 mg 1 mL, Intramuscular, Once misoprostol 200 mcg tablet 1,000 mcg 5 tab(s), Rectal, Once ondansetron 4 mg, Oral, q8h ondansetron 2 mg/ 1 mL 2 mL INJ 4 mg 2 mL, IV Push, q4h ondansetron 2 mg/ 1 mL 2 mL INJ 4 mg 2 mL, IV Push, q8h oxytocin 10 units/mL 1 mL vial 20 unit(s) 2 mL, Intramuscular, Once RHo (D) immune globulin 300 mcg/2 mL Soln 300 mcg 2 mL, Intramuscular, AsDirected simethicone 80 mg Chewable 80 mg 1 tab(s), Chewed, TID terbutaline 1 mg/ml vial 0.25 mg 0.25 mL, Subcutaneous, AsDirected tranexamic acid PMX 1 gram(s) 100 mL, IV Piggyback, AsDirected Problem list: Medical Allergy, food / SNOMED CT 1701383827 / Confirmed Amenorrhea / SNOMED CT 26863146 / Confirmed Absence of menstruation / SNOMED CT 38940021 / Confirmed Constipation / SNOMED CT 66010957 / Confirmed GERD (gastroesophageal reflux disease) / SNOMED CT 360834261 / Confirmed History of miscarriage / SNOMED CT 675494065 / Confirmed History of abnormal cervical Pap smear / SNOMED CT 7088712472 / Confirmed Hypercholesteremia / SNOMED CT 49116734 / Confirmed Increased BMI (body mass index) / SNOMED CT 44698751 / Confirmed Irregular periods/menstrual cycles / SNOMED CT 952241776 / Confirmed Encounter for supervision of normal in multigravida in third trimester / SNOMED CT 458407038 / Confirmed Screening for diabetes mellitus / SNOMED CT 041538987 / Confirmed Screening for cardiovascular condition / SNOMED CT 833035006 / Confirmed PCOS (polycystic ovarian syndrome) / SNOMED CT 909468899 / Confirmed Positive test / SNOMED CT 515186443 / Confirmed / SNOMED CT 167967339 / Confirmed Seasonal allergies / SNOMED CT 2677081637 / Confirmed, Active Problems (17) Absence of menstruation Allergy, food Amenorrhea Constipation Encounter for supervision of normal in multigravida in third trimester GERD (gastroesophageal reflux disease) History of abnormal cervical Pap smear History of miscarriage Hypercholesteremia Increased BMI (body mass index) Irregular periods/menstrual cycles PCOS (polycystic ovarian syndrome) Positive test Screening for cardiovascular condition Screening for diabetes mellitus Seasonal allergies Histories Past Medical History: Resolved ([id number]): Onset on 08/11/2021 at 26 years. Resolved in the month of 10/2021 at 26 years. Contraceptive management (81318207): Resolved. Annual physical exam ([id number]): Resolved. Screening cholesterol level ([id number]): Resolved. Family History: Cancer Grandparent Hypothyroid Grandparent Hypertension Father Heart disease Father Heart attack Father Diabetes Grandparent Father Prostate cancer Grandparent Procedure history: Teeth ([id number]). Comments: 11/02/2021 14:19 IZZY - Lalita Herrera LPN wisdom teeth Social History Social & Psychosocial Habits Alcohol 07/26/2019 Use: Never Substance Abuse 07/26/2019 Use: Never Tobacco 07/26/2019 Tobacco Use: Never (less than 100 in l Comment: No smoke exposure - 07/26/2019 10:51 - Devora Nielsen LPN Home/Environment 07/26/2019 Primary Gl Accountant: Self Nutrition/Health 07/26/2019 Caffeine intake amount: All of the above . Physical Examination Vital Signs 12/11/2022 20:40 EST Heart Rate Monitored 130 bpm bpm Respiratory Rate - Anes 0 br/min br/min Systolic Blood Pressure Non-Invasive 97 mmHg mmHg Diastolic Blood Pressure Non-Invasive 60 mmHg mmHg 12/11/2022 20:36 EST Systolic Blood Pressure Non-Invasive 96 mmHg mmHg Diastolic Blood Pressure Non-Invasive 59 mmHg mmHg 12/11/2022 20:35 EST Heart Rate Monitored 136 bpm bpm Respiratory Rate - Anes 0 br/min br/min Systolic Blood Pressure Non-Invasive 93 mmHg mmHg Diastolic Blood Pressure Non-Invasive 56 mmHg mmHg 12/11/2022 20:30 EST Heart Rate Monitored 147 bpm bpm Respiratory Rate - Anes 0 br/min br/min Systolic Blood Pressure Non-Invasive 104 mmHg mmHg Diastolic Blood Pressure Non-Invasive 56 mmHg mmHg 12/11/2022 20:25 EST Heart Rate Monitored 141 bpm bpm Respiratory Rate - Anes 0 br/min br/min Systolic Blood Pressure Non-Invasive 129 mmHg mmHg Diastolic Blood Pressure Non-Invasive 81 mmHg mmHg 12/11/2022 20:20 EST Heart Rate Monitored 139 bpm bpm Respiratory Rate - Anes 0 br/min br/min Systolic Blood Pressure Non-Invasive 161 mmHg mmHg Diastolic Blood Pressure Non-Invasive 83 mmHg mmHg 12/11/2022 20:15 EST Heart Rate Monitored 143 bpm bpm Respiratory Rate - Anes 0 br/min br/min Systolic Blood Pressure Non-Invasive 166 mmHg mmHg Diastolic Blood Pressure Non-Invasive 98 mmHg mmHg 12/11/2022 20:12 EST Systolic Blood Pressure Non-Invasive 169 mmHg mmHg Diastolic Blood Pressure Non-Invasive 91 mmHg mmHg 12/11/2022 20:10 EST Heart Rate Monitored 62 bpm bpm Respiratory Rate - Anes 0 br/min br/min Systolic Blood Pressure Non-Invasive 165 mmHg mmHg Diastolic Blood Pressure Non-Invasive 85 mmHg mmHg 12/11/2022 20:06 EST Systolic Blood Pressure Non-Invasive 139 mmHg mmHg Diastolic Blood Pressure Non-Invasive 83 mmHg mmHg 12/11/2022 20:05 EST Respiratory Rate - Anes 0 br/min br/min 12/11/2022 20:00 EST Respiratory Rate - Anes 0 br/min br/min 12/11/2022 18:30 EST Temperature Temporal Artery 36.6 DegC Heart Rate Monitored 74 bpm Respiratory Rate 18 br/min Systolic Blood Pressure Non-Invasive 135 mmHg Diastolic Blood Pressure Non-Invasive 79 mmHg Blood Pressure Method Automatic Blood Pressure Location Right arm Blood Pressure Cuff Size Large 12/11/2022 17:48 EST Temperature Temporal Artery 36.4 DegC Heart Rate Monitored 64 bpm Respiratory Rate 18 br/min Systolic Blood Pressure Non-Invasive 116 mmHg Diastolic Blood Pressure Non-Invasive 71 mmHg 12/11/2022 16:45 EST Heart Rate Monitored 55 bpm LOW Respiratory Rate 18 br/min Systolic Blood Pressure Non-Invasive 124 mmHg Diastolic Blood Pressure Non-Invasive 67 mmHg Blood Pressure Method Automatic Blood Pressure Location Right arm Blood Pressure Cuff Size Large 12/11/2022 16:30 EST Temperature Temporal Artery 36.6 DegC 12/11/2022 15:30 EST Temperature Temporal Artery 36.8 DegC Heart Rate Monitored 55 bpm LOW Respiratory Rate 18 br/min Systolic Blood Pressure Non-Invasive 124 mmHg Diastolic Blood Pressure Non-Invasive 69 mmHg Blood Pressure Method Automatic Blood Pressure Location Right arm Blood Pressure Cuff Size Large 12/11/2022 14:30 EST Temperature Temporal Artery 36.8 DegC Heart Rate Monitored 54 bpm LOW Respiratory Rate 16 br/min Systolic Blood Pressure Non-Invasive 128 mmHg Diastolic Blood Pressure Non-Invasive 66 mmHg Blood Pressure Method Automatic Blood Pressure Location Right arm Blood Pressure Cuff Size Large 12/11/2022 13:30 EST Temperature Temporal Artery 37 DegC Heart Rate Monitored 60 bpm Respiratory Rate 18 br/min Systolic Blood Pressure Non-Invasive 124 mmHg Diastolic Blood Pressure Non-Invasive 78 mmHg Blood Pressure Method Automatic Blood Pressure Location Right arm Blood Pressure Cuff Size Large 12/11/2022 12:30 EST Temperature Temporal Artery 37.2 DegC Heart Rate Monitored 88 bpm Respiratory Rate 18 br/min Systolic Blood Pressure Non-Invasive 132 mmHg Diastolic Blood Pressure Non-Invasive 77 mmHg Blood Pressure Method Automatic Blood Pressure Location Right arm Blood Pressure Cuff Size Large 12/11/2022 11:30 EST Temperature Temporal Artery 37.2 DegC Heart Rate Monitored 73 bpm Respiratory Rate 18 br/min Systolic Blood Pressure Non-Invasive 134 mmHg Diastolic Blood Pressure Non-Invasive 88 mmHg Blood Pressure Method Automatic Blood Pressure Location Right arm Blood Pressure Cuff Size Large 12/11/2022 10:30 EST Temperature Temporal Artery 36.7 DegC Heart Rate Monitored 54 bpm LOW Respiratory Rate 18 br/min Systolic Blood Pressure Non-Invasive 133 mmHg Diastolic Blood Pressure Non-Invasive 79 mmHg Blood Pressure Method Automatic Blood Pressure Location Right arm Blood Pressure Cuff Size Large 12/11/2022 9:30 EST Temperature Temporal Artery 36.7 DegC Heart Rate Monitored 56 bpm LOW Respiratory Rate 18 br/min Systolic Blood Pressure Non-Invasive 134 mmHg Diastolic Blood Pressure Non-Invasive 82 mmHg Blood Pressure Method Automatic Blood Pressure Location Right arm Blood Pressure Cuff Size Large 12/11/2022 8:30 EST Temperature Temporal Artery 36.6 DegC Heart Rate Monitored 57 bpm LOW Respiratory Rate 18 br/min Systolic Blood Pressure Non-Invasive 116 mmHg Diastolic Blood Pressure Non-Invasive 70 mmHg Blood Pressure Method Automatic Blood Pressure Location Right arm Blood Pressure Cuff Size Large 12/11/2022 7:30 EST Temperature Temporal Artery 36.7 DegC Heart Rate Monitored 53 bpm LOW Respiratory Rate 18 br/min Systolic Blood Pressure Non-Invasive 134 mmHg Diastolic Blood Pressure Non-Invasive 83 mmHg Blood Pressure Method Automatic Blood Pressure Location Right arm Blood Pressure Cuff Size Large 12/11/2022 6:02 EST Temperature Temporal Artery 36.7 DegC Heart Rate Monitored 78 bpm Systolic Blood Pressure Non-Invasive 115 mmHg Diastolic Blood Pressure Non-Invasive 63 mmHg 12/11/2022 5:00 EST Temperature Temporal Artery 37 DegC Heart Rate Monitored 55 bpm LOW Respiratory Rate 18 br/min Systolic Blood Pressure Non-Invasive 125 mmHg Diastolic Blood Pressure Non-Invasive 71 mmHg 12/11/2022 3:59 EST Temperature Temporal Artery 36.6 DegC Heart Rate Monitored 58 bpm LOW Systolic Blood Pressure Non-Invasive 106 mmHg Diastolic Blood Pressure Non-Invasive 61 mmHg 12/11/2022 3:15 EST Temperature Temporal Artery 37 DegC Heart Rate Monitored 57 bpm LOW Systolic Blood Pressure Non-Invasive 125 mmHg Diastolic Blood Pressure Non-Invasive 67 mmHg 12/11/2022 2:05 EST Temperature Temporal Artery 36.9 DegC Heart Rate Monitored 50 bpm LOW Respiratory Rate 18 br/min Systolic Blood Pressure Non-Invasive 125 mmHg Diastolic Blood Pressure Non-Invasive 68 mmHg 12/11/2022 0:04 EST Temperature Temporal Artery 36.6 DegC Heart Rate Monitored 56 bpm LOW Systolic Blood Pressure Non-Invasive 120 mmHg Diastolic Blood Pressure Non-Invasive 75 mmHg 12/10/2022 22:59 EST Temperature Temporal Artery 36.6 DegC Heart Rate Monitored 111 bpm HI Respiratory Rate 18 br/min Systolic Blood Pressure Non-Invasive 125 mmHg Diastolic Blood Pressure Non-Invasive 83 mmHg Blood Pressure Method Automatic Blood Pressure Location Right arm Blood Pressure Cuff Size Large 12/10/2022 22:04 EST Temperature Temporal Artery 37 DegC Heart Rate Monitored 76 bpm Respiratory Rate 18 br/min Systolic Blood Pressure Non-Invasive 121 mmHg Diastolic Blood Pressure Non-Invasive 84 mmHg Blood Pressure Method Automatic Blood Pressure Location Right arm Blood Pressure Cuff Size Large 12/10/2022 21:03 EST Temperature Temporal Artery 37.3 DegC Heart Rate Monitored 55 bpm LOW Respiratory Rate 18 br/min Systolic Blood Pressure Non-Invasive 138 mmHg Diastolic Blood Pressure Non-Invasive 74 mmHg Blood Pressure Method Automatic Blood Pressure Location Right arm Blood Pressure Cuff Size Large 12/10/2022 20:02 EST Temperature Temporal Artery 37.2 DegC Heart Rate Monitored 76 bpm Respiratory Rate 18 br/min Systolic Blood Pressure Non-Invasive 121 mmHg Diastolic Blood Pressure Non-Invasive 83 mmHg Blood Pressure Method Automatic Blood Pressure Location Right arm Blood Pressure Cuff Size Large 12/10/2022 18:00 EST Temperature Temporal Artery 36.8 DegC Heart Rate Monitored 65 bpm Respiratory Rate 18 br/min Systolic Blood Pressure Non-Invasive 138 mmHg Diastolic Blood Pressure Non-Invasive 83 mmHg Blood Pressure Method Automatic Blood Pressure Location Left arm Blood Pressure Cuff Size Large 12/10/2022 17:51 EST Heart Rate Monitored 69 bpm Respiratory Rate 18 br/min Systolic Blood Pressure Non-Invasive 133 mmHg Diastolic Blood Pressure Non-Invasive 82 mmHg Blood Pressure Method Automatic Blood Pressure Location Left arm Blood Pressure Cuff Size Large 12/10/2022 17:30 EST Temperature Temporal Artery 36.6 DegC Heart Rate Monitored 59 bpm LOW Respiratory Rate 18 br/min Systolic Blood Pressure Non-Invasive 145 mmHg HI Diastolic Blood Pressure Non-Invasive 75 mmHg Blood Pressure Method Automatic Blood Pressure Location Left arm Blood Pressure Cuff Size Large Vital Signs(last 24 hrs) Last Charted Heart Rate [id number] bpm (DEC 11 20:40) Resp Rate 18 br/min (DEC 11 18:30) SBP97 mmHg (DEC 11 20:40) DBP60 mmHg (DEC 11 20:40) Measurements from flowsheet : Measurements 12/10/2022 17:42 EST Height 160 cm Admission Weight 103.63 kg [place] Body Weight 52.38 kg BSA Admission 2.05 Body Mass Index 40.48 kg/m2 Pain assessment: Pain Assessment 12/11/2022 18:30 EST Primary Pain Location Abdomen Abdominal Pain Location LLQ, RLQ Primary Pain Laterality Bilateral Primary Pain Intensity 4 Primary Pain Time Pattern intermittent Primary Pain Onset Gradual Primary Pain Duration Intermittent Primary Pain Quality Cramping Primary Pain Non-Pharma Intervention Repositioning Primary Pain Aggravating Factors None Primary Pain Alleviating Factors Repositioning Primary Pain Nonverbal Response Appears restful Pain Scale Type 0-10 Pain scale 12/11/2022 17:30 EST Primary Pain Location Abdomen Abdominal Pain Location LLQ, RLQ Primary Pain Laterality Bilateral Primary Pain Intensity 4 Primary Pain Time Pattern intermittent Primary Pain Onset Gradual Primary Pain Duration Intermittent Primary Pain Quality Cramping Primary Pain Non-Pharma Intervention Repositioning Primary Pain Aggravating Factors None Primary Pain Alleviating Factors Repositioning Primary Pain Nonverbal Response Appears restful Pain Scale Type 0-10 Pain scale 12/11/2022 16:30 EST Primary Pain Location Abdomen Abdominal Pain Location LLQ, RLQ Primary Pain Laterality Bilateral Primary Pain Intensity 4 Primary Pain Time Pattern intermittent Primary Pain Onset Gradual Primary Pain Duration Intermittent Primary Pain Quality Cramping Primary Pain Non-Pharma Intervention Repositioning Primary Pain Aggravating Factors None Primary Pain Alleviating Factors Repositioning Primary Pain Nonverbal Response Appears restful Pain Scale Type 0-10 Pain scale 12/11/2022 15:30 EST Primary Pain Location Abdomen Abdominal Pain Location LLQ, RLQ Primary Pain Laterality Bilateral Primary Pain Intensity 4 Primary Pain Time Pattern intermittent Primary Pain Onset Gradual Primary Pain Duration Intermittent Primary Pain Quality Cramping Primary Pain Non-Pharma Intervention Repositioning Primary Pain Aggravating Factors None Primary Pain Alleviating Factors Repositioning Primary Pain Nonverbal Response Appears restful Pain Associated Symptoms None Pain Scale Type 0-10 Pain scale 12/11/2022 14:30 EST Primary Pain Intensity 0 Pain Associated Symptoms None Pain Scale Type 0-10 Pain scale 12/11/2022 13:30 EST Primary Pain Intensity 0 Pain Associated Symptoms None Pain Scale Type 0-10 Pain scale 12/11/2022 12:30 EST Primary Pain Intensity 0 Pain Associated Symptoms None Pain Scale Type 0-10 Pain scale 12/11/2022 11:30 EST Primary Pain Intensity 0 Pain Associated Symptoms None Pain Scale Type 0-10 Pain scale 12/11/2022 10:30 EST Primary Pain Intensity 0 Pain Associated Symptoms None Pain Scale Type 0-10 Pain scale 12/11/2022 9:30 EST Primary Pain Intensity 0 Pain Associated Symptoms None Pain Scale Type 0-10 Pain scale 12/11/2022 8:30 EST Primary Pain Intensity 0 Pain Associated Symptoms None Pain Scale Type 0-10 Pain scale 12/11/2022 7:30 EST Primary Pain Intensity 0 Pain Associated Symptoms None Pain Scale Type 0-10 Pain scale 12/11/2022 6:02 EST Primary Pain Intensity 4 Pain Scale Type 0-10 Pain scale 12/11/2022 5:00 EST Primary Pain Intensity 2 Pain Scale Type 0-10 Pain scale 12/11/2022 4:01 EST Primary Pain Intensity 2 Pain Scale Type 0-10 Pain scale 12/11/2022 2:05 EST Primary Pain Intensity 2 Pain Scale Type 0-10 Pain scale 12/10/2022 23:01 EST Primary Pain Location Low back Primary Pain Laterality Bilateral Primary Pain Intensity 2 Primary Pain Quality Aching, Dull Primary Pain Nonverbal Response Appears restful Pain Scale Type 0-10 Pain scale 12/10/2022 22:32 EST Primary Pain Location Low back Primary Pain Laterality Bilateral Primary Pain Intensity 2 Primary Pain Quality Aching, Dull Primary Pain Non-Pharma Intervention Lights dimmed, Repositioning Primary Pain Nonverbal Response Appears restful Pain Scale Type 0-10 Pain scale 12/10/2022 22:04 EST Primary Pain Location Low back Primary Pain Laterality Bilateral Primary Pain Intensity 2 Primary Pain Quality Aching, Dull Primary Pain Non-Pharma Intervention Lights dimmed, Repositioning Primary Pain Nonverbal Response Appears restful Pain Scale Type 0-10 Pain scale 12/10/2022 21:31 EST Primary Pain Location Low back Primary Pain Laterality Bilateral Primary Pain Intensity 2 Primary Pain Time Pattern acute, intermittent Primary Pain Onset Gradual Primary Pain Quality Aching, Dull Primary Pain Radiation Characteristics bilateral sides Primary Pain Non-Pharma Intervention Lights dimmed, Conversation, Repositioning, Walking, Birthing ball Primary Pain Nonverbal Response Appears restful Pain Scale Type 0-10 Pain scale 12/10/2022 21:03 EST Primary Pain Intensity 0 Primary Pain Nonverbal Response Appears restful Pain Scale Type 0-10 Pain scale 12/10/2022 20:30 EST Primary Pain Intensity 0 Primary Pain Nonverbal Response Appears restful Pain Scale Type 0-10 Pain scale 12/10/2022 20:02 EST Primary Pain Intensity 0 Primary Pain Nonverbal Response Appears restful Pain Scale Type 0-10 Pain scale 12/10/2022 19:33 EST Primary Pain Intensity 0 Primary Pain Nonverbal Response Appears restful Pain Scale Type 0-10 Pain scale 12/10/2022 18:00 EST Primary Pain Location Abdomen Abdominal Pain Location LLQ, RLQ Primary Pain Laterality Bilateral Primary Pain Intensity 2 Primary Pain Time Pattern intermittent Primary Pain Onset Gradual Primary Pain Duration Intermittent Primary Pain Quality Cramping Primary Pain Non-Pharma Intervention Repositioning Primary Pain Aggravating Factors None Primary Pain Alleviating Factors Repositioning Primary Pain Nonverbal Response Appears restful Pain Scale Type 0-10 Pain scale 12/10/2022 17:30 EST Primary Pain Location Abdomen Abdominal Pain Location LLQ, RLQ Primary Pain Laterality Bilateral Primary Pain Intensity 2 Primary Pain Time Pattern intermittent Primary Pain Onset Gradual Primary Pain Duration Intermittent Primary Pain Quality Cramping Primary Pain Non-Pharma Intervention Repositioning Primary Pain Aggravating Factors None Primary Pain Alleviating Factors Repositioning Primary Pain Nonverbal Response Appears restful Pain Associated Symptoms None Pain Scale Type 0-10 Pain scale . General: Alert and oriented. Airway: Normal temporomandibular joint mobility, Normal mouth, Normal neck range of motion. Mallampati classification: III (soft palate, base of uvula visible). Dentition Evaluation: Denies loose/chipped teeth. Respiratory: Respirations are non-labored. Cardiovascular: Normal rate. Neurologic: Alert, Oriented. Review / Management Results review: Labs (Last four charted values) WBC 9.4(DEC 10) Hgb 12.2(DEC 10) Hct L 35.4(DEC 10) Plt 199(DEC 10) , Lab results 12/11/2022 21:02 EST Lactated Ringers Injection 200 mL mL 12/11/2022 20:50 EST SN - CTm - Anesthesia Stop Time Anesthesia Stop Anesthesia Final Record 12/11/2022 20:44 EST SN - TDC - Device Type TRAY ZHANG CATH 16F W/BAG 10/CA [id number] 12/11/2022 20:42 EST SN - CTm - Surgery Stop 12/11/2022 20:42 12/11/2022 20:42 EST SN - CTm - Surgery Stop Surgery Stop Intra-Op Urine Catheter 200 mL AO OB Surgery Intraop Record [facility] OB Surgery Intraop Record 12/11/2022 20:41 EST SN - DRS - Site and Details [place] dressing to lower abdominal proceduresite 12/11/2022 20:40 EST Heart Rate Monitored 130 bpm bpm Respiratory Rate - Anes 0 br/min br/min Systolic Blood Pressure Non-Invasive 97 mmHg mmHg Diastolic Blood Pressure Non-Invasive 60 mmHg mmHg Oxygen Saturation 99.7 % % 12/11/2022 20:39 EST Intra-Op EBL 800 mL 12/11/2022 20:38 EST [place] Delivery Summary PCS Operative Report Note 12/11/2022 20:36 EST Systolic Blood Pressure Non-Invasive 96 mmHg mmHg Diastolic Blood Pressure Non-Invasive 59 mmHg mmHg 12/11/2022 20:35 EST Heart Rate Monitored 136 bpm bpm Respiratory Rate - Anes 0 br/min br/min Systolic Blood Pressure Non-Invasive 93 mmHg mmHg Diastolic Blood Pressure Non-Invasive 56 mmHg mmHg Oxygen Saturation 99.6 % % oxytocin 20 unit(s) unit(s) Lactated Ringers Injection Begin Bag 1,000 mL mL Lactated Ringers Injection 1,000 mL mL 12/11/2022 20:34 EST SN - Proc - EBL 800 mL 12/11/2022 20:33 EST methylergonovine 0.2 mg mg 12/11/2022 20:30 EST Heart Rate Monitored 147 bpm bpm Respiratory Rate - Anes 0 br/min br/min Systolic Blood Pressure Non-Invasive 104 mmHg mmHg Diastolic Blood Pressure Non-Invasive 56 mmHg mmHg Oxygen Saturation 99.6 % % 12/11/2022 20:27 EST SN - GCD - ASA Class 2E 12/11/2022 20:27 EST SN - CTm - Delivery Time 12/11/2022 20:18 12/11/2022 20:25 EST Heart Rate Monitored 141 bpm bpm Respiratory Rate - Anes 0 br/min br/min Systolic Blood Pressure Non-Invasive 129 mmHg mmHg Diastolic Blood Pressure Non-Invasive 81 mmHg mmHg Oxygen Saturation 99.2 % % 12/11/2022 20:24 EST oxytocin 10 unit(s) unit(s) 12/11/2022 20:23 EST esmolol 30 mg mg 12/11/2022 20:22 EST carboprost 250 mcg mcg 12/11/2022 20:20 EST Heart Rate Monitored 139 bpm bpm Respiratory Rate - Anes 0 br/min br/min Systolic Blood Pressure Non-Invasive 161 mmHg mmHg Diastolic Blood Pressure Non-Invasive 83 mmHg mmHg Oxygen Saturation 99.1 % % 12/11/2022 20:19 EST oxytocin 20 unit(s) unit(s) 12/11/2022 20:18 EST esmolol 30 mg mg 12/11/2022 20:15 EST SN - Cul - Culture Type No Specimen per Surgeon 12/11/2022 20:15 EST SN - CTm - Surgery Start 12/11/2022 20:15 12/11/2022 20:15 EST Heart Rate Monitored 143 bpm bpm Respiratory Rate - Anes 0 br/min br/min Systolic Blood Pressure Non-Invasive 166 mmHg mmHg Diastolic Blood Pressure Non-Invasive 98 mmHg mmHg Oxygen Saturation 99.6 % % SN - CTm - Surgery Start Surgery Start acetaminophen 1,000 mg mg esmolol 30 mg mg 12/11/2022 20:13 EST dexamethasone 4 mg mg ondansetron 4 mg mg 12/11/2022 20:12 EST Systolic Blood Pressure Non-Invasive 169 mmHg mmHg Diastolic Blood Pressure Non-Invasive 91 mmHg mmHg 12/11/2022 20:10 EST Heart Rate Monitored 62 bpm bpm Respiratory Rate - Anes 0 br/min br/min Systolic Blood Pressure Non-Invasive 165 mmHg mmHg Diastolic Blood Pressure Non-Invasive 85 mmHg mmHg Oxygen Saturation 100 % % glycopyrrolate 0.2 mg mg 12/11/2022 20:08 EST ePHEDrine 10 mg mg 12/11/2022 20:07 EST glycopyrrolate 0.2 mg mg 12/11/2022 20:06 EST Systolic Blood Pressure Non-Invasive 139 mmHg mmHg Diastolic Blood Pressure Non-Invasive 83 mmHg mmHg 12/11/2022 20:05 EST Respiratory Rate - Anes 0 br/min br/min ePHEDrine 10 mg mg 12/11/2022 20:03 EST bupivacaine 1.5 mL mL 12/11/2022 20:00 EST Respiratory Rate - Anes 0 br/min br/min 12/11/2022 19:58 EST SN - CAt - Case Attendee SN - CAt - Case Attendee SN - CAt - Role Performed OB RN 12/11/2022 19:55 EST SN - CTm - Anesthesia Start Time Anesthesia Start Lactated Ringers Injection Begin Bag 1,000 mL mL 12/11/2022 19:50 EST SN - CAt - Case Attendee SN - CAt - Case Attendee SN - CAt - Role Performed Respiratory Therapist 12/11/2022 19:48 EST SN - TDC - Location [facility] SN - TDC - DC'd at End of Case No 12/11/2022 19:40 EST SN - GCD - Post-operative Diagnosis FAILED INDUCTION 12/11/2022 19:38 EST SN - Proc - Actual Procedure PRIMARY SECTION 12/11/2022 19:38 EST SN - Proc - Anesthesia Type Spinal 12/11/2022 19:38 EST SN - SP - Prep Agents Chloraprep SN - SP - HR - Method N/A 12/11/2022 19:37 EST SN - PP - Body Position Supine Standard Intra-op 12/11/2022 19:36 EST [place] [facility] Progress Note Progress Note 12/11/2022 19:36 EST SN - PTCare - Anti-thromboembolism Dorys Sequential Compression Device (SCD) 12/11/2022 19:36 EST SN - Assess - LOC Alert, Awake SN - Assess - Orientation Oriented X 3 SN - Assess - Post-op Skin Integrity Intact/Dry 12/11/2022 19:35 EST SN - CAt - Case Attendee SN - CAt - Case Attendee SN - CAt - Case Attendee SN - CAt - Case Attendee SN - CAt - Case Attendee SN - CAt - Case Attendee SN - CAt - Case Attendee SN - CAt - Case Attendee SN - CAt - Role Performed STAKER SURVEYING SN - CAt - Role Performed Lawn Caretaker 1 SN - CAt - Role Performed Scrub 1 SN - CAt - Role Performed Head Of Digital Advertising & Integration 1 12/11/2022 19:33 EST SN - CAt - Case Attendee SN - CAt - Case Attendee SN - CAt - Role Performed Primary Surgeon 12/11/2022 19:33 EST SN - GCD - Case Level Flat-Fee 12/11/2022 19:23 EST Last Void 12/11/2022 19:15 12/11/2022 19:20 EST Nurse Receiving Report Tyler Hawkins RN Date/Time Nurse Received Report 12/11/2022 19:20 12/11/2022 19:15 EST Preoperative Instructions Verbalizes/Nonverbally indicates understanding Individuals Taught Patient, Spouse Learning Readiness Willing to learn Barriers to Learning None evident Teaching Method Explanation Preferred Written Language [place] Family/Caregiver Prefer Written Language [place] Preferred Spoken Language [place] Family/Caregiver Prefer Spoken Language [place] Ed-Surgery Verbalizes/Nonverbally indicates understanding 12/11/2022 19:14 EST Anesthesia Consent Signed Yes 12/11/2022 19:10 EST Notify date/time 12/11/2022 19:10 Provider Notified JOEY CAMPBELL MD Notification Method Phone Information Communicated Nurse communication Details Communicated updated on pt Notification Outcome Orders received Person Reporting Result(s) john ennis Details of Results Received orders for orders with 2 gm ancef and 500mg zithromax IV ordered Results Read Back Yes 12/11/2022 19:08 EST oxytocin munit/min unit(s) LR Premix Diluent LR Premix Diluent mL 12/11/2022 19:00 EST Urinary Elimination Voiding, no difficulties Uterine Contraction Monitoring Method External toco Uterine Contraction Frequency Q 3 min Uterine Contraction Duration 60-70 sec Uterine Contraction Intensity, Ext Palp Mild Uterine Resting Tone, External Soft Uterine Activity Regular contractions Baby A FHR Baseline: 145 bpm FHR Baseline Variability: Moderate variability FHR Accelerations: Present FHR Deceleration: Absent FHR Monitoring Method: External US transducer D-EGA at Documented Date, Time 40W 4D IV Present Present Allergies No Anesthesia Extension Set Applied Yes Consent Form Signed Yes Patient Dressed In Hospital gown Pre-op Preparation Shave prep done by clippers CHG Preoperative Wash/Wipe Day of procedure Decision for 11/13/2022 18:55 NPO Status Initiated Patient ID Band on and Verified Yes Blood Consent Signed Yes Last Fluid Intake 12/11/2022 18:30 Last Food Intake 12/10/2022 17:00 12/11/2022 18:59 EST Notify date/time 12/11/2022 18:55 Provider Notified JOEY CAMPBELL MD Notification Method Phone Information Communicated Nurse communication Details Communicated Notified of VE Notification Outcome Orders received Person Reporting Result(s) Kristen Ennis RN Results Read Back Yes 12/11/2022 18:57 EST Monitoring Annotations Surgery team & anesthesia notified of 8pm primary section. 12/11/2022 18:45 EST Cervix Dilation 0 cm Cervix Effacement 70 Station -2 Vaginal Exam Performed By JOHN Tanner Milagros 12/11/2022 18:31 EST Monitoring Annotations Ambulating in hallway 12/11/2022 18:30 EST Temperature Temporal Artery 36.6 DegC Heart Rate Monitored 74 bpm Respiratory Rate 18 br/min Systolic Blood Pressure Non-Invasive 135 mmHg Diastolic Blood Pressure Non-Invasive 79 mmHg Blood Pressure Method Automatic Blood Pressure Location Right arm Blood Pressure Cuff Size Large Primary Pain Location Abdomen Abdominal Pain Location LLQ, RLQ Primary Pain Laterality Bilateral Primary Pain Intensity 4 Primary Pain Time Pattern intermittent Primary Pain Onset Gradual Primary Pain Duration Intermittent Primary Pain Quality Cramping Primary Pain Non-Pharma Intervention Repositioning Primary Pain Aggravating Factors None Primary Pain Alleviating Factors Repositioning Primary Pain Nonverbal Response Appears restful Pain Scale Type 0-10 Pain scale Heart Rhythm Regular Oxygen Therapy Room air Oxygen Saturation 100 % Tolerating Oral Intake Yes Uterine Contraction Monitoring Method External toco Uterine Contraction Frequency Q 3 min Uterine Contraction Duration 50 sec Uterine Contraction Intensity, Ext Palp Mild Uterine Resting Tone, External Soft Uterine Activity Regular contractions Baby A FHR Baseline: 145 bpm FHR Baseline Variability: Moderate variability FHR Accelerations: Present FHR Deceleration: Absent FHR Monitoring Method: External US transducer Hand Left 12/10/2022 18 gauge Peripheral IV Activity: Assessed Peripheral IV Dressing Condition: Clean, Dry, Intact Peripheral IV Dressing Activity: Transparent dressing Peripheral IV Line Status/Patency: Continuous infusion Peripheral IV Site Condition: No complications Peripheral IV Equipment: Extension set, Stopcock, IV Pump, PRN Adaptor Activity Status ADL Ambulating in torres, Awake Standard Safety Safety level maintained, Precautions maintained 12/11/2022 18:28 EST Lactated Ringers Injection Begin Bag 1,000 mL mL 12/11/2022 18:00 EST Uterine Contraction Monitoring Method External toco Uterine Contraction Frequency Q 2 min Uterine Contraction Duration 40 sec Uterine Contraction Intensity, Ext Palp Mild Uterine Resting Tone, External Soft Uterine Activity Regular contractions Patient Position, OB Semi-Valente's Baby A FHR Baseline: 135 bpm FHR Baseline Variability: Moderate variability FHR Accelerations: Present FHR Deceleration: Absent FHR Monitoring Method: External US transducer 12/11/2022 17:48 EST Temperature Temporal Artery 36.4 DegC Heart Rate Monitored 64 bpm Respiratory Rate 18 br/min Systolic Blood Pressure Non-Invasive 116 mmHg Diastolic Blood Pressure Non-Invasive 71 mmHg Oxygen Therapy Room air 12/11/2022 17:30 EST Primary Pain Location Abdomen Abdominal Pain Location LLQ, RLQ Primary Pain Laterality Bilateral Primary Pain Intensity 4 Primary Pain Time Pattern intermittent Primary Pain Onset Gradual Primary Pain Duration Intermittent Primary Pain Quality Cramping Primary Pain Non-Pharma Intervention Repositioning Primary Pain Aggravating Factors None Primary Pain Alleviating Factors Repositioning Primary Pain Nonverbal Response Appears restful Pain Scale Type 0-10 Pain scale Tolerating Oral Intake Yes Uterine Contraction Monitoring Method External toco Uterine Contraction Frequency [place] readjusted Uterine Contraction Intensity, Ext Palp Mild Uterine Resting Tone, External Soft Patient Position, OB Shower Baby A FHR Baseline: 135 bpm FHR Baseline Variability: Moderate variability FHR Accelerations: Present FHR Deceleration: Absent FHR Monitoring Method: External US transducer Hand Left 12/10/2022 18 gauge Peripheral IV Activity: Assessed Peripheral IV Dressing Condition: Clean, Dry, Intact Peripheral IV Dressing Activity: Transparent dressing Peripheral IV Line Status/Patency: Continuous infusion Peripheral IV Site Condition: No complications Peripheral IV Equipment: Extension set, Stopcock, IV Pump, PRN Adaptor Activity Status ADL Awake Standard Safety Safety level maintained, Precautions maintained 12/11/2022 17:21 EST Monitoring Annotations Up to shower 12/11/2022 17:21 EST Monitoring Annotations Tocotransducer adjusted 12/11/2022 17:20 EST Monitoring Annotations Tocotransducer adjusted 12/11/2022 17:15 EST Monitoring Annotations Tocotransducer adjusted 12/11/2022 17:02 EST Uterine Contraction Monitoring Method External toco Uterine Contraction Frequency Q 1-2 mins Uterine Contraction Duration 40-60 secs Uterine Contraction Intensity, Ext Palp Mild Uterine Resting Tone, External Soft Uterine Activity Regular contractions Baby A FHR Baseline: 135 bpm FHR Baseline Variability: Moderate variability FHR Accelerations: Present FHR Deceleration: Absent FHR Monitoring Method: External US transducer 12/11/2022 16:45 EST Heart Rate Monitored 55 bpm LOW Respiratory Rate 18 br/min Systolic Blood Pressure Non-Invasive 124 mmHg Diastolic Blood Pressure Non-Invasive 67 mmHg Blood Pressure Method Automatic Blood Pressure Location Right arm Blood Pressure Cuff Size Large Heart Rhythm Regular Oxygen Therapy Room air Oxygen Saturation 100 % 12/11/2022 16:30 EST Temperature Temporal Artery 36.6 DegC Primary Pain Location Abdomen Abdominal Pain Location LLQ, RLQ Primary Pain Laterality Bilateral Primary Pain Intensity 4 Primary Pain Time Pattern intermittent Primary Pain Onset Gradual Primary Pain Duration Intermittent Primary Pain Quality Cramping Primary Pain Non-Pharma Intervention Repositioning Primary Pain Aggravating Factors None Primary Pain Alleviating Factors Repositioning Primary Pain Nonverbal Response Appears restful Pain Scale Type 0-10 Pain scale Tolerating Oral Intake Yes Uterine Contraction Monitoring Method External toco Uterine Contraction Frequency [place] readjusted Uterine Contraction Intensity, Ext Palp Mild Uterine Resting Tone, External Soft Uterine Activity Regular contractions Patient Position, OB Left lateral, Peanut ball Baby A FHR Baseline: 135 bpm FHR Baseline Variability: Moderate variability FHR Accelerations: Present FHR Deceleration: Absent FHR Monitoring Method: External US transducer Hand Left 12/10/2022 18 gauge Peripheral IV Activity: Assessed Peripheral IV Dressing Condition: Clean, Dry, Intact Peripheral IV Dressing Activity: Transparent dressing Peripheral IV Line Status/Patency: Continuous infusion Peripheral IV Site Condition: No complications Peripheral IV Equipment: Extension set, Stopcock, IV Pump, PRN Adaptor Standard Safety Safety level maintained, Precautions maintained 12/11/2022 16:00 EST Uterine Contraction Monitoring Method External toco Uterine Contraction Frequency Q 3-4 min Uterine Contraction Duration 70-80 sec Uterine Contraction Intensity, Ext Palp Mild Uterine Resting Tone, External Soft Uterine Activity Regular contractions Patient Position, OB Left lateral, Peanut ball Baby A FHR Baseline: 130 bpm FHR Baseline Variability: Moderate variability FHR Accelerations: Present FHR Deceleration: Absent FHR Monitoring Method: External US transducer 12/11/2022 15:54 EST oxytocin Begin Bag 2 mL unit(s) LR Premix Diluent Begin Bag 1,000 mL mL 12/11/2022 15:30 EST Temperature Temporal Artery 36.8 DegC Heart Rate Monitored 55 bpm LOW Respiratory Rate 18 br/min Systolic Blood Pressure Non-Invasive 124 mmHg Diastolic Blood Pressure Non-Invasive 69 mmHg Blood Pressure Method Automatic Blood Pressure Location Right arm Blood Pressure Cuff Size Large Primary Pain Location Abdomen Abdominal Pain Location LLQ, RLQ Primary Pain Laterality Bilateral Primary Pain Intensity 4 Primary Pain Time Pattern intermittent Primary Pain Onset Gradual Primary Pain Duration Intermittent Primary Pain Quality Cramping Primary Pain Non-Pharma Intervention Repositioning Primary Pain Aggravating Factors None Primary Pain Alleviating Factors Repositioning Primary Pain Nonverbal Response Appears restful Pain Associated Symptoms None Pain Scale Type 0-10 Pain scale Heart Rhythm Regular Murmur Auscultated No Dorsalis Pedis Pulse, Left 2+ Normal Dorsalis Pedis Pulse, Right 2+ Normal Pedal edema Bilateral Edema Ratin+ moderate/6mm Leg edema Bilateral Edema Ratin+ moderate/6mm Respirations Unlabored Respiratory Pattern Regular Breath Sounds Auscultated Anterior and posterior All Lobes Breath Sounds Clear, Equal Cough None Oxygen Therapy Room air Oxygen Saturation 100 % Abdomen Description Soft Bowel Continence Continent Swallowing Disorder None Bowel Sounds All Quadrants Present Urinary Elimination Voiding, no difficulties Bladder Distention Absent Uterine Contraction Monitoring Method External toco Uterine Contraction Frequency Q 2-3 min Uterine Contraction Duration 50-80 sec Uterine Contraction Intensity, Ext Palp Mild Uterine Resting Tone, External Soft Uterine Activity Regular contractions Patient Position, OB Left lateral, Peanut ball Baby A FHR Baseline: 135 bpm FHR Baseline Variability: Moderate variability FHR Accelerations: Present FHR Deceleration: Absent FHR Monitoring Method: External US transducer Patient Coping Julee w/stresses of , care Support Person Present Support Person Involvement Supportive/involved Patient feelings/concerns Discusses care, feelings, concerns Skin Temperature Warm Skin Description [place], Dry Skin Integrity Intact, Pressure points intact Sensory Perception Alfonso No impairment Moisture Alfonso Rarely moist Activity Alfonso Walks occasionally Mobility Alfonso No limitations Nutrition Alfonso Adequate Friction and Shear Alfonso No apparent problem Alfonso Score 21 Hospital Acquired Pressure Injury Risk None/minimal risk (score 19-23) Hand Left 12/10/2022 18 gauge Peripheral IV Activity: Assessed Peripheral IV Dressing Condition: Clean, Dry, Intact Peripheral IV Dressing Activity: Transparent dressing Peripheral IV Line Status/Patency: Continuous infusion Peripheral IV Site Condition: No complications Peripheral IV Equipment: Extension set, Stopcock, IV Pump, PRN Adaptor Neurological Symptoms Patient denies Level of Consciousness Alert Strength All Extremities Strong Tone All Extremities Normal [place] Screen Daily History of Fall in Last 3 Months [place] No Presence of Secondary Diagnosis [place] No Use of Ambulatory Aid [place] None, bedrest, wheelchair, nurse IV/PRN Adapter Fall Risk [place] Yes Gait Weak or Impaired Fall Risk [place] Normal, bedrest, immobile Mental Status Fall Risk [place] Oriented to own ability [place] Fall Risk Score 20 Violence Risk Confused No Violence Risk Irritable No Violence Risk Boisterous No Violence Risk Verbal Threats No Violence Risk Physical Threats No Violence Risk Attacking Objects No Violence Risk Predictor Score 0 Violence Risk Intervention None Violence Risk Current Interventions None Affect/Behavior Appropriate, Calm, Cooperative Appearance Clean Orientation Oriented x 4 Ambulation Repositions self Orientation Assessment Oriented x 4 Memory Recall Ability Current season, Location of own room, Staff names and faces Activity Status ADL Resting Activity Assistance Independent Assistive Device None Ambulation Patient Effort Good Lunch Percent 90 % Hair Care Independent Oral Care Independent Kim Care Independent Standard Safety Safety level maintained, Precautions maintained Demonstrates Correct Call Light Use Yes RN Coordination of Care 3pm-7pm Adaptive Feeding Equipment None Appetite Good Eating Difficulties None 12/11/2022 15:18 EST O-Remains Free From Injury Progressing towards goal Edu-Pain Management Verbalizes/Nonverbally indicates understanding Ed-Plan of Care Verbalizes/Nonverbally indicates understanding Ed-Safety, Fall Verbalizes/Nonverbally indicates understanding Individuals Taught Patient Learning Readiness Willing to learn Barriers to Learning None evident Teaching Method Explanation Preferred Written Language [place] Family/Caregiver Prefer Written Language [place] Preferred Spoken Language [place] Family/Caregiver Prefer Spoken Language [place] Ed- Monitoring Verbalizes/Nonverbally indicates understanding Ed-Contractions Verbalizes/Nonverbally indicates understanding Ed-Safety Verbalizes/Nonverbally indicates understanding Ed-Discharge instructions Verbalizes/Nonverbally indicates understanding Ed-Complications of Labor/Delivery Verbalizes/Nonverbally indicates understanding Ed-LD Activity Verbalizes/Nonverbally indicates understanding Ed-LD Nutrition/Fluids Verbalizes/Nonverbally indicates understanding Ed-LD Safety Verbalizes/Nonverbally indicates understanding Ed-Patient/Caregiver about Hand Hygiene Verbalizes/Nonverbally indicates understanding 12/11/2022 15:17 EST Patient Position, OB Left lateral, Peanut ball Able To Drink Order Detail Yes Able To Sign Consents Order Detail Yes Code Status Order Detail Full code IV Order Detail Yes Dialysis Schedule Order Detail N/A Has Diabetes Order Detail No Isolation Precautions Order Detail None Nurse Collect Order Detail 0 Oxygen Order Detail No Order Detail Yes Prior Valve Replacement Order Detail No Transport Mode Order Detail Wheelchair and Nurse Farmworker Rice Details Form Farmworker Rice Details Form 12/11/2022 15:00 EST Uterine Contraction Monitoring Method External toco Uterine Contraction Frequency Q 2-3 min Uterine Contraction Duration 70-90 sec Uterine Contraction Intensity, Ext Palp Mild Uterine Resting Tone, External Soft Uterine Activity Regular contractions Patient Position, OB Sitting Baby A FHR Baseline: 135 bpm FHR Baseline Variability: Moderate variability FHR Accelerations: Absent FHR Monitoring Method: External US transducer 12/11/2022 14:30 EST Temperature Temporal Artery 36.8 DegC Heart Rate Monitored 54 bpm LOW Respiratory Rate 16 br/min Systolic Blood Pressure Non-Invasive 128 mmHg Diastolic Blood Pressure Non-Invasive 66 mmHg Blood Pressure Method Automatic Blood Pressure Location Right arm Blood Pressure Cuff Size Large Primary Pain Intensity 0 Pain Associated Symptoms None Pain Scale Type 0-10 Pain scale Heart Rhythm Regular Oxygen Therapy Room air Oxygen Saturation 100 % Tolerating Oral Intake Yes Uterine Contraction Monitoring Method External toco Uterine Contraction Frequency Q 2-5 min Uterine Contraction Duration 70-90 sec Uterine Contraction Intensity, Ext Palp Mild Uterine Resting Tone, External Soft Uterine Activity Regular contractions Patient Position, OB Right lateral, Peanut ball Baby A FHR Baseline: 135 bpm FHR Baseline Variability: Moderate variability FHR Accelerations: Present FHR Deceleration: Absent FHR Monitoring Method: External US transducer Hand Left 12/10/2022 18 gauge Peripheral IV Activity: Assessed Peripheral IV Dressing Condition: Clean, Dry, Intact Peripheral IV Dressing Activity: Transparent dressing Peripheral IV Line Status/Patency: Continuous infusion Peripheral IV Site Condition: No complications Peripheral IV Equipment: Extension set, Stopcock, IV Pump, PRN Adaptor Activity Status ADL Awake Standard Safety Safety level maintained, Precautions maintained 12/11/2022 14:07 EST Monitoring Annotations Tocotransducer adjusted; Pt standing at bedside 12/11/2022 14:00 EST Uterine Contraction Monitoring Method External toco Uterine Contraction Frequency [place] readjusted Uterine Contraction Intensity, Ext Palp Mild Uterine Resting Tone, External Soft Uterine Activity Regular contractions Baby A FHR Baseline: 130 bpm FHR Baseline Variability: Moderate variability FHR Accelerations: Present FHR Deceleration: Absent FHR Monitoring Method: External US transducer Activity Status ADL Awake 12/11/2022 13:58 EST Monitoring Annotations Tocotransducer adjusted 12/11/2022 13:55 EST Notify date/time 12/11/2022 13:55 Provider Notified JOEY CAMPBELL MD Notification Method Phone Information Communicated Nurse communication Details Communicated Updated on pitocin level, pt status, contraction pattern, FHT tracing. Notification Outcome Orders received Person Reporting Result(s) Isidro Tanner Rn Results Read Back Yes 12/11/2022 13:45 EST Monitoring Annotations Tocotransducer adjusted 12/11/2022 13:30 EST Temperature Temporal Artery 37 DegC Heart Rate Monitored 60 bpm Respiratory Rate 18 br/min Systolic Blood Pressure Non-Invasive 124 mmHg Diastolic Blood Pressure Non-Invasive 78 mmHg Blood Pressure Method Automatic Blood Pressure Location Right arm Blood Pressure Cuff Size Large Primary Pain Intensity 0 Pain Associated Symptoms None Pain Scale Type 0-10 Pain scale Heart Rhythm Regular Oxygen Therapy Room air Oxygen Saturation 100 % Uterine Contraction Monitoring Method External toco Uterine Contraction Frequency Q 1-3 min Uterine Contraction Duration 50-60 sec Uterine Contraction Intensity, Ext Palp Mild Uterine Resting Tone, External Soft Uterine Activity Regular contractions Patient Position, OB Right lateral, Peanut ball Baby A FHR Baseline: 135 bpm FHR Baseline Variability: Moderate variability FHR Accelerations: Present FHR Deceleration: Absent FHR Monitoring Method: External US transducer Hand Left 12/10/2022 18 gauge Peripheral IV Activity: Assessed Peripheral IV Dressing Condition: Clean, Dry, Intact Peripheral IV Dressing Activity: Transparent dressing Peripheral IV Line Status/Patency: Continuous infusion Peripheral IV Site Condition: No complications Peripheral IV Equipment: Extension set, Stopcock, IV Pump, PRN Adaptor Activity Status ADL Awake Standard Safety Safety level maintained, Precautions maintained oxytocin 26 munit/min unit(s) LR Premix Diluent LR Premix Diluent mL 12/11/2022 13:00 EST Uterine Contraction Monitoring Method External toco Uterine Contraction Frequency Q 1-3 min Uterine Contraction Duration 50-60 sec Uterine Contraction Intensity, Ext Palp Mild Uterine Resting Tone, External Soft Uterine Activity Regular contractions Patient Position, OB Sitting Baby A FHR Baseline: 135 bpm FHR Baseline Variability: Moderate variability FHR Accelerations: Present FHR Deceleration: Absent FHR Monitoring Method: External US transducer 12/11/2022 12:30 EST Temperature Temporal Artery 37.2 DegC Heart Rate Monitored 88 bpm Respiratory Rate 18 br/min Systolic Blood Pressure Non-Invasive 132 mmHg Diastolic Blood Pressure Non-Invasive 77 mmHg Blood Pressure Method Automatic Blood Pressure Location Right arm Blood Pressure Cuff Size Large Primary Pain Intensity 0 Pain Associated Symptoms None Pain Scale Type 0-10 Pain scale Heart Rhythm Regular Oxygen Therapy Room air Oxygen Saturation 100 % Uterine Contraction Monitoring Method External toco Uterine Contraction Frequency Q 2-3 min Uterine Contraction Duration 70-90 sec Uterine Contraction Intensity, Ext Palp Mild Uterine Resting Tone, External Soft Uterine Activity Regular contractions Patient Position, OB Hands and knees Baby A FHR Baseline: 125 bpm FHR Baseline Variability: Moderate variability FHR Accelerations: Present FHR Deceleration: Absent FHR Monitoring Method: External US transducer Hand Left 12/10/2022 18 gauge Peripheral IV Activity: Assessed Peripheral IV Dressing Condition: Clean, Dry, Intact Peripheral IV Dressing Activity: Transparent dressing Peripheral IV Line Status/Patency: Continuous infusion Peripheral IV Site Condition: No complications Peripheral IV Equipment: Extension set, Stopcock, IV Pump, PRN Adaptor Activity Status ADL Awake Standard Safety Safety level maintained, Precautions maintained oxytocin 24 munit/min unit(s) LR Premix Diluent LR Premix Diluent mL 12/11/2022 12:00 EST Uterine Contraction Monitoring Method External toco Uterine Contraction Frequency Q 2 min Uterine Contraction Duration 40-90 sec Uterine Contraction Intensity, Ext Palp Mild Uterine Resting Tone, External Soft Uterine Activity Regular contractions Patient Position, OB Birthing ball Baby A FHR Baseline: 135 bpm FHR Baseline Variability: Moderate variability FHR Accelerations: Present FHR Deceleration: Absent FHR Monitoring Method: External US transducer 12/11/2022 11:30 EST Monitoring Annotations Standing at bedside 12/11/2022 11:30 EST Monitoring Annotations Tocotransducer adjusted 12/11/2022 11:30 EST Temperature Temporal Artery 37.2 DegC Heart Rate Monitored 73 bpm Respiratory Rate 18 br/min Systolic Blood Pressure Non-Invasive 134 mmHg Diastolic Blood Pressure Non-Invasive 88 mmHg Blood Pressure Method Automatic Blood Pressure Location Right arm Blood Pressure Cuff Size Large Primary Pain Intensity 0 Pain Associated Symptoms None Pain Scale Type 0-10 Pain scale Heart Rhythm Regular Oxygen Therapy Room air Oxygen Saturation 100 % Tolerating Oral Intake Yes Uterine Contraction Monitoring Method External toco Uterine Contraction Frequency [place] readjusted Uterine Contraction Intensity, Ext Palp Mild Uterine Resting Tone, External Soft Uterine Activity Regular contractions Patient Position, OB Birthing ball Baby A FHR Baseline: 130 bpm FHR Baseline Variability: Moderate variability FHR Accelerations: Present FHR Deceleration: Absent FHR Monitoring Method: External US transducer Hand Left 12/10/2022 18 gauge Peripheral IV Activity: Assessed Peripheral IV Dressing Condition: Clean, Dry, Intact Peripheral IV Dressing Activity: Transparent dressing Peripheral IV Line Status/Patency: Continuous infusion Peripheral IV Site Condition: No complications Peripheral IV Equipment: Extension set, Stopcock, IV Pump, PRN Adaptor Activity Status ADL Awake, Up ad maria m Breakfast Percent 80 % Standard Safety Safety level maintained, Precautions maintained 12/11/2022 11:25 EST Monitoring Annotations Tocotransducer adjusted 12/11/2022 11:19 EST Monitoring Annotations Tocotransducer adjusted 12/11/2022 11:13 EST Monitoring Annotations Tocotransducer adjusted 12/11/2022 11:00 EST Uterine Contraction Monitoring Method External toco Uterine Contraction Frequency [place] readjusted Uterine Contraction Intensity, Ext Palp Mild Uterine Resting Tone, External Soft Uterine Activity Regular contractions Baby A FHR Monitoring Method: monitoring explained Heart Tone: 125 12/11/2022 10:57 EST CSummary CSUMMARY 12/11/2022 10:55 EST Monitoring Annotations Ultrasound transducer adjusted; Tocotransducer adjusted 12/11/2022 10:50 EST Monitoring Annotations Ultrasound transducer adjusted; Tocotransducer adjusted 12/11/2022 10:48 EST Monitoring Annotations Standing at bedside 12/11/2022 10:30 EST Temperature Temporal Artery 36.7 DegC Heart Rate Monitored 54 bpm LOW Respiratory Rate 18 br/min Systolic Blood Pressure Non-Invasive 133 mmHg Diastolic Blood Pressure Non-Invasive 79 mmHg Blood Pressure Method Automatic Blood Pressure Location Right arm Blood Pressure Cuff Size Large Primary Pain Intensity 0 Pain Associated Symptoms None Pain Scale Type 0-10 Pain scale Heart Rhythm Regular Oxygen Therapy Room air Oxygen Saturation 98 % Tolerating Oral Intake Yes Uterine Contraction Monitoring Method External toco Uterine Contraction Frequency Q 2-3 min Uterine Contraction Duration 60-90 sec Uterine Contraction Intensity, Ext Palp Mild Uterine Resting Tone, External Soft Uterine Activity Regular contractions Patient Position, OB Semi-Valente's Baby A FHR Baseline: 135 bpm FHR Baseline Variability: Moderate variability FHR Accelerations: Present FHR Deceleration: Absent FHR Monitoring Method: External US transducer Hand Left 12/10/2022 18 gauge Peripheral IV Activity: Assessed Peripheral IV Dressing Condition: Clean, Dry, Intact Peripheral IV Dressing Activity: Transparent dressing Peripheral IV Line Status/Patency: Continuous infusion Peripheral IV Site Condition: No complications Peripheral IV Equipment: Extension set, Stopcock, IV Pump, PRN Adaptor Activity Status ADL Awake Standard Safety Safety level maintained, Precautions maintained oxytocin 22 munit/min unit(s) Lactated Ringers Injection Begin Bag 1,000 mL mL LR Premix Diluent LR Premix Diluent mL 12/11/2022 10:25 EST Notify date/time 12/11/2022 10:15 Provider Notified JOEY CAMPBELL MD Notification Method Phone Information Communicated Nurse communication Details Communicated Updated on pt status, VE, contracton pattern, pitocin level Notification Outcome Orders not received Person Reporting Result(s) Isidro Tanner Rn Results Read Back Yes 12/11/2022 10:09 EST Cervix Dilation 0 cm Cervix Effacement 70 Station -1 Vaginal Exam Performed By JOHN Tanner 12/11/2022 10:00 EST Uterine Contraction Monitoring Method External toco Uterine Contraction Frequency Q 3 min Uterine Contraction Duration 70-80 sec Uterine Contraction Intensity, Ext Palp Mild Uterine Resting Tone, External Soft Uterine Activity Regular contractions Patient Position, OB Sitting Baby A FHR Baseline: 130 bpm FHR Baseline Variability: Moderate variability FHR Accelerations: Present FHR Deceleration: Absent FHR Monitoring Method: External US transducer Activity Status ADL Awake Standard Safety Safety level maintained, Precautions maintained oxytocin 20 munit/min unit(s) LR Premix Diluent LR Premix Diluent mL 12/11/2022 9:30 EST Temperature Temporal Artery 36.7 DegC Heart Rate Monitored 56 bpm LOW Respiratory Rate 18 br/min Systolic Blood Pressure Non-Invasive 134 mmHg Diastolic Blood Pressure Non-Invasive 82 mmHg Blood Pressure Method Automatic Blood Pressure Location Right arm Blood Pressure Cuff Size Large Primary Pain Intensity 0 Pain Associated Symptoms None Pain Scale Type 0-10 Pain scale Heart Rhythm Regular Oxygen Therapy Room air Oxygen Saturation 100 % Uterine Contraction Monitoring Method External toco Uterine Contraction Frequency Q 3 min Uterine Contraction Duration 60-70 sec Uterine Contraction Intensity, Ext Palp Mild Uterine Resting Tone, External Soft Uterine Activity Regular contractions Patient Position, OB Sitting Baby A FHR Baseline: 130 bpm FHR Baseline Variability: Moderate variability FHR Accelerations: Present FHR Deceleration: Absent FHR Monitoring Method: External US transducer Hand Left 12/10/2022 18 gauge Peripheral IV Activity: Assessed Peripheral IV Dressing Condition: Clean, Dry, Intact Peripheral IV Dressing Activity: Transparent dressing Peripheral IV Line Status/Patency: Continuous infusion Peripheral IV Site Condition: No complications Peripheral IV Equipment: Extension set, Stopcock, IV Pump, PRN Adaptor Activity Status ADL Awake Standard Safety Safety level maintained, Precautions maintained oxytocin 18 munit/min unit(s) LR Premix Diluent LR Premix Diluent mL 12/11/2022 9:00 EST Uterine Contraction Monitoring Method External toco Uterine Contraction Frequency Q 3 min Uterine Contraction Duration 60-70 sec Uterine Contraction Intensity, Ext Palp Mild Uterine Resting Tone, External Soft Uterine Activity Regular contractions Patient Position, OB Right tilt, Semi-Valente's Baby A FHR Baseline: 130 bpm FHR Baseline Variability: Moderate variability FHR Accelerations: Present FHR Deceleration: Absent FHR Monitoring Method: External US transducer Activity Status ADL Awake 12/11/2022 8:30 EST Temperature Temporal Artery 36.6 DegC Heart Rate Monitored 57 bpm LOW Respiratory Rate 18 br/min Systolic Blood Pressure Non-Invasive 116 mmHg Diastolic Blood Pressure Non-Invasive 70 mmHg Blood Pressure Method Automatic Blood Pressure Location Right arm Blood Pressure Cuff Size Large Primary Pain Intensity 0 Pain Associated Symptoms None Pain Scale Type 0-10 Pain scale Heart Rhythm Regular Oxygen Therapy Room air Oxygen Saturation 97 % Uterine Contraction Monitoring Method External toco Uterine Contraction Frequency Q 1-3 min Uterine Contraction Duration 60-8 sec Uterine Contraction Intensity, Ext Palp Mild Uterine Resting Tone, External Soft Uterine Activity Regular contractions Patient Position, OB Left tilt, Semi-Valente's Baby A FHR Baseline: 135 bpm FHR Baseline Variability: Moderate variability FHR Accelerations: Present FHR Deceleration: Absent FHR Monitoring Method: External US transducer Hand Left 12/10/2022 18 gauge Peripheral IV Activity: Assessed Peripheral IV Dressing Condition: Clean, Dry, Intact Peripheral IV Dressing Activity: Transparent dressing Peripheral IV Line Status/Patency: Continuous infusion Peripheral IV Site Condition: No complications Peripheral IV Equipment: Extension set, Stopcock, IV Pump, PRN Adaptor Activity Status ADL Awake Standard Safety Safety level maintained, Precautions maintained oxytocin 16 munit/min unit(s) LR Premix Diluent LR Premix Diluent mL 12/11/2022 8:00 EST Uterine Contraction Monitoring Method External toco Uterine Contraction Frequency Q 1-3 min Uterine Contraction Duration 60-80 sec Uterine Contraction Intensity, Ext Palp Mild Uterine Resting Tone, External Soft Uterine Activity Regular contractions Patient Position, OB Left tilt, Semi-Valente's Baby A FHR Baseline: 125 bpm FHR Baseline Variability: Moderate variability FHR Accelerations: Present FHR Deceleration: Absent FHR Monitoring Method: External US transducer Activity Status ADL Awake oxytocin 14 munit/min unit(s) LR Premix Diluent LR Premix Diluent mL 12/11/2022 7:36 EST Edu-Pain Management Verbalizes/Nonverbally indicates understanding Ed-Plan of Care Verbalizes/Nonverbally indicates understanding Ed-Safety, Fall Verbalizes/Nonverbally indicates understanding Individuals Taught Patient Learning Readiness Willing to learn Barriers to Learning None evident Teaching Method Explanation, Printed materials Preferred Written Language [place] Family/Caregiver Prefer Written Language [place] Preferred Spoken Language [place] Family/Caregiver Prefer Spoken Language [place] Ed- Monitoring Verbalizes/Nonverbally indicates understanding Ed-Contractions Verbalizes/Nonverbally indicates understanding Ed-LD Activity Verbalizes/Nonverbally indicates understanding Ed-LD Nutrition/Fluids Verbalizes/Nonverbally indicates understanding Ed-LD Comfort Measures Verbalizes/Nonverbally indicates understanding Ed-LD Safety Verbalizes/Nonverbally indicates understanding Edu-OB Booklet Verbalizes/Nonverbally indicates understanding 12/11/2022 7:35 EST O-Remains Free From Injury Progressing towards goal Edu-Pain Management Verbalizes/Nonverbally indicates understanding Ed-Safety Verbalizes/Nonverbally indicates understanding Ed-Discharge instructions Needs further teaching Ed-Complications of Labor/Delivery Verbalizes/Nonverbally indicates understanding Ed-Patient/Caregiver about Hand Hygiene Verbalizes/Nonverbally indicates understanding 12/11/2022 7:34 EST Able To Drink Order Detail Yes Able To Sign Consents Order Detail Yes Code Status Order Detail Full code IV Order Detail Yes Dialysis Schedule Order Detail N/A Has Diabetes Order Detail No Isolation Precautions Order Detail None Nurse Collect Order Detail 0 Oxygen Order Detail No Order Detail Yes Prior Valve Replacement Order Detail No Transport Mode Order Detail Wheelchair and Nurse Farmworker Rice Details Form Farmworker Rice Details Form 12/11/2022 7:30 EST Temperature Temporal Artery 36.7 DegC Heart Rate Monitored 53 bpm LOW Respiratory Rate 18 br/min Systolic Blood Pressure Non-Invasive 134 mmHg Diastolic Blood Pressure Non-Invasive 83 mmHg Blood Pressure Method Automatic Blood Pressure Location Right arm Blood Pressure Cuff Size Large Primary Pain Intensity 0 Pain Associated Symptoms None Pain Scale Type 0-10 Pain scale Heart Rhythm Regular Murmur Auscultated No Dorsalis Pedis Pulse, Left 2+ Normal Dorsalis Pedis Pulse, Right 2+ Normal Pedal edema Bilateral Edema Ratin+ moderate/6mm Leg edema Bilateral Edema Ratin+ moderate/6mm Respirations Unlabored Respiratory Pattern Regular Breath Sounds Auscultated Anterior and posterior All Lobes Breath Sounds Clear, Equal Oxygen Therapy Room air Oxygen Saturation 100 % Abdomen Description Soft Swallowing Disorder None Bowel Sounds All Quadrants Present Tolerating Oral Intake Yes Urinary Elimination Voiding, no difficulties Bladder Distention Absent Uterine Contraction Monitoring Method External toco Uterine Contraction Frequency Q 1-3 min Uterine Contraction Duration 60-90 sec Uterine Contraction Intensity, Ext Palp Mild Uterine Resting Tone, External Soft Uterine Activity Regular contractions Patient Position, OB Left tilt, Semi-Valente's Baby A FHR Baseline: 125 bpm FHR Baseline Variability: Moderate variability FHR Accelerations: Present FHR Deceleration: Absent FHR Interpretation Category: Category One FHR Monitoring Method: External US transducer Support Person Present Support Person Involvement Supportive/involved Patient feelings/concerns Discusses care, feelings, concerns Skin Temperature Warm Skin Description [place], Dry Skin Integrity Intact, Pressure points intact Sensory Perception Alfonso No impairment Moisture Alfonso Rarely moist Activity Alfonso Walks occasionally Mobility Alfonso No limitations Nutrition Alfonso Adequate Friction and Shear Alfonso No apparent problem Alfonso Score 21 Hospital Acquired Pressure Injury Risk None/minimal risk (score 19-23) Hand Left 12/10/2022 18 gauge Peripheral IV Activity: Assessed Peripheral IV Dressing Condition: Clean, Dry, Intact Peripheral IV Dressing Activity: Transparent dressing Peripheral IV Line Status/Patency: Continuous infusion Peripheral IV Site Condition: No complications Peripheral IV Equipment: Extension set, Stopcock, IV Pump, PRN Adaptor Neurological Symptoms Patient denies Level of Consciousness Alert Strength All Extremities Strong Tone All Extremities Normal [place] Screen Daily History of Fall in Last 3 Months [place] No Presence of Secondary Diagnosis [place] No Use of Ambulatory Aid [place] None, bedrest, wheelchair, nurse IV/PRN Adapter Fall Risk [place] Yes Gait Weak or Impaired Fall Risk [place] Normal, bedrest, immobile Mental Status Fall Risk [place] Oriented to own ability [place] Fall Risk Score 20 Violence Risk Confused No Violence Risk Irritable No Violence Risk Boisterous No Violence Risk Verbal Threats No Violence Risk Physical Threats No Violence Risk Attacking Objects No Violence Risk Predictor Score 0 Violence Risk Intervention None Violence Risk Current Interventions None Affect/Behavior Appropriate, Calm, Cooperative Appearance Clean Orientation Oriented x 4 Shopping Investigator Significant other Ambulation Repositions self Orientation Assessment Oriented x 4 Memory Recall Ability Current season, Location of own room, Staff names and faces Nurse Receiving Report Isidro Tanner Rn Date/Time Nurse Received Report 12/11/2022 7:30 Activity Status ADL Awake Activity Assistance Independent Assistive Device None Ambulation Patient Effort Good Hair Care Independent Oral Care Independent Kim Care Independent Standard Safety ID band on, Call device within reach, Bed in low position, Wheels locked, Upper/Half-Length side-rails up, Phone within reach, personal items within reach, Visitor at bedside, Safety level maintained, Non-Slip footwear, Precautions maintained Demonstrates Correct Call Light Use Yes RN Coordination of Care 7am-3pm oxytocin 12 munit/min unit(s) LR Premix Diluent LR Premix Diluent mL Adaptive Feeding Equipment None Appetite Good 12/11/2022 7:24 EST Monitoring Annotations Up to bathroom 12/11/2022 6:58 EST Uterine Contraction Monitoring Method External toco Uterine Contraction Frequency 1.5-2 Uterine Contraction Duration 40-70 Uterine Contraction Intensity, Ext Palp Mild Uterine Resting Tone, External Soft Uterine Activity Regular contractions Baby A FHR Baseline: 135 bpm FHR Baseline Variability: Moderate variability FHR Accelerations: Present FHR Deceleration: Absent FHR Interpretation Category: Category One FHR Monitoring Method: External US transducer 12/11/2022 6:30 EST Uterine Contraction Monitoring Method External toco Patient Position, OB Left tilt, Semi-Valente's Baby A FHR Baseline: 125 bpm FHR Baseline Variability: Moderate variability FHR Accelerations: Present FHR Deceleration: Absent FHR Interpretation Category: Category One FHR Monitoring Method: External US transducer 12/11/2022 6:02 EST Temperature Temporal Artery 36.7 DegC Heart Rate Monitored 78 bpm Systolic Blood Pressure Non-Invasive 115 mmHg Diastolic Blood Pressure Non-Invasive 63 mmHg Primary Pain Intensity 4 Pain Scale Type 0-10 Pain scale Uterine Contraction Monitoring Method External toco Uterine Contraction Frequency 1.5-2 Uterine Contraction Duration 40-60 Uterine Contraction Intensity, Ext Palp Mild Uterine Resting Tone, External Soft Uterine Activity Regular contractions Baby A FHR Baseline: 125 bpm FHR Baseline Variability: Moderate variability FHR Accelerations: Present FHR Deceleration: Absent FHR Interpretation Category: Category One FHR Monitoring Method: External US transducer Activity Status ADL Lights dimmed, Repositions self, Resting Standard Safety ID band on, Call device within reach, Bed in low position, Wheels locked, Upper/Half-Length side-rails up, Phone within reach, personal items within reach, Visitor at bedside, Safety level maintained Demonstrates Correct Call Light Use Yes RN Coordination of Care 3am-7am 12/11/2022 5:30 EST Uterine Contraction Monitoring Method External toco Baby A FHR Baseline: 125 bpm FHR Baseline Variability: Moderate variability FHR Accelerations: Present FHR Deceleration: Absent FHR Interpretation Category: Category One FHR Monitoring Method: External US transducer 12/11/2022 5:00 EST Temperature Temporal Artery 37 DegC Heart Rate Monitored 55 bpm LOW Respiratory Rate 18 br/min Systolic Blood Pressure Non-Invasive 125 mmHg Diastolic Blood Pressure Non-Invasive 71 mmHg Primary Pain Intensity 2 Pain Scale Type 0-10 Pain scale Oxygen Therapy Room air Uterine Contraction Monitoring Method External toco Uterine Contraction Frequency 1.5-3 Uterine Contraction Duration 20-60 Uterine Contraction Intensity, Ext Palp Mild Uterine Resting Tone, External Soft Uterine Activity Regular contractions Baby A FHR Baseline: 130 bpm FHR Baseline Variability: Moderate variability FHR Accelerations: Present FHR Deceleration: Absent FHR Interpretation Category: Category One FHR Monitoring Method: External US transducer oxytocin 10 munit/min unit(s) LR Premix Diluent LR Premix Diluent mL 12/11/2022 4:30 EST Uterine Contraction Monitoring Method External toco Baby A FHR Baseline: 125 bpm FHR Baseline Variability: Moderate variability FHR Accelerations: Present FHR Deceleration: Absent FHR Interpretation Category: Category One FHR Monitoring Method: External US transducer 12/11/2022 4:01 EST Primary Pain Intensity 2 Pain Scale Type 0-10 Pain scale Uterine Contraction Monitoring Method External toco Uterine Contraction Frequency 1-2 Uterine Contraction Duration 50-60 Uterine Contraction Intensity, Ext Palp Moderate Uterine Resting Tone, External Soft Uterine Activity Regular contractions Patient Position, OB Left lateral Baby A FHR Baseline: 125 bpm FHR Baseline Variability: Moderate variability FHR Accelerations: Present FHR Deceleration: Absent FHR Interpretation Category: Category One FHR Monitoring Method: External US transducer Hand Left 12/10/2022 18 gauge Peripheral IV Activity: Assessed Peripheral IV Dressing Condition: Clean, Dry, Intact Peripheral IV Dressing Activity: Transparent dressing Peripheral IV Line Status/Patency: Continuous infusion Peripheral IV Site Condition: No complications Peripheral IV Equipment: Extension set, Stopcock, IV Pump, PRN Adaptor Activity Status ADL Lights dimmed, Repositions self, Resting Standard Safety ID band on, Call device within reach, Bed in low position, Wheels locked, Upper/Half-Length side-rails up, Phone within reach, personal items within reach, Visitor at bedside, Safety level maintained Demonstrates Correct Call Light Use Yes RN Coordination of Care 3am-7am 12/11/2022 3:59 EST Temperature Temporal Artery 36.6 DegC Heart Rate Monitored 58 bpm LOW Systolic Blood Pressure Non-Invasive 106 mmHg Diastolic Blood Pressure Non-Invasive 61 mmHg 12/11/2022 3:30 EST Uterine Contraction Monitoring Method External toco Baby A FHR Baseline: 130 bpm FHR Baseline Variability: Moderate variability FHR Accelerations: Present FHR Deceleration: Absent FHR Interpretation Category: Category One FHR Monitoring Method: External US transducer 12/11/2022 3:15 EST Temperature Temporal Artery 37 DegC Heart Rate Monitored 57 bpm LOW Systolic Blood Pressure Non-Invasive 125 mmHg Diastolic Blood Pressure Non-Invasive 67 mmHg 12/11/2022 3:00 EST Uterine Contraction Monitoring Method External toco Uterine Contraction Frequency 1.5-2 Uterine Contraction Duration 50-60 Uterine Contraction Intensity, Ext Palp Moderate Uterine Resting Tone, External Soft Uterine Activity Regular contractions Baby A FHR Baseline: 135 bpm FHR Baseline Variability: Moderate variability FHR Accelerations: Present FHR Deceleration: Absent FHR Interpretation Category: Category One FHR Monitoring Method: External US transducer 12/11/2022 2:46 EST Lactated Ringers Injection Begin Bag 1,000 mL mL 12/11/2022 2:30 EST Uterine Contraction Monitoring Method External toco Baby A FHR Baseline: 135 bpm FHR Baseline Variability: Moderate variability FHR Accelerations: Present FHR Deceleration: Absent FHR Interpretation Category: Category One FHR Monitoring Method: External US transducer 12/11/2022 2:05 EST Temperature Temporal Artery 36.9 DegC Heart Rate Monitored 50 bpm LOW Respiratory Rate 18 br/min Systolic Blood Pressure Non-Invasive 125 mmHg Diastolic Blood Pressure Non-Invasive 68 mmHg Primary Pain Intensity 2 Pain Scale Type 0-10 Pain scale Oxygen Therapy Room air Oxygen Saturation 99 % Uterine Contraction Monitoring Method External toco Uterine Contraction Frequency 1.5-2 Uterine Contraction Duration 40-60 Uterine Contraction Intensity, Ext Palp Moderate Uterine Resting Tone, External Soft Uterine Activity Regular contractions Patient Position, OB Left tilt Baby A FHR Baseline: 135 bpm FHR Baseline Variability: Moderate variability FHR Accelerations: Present FHR Deceleration: Absent FHR Interpretation Category: Category One FHR Monitoring Method: External US transducer Activity Status ADL Lights dimmed, Repositions self, Resting Standard Safety ID band on, Call device within reach, Bed in low position, Wheels locked, Upper/Half-Length side-rails up, Phone within reach, personal items within reach, Visitor at bedside, Safety level maintained Demonstrates Correct Call Light Use Yes RN Coordination of Care 11pm-3am oxytocin 8 munit/min unit(s) LR Premix Diluent LR Premix Diluent mL 12/11/2022 1:30 EST Uterine Contraction Monitoring Method External toco Baby A FHR Baseline: 135 bpm FHR Baseline Variability: Moderate variability FHR Accelerations: Present FHR Deceleration: Absent FHR Interpretation Category: Category One FHR Monitoring Method: External US transducer 12/11/2022 1:00 EST Uterine Contraction Monitoring Method External toco Uterine Resting Tone, External Soft Uterine Activity Uterine irritability Baby A FHR Baseline: 135 bpm FHR Baseline Variability: Moderate variability FHR Accelerations: Present FHR Deceleration: Absent FHR Interpretation Category: Category One FHR Monitoring Method: External US transducer 12/11/2022 0:30 EST Uterine Contraction Monitoring Method External toco Baby A FHR Baseline: 130 bpm FHR Baseline Variability: Moderate variability FHR Accelerations: Present FHR Deceleration: Absent FHR Interpretation Category: Category One FHR Monitoring Method: External US transducer 12/11/2022 0:12 EST Individuals Taught Patient Learning Readiness Willing to learn Barriers to Learning None evident Teaching Method Explanation Preferred Spoken Language [place] Ed-LD Activity Verbalizes/Nonverbally indicates understanding, Demonstrates Ed-LD Nutrition/Fluids Verbalizes/Nonverbally indicates understanding, Demonstrates Ed-LD Comfort Measures Verbalizes/Nonverbally indicates understanding Ed-Anesthesia Plans Verbalizes/Nonverbally indicates understanding Ed-Induction Process Verbalizes/Nonverbally indicates understanding 12/11/2022 0:04 EST Temperature Temporal Artery 36.6 DegC Heart Rate Monitored 56 bpm LOW Systolic Blood Pressure Non-Invasive 120 mmHg Diastolic Blood Pressure Non-Invasive 75 mmHg Uterine Contraction Monitoring Method External toco Uterine Contraction Frequency 1.5-3 Uterine Contraction Duration 50-70 Uterine Contraction Intensity, Ext Palp Mild Uterine Resting Tone, External Soft Uterine Activity Regular contractions Baby A FHR Baseline: 135 bpm FHR Baseline Variability: Moderate variability FHR Accelerations: Present FHR Deceleration: Absent FHR Interpretation Category: Category One FHR Monitoring Method: External US transducer Standard Safety ID band on, Call device within reach, Bed in low position, Wheels locked, Upper/Half-Length side-rails up, Phone within reach, personal items within reach, Visitor at bedside, Safety level maintained Demonstrates Correct Call Light Use Yes RN Coordination of Care 11pm-3am oxytocin 16 munit/min unit(s) LR Premix Diluent LR Premix Diluent mL 12/10/2022 23:33 EST Uterine Contraction Monitoring Method External toco Baby A FHR Baseline: 135 bpm FHR Baseline Variability: Moderate variability FHR Accelerations: Present FHR Deceleration: Absent FHR Interpretation Category: Category One FHR Monitoring Method: External US transducer oxytocin 18 munit/min unit(s) LR Premix Diluent LR Premix Diluent mL 12/10/2022 23:01 EST Primary Pain Location Low back Primary Pain Laterality Bilateral Primary Pain Intensity 2 Primary Pain Quality Aching, Dull Primary Pain Nonverbal Response Appears restful Pain Scale Type 0-10 Pain scale Uterine Contraction Monitoring Method External toco Uterine Contraction Frequency 1-3 Uterine Contraction Duration 50-60 Uterine Contraction Intensity, Ext Palp Mild Uterine Resting Tone, External Soft Uterine Activity Regular contractions Baby A FHR Baseline: 135 bpm FHR Baseline Variability: Moderate variability FHR Accelerations: Present FHR Deceleration: Absent FHR Interpretation Category: Category One FHR Monitoring Method: External US transducer Ambulation Ambulation in [place] Assistive Device None Ambulation Patient Effort Good 12/10/2022 23:00 EST oxytocin 16 munit/min unit(s) LR Premix Diluent LR Premix Diluent mL 12/10/2022 22:59 EST Temperature Temporal Artery 36.6 DegC Heart Rate Monitored 111 bpm HI Respiratory Rate 18 br/min Systolic Blood Pressure Non-Invasive 125 mmHg Diastolic Blood Pressure Non-Invasive 83 mmHg Blood Pressure Method Automatic Blood Pressure Location Right arm Blood Pressure Cuff Size Large Oxygen Therapy Room air 12/10/2022 22:39 EST Notify date/time 12/10/2022 22:39 Provider Notified JOEY CAMPBELL MD Notification Method Phone Information Communicated Nurse communication Details Communicated Patient at 14 mu/m of pitocin. patient rates her pain at a dull ache in her lower back. contractons are irregular, sometimes look like irritibility, other times 1-5 minutes. belly palpates mild to moderate with ctx. frequent positon changes. Notification Outcome Orders received Person Reporting Result(s) Ward RNC Results Read Back Yes 12/10/2022 22:32 EST Primary Pain Location Low back Primary Pain Laterality Bilateral Primary Pain Intensity 2 Primary Pain Quality Aching, Dull Primary Pain Non-Pharma Intervention Lights dimmed, Repositioning Primary Pain Nonverbal Response Appears restful Pain Scale Type 0-10 Pain scale Uterine Contraction Monitoring Method External toco Uterine Resting Tone, External Soft Uterine Activity Irregular contractions Patient Position, OB Hands and knees Baby A FHR Baseline: 135 bpm FHR Baseline Variability: Moderate variability FHR Accelerations: Present FHR Deceleration: Absent FHR Interpretation Category: Category One FHR Monitoring Method: External US transducer oxytocin 14 munit/min unit(s) LR Premix Diluent LR Premix Diluent mL 12/10/2022 22:04 EST Temperature Temporal Artery 37 DegC Heart Rate Monitored 76 bpm Respiratory Rate 18 br/min Systolic Blood Pressure Non-Invasive 121 mmHg Diastolic Blood Pressure Non-Invasive 84 mmHg Blood Pressure Method Automatic Blood Pressure Location Right arm Blood Pressure Cuff Size Large Primary Pain Location Low back Primary Pain Laterality Bilateral Primary Pain Intensity 2 Primary Pain Quality Aching, Dull Primary Pain Non-Pharma Intervention Lights dimmed, Repositioning Primary Pain Nonverbal Response Appears restful Pain Scale Type 0-10 Pain scale Oxygen Therapy Room air Oxygen Saturation 100 % Uterine Contraction Monitoring Method External toco Uterine Resting Tone, External Soft Uterine Activity Uterine irritability Patient Position, OB Sitting Baby A FHR Baseline: 130 bpm FHR Baseline Variability: Moderate variability FHR Accelerations: Present FHR Deceleration: Absent FHR Interpretation Category: Category One FHR Monitoring Method: External US transducer Ambulation Ambulation in Room Activity Status ADL Ambulating in room, Awake, Lights dimmed Assistive Device None Ambulation Patient Effort Good Standard Safety ID band on, Call device within reach, Bed in low position, Wheels locked, Upper/Half-Length side-rails up, Phone within reach, personal items within reach, Visitor at bedside, Safety level maintained Demonstrates Correct Call Light Use Yes RN Coordination of Care 7pm-11pm oxytocin 12 munit/min unit(s) LR Premix Diluent LR Premix Diluent mL 12/10/2022 21:31 EST Primary Pain Location Low back Primary Pain Laterality Bilateral Primary Pain Intensity 2 Primary Pain Time Pattern acute, intermittent Primary Pain Onset Gradual Primary Pain Quality Aching, Dull Primary Pain Radiation Characteristics bilateral sides Primary Pain Non-Pharma Intervention Lights dimmed, Conversation, Repositioning, Walking, Birthing ball Primary Pain Nonverbal Response Appears restful Pain Scale Type 0-10 Pain scale Uterine Contraction Monitoring Method External toco Patient Position, OB Birthing ball Baby A FHR Baseline: 135 bpm FHR Baseline Variability: Moderate variability FHR Accelerations: Present FHR Deceleration: Absent FHR Interpretation Category: Category One FHR Monitoring Method: External US transducer oxytocin 10 munit/min unit(s) LR Premix Diluent LR Premix Diluent mL 12/10/2022 21:03 EST Temperature Temporal Artery 37.3 DegC Heart Rate Monitored 55 bpm LOW Respiratory Rate 18 br/min Systolic Blood Pressure Non-Invasive 138 mmHg Diastolic Blood Pressure Non-Invasive 74 mmHg Blood Pressure Method Automatic Blood Pressure Location Right arm Blood Pressure Cuff Size Large Primary Pain Intensity 0 Primary Pain Nonverbal Response Appears restful Pain Scale Type 0-10 Pain scale Uterine Contraction Monitoring Method External toco Uterine Resting Tone, External Soft Uterine Activity Uterine irritability Patient Position, OB Birthing ball Baby A FHR Baseline: 135 bpm FHR Baseline Variability: Moderate variability FHR Accelerations: Present FHR Deceleration: Absent FHR Interpretation Category: Category One FHR Monitoring Method: External US transducer Activity Status ADL Awake, Lights dimmed Standard Safety ID band on, Call device within reach, Bed in low position, Wheels locked, Upper/Half-Length side-rails up, Phone within reach, personal items within reach, Visitor at bedside, Safety level maintained Demonstrates Correct Call Light Use Yes RN Coordination of Care 7pm-11pm oxytocin 8 munit/min unit(s) LR Premix Diluent LR Premix Diluent mL 12/10/2022 20:37 EST Patient Position, OB Birthing ball 12/10/2022 20:32 EST Ambulation Ambulation in Room Activity Status ADL Awake, Lights dimmed, Up to bathroom Ambulation Patient Effort Good 12/10/2022 20:30 EST Primary Pain Intensity 0 Primary Pain Nonverbal Response Appears restful Pain Scale Type 0-10 Pain scale Uterine Contraction Monitoring Method External toco Baby A FHR Baseline: 140 bpm FHR Baseline Variability: Moderate variability FHR Accelerations: Present FHR Deceleration: Absent FHR Interpretation Category: Category One FHR Monitoring Method: External US transducer oxytocin 6 munit/min unit(s) LR Premix Diluent LR Premix Diluent mL 12/10/2022 20:14 EST Pedal edema Bilateral Edema Ratin+ moderate/6mm Leg edema Bilateral Edema Ratin+ moderate/6mm 12/10/2022 20:02 EST Temperature Temporal Artery 37.2 DegC Heart Rate Monitored 76 bpm Respiratory Rate 18 br/min Systolic Blood Pressure Non-Invasive 121 mmHg Diastolic Blood Pressure Non-Invasive 83 mmHg Blood Pressure Method Automatic Blood Pressure Location Right arm Blood Pressure Cuff Size Large Primary Pain Intensity 0 Primary Pain Nonverbal Response Appears restful Pain Scale Type 0-10 Pain scale Oxygen Therapy Room air Uterine Contraction Monitoring Method External toco Uterine Contraction Frequency 1.5-5 Uterine Contraction Duration 40-70 Uterine Contraction Intensity, Ext Palp Mild Uterine Resting Tone, External Soft Uterine Activity Irregular contractions Patient Position, OB Semi-Valente's Baby A FHR Baseline: 140 bpm FHR Baseline Variability: Moderate variability FHR Accelerations: Present FHR Deceleration: Absent FHR Interpretation Category: Category One FHR Monitoring Method: External US transducer Ambulation Repositions self Activity Status ADL Awake, Lights dimmed, Repositions self, Resting Assistive Device None Standard Safety ID band on, Call device within reach, Bed in low position, Wheels locked, Upper/Half-Length side-rails up, Phone within reach, personal items within reach, Visitor at bedside, Safety level maintained Demonstrates Correct Call Light Use Yes RN Coordination of Care 7pm-11pm oxytocin 4 munit/min unit(s) LR Premix Diluent LR Premix Diluent mL 12/10/2022 19:33 EST Primary Pain Intensity 0 Primary Pain Nonverbal Response Appears restful Pain Scale Type 0-10 Pain scale Uterine Contraction Monitoring Method External toco Uterine Resting Tone, External Soft Uterine Activity Irregular contractions Patient Position, OB Semi-Valente's Baby A FHR Baseline: 145 bpm FHR Baseline Variability: Moderate variability FHR Accelerations: Present FHR Deceleration: Absent FHR Interpretation Category: Category One FHR Monitoring Method: External US transducer Activity Status ADL Lights dimmed, Resting oxytocin Begin Bag 2 mL unit(s) Lactated Ringers Injection Begin Bag 1,000 mL mL LR Premix Diluent Begin Bag 1,000 mL mL 12/10/2022 19:15 EST Nurse Receiving Report Tyler Hawkins RN & Jacquie Candelaria RN Date/Time Nurse Received Report 12/10/2022 19:15 12/10/2022 19:06 EST WBC 9.4 10^3/mcL RBC 3.90 10^6/mcL LOW Hgb 12.2 G/dL Hct 35.4 % LOW MCV 90.7 fL MCH 31.4 pg HI MCHC 34.6 G/dL RDW 14.6 % HI Platelet 199 10^3/mcL MPV 10.5 fL HI Neutrophil % 75.9 % Lymphocyte % 15.2 % Monocyte % 8.0 % Eosinophil % 0.5 % Basophil % 0.4 % Neutrophil, Absolute 7.1 10^3/mcL HI Lymphocyte, Absolute 1.4 10^3/mcL Monocyte, Absolute 0.8 10^3/mcL Eosinophil, Absolute 0.0 10^3/mcL Basophil, Absolute 0.0 10^3/mcL ABO/Rh Interp A NEG Antibody Screen Gel Negative ABSC 12/10/2022 19:04 EST Hand Left 12/10/2022 18 gauge Peripheral IV Activity: Insert new site Peripheral IV Dressing Condition: Clean, Dry, Intact Peripheral IV Dressing Activity: Applied, Transparent dressing Peripheral IV Line Status/Patency: Flushes easily, 10ml normal saline flush, Good blood return Peripheral IV Line Care: Secured with tape Peripheral IV Site Condition: No complications Peripheral IV Equipment: PRN Adaptor Peripheral IV Number of Attempts: 1 12/10/2022 19:00 EST Uterine Contraction Monitoring Method External toco Uterine Contraction Frequency Q 2-8 min Uterine Contraction Duration 50-70 sec Uterine Contraction Intensity, Ext Palp Moderate Uterine Resting Tone, External Soft Uterine Activity Irregular contractions Patient Position, OB Left tilt, Semi-Valente's Baby A FHR Baseline: 135 bpm FHR Baseline Variability: Moderate variability FHR Accelerations: Present FHR Deceleration: Absent FHR Monitoring Method: External US transducer Standard Safety Safety level maintained, Precautions maintained 12/10/2022 18:48 EST [place] History and Physical History and Physical 12/10/2022 18:30 EST Uterine Contraction Monitoring Method External toco Uterine Contraction Frequency Q 2-8 min Uterine Contraction Duration 60-80 sec Uterine Contraction Intensity, Ext Palp Moderate Uterine Resting Tone, External Soft Uterine Activity Irregular contractions Patient Position, OB Left tilt, Semi-Valente's Baby A FHR Baseline: 135 bpm FHR Baseline Variability: Moderate variability FHR Accelerations: Present FHR Deceleration: Absent FHR Monitoring Method: External US transducer Standard Safety Safety level maintained, Precautions maintained 12/10/2022 18:16 EST ROM, Date/Time 12/10/2022 9:30 OB Screen /Para Para 0 (0) OB Screen Gestational Age > 37 weeks (0) OB Screen Cervical Dilatation Closed (0) OB Screen Cervical Effacement 50-80% (1) OB Screen Station -1 (1) OB Screen Cervical Position Anterior (1) OB Screen Presentation Vertex Presentation (0) OB Screen Contraction Pattern Irregular > 5 minutes apart (0) OB Screen Contraction Strength Mild to Palpation (0) OB Screen Membranes Bulging or ruptured (2) OB Screen FHR Variability Moderate (0) OB Screen Duration of Fastest Labor Not applicable OB Screen Travel Time 0-30 minutes (0) OB Screen Previous Uterine Scar None (0) OB Screen Pain With Contractions (1) OB Screen Pain Unrelated to Contractions None OB Screen Total Score 6 Presence of decelerations No Vaginal bleeding No Prolapsed Cord or Part No Persistent Maternal BP>140/90 No Persistent Headache No Visual Disturbances No Epigastric Pain No Proteinuria > 2+ No with dilation of 5cm or > No Non-reassuring FHR pattern No FHR Baseline < 110 or > 160 bpm No Decreased Movement/NR NST No No Care in Active Labor No Purulent Vaginal Discharge No Maternal Temp of > 38 degrees Celsius No Membranes Intact No Trauma OB Screen No OB Visit Outcome Admitted Chief Complaint SROM [place] OB Screen Note OB Screening [place] OB Screening Form [place] OB Screening Form [place] 12/10/2022 18:14 EST Reg STK [place] No Mech VTE Prophylaxis vB Patient is ambulatory Reg VTE Reason Not Received vC Patient is ambulatory 12/10/2022 18:11 EST Notify date/time 12/10/2022 18:11 Provider Notified JOEY CAMPBELL MD Notification Method Phone Information Communicated Patient arrival, Nurse communication Details Communicated Notified of admission, SROM, + nitrazine, FHT tracing, contraction pattern, VE. Notification Outcome Orders received Person Reporting Result(s) Isidro Tanner Rn Results Read Back Yes 12/10/2022 18:00 EST Temperature Temporal Artery 36.8 DegC Heart Rate Monitored 65 bpm Respiratory Rate 18 br/min Systolic Blood Pressure Non-Invasive 138 mmHg Diastolic Blood Pressure Non-Invasive 83 mmHg Blood Pressure Method Automatic Blood Pressure Location Left arm Blood Pressure Cuff Size Large Primary Pain Location Abdomen Abdominal Pain Location LLQ, RLQ Primary Pain Laterality Bilateral Primary Pain Intensity 2 Primary Pain Time Pattern intermittent Primary Pain Onset Gradual Primary Pain Duration Intermittent Primary Pain Quality Cramping Primary Pain Non-Pharma Intervention Repositioning Primary Pain Aggravating Factors None Primary Pain Alleviating Factors Repositioning Primary Pain Nonverbal Response Appears restful Pain Scale Type 0-10 Pain scale Heart Rhythm Regular Oxygen Therapy Room air Oxygen Saturation 99 % Tolerating Oral Intake Yes Cervix Dilation 0 cm Cervix Effacement 70 Station -1 Vaginal Exam Performed By JOHN Tanner Uterine Contraction Monitoring Method External toco Uterine Contraction Frequency Q 3-8min Uterine Contraction Duration 90 sec Uterine Contraction Intensity, Ext Palp Moderate Uterine Resting Tone, External Soft Uterine Activity Irregular contractions Patient Position, OB Left tilt, Semi-Valente's Baby A FHR Baseline: 135 bpm FHR Baseline Variability: Moderate variability FHR Accelerations: Present FHR Deceleration: Absent FHR Interpretation Category: Category One FHR Monitoring Method: External US transducer Labor Onset, Date, Time: 12/10/2022 9:30 Neurological Symptoms Patient denies Strength All Extremities Strong Tone All Extremities Normal Ambulation Repositions self Activity Status ADL Awake Activity Assistance Independent Assistive Device None Standard Safety Safety level maintained, Precautions maintained Demonstrates Correct Call Light Use Yes Adaptive Feeding Equipment None Appetite Excellent 12/10/2022 17:59 EST Baby A Membrane Status: S.R.O.M. ROM Date, Time: 12/10/2022 9:30 Nitrazine, OB: Positive Amniotic Fluid Amount: Small amount Amniotic Fluid Color/Descrip: Clear Amniotic Fluid Odor: None 12/10/2022 17:51 EST Heart Rate Monitored 69 bpm Respiratory Rate 18 br/min Systolic Blood Pressure Non-Invasive 133 mmHg Diastolic Blood Pressure Non-Invasive 82 mmHg Blood Pressure Method Automatic Blood Pressure Location Left arm Blood Pressure Cuff Size Large Heart Rhythm Regular Oxygen Therapy Room air Oxygen Saturation 98 % 12/10/2022 17:42 EST Designated Person #1 We May Share JOEL Nielsen [phone] Designated Person #1 Relationship Spouse Privacy Restrictions Requested None Height 160 cm Admission Weight 103.63 kg [place] Body Weight 52.38 kg BSA Admission 2.05 Body Mass Index 40.48 kg/m2 Expected Outcome Live Patient Type Inpatient Thrombosis Risk Factors (1) Obesity (greater than 20% over ideal body weight or BMI Thrombosis Risk Factor Add'l Assessment NA Thrombosis Risk Score 1 Status Yes Risk Factors, Antepartum Current Preg None Movement Present Blood Type, External A negative Rubella, External Immune Rubella Date Performed 05/18/2022 HIV Antibodies, External Negative HIV Date Performed 05/18/2022 Group B Strep, External Negative Group B Strep Date Performed 11/10/2022 Hepatitis B, External Negative Hepatitis B Date Performed 05/18/2022 RPR, External Nonreactive RPR Date Performed 05/18/2022 Vaginal bleeding No PPH Risk Low risk for hemorrhage PPH Low Risk Factors [place] , Less than 4 previous deliveries, Unscarred uterus, Absence of hemorrhage history Feeding Breast milk Anesthesia/Pain Medication During Labor Epidural/Spinal Circumcision Yes Baby For Adoption No Surrogate No Tubal Sterilization Planned No Discharge Physician Ganesh Feng [employer] [facility] Participant No Safe Sleep Environment for Baby Yes Safe Sleep Environment Outside Home Yes Maternal Transport No Thoughts of Harming Others - History No Thoughts of Suicide - History No Coping Effective Emotional Abuse History Denies Physical Abuse History Denies Sexual Abuse Denies Hospital Clergy to Visit Patient Verbalizes No Spiritual Needs Financial Concerns Re: Hospital/Disch No Living Situation Home independently Current Home Treatments None Professional Skilled Services None Special Services and Community Resources None Advanced Directives No - refuses information Infectious Disease Symptoms Patient states no symptoms Infectious Disease Recent Exposure No Alcohol and Drug Use No Employee of Institutional Living No Health Care Employee No History of Exposure to TB No History of Positive Chest X-Ray for TB No History of Positive TB Skin Test No Homeless No Known Immunosuppression No Recent Immigrant No Resident of Institutional Living No Bloody Sputum No Fatigue No Fever No Loss of Appetite No Night Sweats No Persistent Cough > 3 Weeks No Weight Loss No Safety Brochure Information Reviewed Yes Isabela Miller Video Viewed No Teaching Evaluation Verbalizes/Nonverbally indicates understanding Preferred Written Language Central African Preferred Spoken Language Central African Chief Complaint SROM Mode of Arrival Ambulatory Accompanied by Spouse Information Given by Patient Patient's Current Physicians Dr Luis Emergency Contact Number Anival Nielsen [phone] Belongings At Bedside Jacket, Pants, Shirt, Shoes, Undergarments Personal Home Medications Received No home medications were brought in Belongings Sent Home None Belongings Sent To Security None Discharge To, Anticipated Home independently Other Anticipated Needs After Discharge No Anticoagulants Taken In Past 6 Wks. No Prev Test Positive/Diagnosis w/COVID-19 No Current Quarantine/Isolated any Illness No Any Contact with Sick Animals/Birds No Traveled Anywhere in Last 30 Days No Influenza Vaccine Need No prior receipt of vaccine Influenza Risk Factors age 6 months and older Influenza Vaccine Contraindications None Forego Influenza Vaccination Patient/Caregiver refused vaccine No Able To Drink Order Detail Yes Able To Sign Consents Order Detail Yes Code Status Order Detail Full code IV Order Detail No Dialysis Schedule Order Detail N/A Has Diabetes Order Detail No Isolation Precautions Order Detail None Nurse Collect Order Detail 0 Oxygen Order Detail No Order Detail Yes Prior Valve Replacement Order Detail No Transport Mode Order Detail Wheelchair and Nurse Anesthesia/Transfusions Prior anesthesia Admission Note-Nursing Patient History OB (Modified) 12/10/2022 17:33 EST Ed-Safety, Fall Verbalizes/Nonverbally indicates understanding Individuals Taught Patient Learning Readiness Willing to learn Barriers to Learning None evident Teaching Method Explanation Preferred Written Language Central African Preferred Spoken Language Central African Ed- Monitoring Verbalizes/Nonverbally indicates understanding Ed-Contractions Verbalizes/Nonverbally indicates understanding Ed-LD Safety Verbalizes/Nonverbally indicates understanding 12/10/2022 17:32 EST Uterine Contraction Monitoring Method External toco Uterine Contraction Frequency Irregular per pt Uterine Contraction Duration 60 sec Uterine Contraction Intensity, Ext Palp Moderate Uterine Resting Tone, External Soft Uterine Activity Irregular contractions Patient Position, OB Left tilt, Semi-Valente's Baby A FHR Monitoring Method: monitoring explained, External US transducer Heart Tone: 130 12/10/2022 17:30 EST Monitoring Annotations To bed. EFM applied. Left tilt 12/10/2022 17:30 EST Temperature Temporal Artery 36.6 DegC Heart Rate Monitored 59 bpm LOW Respiratory Rate 18 br/min Systolic Blood Pressure Non-Invasive 145 mmHg HI Diastolic Blood Pressure Non-Invasive 75 mmHg Blood Pressure Method Automatic Blood Pressure Location Left arm Blood Pressure Cuff Size Large Primary Pain Location Abdomen Abdominal Pain Location LLQ, RLQ Primary Pain Laterality Bilateral Primary Pain Intensity 2 Primary Pain Time Pattern intermittent Primary Pain Onset Gradual Primary Pain Duration Intermittent Primary Pain Quality Cramping Primary Pain Non-Pharma Intervention Repositioning Primary Pain Aggravating Factors None Primary Pain Alleviating Factors Repositioning Primary Pain Nonverbal Response Appears restful Pain Associated Symptoms None Pain Scale Type 0-10 Pain scale Heart Rhythm Regular Murmur Auscultated No Dorsalis Pedis Pulse, Left 2+ Normal Dorsalis Pedis Pulse, Right 2+ Normal Pedal edema Bilateral Edema Ratin+ moderate/6mm Respirations Unlabored Respiratory Pattern Regular Breath Sounds Auscultated Anterior and posterior All Lobes Breath Sounds Clear, Equal Cough None Oxygen Therapy Room air Oxygen Saturation 100 % Abdomen Description Soft Bowel Movement Last Date 12/10/2022 Swallowing Disorder None Bowel Sounds All Quadrants Present Tolerating Oral Intake Yes Urinary Elimination Voiding, no difficulties Bladder Distention Absent Skin Temperature Warm Skin Description [place], Dry Skin Integrity Intact, Pressure points intact Sensory Perception Alfonso No impairment Moisture Alfonso Rarely moist Activity Alfonso Walks frequently Mobility Alfonso No limitations Nutrition Alfonso Excellent Friction and Shear Alfonso No apparent problem Alfonso Score 23 Hospital Acquired Pressure Injury Risk None/minimal risk (score 19-23) Neurological Symptoms Patient denies Level of Consciousness Alert Strength All Extremities Strong Tone All Extremities Normal Coelho Screen Daily History of Fall in Last 3 Months Coelho No Presence of Secondary Diagnosis Coelho No Use of Ambulatory Aid Co[place] None, bedrest, wheelchair, nurse IV/PRN Adapter Fall Risk Coelho No Gait Weak or Impaired Fall Risk [place] Normal, bedrest, immobile Mental Status Fall Risk Co[place] Oriented to own ability Coelho Fall Risk Score 0 Violence Risk Confused No Violence Risk Irritable No Violence Risk Boisterous No Violence Risk Verbal Threats No Violence Risk Physical Threats No Violence Risk Attacking Objects No Violence Risk Predictor Score 0 Violence Risk Intervention None Violence Risk Current Interventions None Affect/Behavior Appropriate, Calm, Cooperative Appearance Clean Orientation Oriented x 4 Shopping Investigator Significant other Ambulation Repositions self Orientation Assessment Oriented x 4 Memory Recall Ability Current season, Location of own room, Staff names and faces Activity Status ADL Awake Hair Care Independent Oral Care Independent Kim Care Independent Standard Safety ID band on, Allergy Band on, Call device within reach, Bed in low position, Wheels locked, Upper/Half-Length side-rails up, Phone within reach, personal items within reach, Visitor atbedside, Safety level maintained, Non-Slip footwear, Precautions maintained Demonstrates Correct Call Light Use Yes RN Coordination of Care Other: [id number] Adaptive Feeding Equipment None Appetite Excellent 12/10/2022 17:22 EST Monitoring Annotations 27 year old EDC 12/07/2022 admitted to room 216 with complaints of SROM at 0930 12/10/22. To bathroom. Changed into gown. . Assessment and Plan [place] [employer] (ASA) physical status classification: Class II, E. Anesthetic Preoperative Plan Anesthetic technique: Spinal. Postoperative pain management: duramorph. Informed consent: signed by patient. Digitally Signed by URI STONE on 12/11/2022 09:04 PM [facility] Evaluation + Plan note Future Appointments Appointment Date:11/02/2021 09:40:00 AM Scheduled Provider:SERGO FENG APRN, CNP Location:[facility] Appointment Type:PC OV Appointment Date:11/15/2021 04:30:00 PM Scheduled Provider: Location:[facility] Appointment Type:US Pelvis Non-OB Complete Appointment Date:11/18/2021 08:20:00 AM Scheduled Provider:SERGO FENG APRN, CNP Location:[facility] Appointment Type:PC OV Future Scheduled Tests Radiology* US Pelvis Non-OB Complete 11/15/21 * XR Abdomen AP 05/11/21 [facility] Evaluation + Plan note Future Appointments Appointment Date:11/15/2021 04:30:00 PM Scheduled Provider: Location:[facility] Appointment Type:US Pelvis Non-OB Complete Appointment Date:11/18/2021 08:20:00 AM Scheduled Provider:SERGO FENG APRN, CNP Location:[facility] Appointment Type:PC OV Future Scheduled Tests Laboratory* Pathology Fire Prevention Forester Request 11/02/21 * hCG, quantitative (AH) 11/02/21 Radiology* US Pelvis Non-OB Complete 11/15/21 * US Pelvis Non-OB Complete 11/02/21 * XR Abdomen AP 05/11/21 [facility] Evaluation + Plan note Future Appointments Appointment Date:11/15/2021 04:30:00 PM Scheduled Provider: Location:[facility] Appointment Type:US Pelvis Non-OB Complete Appointment Date:11/18/2021 08:20:00 AM Scheduled Provider:SERGO FENG BANQUET KITCHEN SUPERVISOR - FIELD LABORER Location:[facility] Appointment Type:PC OV Future Scheduled Tests Laboratory* hCG, quantitative (AH) 11/02/21 Radiology* US Pelvis Non-OB Complete 11/15/21 * US Pelvis Non-OB Complete 11/02/21 * XR Abdomen AP 05/11/21 [facility] Evaluation + Plan note Future Appointments Appointment Date:11/18/2021 08:20:00 AM Scheduled Provider:SERGO FENG BANQUET KITCHEN SUPERVISOR - FIELD LABORER Location:[facility] Appointment Type:PC OV Future Scheduled Tests Laboratory* hCG, quantitative (AH) 11/02/21 Radiology* US Pelvis Non-OB Complete 11/02/21 * XR Abdomen AP 05/11/21 [facility] Evaluation + Plan note Future Appointments Appointment Date:04/15/2022 08:20:00 AM Scheduled Provider:SERGO FENG BANQUET KITCHEN SUPERVISOR - FIELD LABORER Location:[facility] Appointment Type:PC OV Diagnostic Tests Pending * Testosterone, Free and Total 03/23/22 * Cortisol, Free Serum 03/23/22 * Aldosterone 03/23/22 Future Scheduled Tests Laboratory* hCG, quantitative (AH) 11/02/21 Radiology* US Pelvis Non-OB Complete 11/02/21 * XR Abdomen AP 05/11/21 [facility] Evaluation + Plan note Future Appointments Appointment Date:05/31/2022 09:00:00 AM Scheduled Provider:HEMAL LUIS MD Location:[facility] Appointment Type: OV Diagnostic Tests Pending * Panel (AO) 05/18/22 * Urine Culture 05/18/22 Future Scheduled Tests Laboratory* hCG, quantitative (AH) 11/02/21 Radiology* US Pelvis Non-OB Complete 11/02/21 [facility] Evaluation + Plan note Future Appointments Appointment Date:06/28/2022 09:45:00 AM Scheduled Provider:HEMAL LUIS MD Location:[facility] Appointment Type: OV Future Scheduled Tests Laboratory* hCG, quantitative (AH) 11/02/21 * [facility] Lab Send out (Blood Specimens) 06/09/22 * MISC Lab Send out (Blood Specimens) 06/09/22 Radiology* US Pelvis Non-OB Complete 11/02/21 [facility] evaluation + Plan note Future Appointments Appointment Date:08/24/2022 09:00:00 AM Scheduled Provider:HEMAL LUIS MD Location:[facility] Appointment Type: OV Future Scheduled Tests Laboratory* hCG, quantitative (AH) 11/02/21 * MISC Lab Send out (Blood Specimens) 06/09/22 * [facility]ISC Lab Send out (Blood Specimens) 06/09/22 Radiology* US Pelvis Non-OB Complete 11/02/21 [facility] Evaluation + Plan note Future Appointments Appointment Date:09/21/2022 09:00:00 AM Scheduled Provider:HEMAL LUIS MD Location:[facility] Appointment Type: OV Diagnostic Tests Pending * Rapid Plasma Reagin Test 09/06/22 Future Scheduled Tests Laboratory* hCG, quantitative (AH) 11/02/21 * [facility]ISC Lab Send out (Blood Specimens) 06/09/22 * [facility]ISC Lab Send out (Blood Specimens) 06/09/22 Radiology* US Pelvis Non-OB Complete 11/02/21 [facility] Evaluation + Plan note Future Appointments Appointment Date:10/12/2022 09:00:00 AM Scheduled Provider:HEMAL LUIS MD Location:[facility] Appointment Type: OV OB Routine Follow Up Future Scheduled Tests Laboratory* hCG, quantitative (AH) 11/02/21 * MISC Lab Send out (Blood Specimens) 06/09/22 * MISC Lab Send out (Blood Specimens) 06/09/22 Radiology* US Pelvis Non-OB Complete 11/02/21 [facility] evaluation + Plan note Future Appointments Appointment Date:10/27/2022 09:15:00 AM Scheduled Provider:AUNDREA ROBB MD Location:[facility] Appointment Type: OV Future Scheduled Tests Laboratory* hCG, quantitative (AH) 11/02/21 * MISC Lab Send out (Blood Specimens) 06/09/22 * MISC Lab Send out (Blood Specimens) 06/09/22 Radiology* US Pelvis Non-OB Complete 11/02/21 [facility] evaluation + Plan note Future Appointments Appointment Date:11/17/2022 09:15:00 AM Scheduled Provider:AUNDREA ROBB MD Location:[facility] Appointment Type: OV OB Routine Follow Up Future Scheduled Tests Laboratory* MISC Lab Send out (Blood Specimens) 06/09/22 * MISC Lab Send out (Blood Specimens) 06/09/22 [facility] Adeyoh + Plan note Future Appointments Appointment Date:01/23/2023 01:00:00 PM Scheduled Provider:JOEY CAMPBELL MD Location:[facility] Appointment Type: OV Future Scheduled Tests Laboratory* MISC Lab Send out (Blood Specimens) 06/09/22 * MISC Lab Send out (Blood Specimens) 06/09/22 [facility] evHItviews note* Diagnosis with uncertain dates, antepartum- Primary state, incidental 9 weeks gestation of state, incidental Screening for cervical cancer Screening for malignant neoplasm of the cervix Encounter for supervision of normal in multigravida Nausea and vomiting during Hx of section Other postprocedural status Other immediate hemorrhage [facility] Diagnosis Encounter for screening for malformation using ultrasound- Primary 13 weeks gestation of state, incidental Encounter for (NT) nuchal translucency scan Other specified screening [facility] Diagnosis 13 weeks gestation of - Primary state, incidental Encounter for supervision of normal in multigravida Excessive bleeding Hx of section Other postprocedural status [facility] Diagnosis 13 weeks gestation of state, incidental Encounter for supervision of normal in multigravida Excessive bleeding [facility] Diagnosis Encounter for supervision of normal in multigravida- Primary 17 weeks gestation of state, incidental Shortness of breath [facility]pitations [facility] Diagnosis Palpitations- Primary 20 weeks gestation of ([facility]) state, incidental Lightheaded Dizziness and giddiness [facility]* Diagnosis Palpitations- Primary documented in this encounter [facility] note* Diagnosis Rh negative state in antepartum period ([facility])- Primary Rhesus isoimmunization affecting management of mother, antepartum condition documented in this encounter [facility] note* Diagnosis Screening for diabetes mellitus- Primary 24 weeks gestation of ([facility]) state, incidental Supervision of high risk in second trimester ([facility]) Unspecified high-risk Rh negative state in antepartum period ([facility]) Rhesus isoimmunization affecting management of mother, antepartum condition 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 Other immediate hemorrhage ([facility]) Heart palpitations Palpitations Obesity in (HCC) Obesity complicating , childbirth, or the puerperium, unspecified as to episode of care or not applicable Need for vaccination Need for prophylactic vaccination and inoculation against unspecified single disease documented in this encounter [facility] note* Diagnosis Supervision of high risk in third trimester (HCC)- Primary Unspecified high-risk Hx of section Other postprocedural status Obesity in (HCC) Obesity complicating , childbirth, or the puerperium, unspecified as to episode of care or not applicable 30 weeks gestation of ([facility]) state, incidental * Assessment & Plan Note - Ilda Medina MD - 05/01/2025 10:24 AM EDTAssociated Problem(s): Hx of section Plans repeat documented in this encounter [facility] note* Diagnosis Supervision of high risk in third trimester (HCC)- Primary Unspecified high-risk Hx of section Other postprocedural status Obesity in (HCC) Obesity complicating , childbirth, or the puerperium, unspecified as to episode of care or not applicable 30 weeks gestation of ([facility]) state, incidental Supervision of high risk in third trimester (HCC)- Primary Unspecified high-risk Hx of section Other postprocedural status Obesity in (HCC) Obesity complicating , childbirth, or the puerperium, unspecified as to episode of care or not applicable Cartilage-hair hypoplasia syndrome (HCC) Chondrodystrophy Other immediate hemorrhage (HCC) 32 weeks gestation of ([facility]) state, incidental documented in this encounter [facility] note* Diagnosis Supervision of high risk in third trimester (HCC)- Primary Unspecified high-risk Hx of section Other postprocedural status Obesity in ([facility]) Obesity complicating , childbirth, or the puerperium, unspecified as to episode of care or not applicable 30 weeks gestation of ([facility]) state, incidental Supervision of high risk in third trimester (HCC)- Primary Unspecified high-risk Hx of section Other postprocedural status 34 weeks gestation of ([facility]) state, incidental Supervision of high risk in second trimester ([facility]) Unspecified high-risk * Assessment & Plan Note - Reji Leos MD - 05/29/2025 4:16 PM EDT Associated Problem(s): Hx of section Orders: URINE OB DIP B/O * Assessment & Plan Note - Reji Leos MD - 05/29/2025 4:16 PM EDT Associated Problem(s): Supervision of high risk in second trimester (HCC) documented in this encounter [facility] note* Diagnosis Supervision of high risk in third trimester (HCC)- Primary Unspecified high-risk Hx of section Other postprocedural status Obesity in (HCC) Obesity complicating , childbirth, or the puerperium, unspecified as to episode of care or not applicable 30 weeks gestation of ([facility]) state, incidental Supervision of high risk in third trimester (HCC)- Primary Unspecified high-risk Hx of section Other postprocedural status 34 weeks gestation of ([facility]) state, incidental Supervision of high risk in second trimester (HCC) Unspecified high-risk Supervision of high risk in third trimester ([facility])- Primary Unspecified high-risk 36 weeks gestation of ([facility]) state, incidental Hx of section Other postprocedural status Obesity in ([facility]) Obesity complicating , childbirth, or the puerperium, unspecified as to episode of care or not applicable [facility] Diagnosis Supervision of high risk in third trimester ([facility])- Primary Unspecified high-risk Hx of section Other postprocedural status Obesity in ([facility]) Obesity complicating , childbirth, or the puerperium, unspecified as to episode of care or not applicable 30 weeks gestation of ([facility]) state, incidental Supervision of high risk in third trimester ([facility])- Primary Unspecified high-risk Hx of section Other postprocedural status 34 weeks gestation of ([facility]) state, incidental Supervision of high risk in second trimester ([facility]) Unspecified high-risk Supervision of high risk in third trimester ([facility])- Primary Unspecified high-risk Hx of section Other postprocedural status Obesity in ([facility]) Obesity complicating , childbirth, or the puerperium, unspecified as to episode of care or not applicable 37 weeks gestation of ([facility]) state, incidental 38 weeks gestation of ([facility])- Primary state, incidental Supervision of high risk in third trimester ([facility]) Unspecified high-risk Hx of section Other postprocedural status Obesity in ([facility]) Obesity complicating , childbirth, or the puerperium, unspecified as to episode of care or not applicable documented in this encounter [facility] course Narrative No data available for this section [facility] Hospital Discharge instructions No data available for this section [facility] Progress note No data available for this section [facility] Reason for referral (narrative)* Diagnostic Procedure Only (Routine) - Authorized Specialty Diagnoses / Procedures Referred By Kenyatta kurtz Referred To Contact [facility] Diagnoses with uncertain dates, antepartum 9 weeks gestation of Encounter for supervision of normal in multigravida Procedures OBSTETRIC ULTRASOUND WHI US PREG UTERUS AFTER 1ST TRIMEST GESTATION Danielle Kathleen APRN.CNP [address] [place] [address] [facility] [address] [place] [address] Referral ID Status Reason Start Date Expiration Date Visits Requested Visits Authorized [id number] Authorized Auto-Generat ed Referral 12/05/2024 12/05/2025 1 1 [facility] Summary Purpose Family History No Family History Records FoundNo Family History Records FoundNo Family History Records FoundNo Family History Records Found Advance Directives No Advanced Directives Records FoundNo Advanced Directives Records FoundNo Advanced Directives Records FoundNo Advanced Directives Records Found Additional Source Comments Care Team (unrecognized sect ion and content) Electrician Sound Relationship Specialty Start Date End Date Sergo Feng CNP [address] [place] [id number] PCP - General Family Medicine 04/04/18 Electrician Sound Relationship Specialty Start Date End Date Sergo Feng CNP [address] [place] [id number] PCP - General Family Medicine 04/04/18 Electrician Sound Relationship Specialty Start Date End Date Sergo Feng CNP [address] [place] [address] [id number] PCP - General Family Medicine 04/04/18 Electrician Sound Relationship Specialty Start Date End Date Sergo Feng CNP [address] [place] [address] PCP - General Family Medicine 04/04/18 Electrician Sound Relationship Specialty Start Date End Date Sergo Feng, FIELD LABORER [address] [place] [address] PCP - General Family Medicine 04/04/18 Electrician Sound Relationship Specialty Start Date End Date Sergo Feng, FIELD LABORER [address] [place] [address] PCP - General Family Medicine 04/04/18 Electrician Sound Relationship Specialty Start Date End Date Sergo Feng, FIELD LABORER [address] [place] [address] PCP - General Family Medicine 04/04/18 Warner Tai MD [address] [place] [address] Primary Staff Physician Cardiology 02/18/25 Electrician Sound Relationship Specialty Start Date End Date Sergo Feng, FIELD LABORER [address] [place] [address] PCP - General Family Medicine 04/04/18 Warner Tai MD [address] [place], [place] [id number] Primary Staff Physician Cardiology 02/18/25 Electrician Sound Relationship Specialty Start Date End Date Sergo Feng, FIELD LABORER [address] [place], [place] [id number] PCP - General Family Medicine 04/04/18 Warner Tai MD [address] [place] [address] Primary Staff Physician Cardiology 02/18/25 Electrician Sound Relationship Specialty Start Date End Date Sergo Feng, FIELD LABORER [address] [place], [place] [phone] PCP - General Family Medicine 04/04/18 Warner Tai MD [address] [place], [place] [id number] Primary Staff Physician Cardiology 02/18/25 Electrician Sound Relationship Specialty Start Date End Date Sergo Feng, FIELD LABORER [address] [place] [address] [id number] PCP - General Family Medicine 04/04/18 Warner Tai MD [address] [place] [address] Primary Staff Physician Cardiology 02/18/25 Electrician Sound Relationship Specialty Start Date End Date Sergo Feng, FIELD LABORER [address] [place], [place] [phone] PCP - General Family Medicine 04/04/18 Warner Tai MD [address] [place], [place] [phone] Primary Staff Physician Cardiology 02/18/25 Electrician [employer] Relationship Specialty Start Date End Date Sergo Feng, FIELD LABORER [address] [place] [address] [id number] PCP - General Family Medicine 04/04/18 Warner Tai MD [address] [place] [address] Primary Staff Physician Cardiology 02/18/25 Electrician Sound Relationship Specialty Start Date End Date Sergo Feng, FIELD LABORER [address] [place], [place] [id number] PCP - General Family Medicine 04/04/18 Warner Tai MD [address] [place], [place] [id number] Primary Staff Physician Cardiology 02/18/25 Electrician Sound Relationship Specialty Start Date End Date Sergo Feng, FIELD LABORER [address] [place] [address] [phone] PCP - General Family Medicine 04/04/18 Warner Tai MD [address] [place] [address] Primary Staff Physician Cardiology 02/18/25 Electrician Sound Relationship Specialty Start Date End Date Sergo Feng, FIELD LABORER [address] [place], [place] [address] PCP - General Family Medicine 04/04/18 Warner Tai MD [address] [place], [place] [id number] Primary Staff Physician Cardiology 02/18/25 Electrician Sound Relationship Specialty Start Date End Date Sergo Feng, FIELD LABORER [address] [place] [address] [phone] PCP - General Family Medicine 04/04/18 Warner Tai MD [address] [place] [address] Primary Staff Physician Cardiology 02/18/25 Electrician Sound Relationship Specialty Start Date End Date Sergo Feng CNP [address] [place] [id number] PCP - General Family Medicine 04/04/18 Warner Tai MD [address] [place] [address] Primary Staff Physician Cardiology 02/18/25 Care Team (unrecognized sect ion and content) Care Team Personnel Name: SERGO FENG APRN, CNP Position: P4 Advanced Practice Nurse Med Service: Employed Provider Member Role: Primary Care Physician Address: Address: [address] [place] [address]- Care Team Related Persons Name: ANIVAL NIELSEN Care Team Personnel Name: SERGO FENG APRN FIELD LABORER Position: P4 Advanced Practice Nurse Med Service: Employed Provider Member Role: Primary Care Physician Address: Address: [address] [place] [address]- Care Team Related Persons Name: ANIVAL NIELSEN Care Team Personnel Name: SERGO FENG APRN FIELD LABORER Position: P4 Advanced Practice Nurse Med Service: Employed Provider Member Role: Primary Care Physician Address: Address: [address] [place] [address]- Care Team Related Persons Name: ANIVAL NIELSEN Care Team Personnel Name: SERGO FENG APRN - FIELD LABORER Position: P4 Advanced Practice Nurse Med Service: Employed Provider Member Role: Primary Care Physician Address: Address: [address] [place] [address]- Care Team Related Persons Name: ANIVAL NIELSEN Care Team Personnel Name: SERGO FENG APRN - FIELD LABORER Position: P4 Advanced Practice Nurse Member Role: Primary Care Physician Address: Address: [address] [place] [address]- [place] Care Team Related Persons Name: MEJIA NIELSENY Care Team Personnel Name: SERGO FENG [employer]ANQUET KITCHEN SUPERVISOR - FIELD LABORER Position: P4 Advanced Practice Nurse Member Role: Primary Care Physician Address: Address: [address] [place] [address]- Care Team Related Persons Name: MEJIA NIELSENY Care Team Personnel Name: SERGO FENG [employer]ANQUET KITCHEN SUPERVISOR - FIELD LABORER Position: P4 Advanced Practice Nurse Member Role: Primary Care Physician Address: Address: [address] [place] [address]- Care Team Related Persons Name: MEJIA NIELSENY Care Team Personnel Name: SERGO FENG [employer]AN[employer]ET KITCHEN SUPERVISOR - FIELD LABORER Position: P4 Advanced Practice Nurse Member Role: Primary Care Physician Address: Address: [address] [place] [address]- Care Team Related Persons Name: MEJIA NIELSENY Care Team Personnel Name: SERGO FENG BANQUET KITCHEN SUPERVISOR - FIELD LABORER Position: P4 Advanced Practice Nurse Member Role: Primary Care Physician Address: Address: [address] [place] [address]- Care Team Related Persons Name: MEJIA NIELSENY Care Team Personnel Name: SERGO FENG BANQU[employer] KITCHEN SUPERVISOR - FIELD LABORER Position: P4 Advanced Practice Nurse Member Role: Primary Care Physician Address: Address: [address] [place] [address]- [place] Care Team Related Persons Name: ANIVAL NIELSEN Name: TATYANA NIELSEN Address: Home [facility] [place], [place] [id number] [place] Care Team Personnel Name: SERGO FENG BANQUET KITCHEN SUPERVISOR - FIELD LABORER Position: P4 Advanced Practice Nurse Member Role: Primary Care Physician Address: Address: [address] [place] [address]- Care Team Related Persons Name: ANIVAL NIELSEN INFORMATION SOURCE (unrecogn ized section and content) DATE CREATED AUTHOR 08/14/2022 [facility] DATE CREATED AUTHOR AUTHOR'S ORGANIZ ATION 06/08/2023 [facility] DATE CREATED AUTHOR AUTHOR'S ORGANIZ ATION 06/26/2025 [facility] DATE CREATED AUTHOR AUTHOR'S ORGANIZ ATION 06/30/2025 [facility] Source Comments (unrecognize d section and content) In the event this informatio n is protected by the Federal Confidentiality of Alcohol and Drug Abuse Patient Records regulations: The Federal rules restrict any use of the information to criminally investigate or prosecute any alcohol or drug abuse patient.[facility] Center[facility] the event this information is protected by the Federal Confidentiality of Alcohol and Drug Abuse Patient Records regulations: The Federal rules restrict any use of the information to criminally investigate or prosecute any alcohol or drug abuse patient.[facility] CenterIn the event this information is protected by the Federal Confidentiality of Alcohol and Drug Abuse Patient Records regulations: The Federal rules restrict any use of the information to criminally investigate or prosecute any alcohol or drug abuse patient.[facility] CenterIn the event this information is protected by the Federal Confidentiality of Alcohol and Drug Abuse Patient Records regulations: The Federal rules restrict any use of the information to criminally investigate or prosecute any alcohol or drug abuse patient.[facility] CenterIn the event this information is protected by the Federal Confidentiality of Alcohol and Drug Abuse Patient Records regulations: The Federal rules restrict any use of the information to criminally investigate or prosecute any alcohol or drug abuse patient.[facility] CenterIn the event this information is protected by the Federal Confidentiality of Alcohol and Drug Abuse Patient Records regulations: The Federal rules restrict any use of the information to criminally investigate or prosecute any alcohol or drug abuse patient.[facility] CenterIn the event this information is protected by the Federal Confidentiality of Alcohol and Drug Abuse Patient Records regulations: The Federal rules restrict any use of the information to criminally investigate or prosecute any alcohol or drug abuse patient.[facility] CenterIn the event this information is protected by the Federal Confidentiality of Alcohol and Drug Abuse Patient Records regulations: The Federal rules restrict any use of the information to criminally investigate or prosecute any alcohol or drug abuse patient.[facility] CenterIn the event this information is protected by the Federal Confidentiality of Alcohol and Drug Abuse Patient Records regulations: The Federal rules restrict any use of the information to criminally investigate or prosecute any alcohol or drug abuse patient.[facility] CenterIn the event this information is protected by the Federal Confidentiality of Alcohol and Drug Abuse Patient Records regulations: The Federal rules restrict any use of the information to criminally investigate or prosecute any alcohol or drug abuse patient.[facility] CenterIn the event this information is protected by the Federal Confidentiality of Alcohol and Drug Abuse Patient Records regulations: The Federal rules restrict any use of the information to criminally investigate or prosecute any alcohol or drug abuse patient.[facility] CenterIn the event this information is protected by the Federal Confidentiality of Alcohol and Drug Abuse Patient Records regulations: The Federal rules restrict any use of the information to criminally investigate or prosecute any alcohol or drug abuse patient.[facility] CenterIn the event this information is protected by the Federal Confidentiality of Alcohol and Drug Abuse Patient Records regulations: The Federal rules restrict any use of the information to criminally investigate or prosecute any alcohol or drug abuse patient.[facility] CenterIn the event this information is protected by the Federal Confidentiality of Alcohol and Drug Abuse Patient Records regulations: The Federal rules restrict any use of the information to criminally investigate or prosecute any alcohol or drug abuse patient.[facility] CenterIn the event this information is protected by the Federal Confidentiality of Alcohol and Drug Abuse Patient Records regulations: The Federal rules restrict any use of the information to criminally investigate or prosecute any alcohol or drug abuse patient.[facility] CenterIn the event this information is protected by the Federal Confidentiality of Alcohol and Drug Abuse Patient Records regulations: The Federal rules restrict any use of the information to criminally investigate or prosecute any alcohol or drug abuse patient.[facility] CenterIn the event this information is protected by the Federal Confidentiality of Alcohol and Drug Abuse Patient Records regulations: The Federal rules restrict any use of the information to criminally investigate or prosecute any alcohol or drug abuse patient.[facility] CenterIn the event this information is protected by the Federal Confidentiality of Alcohol and Drug Abuse Patient Records regulations: The Federal rules restrict any use of the information to criminally investigate or prosecute any alcohol or drug abuse patient.[facility] CenterIn the event this information is protected by the Federal Confidentiality of Alcohol and Drug Abuse Patient Records regulations: The Federal rules restrict any use of the information to criminally investigate or prosecute any alcohol or drug abuse patient.[facility] CenterIn the event this information is protected by the Federal Confidentiality of Alcohol and Drug Abuse Patient Records regulations: The Federal rules restrict any use of the information to criminally investigate or prosecute any alcohol or drug abuse patient.[facility] CenterIn the event this information is protected by the Federal Confidentiality of Alcohol and Drug Abuse Patient Records regulations: The Federal rules restrict any use of the information to criminally investigate or prosecute any alcohol or drug abuse patient.[facility] Reason for Visit (unrecogniz ed section and content) Reason Comments Initial OB Visit Reason Comments [place] Specialty Diagnoses / Procedures Referred By Contac t Referred To Contact [facility] Diagnoses with uncertain dates, antepartum 9 weeks gestation of Encounter for supervision of normal in multigravida Procedures OBSTETRIC ULTRASOUND WHI US PREG UTERUS AFTER 1ST TRIMEST GESTATION Danielle Kathleen APRN.FIELD LABORER [address] [place] [address] Phone: tel: fax: [facility] [address] [place] [address] Referral ID Status Reason Start Date Expiration Date V isits Requested Visits Authorized [id number] Closed Auto-Generate d Referral 12/05/2024 12/05/2025 1 1 Reason Onset Date Comments Care 01/02/2025 Reason Comments New Patient Evaluation Specialty Diagnoses / Procedures Referred By Viancaac t Referred To Contact Hematology Diagnoses 13 weeks gestation of Encounter for supervision of normal in multigravida Excessive bleeding Procedures CONSULT TO HEMATOLOGY OFFICE/OUTPATIENT NEW HIGH MDM 60 MINUTES Kalyani Dougherty MD [address] [place] [address] Phone: tel: fax: Referral ID Status Reason Start Date Expiration Date V isits Requested Visits Authorized [id number] Closed PCP Requested Referral 01/02/2025 01/02/2026 1 1 Reason Onset Date Comments Care 01/30/2025 Reason Comments Patient Question Reason Comments CARD New Patient Consult Heart rate goes up unexpectedly and feels like she can't catch breath. Palpitations Palpitations Dizziness Specialty Diagnoses / Procedures Referred By Kenyatta kurtz Referred To Contact Cardiology Diagnoses 17 weeks gestation of (HCC) Encounter for supervision of normal in multigravida (HCC) Shortness of breath Palpitations Procedures CONSULT TO CARDIOLOGY OFFICE/OUTPATIENT NEW HIGH MDM 60 MINUTES Kalyani Dougherty MD [address] [place] [address] Phone: tel: fax: Referral ID Status Reason Start Date Expiration Date V isits Requested Visits Authorized [id number] Closed PCP Requested Referral 01/30/2025 01/30/2026 1 1 Reason Comments Event Zio patch- 14 days Reason Onset Date Comments Care 03/20/2025 Reason Onset Date Comments Care 04/17/2025 Reason Onset Date Comments Care 05/01/2025 Reason Onset Date Comments Care 05/15/2025 Reason Onset Date Comments Care 05/29/2025 Reason Comments Breast pump Reason Onset Date Comments Care 06/09/2025 Reason Onset Date Comments Care 06/23/2025 Reason Onset Date Comments Population Health Navigation Outreach 06/24/2025 Ob/peds FOR RECORDS PERTAINING TO PATIENTS WHO ARE OR HAVE BEEN ENROLLED IN A CHEMICAL DEPENDENCY/SUBSTANCEABUSE PROGRAM, SOME INFORMATION MAY BE OMITTED. This clinical summary was aggregated from multiple sources. Caution should be exercised in using it in the provision of clinical care. This summary normalizes information from multiple sources, and as a consequence, information in this document may materially change the coding, format and clinical context of patient data. In addition, data may be omitted in some cases. CLINICAL DECISIONS SHOULD BE BASED ON THE PRIMARY CLINICAL RECORDS. [facility]. provides no warranty or guarantee of the accuracy or completeness of information in this document.
--- OUTSIDE RECORDS SUMMARY | 2025-06-30 21:36 | XMS RPT_ITS | CCD ---
Author Organization [facility] Care Team Providers Care Pressure Welder Name Role Phone JOSE ARCHITECTURE INTERN - RIKKI, SERGO Fischer Primary Care [facility] HEMAL LUIS Referring Unavailable SERGO FENG Primary Care Unavailable ROS MANSFIELD Attending Unavailable JOSESERGO GARCIA Primary Care Unavailable ROS MANSFIELD Attending Unavailable HEMAL LUIS Referring Unavailable HEMAL LUIS MD Attending Unavailable JOSE ARCHITECTURE INTERN - RIKKI, SERGO Fischer Primary Care U tara ZAMBRANO ARCHITECTURE INTERN-RIKKI, MARINA Attending Unavail able JOSE ARCHITECTURE INTERN - FORMING MACHINE ADJUSTER, SERGO Fischer Primary Care U AUNDREA Renteria MD Attending Unavailable JOSE ARCHITECTURE INTERN - FORMING MACHINE ADJUSTER, SERGO Fischer Primary Care U tara LUIS MD, HEMAL Attending Unavailable JOSE ARCHITECTURE INTERN - RIKKI, SERGO Fischer Primary Care U tara LUIS MD, HEMAL Attending Unavailable JOSE ARCHITECTURE INTERN - RIKKI, SERGO Fischer Primary Care U tara LUIS MD, HEMAL Attending Unavailable JOSE ARCHITECTURE INTERN - FORMING MACHINE ADJUSTER, SERGO Fischer Primary Care U tara LUIS MD, HEMAL Attending Unavailable JOSE ARCHITECTURE INTERN - FORMING MACHINE ADJUSTER, SERGO Fischer Primary Care U tara LUIS MD, HEMAL Attending Unavailable JOSE ARCHITECTURE INTERN - FORMING MACHINE ADJUSTER, SERGO Fischer Primary Care U tara LUIS MD, HEMAL Attending Unavailable JOSE ARCHITECTURE INTERN - RIKKI, SERGO Fischer Primary Care U JOEY Carbone Attending Unavailable JOSE ARCHITECTURE INTERN - FORMING MACHINE ADJUSTER, SERGO Fischer Primary Care U JOEY Carbone Admitting Unavailable AUNDREA ROBB MD Attending Unavailable JOSE ARCHITECTURE INTERN - IRKKI, SERGO Fischer Primary Care U AUNDREA Renteria MD Consulting Unavailable DickensSergo lopez CNP Primary Care Provider Warner Tai [...] ESCOBAR Attending Unavailable Reji Leos Attending Unavailable Dickens GYM ATTENDANT, Sergo Arroyo Primary Care Unav ailable Reji [...] tab(s), 1 Refill(s), 01/08/23 19:44:00 EST, Pharmacy: [facility], 160, cm, 12/10/22 17:42:00 EST, [...] day(s), # 20 tab(s), 0 Refill(s), Pharmacy: [facility], S/P section, 160, cm, 12/10/22 [...] constipation, # 20 cap(s), 0 Refill(s), Pharmacy: [facility], 7 weeks gestation of PCOS (polycystic ovarian syndrome), 162, cm, 06/21/22 9:49:00 EDT, Height Start Date: 05/03/22 Status: Ordered doxylamine succinate 25 mg oral tablet (3 sources) Start: 05-06-2022 doxylamine 25 mg oral tablet Dose : 25 mg = 1 tab(s), Oral, BID, PRN as needed for sleep, # 28 tab(s), 0 Refill(s), Pharmacy: [facility], Hyperemesis of , 162, cm, [...] generic, # 30 tab(s), 5 Refill(s), Pharmacy: [facility], Seasonal allergies, 162, cm, 03/15/22 8:16:00 EDT, [...] tab(s), 1 Refill(s), 01/15/23 14:52:00 EST, Pharmacy: [facility], 160, cm, 12/10/22 17:42:00 EST, Height Start Date: 12/26/22 Stop Date: 01/15/23 Status: Ordered Start: 12-11-2022 End: 12-25-2022 ibuprofen 800 mg oral tablet Dose : 800 mg = 1 tab(s), Oral, q8h, X 14 day(s), # 42 tab(s), 0 Refill(s), 12/25/22 19:44:00 EST, Pharmacy: [facility], 160, cm, 12/10/22 17:42:00 EST, Height Start Date: 12/11/22 Stop Date: 12/25/22 Status: Ordered metFORMIN hydrochloride 500 mg oral tablet (1 source) Biguanide Start: 03-15-2022 End: 09-11-2022 metFORMIN 500 mg oral tablet EXTENDED RELEASE Dose : 500 mg = 1 tab(s), Oral, qDay, # 90 tab(s), 1 Refill(s), Pharmacy: [facility], PCOS (polycystic ovarian syndrome), 162, [...] nausea/vomiting, # 30 tab(s), 1 Refill(s), Pharmacy: [facility], Hyperemesis of , 162, cm, 05/03/22 9:49:00 EDT, Height Start Date: 05/06/22 Status: Ordered sertraline 50 mg oral tablet (1 source) Serotonin Reuptake Inhibitor Start: 01-19-2023 End: 06-18-2023 sertraline 50 mg oral tablet Dose : 50 mg = 1 tab(s), Oral, qDay, # 30 tab(s), 4 Refill(s), Pharmacy: [facility], 160, cm, 12/10/22 17:42:00 EST, Height Start Date: 01/19/23 Stop Date: 06/18/23 Status: Ordered simethicone 125 mg oral capsule (1 source) Start: 12-13-2022 Gas-X Extra Strength 125 mg oral capsule Dose : 125 mg = 1 cap(s), Oral, QID, PRN abdominal discomfort, # 30 cap(s), 0 Refill(s), Pharmacy: [facility], 160, cm, 12/10/22 17:42:00 EST, Height Start Date: 12/13/22 Status: Ordered spironolactone 25 mg oral tablet (1 source) Aldosterone Antagonist Start: 03-15-2022 End: 09-11-2022 spironolactone 25 mg oral tablet Dose : 25 mg = 1 tab(s), Oral, qDay, # 30 tab(s), 5 Refill(s), Pharmacy: [facility], PCOS (polycystic ovarian syndrome), 162, [...] Nausea/Vomiting, # 20 tab(s), 0 Refill(s), Pharmacy: [facility], 162, cm, 04/15/22 8:23:00 EDT, Height Start Date: 04/25/22 Status: Ordered Vitamin B6 50 mg oral tablet (5 sources) Start: 05-06-2022 End: 06-17-2022 Vitamin B6 50 mg oral tablet Dose : 50 mg = 1 tab(s), Oral, BID, # 28 tab(s), 2 Refill(s), Pharmacy: [facility], Hyperemesis of , 162, cm, [...] Translations: [Rh negative state in antepartum period ([facility])] Onset: 01-03-2025 Episodic Other lower respiratory disease (1 source) Shortness of breath; Translations: [Shortness of breath] Onset: 01-30-2025 Episodic Other and delivery including normal (20 sources) test positive; Translations: [] Onset: 03-10-2022 04-15-2022 Episodic Comment on above: System added from do [facility]. Status documented as Yes on Admission Residual codes; unclassified (2 sources) History of uterine scar from previous surgery; Translations: [History of uterine scar from previous surgery] Onset: 12-11-2022 Episodic Residual codes; unclassified (1 source) 20 weeks gestation of ; Translations: [20 weeks gestation of ([facility])] Onset: 02-20-2025 Episodic Residual codes; unclassified (1 source) Unspecified blood type, Rh negative; Translations: [Rh negative state in antepartum period ([facility])] Onset: 01-03-2025 Episodic Residual codes; unclassified (2 sources) 13 weeks gestation of ; Translations: [13 weeks gestation of ([facility])] Onset: 01-08-2025 Episodic Residual codes; unclassified (1 source) 17 weeks gestation of ; Translations: [17 weeks gestation of ([facility])] Onset: 02-18-2025 Episodic Residual codes; unclassified (1 source) 9 weeks gestation of ; Translations: [9 weeks gestation of ] Onset: 01-02-2025 Episodic Results Test Name Value Interpretation Reference Range Facility CBC W/Diff, Automatedon 06-13 Absolute Lymph 2.14 X10 3/uL Normal 0.83-4.51 [facility] Comment on above: Performed By: #### Brain JAQUEZ, L100.0100 #### [facility] [address] [place], [place], [address] Absolute Neut 7.8 X10 3/uL High 2.0-7.7 [facility] Comment on above: Performed By: #### Brain JAQUEZ, L100.0100 #### [facility] [address] [place], [address] Basophils/100 WBC (Bld) 0.3 % Normal 0-1 [facility] Comment on above: Performed By: #### Brain JAQUEZ, L100.0100 #### [facility] [address] [place], [address] Eosinophils/100 WBC (Bld) 0.5 % Normal 0-5 [facility] Comment on above: Performed By: #### Brain JAQUEZ, L100.0100 #### [facility] [address] [place], [address] Erythrocyte distribution width (RBC) [Ratio] 13.2 % Normal 11.6-14.6 [facility] Comment on above: Performed By: #### Brain JAQUEZ, L100.0100 #### [facility] [address] [place], [address] Hematocrit (Bld) [Volume fraction] 33.8 % Low 37-47 [facility] Comment on above: Performed By: #### Brain JAQUEZ, L100.0100 #### [facility] [address] [place], [address] Hemoglobin (Bld) [Mass/Vol] 11.8 g/dL Low 12.0-15.0 [facility] Comment on above: Performed By: #### Brain JAQUEZ, L100.0100 #### [facility] [address] [place], [address] IG% 2.300 High 0.0-0.9 [facility] Comment on above: Result Comment: IG% - Immature Granulocytes (promyelocytes, myelocytes and metamyelocytes) > 1% indicates that a LEFT SHIFT is Present. Performed By: #### Brain JAQUEZ, L100.0100 #### [facility] [address] [place], [address] Lymphocytes/100 WBC (Bld) 18.6 % Low 19-41 [facility] Comment on above: Performed By: #### Brain JAQUEZ, L100.0100 #### [facility] [address] [place], [address] MCH (RBC) [Entitic mass] 32.4 pg High 27.0-32.0 [facility] Comment on above: Performed By: #### Brain JAQUEZ, L100.0100 #### [facility] [address] [place], [address] MCHC (RBC) [Mass/Vol] 34.9 g/dL Normal 32-36 [facility] Comment on above: Performed By: #### Brain JAQUEZ, L100.0100 #### [facility] [address] [place], [address] MCV (RBC) [Entitic vol] 92.9 fL Normal 81-99 [facility] Comment on above: Performed By: #### Brain JAQUEZ, L100.0100 #### [facility] [address] [place], [address] Monocytes/100 WBC (Bld) 10.9 % High 0-10 [facility] Comment on above: Performed By: #### Brain JAQUEZ, L100.0100 #### [facility] [address] [place], [address] Neutrophils/100 WBC (Bld) 67.4 % Normal 47-70 [facility] Comment on above: Performed By: #### Brain JAQUEZ, L100.0100 #### [facility] [address] [place], [address] Nucleated RBC (Bld) [#/Vol] 0 10*3/uL Normal 0-5 [facility] Comment on above: Performed By: #### Brain JAQUEZ, L100.0100 #### [facility] [address] [place], [address] Platelet mean volume (Bld) [Entitic vol] 11.2 fL Normal 6.2-12.0 [facility] Comment on above: Performed By: #### Brain JAQUEZ, L100.0100 #### [facility] [address] [place], [address] Platelets (Bld) [#/Vol] 233 10*3/uL Normal 150-450 [facility] Comment on above: Performed By: #### Brain JAQUEZ, L100.0100 #### [facility] [address] [place], [address] RBC (Bld) [#/Vol] 3.64 10*6/uL Low 4.2-5.4 [facility] Comment on above: Performed By: #### Brain JAQUEZ, L100.0100 #### [facility] [address] [place], [address] RDW SD 44.2 fl High 35.1-43.9 [facility] Comment on above: Performed By: #### Brain JAQUEZ, L100.0100 #### [facility] [address] [place], [address] WBC (Bld) [#/Vol] 11.5 10*3/uL High 4.4-11.0 [facility] Comment on above: Performed By: #### Brain JAQUEZ, L100.0100 #### [facility] [address] [place], [address] Type AND Screenon 06-30-2025 ABO and Rh group Nom (Bld) Blood group A Rh(D) negative Normal [facility] Comment on above: Order Comment: S Performed By: #### Brain JAQUEZ, L100.0100 #### [facility] [address] [place], [address] URINE OB DIP B/Oon Glucose Ql (U) Negative Neg mg/dL [facility] Interpretation and review of laboratory results Normal [facility] Protein.monoclonal (U) [Mass/Vol] Negative Neg mg/dL [facility] HISTORY PHYSICALon HISTORY PHYSICAL HNO ID: [id number] Author: REJI LEOS MD Service: ? Author [...] medications and allergies Reji Leos M.D. Normal [facility] ROUTINE, GROUP B ST REPTOCOCCUS BY PCRon 06-09-2025 ROUTINE, GROUP B STREPTOCOCCUS BY PCR Not detected Normal [facility] Comment on above: Performed By: #### G BPCR ####[facility] LABCLIA [id number] [address]Marline 05-30-2025 [facility] ZULEYKA NIELSEN ([id number]) 1995 F Date Time Provider Department 05/30/25 REJI LEOS OBGYWM During your visit today, we recorded the following information about you: Katya Leonard RN 05/30/2025 9:43 AM Signed Written order received from [employer] for breast pump. Placed in RR inbox [...] Status:Closed by ENA WOLFF on 05/30/25 Normal [facility] URINE OB DIP B/Oon Glucose Ql (U) Negative Neg mg/dL [facility] Interpretation and review of laboratory results Normal [facility] Protein.monoclonal (U) [Mass/Vol] Negative Neg mg/dL [facility] CBC W Auto Differential pane l (Bld)on 04-17-2025 Basophils (Bld) [#/Vol] 0.06 10*3/uL Normal <0.11 [facility] Comment on above: Order Comment: Speci men Type: BLOOD SPECIMENOrdering Facility: [facility] Address: [address] [place], [place] [address] Performed By: #### 5 7021-8 ####[facility] [place]AMILAH CORONELBELLFLOWERCHRISTIN [id number] [place] [address] [place] Basophils/100 WBC (Bld) 0.5 % Normal [facility] Comment on above: Order Comment: Speci men Type: BLOOD SPECIMENOrdering Facility: [facility] Address: [address] [place] [address] Performed By: #### 5 7021-8 ####[facility]ITALNCLIA [id number] [place] [address] [place] Differential cell count method Nom (Bld) Auto Normal [facility] Comment on above: Order Comment: Speci men Type: BLOOD SPECIMENOrdering Facility: [facility] Address: [address] [place] [address] Performed By: #### 5 7021-8 ####[facility]ITALNCO[facility] [id number] [place] [address] [place] Eosinophils (Bld) [#/Vol] 0.07 10*3/uL Normal <0.46 [facility] Comment on above: Order Comment: Speci men Type: BLOOD SPECIMENOrdering Facility: [facility] Address: [address] [place] [address] Performed By: #### 5 7021-8 ####[facility]ITALNCLIA [id number] [place] [address] [place] Eosinophils/100 WBC (Bld) 0.6 % Normal [facility] Comment on above: Order Comment: Speci men Type: BLOOD SPECIMENOrdering Facility: [facility] Address: [address] [place] [address] Performed By: #### 5 7021-8 ####[facility] HOSPITALLIA [id number] [place] [address] [place] Erythrocyte distribution width (RBC) [Ratio] 13.8 % Normal 11.5-15.0 [facility] Comment on above: Order Comment: Speci men Type: BLOOD SPECIMENOrdering Facility: [facility] Address: [address] [place] [address] Performed By: #### 5 7021-8 ####[facility] HOSPITALNCLI [id number] [place] [address] [place] Hematocrit (Bld) [Volume fraction] 32.9 % Low 36.0-46.0 [facility] Comment on above: Order Comment: Speci men Type: BLOOD SPECIMENOrdering Facility: [facility] Address: [address] [place] [address] Performed By: #### 5 7021-8 ####[facility] BERNABELLFLOWERCHRISTIN [id number] [place] [address] [place] Hemoglobin (Bld) [Mass/Vol] 11.2 g/dL Low 11.5-15.5 [facility] Comment on above: Order Comment: Speci men Type: BLOOD SPECIMENOrdering Facility: [facility] Address: [address] [place] [address] Performed By: #### 5 7021-8 ####[facility] HOSPITALNILESHJacquie [id number] [place] [address] [place] Immature granulocytes (Bld) [#/Vol] 0.28 10*3/uL High <0.10 [facility] Comment on above: Order Comment: Speci men Type: BLOOD SPECIMENOrdering Facility: [facility] Address: [address] [place] [address] Performed By: #### 5 7021-8 ####[facility] HOSPITALMARSHALA [id number] [place] [address] [place] Immature granulocytes/100 WBC (Bld) 2.5 % Normal [facility] Comment on above: Order Comment: Speci men Type: BLOOD SPECIMENOrdering Facility: [facility] Address: [address] [place] [address] Performed By: #### 5 7021-8 ####[facility]ITALNCLIA [id number] [place] [address] [place] Lymphocytes (Bld) [#/Vol] 2.13 10*3/uL Normal 1.00-4.00 [facility] Comment on above: Order Comment: Speci men Type: BLOOD SPECIMENOrdering Facility: [facility] Address: [address] [place] [address] Performed By: #### 5 7021-8 ####[facility]ITALNCO[facility] [id number] [place] [address] [place] Lymphocytes/100 WBC (Bld) 18.7 % Normal [facility] Comment on above: Order Comment: Speci men Type: BLOOD SPECIMENOrdering Facility: [facility] Address: [address] [place] [address] Performed By: #### 5 7021-8 ####[facility]ITALN[facility] [id number] [place] [address] [place] MCH (RBC) [Entitic mass] 31.9 pg Normal 26.0-34.0 [facility] Comment on above: Order Comment: Speci men Type: BLOOD SPECIMENOrdering Facility: [facility] Address: [address] [place] [address] Performed By: #### 5 7021-8 ####[facility] [id number] [place] [address] [place] MCHC (RBC) [Mass/Vol] 34.0 g/dL Normal 30.5-36.0 [facility] Comment on above: Order Comment: Speci men Type: BLOOD SPECIMENOrdering Facility: [facility] Address: [address] [place] [address] Performed By: #### 5 7021-8 ####[facility]ITALNCO[facility] [id number] [place] [address] [place] MCV (RBC) [Entitic vol] 93.7 fL Normal 80.0-100.0 [facility] Comment on above: Order Comment: Speci men Type: BLOOD SPECIMENOrdering Facility: [facility] Address: [address] [place] [address] Performed By: #### 5 7021-8 ####[facility] MILLTOWNCLIA [id number] [place] [address] [place] Monocytes (Bld) [#/Vol] 0.98 10*3/uL High <0.87 [facility] Comment on above: Order Comment: Speci men Type: BLOOD SPECIMENOrdering Facility: [facility] Address: [address] [place] [address] Performed By: #### 5 7021-8 ####[facility] MILLWNCLIA [id number] [place] [address] [place] Monocytes/100 WBC (Bld) 8.6 % Normal [facility] Comment on above: Order Comment: Speci men Type: BLOOD SPECIMENOrdering Facility: [facility] Address: [address] [place] [address] Performed By: #### 5 7021-8 ####[facility] HOSPITALLIA [id number] [place] [address] [place] Neutrophils (Bld) [#/Vol] 7.87 10*3/uL High 1.45-7.50 [facility] Comment on above: Order Comment: Speci men Type: BLOOD SPECIMENOrdering Facility: [facility] Address: [address] [place] [address] Performed By: #### 5 7021-8 ####[facility] MILLTOWNCLIA [id number] [place] [address] [place] Neutrophils/100 WBC (Bld) 69.1 % Normal [facility] Comment on above: Order Comment: Speci men Type: BLOOD SPECIMENOrdering Facility: [facility] Address: [address] [place] [address] Performed By: #### 5 7021-8 ####[facility] MILLWNCLIA [id number] [place] [address] [place] Nucleated RBC (Bld) [#/Vol] 10*3/uL Normal <0.01 [facility] Comment on above: Order Comment: Speci men Type: BLOOD SPECIMENOrdering Facility: [facility] Address: [address] [place] [address] Performed By: #### 5 7021-8 ####[facility]OSPITALNILESHPATRICEA [id number] [place] [address] [place] Nucleated RBC/100 WBC (Bld) [Ratio] 0.0 /100 WBC Normal [facility] Comment on above: Order Comment: Speci men Type: BLOOD SPECIMENOrdering Facility: [facility] Address: [address] [place] [address] Performed By: #### 5 7021-8 ####[facility] HOSPITALNILESHJacquie [id number] [place] [address] [place] Platelet mean volume (Bld) [Entitic vol] 10.1 fL Normal 9.0-12.7 [facility] Comment on above: Order Comment: Speci men Type: BLOOD SPECIMENOrdering Facility: [facility] Address: [address] [place] [address] Performed By: #### 5 7021-8 ####[facility] HOSPITALMARSHALA [id number] [place] [address] [place] Platelets (Bld) [#/Vol] 224 10*3/uL Normal 150-400 [facility] Comment on above: Order Comment: Speci men Type: BLOOD SPECIMENOrdering Facility: [facility] Address: [address] [place] [address] Performed By: #### 5 7021-8 ####[facility]ITALNCLIA [id number] [place] [address] [place] RBC (Bld) [#/Vol] 3.51 10*6/uL Low 3.90-5.20 [facility] Comment on above: Order Comment: Speci men Type: BLOOD SPECIMENOrdering Facility: [facility] Address: [address] [place] [address] Performed By: #### 5 7021-8 ####[facility]ITALNCO[facility] [id number] [place] [address] [place] WBC (Bld) [#/Vol] 11.39 10*3/uL High 3.70-11.00 [facility] Comment on above: Order Comment: Speci men Type: BLOOD SPECIMENOrdering Facility: [facility] Address: [address] [place] [address] Performed By: #### 5 7021-8 ####[facility] [id number] [place] [address] [place] GESTATIONAL GLUCOSE SCREEN, 1-HOUR, 50 GRAM, NON-FASTINGon 04-17-2025 Glucose [Mass/Vol] 91 mg/dL Normal 74-134 [facility] Comment on above: Order Comment: Speci men Type: BLOOD SPECIMENOrdering Facility: [facility] Address: [address] [place] [address] Result Comment: er [facility] Congress of Obstetricians and Gynecologists (Ge/Shawn) guidelines state a gestational diabetes mellitus positive screen is made, in women not previously diagnosed with overt diabetes, when the 1 hr plasma glucose level is equal to or above 140 mg/dL. [facility] [employer] [place] recommends a 135 mg/dL cutoff. Performed By: #### G LTGST ####[facility] [id number] [place] [address] [place] Reagin and Treponema pallidu m IgG and IgM [Interp]on 04-17-2025 T. pallidum IgG+IgM IA Ql (S) Non-Reactive Normal Nonreactive [facility] Comment on above: Order Comment: Speci men Type: BLOOD SPECIMENOrdering Facility: [facility] Address: [address] [place] [address] Performed By: #### 7 3752-8 ####[facility] LABCLIA [id number] [place] [address] [place] Reagin+T pallidum IgG+IgM Se rPl-Impon 04-17-2025 Reagin and Treponema pallidum IgG and IgM [Interp] Cannot exclude recent Treponemal infection if specimen collected within 7-10 days after appearance of suspect lesions or 2-3 weeks after an exposure. Clinical correlation is required. [facility] Comment on above: Order Comment: Speci men Type: BLOOD SPECIMENOrdering Facility: [facility] Address: [address] [place] [address] Performed By: #### 7 3752-8 ####[facility] LABCLIA [id number] [place] [address] [place] TYPE + SCREEN PRENATALon ABO A [facility] Comment on above: Order Comment: Speci men Type: BLOOD SPECIMENOrdering Facility: [facility] Address: [address] [place] [address] Performed By: #### T SPN ####[facility] BLOOD BANKCLIA [id number] [place] [address] [place] Rh Nom (Bld) Negative [facility] Comment on above: Order Comment: Speci men Type: BLOOD SPECIMENOrdering Facility: [facility] Address: [address] [place] [address] Performed By: #### T SPN ####[facility] BLOOD BANKCLIA [id number] [place] [address] [place] TYPE AND SCREEN EXPIRATION 04/20/2025 23:59 [facility] Comment on above: Order Comment: Speci men Type: BLOOD SPECIMENOrdering Facility: [facility] Address: [address] [place] [address] Performed By: #### T SPN ####[facility] BLOOD BANKIA [id number] [address] STATES OF [facility] ECHOon 03-06-2025 Echocardiography Echocardiography Report: Transthoracic Echo [facility] Date of service: 03/06/2025 8:51:11 AM REPRESENTATIVE Ordering physician: WARNER TAI Indication: Palpitations Technologist: [...] * * Final * * * CC [employer] [facility] : [id number]. [id number] DynamicsSISUID [facility] CNOVon 02-18-2025 CNOV Office Visit (CARD P) ZULEYKA NIELSEN ([id number]) 1995 F Date Time Provider Department 02/18/25 9:30 AM WARNER TAI During your visit today, we recorded the following information about you: Pulse Blood pressure 90/minute 111/64 Warner Tai MD 02/18/2025 10:18 AM Signed Heart, Vascular, and Thoracic [place] Department of Cardiovascular Medicine SECTION [...] established to (more content not included)... [facility] [id number] 02-18-2025 ECG01 Ventricular Rate : 89 BPM Atrial Rate : 89 BPM P-R Interval : 132 ms QRS Duration : 78 ms Q-T Interval : 340 ms QTC Calculation(Bazett) : 413 ms Calculated P Exline : 77 degrees Calculated R Exline : -10 degrees Calculated T Exline : 67 degrees NORMAL SINUS RHYTHM WITH SINUS ARRHYTHMIA NONSPECIFIC ST ABNORMALITY Confirmed by EDWIGE MOSER M.D. (81) on 02/21/2025 10:35:20 AM NAME : ZULEYKA NIELSEN PID : [id number] : 1995 Gender : Female Race : ORD : Procedure Date : Feb 18 2025 08:54:25 Edit Date : Feb 21 2025 10:35:22 Diagnosis: NORMAL SINUS RHYTHM WITH SINUS ARRHYTHMIA NONSPECIFIC ST ABNORMALITY Confirmed by MITZI MOSER M.D.OPAL (81) on 02/21/2025 10:35:20 AM Test Reason : Location : 314 : J14 J14 Overread By : EDWIGE MOSER M.D. Edited By : EDWIGE MOSER M.D. Referred By : KALYANI DOUGHERTY Acquired by : DONALDO GOLDEN [facility] (Medical Referral Source) ZULEYKA NIELSEN ([id number]) 1995 F Date Time Provider Department 02/03/25 [...] Fully Assessed Reason for Visit: Patient Question [2847] Prescriptions as of 02/04/2025 - ondansetron orally [...] Status:Closed by ABDI FORD on 02/04/25 Normal [facility] Telephone (NIECY) ZULEYKA NIELSEN ([id number]) 1995 F Date Time Provider Department 02/03/25 [...] Status:Closed by NOE JOSE on 02/03/25 [facility] T4 Free SerPl-mCncon 025 Free T4 [Mass/Vol] 0.9 ng/dL Normal 0.9-1.7 [facility] Comment on above: Order Comment: Speci men Type: BLOOD SPECIMENOrdering Facility: [facility] Address: [address] [id number] Performed By: #### 3 024-7, 3016-3 ####[facility] LABIA [id number] [place] [address] [place] TSH SerPl-aCncon 01-30-2025 TSH Qn 1.710 m[IU]/L Normal 0.270-4.200 [facility] Comment on above: Order Comment: Godwin bella Type: BLOOD SPECIMENOrdering Facility: [facility] Address: [address] [place] [address] Result Comment: If t he patient is , TSH reference range varies by gestational period: First Trimester (weeks 9-12): 0.180-2.990 mIU/L Second Trimester: 0.110-3.980 mIU/L Third Trimester: 0.480-4.710 mIU/L García Porter et al. A Practical Approach for the Verifications and Determination of Site- and Trimester-Specific Reference Intervals for Thyroid Function tests in . Thyroid, 2019:29:3:412-420. Donald Peterson, et al. 2017 Guidelines of the [place] Thy[employer] for the Diagnosis and Management of Thyroid Disease during and the . Thyroid, 2017:27:3:315-389. Performed By: #### 3 024-7, 3016-3 ####[facility] LABIA [id number] [place] [id number] [place] Hematocrit Auto (Bld) [Volum e fraction]on 01-09-2025 Hematocrit (Bld) [Volume fraction] 34.5 % Low 36.0-46.0 [facility] Comment on above: Order Comment: Godwin bella Type: BLOOD SPECIMENOrdering Facility: [facility] Address: [address] [place] [address] Performed By: #### 4 544-3, 777-3 ####[facility] JAMILAH [facility]ENTERCHRISTIN [id number] [place] [id number] [place] PLATELET FUNCTION SCREENon 0 01-09-2025 Platelet function (closure time) collagen+ADP induced (Bld) [Time] 78 CT (seconds) Normal <118 [facility] Comment on above: Order Comment: Godwin bella Type: BLOOD SPECIMENOrdering Facility: [facility] Address: [address] [place] [address] Performed By: #### P LTSCN ####[facility] LABIA [id number] [address] [place] Platelet function (closure time) collagen+EPINEPHrine induced (Bld) [Time] 111 CT (seconds) Normal <194 [facility] Comment on above: Order Comment: Godwin bella Type: BLOOD SPECIMENOrdering Facility: [facility] Address: [address] [place] [address] Performed By: #### P LTSCN ####[facility] LABIA [id number] [address] [place] OF [place] PT panel Coag (PPP)on 2024 INR Coag (PPP) [Relative time] 1.0 {INR} Normal 0.9-1.3 [facility] Comment on above: Order Comment: Godwin jena Type: BLOOD SPECIMENOrdering Facility: [facility] Address: [address] [place] [address] Result Comment: Mery min K Antagonist (VKA) Therapeutic Range: INR 2 to 3 (Target INR of 2.5) Note: For patients treated with VKA drugs, such as warfarin, the [place] [employer] 2012 Guideline recommends [...] 70: 252-289 Performed By: #### 3 4528-0, 26342-3 ####[facility]ITALNCLIA [id number] [place] [address] [place] PT Coag (PPP) [Time] 10.0 s Normal <13.1 [facility] Comment on above: Order Comment: Speci men Type: BLOOD SPECIMENOrdering Facility: [facility] Address: [address] [place] [address] Performed By: #### 3 4528-0, 67099-4 ####[facility]ITALNCO[facility] [id number] [place] [address] [place] Platelets Auto (Bld) [#/Vol] on 01-09-2025 Platelets (Bld) [#/Vol] 266 10*3/uL Normal 150-400 [facility] Comment on above: Order Comment: Speci men Type: BLOOD SPECIMENOrdering Facility: [facility] Address: [address] [place] [address] Performed By: #### 4 544-3, 777-3 ####[facility] [id number] [address] [place] VON WILLEBRAND PNL (VWFPN)on 01-09-2025 Bound rFVIII/vWf Ag IA (P) [Relative ratio] 0.7 Normal >=0.5 [facility] Comment on above: Order Comment: Speci men Type: BLOOD SPECIMENOrdering Facility: [facility] Address: [address] [place] [address] Performed By: #### L [id number], [id number] ####[facility] LABCLIA [id number] [address] [place] Coagulation factor VIII activity actual/normal Coag (PPP) [Relative time] 138 % Normal 50-173 [facility] Comment on above: Order Comment: Speci men Type: BLOOD SPECIMENOrdering Facility: [facility] Address: [address] [place] [address] Performed By: #### L [id number], [id number] ####[facility] LABCLIA [id number] [place] [address] [place] GPIBM ACTIVITY >160 High 44-156 [facility] Comment on above: Order Comment: Speci men Type: BLOOD SPECIMENOrdering Facility: [facility] Address: [address] [place] [address] Result Comment: This test was developed, and its performance characteristics determined by the [facility] Department of Pathology and Laboratory Medicine. It has not been cleared or approved by the FDA. The [facility] Department of Pathology and Laboratory Medicine is regulated under CLIA as qualified to perform high-complexity testing. This test is used for clinical purposes. It should not be regarded as investigational or for research. Performed By: #### L [id number], [id number] ####[facility] LABCLIA [id number] [place] [address] [place] Platelet aggregation ristocetin induced Ql (PRP) Normal dose response Normal Normal dose response [facility] Comment on above: Order Comment: Speci men Type: BLOOD SPECIMENOrdering Facility: [facility] Address: [address] [place] [address] Performed By: #### L [id number], [id number] ####[facility] LABCLIA [id number] [place] [address] [place] vWf Ag actual/normal IA (PPP) [Relative mass conc] 191 % High 50-173 [facility] Comment on above: Order Comment: Speci men Type: BLOOD SPECIMENOrdering Facility: [facility] Address: [address] [place] [address] Performed By: #### L [id number], [id number] ####[facility] LABCLIA [id number] [place] [address] [place] vWf multimers Ql (PPP) Normal [facility] Comment on above: Order Comment: Speci men Type: BLOOD SPECIMENOrdering Facility: [facility] Address: [address] [place] [address] Result Comment: Assa y of von Willebrand multimers was performed by an agarose gel electrophoresis followed by immunofixation with anti-von Willebrand factor antiserum. There is a normal multimer distribution with high intensity of bands. Reviewed by Apryl Goddard DO, [facility] This test was developed, and its performance characteristics determined by the [facility] Department of Pathology and Laboratory Medicine. It has not been cleared or approved by the FDA. The [facility] Department of Pathology and Laboratory Medicine is regulated under CLIA as qualified to perform high-complexity testing. This test is used for clinical purposes. It should not be regarded as investigational or for research. Performed By: #### L [id number], [id number] ####[facility] LABCLIA [id number] [place] [address] [place] vWf ristocetin cofactor act/vWf Ag (PPP) [Ratio] Normal [facility] Comment on above: Order Comment: Speckwaku [facility] Type: BLOOD SPECIMENOrdering Facility: [facility] Address: [address] [place] [address] Result Comment: Not calculated Performed By: #### L [id number], [id number] ####[facility] LABCLIA [id number] [address] [place] vWf.collagen binding activity actual/normal IA (PPP) [Relative ratio] 178 % High 41-161 [facility] Comment on above: Order Comment: Eliakwaku [facility] Type: BLOOD SPECIMENOrdering Facility: [facility] Address: [address] [place] [address] Result Comment: This test was developed, and its performance characteristics determined by the [facility] Department of Pathology and Laboratory Medicine. It has not been cleared or approved by the FDA. The [facility] Department of Pathology and Laboratory Medicine is regulated under CLIA as qualified to perform high-complexity testing. This test is used for clinical purposes. It should not be regarded as investigational or for research. Performed By: #### L [id number], [id number] ####[facility] LABCLIA [id number] [place] [address] [place] vWf.collagen binding activity/vWf Ag IA (PPP) [Ratio] 0.9 Normal >=0.6 [facility] Comment on above: Order Comment: Godwin bella Type: BLOOD SPECIMENOrdering Facility: [facility] Address: [address] [place] [address] Performed By: #### L [id number], [id number] ####[facility] [id number] [place] [address] [place] VWF PANEL (VWFPN) INTERPon 0 01-09-2025 Pathologist name Reviewed by Apryl Goddard DO, MPH Normal [facility] Comment on above: Order Comment: Godwin bella Type: BLOOD SPECIMENOrdering Facility: [facility] Address: [address] [place] [address] Performed By: #### L [id number], [id number] ####[facility] [id number] [address] [place] von Willebrand evaluation (PPP) [Interp] Normal [facility] Comment on above: Order Comment: Godwin bella Type: BLOOD SPECIMENOrdering Facility: [facility] Address: [address] [place] [address] Result Comment: Meagan jiang - see comment [...] if clinically indicated. Performed By: #### L [id number], [id number] ####[facility] LABCLIA [id number] [place] [address] [place] aPTT PPPon 01-09-2025 aPTT Coag (PPP) [Time] 25.5 s Normal 23.0-32.4 [facility] Comment on above: Order Comment: Speci men Type: BLOOD SPECIMENOrdering Facility: [facility] Address: [address] [place] [address] Performed By: #### 3 4528-0, 99258-3 ####[facility] [id number] [place] [address] [place] CNOVSPon 01-08-2025 CNOVSP Visit (SP) Office (NIECY) ZULEYKA NIELSEN ([id number]) 1995 F Date Time Provider Department 01/08/25 [...] which included preparing to see the patient, bayg-tf-vbet patient care, completing clinical documentation, obtaining and/or reviewing separately obtained history, counseling and educating the patient/family/careg iver, ordering medications, tests, or procedures, independently interpreting results (not separately reported), and communicating results to the patient/family/careg iver. Electronically Signed: Noe Jose MD January 08, 2025 11:06 AM Referring Provider: KALYANI DOUGHERTY [[id number]] Allergies As of Date: 01/08/2025 (No Known Allergies) Date Reviewed: 01/08/2025 Reviewed by: Nita Mistry Ma, MA - Fully Assessed Reason for Visit: New Patient Evaluation [154] Visit Diagnoses:13 weeks gestation of [Z3A.13] Encounter for supervision of normal in multigravida [Z34.80] Excessive bleeding [R58] Order(s):CONSULT TO HEMATOLOGY [9014] Order #: [id number]: 1 VON WILLEBRAND DX PANEL [SQVWFPN] Order #: [id number] FUTURE Follow-up and Disposition History for Encounter Date Provider Department Center 01/08/2025 [id number] JOSE [place] Prescriptions as of 01/08/2025 - ondansetron [...] period [O26.899*01/03/2025 (more content not included)... [facility] CBC W Auto Differential pane l (Bld)on 01-02-2025 Basophils (Bld) [#/Vol] 10*3/uL Normal <0.11 [facility] Comment on above: Order Comment: Speci men Type: BLOOD SPECIMENOrdering Facility: [facility] Address: [address] [place] [address] Performed By: #### 5 7021-8 ####[facility] MILLWNCLIA [id number] [place] [address] [place] Basophils/100 WBC (Bld) 0.2 % Normal [facility] Comment on above: Order Comment: Speci men Type: BLOOD SPECIMENOrdering Facility: [facility] Address: [address] [place] [address] Performed By: #### 5 7021-8 ####[facility] HOSPITALLIA [id number] [place] [address] [place] Differential cell count method Nom (Bld) Auto Normal [facility] Comment on above: Order Comment: Speci men Type: BLOOD SPECIMENOrdering Facility: [facility] Address: [address] [place] [address] Performed By: #### 5 7021-8 ####[facility] MILLWNCLIA [id number] [place] [address] [place] Eosinophils (Bld) [#/Vol] 0.07 10*3/uL Normal <0.46 [facility] Comment on above: Order Comment: Speci men Type: BLOOD SPECIMENOrdering Facility: [facility] Address: [address] [place] [address] Performed By: #### 5 7021-8 ####[facility] MILLWNCLIA [id number] [place] [address] [place] Eosinophils/100 WBC (Bld) 0.8 % Normal [facility] Comment on above: Order Comment: Speci men Type: BLOOD SPECIMENOrdering Facility: [facility] Address: [address] [place] [address] Performed By: #### 5 7021-8 ####[facility]ITALCHRISTIN [id number] [place] [address] [place] Erythrocyte distribution width (RBC) [Ratio] 12.5 % Normal 11.5-15.0 [facility] Comment on above: Order Comment: Speci men Type: BLOOD SPECIMENOrdering Facility: [facility] Address: [address] [place] [address] Performed By: #### 5 7021-8 ####[facility] HOSPITALNCKENDRICK [id number] [place] [address] [place] Hematocrit (Bld) [Volume fraction] 35.1 % Low 36.0-46.0 [facility] Comment on above: Order Comment: Speci men Type: BLOOD SPECIMENOrdering Facility: [facility] Address: [address] [place] [address] Performed By: #### 5 7021-8 ####[facility] HOSPITALNCPATRICE [id number] [place] [address] [place] Hemoglobin (Bld) [Mass/Vol] 11.9 g/dL Normal 11.5-15.5 [facility] Comment on above: Order Comment: Speci men Type: BLOOD SPECIMENOrdering Facility: [facility] Address: [address] [place] [address] Performed By: #### 5 7021-8 ####[facility]ITALNCLIA [id number] [place] [address] [place] Immature granulocytes (Bld) [#/Vol] 0.05 10*3/uL Normal <0.10 [facility] Comment on above: Order Comment: Speci men Type: BLOOD SPECIMENOrdering Facility: [facility] Address: [address] [place] [address] Performed By: #### 5 7021-8 ####[facility] BERNAMaidaNCKENDRICK [id number] [place] [address] [place] Immature granulocytes/100 WBC (Bld) 0.5 % Normal [facility] Comment on above: Order Comment: Speci men Type: BLOOD SPECIMENOrdering Facility: [facility] Address: [address] [place] [address] Performed By: #### 5 7021-8 ####[facility]ITALNCO[facility] [id number] [place] [address] [place] Lymphocytes (Bld) [#/Vol] 2.86 10*3/uL Normal 1.00-4.00 [facility] Comment on above: Order Comment: Speci men Type: BLOOD SPECIMENOrdering Facility: [facility] Address: [address] [place] [address] Performed By: #### 5 7021-8 ####[facility] [id number] [place] [address] [place] Lymphocytes/100 WBC (Bld) 31.2 % Normal [facility] Comment on above: Order Comment: Speci men Type: BLOOD SPECIMENOrdering Facility: [facility] Address: [address] [place] [address] Performed By: #### 5 7021-8 ####[facility] HOSPITALLIA [id number] [place] [address] [place] MCH (RBC) [Entitic mass] 30.1 pg Normal 26.0-34.0 [facility] Comment on above: Order Comment: Speci men Type: BLOOD SPECIMENOrdering Facility: [facility] Address: [address] [place] [address] Performed By: #### 5 7021-8 ####[facility]ITALNCLIA [id number] [place] [address] [place] MCHC (RBC) [Mass/Vol] 33.9 g/dL Normal 30.5-36.0 [facility] Comment on above: Order Comment: Speci men Type: BLOOD SPECIMENOrdering Facility: [facility] Address: [address] [place] [address] Performed By: #### 5 7021-8 ####[facility]ITALNCLIA [id number] [place] [address] [place] MCV (RBC) [Entitic vol] 88.9 fL Normal 80.0-100.0 [facility] Comment on above: Order Comment: Speci men Type: BLOOD SPECIMENOrdering Facility: [facility] Address: [address] [place] [address] Performed By: #### 5 7021-8 ####[facility] [id number] [place] [address] [place] Monocytes (Bld) [#/Vol] 0.75 10*3/uL Normal <0.87 [facility] Comment on above: Order Comment: Speci men Type: BLOOD SPECIMENOrdering Facility: [facility] Address: [address] [place] [address] Performed By: #### 5 7021-8 ####[facility]ITALLIA [id number] [address] [place] Monocytes/100 WBC (Bld) 8.2 % Normal [facility] Comment on above: Order Comment: Speci men Type: BLOOD SPECIMENOrdering Facility: [facility] Address: [address] [place] [address] Performed By: #### 5 7021-8 ####[facility]ITALNCO[facility] [id number] [place] [address] [place] Neutrophils (Bld) [#/Vol] 5.42 10*3/uL Normal 1.45-7.50 [facility] Comment on above: Order Comment: Speci men Type: BLOOD SPECIMENOrdering Facility: [facility] Address: [address] [place] [address] Performed By: #### 5 7021-8 ####[facility] HOSPITALLIA [id number] [place] [address] [place] Neutrophils/100 WBC (Bld) 59.1 % Normal [facility] Comment on above: Order Comment: Speci men Type: BLOOD SPECIMENOrdering Facility: [facility] Address: [address] [place] [address] Performed By: #### 5 7021-8 ####[facility]ITALN[facility] [id number] [place] [address] [place] Nucleated RBC (Bld) [#/Vol] 10*3/uL Normal <0.01 [facility] Comment on above: Order Comment: Speci men Type: BLOOD SPECIMENOrdering Facility: [facility] Address: [address] [place] [address] Performed By: #### 5 7021-8 ####[facility] HOSPITALNCLI [id number] [place] [address] [place] Nucleated RBC/100 WBC (Bld) [Ratio] 0.0 /100 WBC Normal [facility] Comment on above: Order Comment: Speci men Type: BLOOD SPECIMENOrdering Facility: [facility] [facility] Address: [address] [place] [address] Performed By: #### 5 7021-8 ####[facility]ITALNCLI [id number] [place] [address] [place] Platelet mean volume (Bld) [Entitic vol] 9.5 fL Normal 9.0-12.7 [facility] Comment on above: Order Comment: Speci men Type: BLOOD SPECIMENOrdering Facility: [facility] Address: [address] [place] [address] Performed By: #### 5 7021-8 ####[facility] MONAENCPATRICEA [id number] [place] [address] [place] Platelets (Bld) [#/Vol] 278 10*3/uL Normal 150-400 [facility] Comment on above: Order Comment: Speci men Type: BLOOD SPECIMENOrdering Facility: [facility] Address: [address] [place] [address] Performed By: #### 5 7021-8 ####[facility] BERNABELLFLOWERNCLIA [id number] [place] [address] [place] RBC (Bld) [#/Vol] 3.95 10*6/uL Normal 3.90-5.20 [facility] Comment on above: Order Comment: Speci men Type: BLOOD SPECIMENOrdering Facility: [facility] Address: [address] [place] [address] Performed By: #### 5 7021-8 ####[facility]ITALNCLIA [id number] [place] [address] [place] WBC (Bld) [#/Vol] 9.17 10*3/uL Normal 3.70-11.00 [facility] Comment on above: Order Comment: Speci men Type: BLOOD SPECIMENOrdering Facility: [facility] Address: [address] [place] [address] Performed By: #### 5 7021-8 ####[facility]ITALNCLIA [id number] [address] [place] Examination level ultrasound on 01-02-2025 Indication First trimester anatomic survey Maternal obesity, BMI >30 Impression REMOTE READ The patient is referred for a first trimester anatomy scan including nuchal translucency measurement as clinically indicated. - Single, live, intrauterine . - [place] rump length measurement is consistent with the [...] view: visualized 4-chamber view with color: normal 0-huspjw-lxcxrhy view: normal Abdominal cord insertion: normal Stomach: [...] Read By: Billie Gay M.D. MATERNAL MEDICINE [facility] Radiology Study observation (narrative) [facility] HBV surface Ag Ser Qlon 12-15 HBV surface Ag Ql (S) Negative Normal Negative [facility] Comment on above: Order Comment: Speci men Type: BLOOD SPECIMENOrdering Facility: [facility] Address: [address] [place] [address] Performed By: #### 5 195-3, 95667-3, 47299-0 ####[facility] LABCLIA [id number] [place] [address] [place] HCV Ab Ser Qlon 01-02-2025 HCV Ab Ql (S) Negative Normal Negative [facility] Comment on above: Order Comment: Speci men Type: BLOOD SPECIMENOrdering Facility: [facility] Address: [address] [place] [address] Result Comment: The result suggests no evidence of active infection with Hepatitis C virus. Should recent infection be suspected, repeat testing may be considered 4-6 weeks after this draw. Performed By: #### 1 6128-1 ####[facility] LABCLIA [id number] [place] [address] [place] HIV 1+2 Ab IA Qlon HIV 1 and 2 Ab IA.rapid Nom (S/P/Bld) Normal [facility] Comment on above: Order Comment: Speci men Type: BLOOD SPECIMENOrdering Facility: [facility] Address: [address] [place] [address] Result Comment: Test not indicated. Performed By: #### 5 195-3, 13704-6, 58531-5 ####[facility] LABCLIA [id number] [place] [address] [place] HIV 1+2 Ab+HIV1 p24 Ag IA Ql Non-Reactive Normal Nonreactive [facility] Comment on above: Order Comment: Speci men Type: BLOOD SPECIMENOrdering Facility: [facility] Address: [address] [place] [address] Performed By: #### 5 195-3, 04259-9, 06875-2 ####[facility] LABCLIA [id number] [place] [address] [place] HIV immunoassay testing algorithm interpretation (S/P/Bld) [Interp] Normal [facility] Comment on above: Order Comment: Speci men Type: BLOOD SPECIMENOrdering Facility: [facility] Address: [address] [place] [address] Result Comment: No e vidence of HIV-1 or HIV-2 infection. Should recent infection be suspected, repeat testing may be considered 2-[address] weeks [address] draw[address] [facility] Rev. Code 3701.243(E): This information has been [...] or diagnoses. Performed By: #### 5 195-3, 48848-5, 52434-3 ####[facility] LABCLIA [id number] [place] [address] [place] HbA1c (Bld)on 01-02-2025 Average glucose Estimated from glycated hemoglobin (Bld) [Mass/Vol] 94 mg/dL Normal [facility] Comment on above: Order Comment: Speci men Type: BLOOD SPECIMENOrdering Facility: [facility] Address: [address] [place] [address] Result Comment: eAG: (Estimated average glucose) is a calculated value from HgbA1c and is environmental marketing representative of the average blood glucose level in the last 2-3 month period. Performed By: #### 5 5454-3 ####[facility] LABCLIA [id number] [place] [address] [place] HbA1c (Bld) [Mass fraction] 4.9 % Normal 4.3-5.6 [facility] Comment on above: Order Comment: Godwin bella Type: BLOOD SPECIMENOrdering Facility: [facility] Address: [address] [place] [address] Result Comment: Amer [place] Diabetes Association guidelines indicate that patients with HgbA1c in the range 5.7-6.4% are at increased risk for development of diabetes, and intervention by lifestyle modification may be beneficial. HgbA1c greater or equal to 6.5% is considered diagnostic of diabetes. Performed By: #### 5 5454-3 ####[facility] LABCLIA [id number] [address] [place] RUBELLA IGG ANTIBODYon 01-02 RUBELLA IGG AB, QUAL Positive Normal Positive [facility] Comment on above: Order Comment: Godwin bella Type: BLOOD SPECIMENOrdering Facility: [facility] Address: [address] [place] [address] Result Comment: The result suggests recent or past exposure to Rubella virus or history of Rubella vaccination. Positive result may also be seen due to presence of passively-transferred antibodies. Please correlate with patient's history. Performed By: #### R UBIGG ####[facility] LABCLIA [id number] [place] [address] [place] Reagin and Treponema pallidu m IgG and IgM [Interp]on 01-02-2025 T. pallidum IgG+IgM IA Ql (S) Non-Reactive Normal Nonreactive [facility] Comment on above: Order Comment: Godwin bella Type: BLOOD SPECIMENOrdering Facility: [facility] Address: [address] [place] [address] Performed By: #### 5 195-3, 45478-8, 59910-8 ####[facility] LABCLIA [id number] [address] [place] Reagin+T pallidum IgG+IgM Se rPl-Impon 01-02-2025 Reagin and Treponema pallidum IgG and IgM [Interp] Cannot exclude recent Treponemal infection if specimen collected within 7-10 days after appearance of suspect lesions or 2-3 weeks after an exposure. Clinical correlation is required. Normal [facility] Comment on above: Order Comment: Speci men Type: BLOOD SPECIMENOrdering Facility: [facility] Address: [address] [place] [address] Performed By: #### 5 195-3, 66767-4, 90970-4 ####[facility] LABCLIA [id number] [place] [address] [place] TYPE + SCREEN PRENATALon ABO A Normal [facility] Comment on above: Order Comment: Speci men Type: BLOOD SPECIMENOrdering Facility: [facility] Address: [address] [place] [address] Performed By: #### T SPN ####[facility] BLOOD BANKCLIA [id number] [place] [address] [place] Rh Nom (Bld) Negative Normal [facility] Comment on above: Order Comment: Speci men Type: BLOOD SPECIMENOrdering Facility: [facility] Address: [address] [place] [address] Performed By: #### T SPN ####[facility] BLOOD BANKIA [id number] [place] [address] [place] TYPE AND SCREEN EXPIRATION 01/05/2025 23:59 Normal [facility] Comment on above: Order Comment: Speci men Type: BLOOD SPECIMENOrdering Facility: [facility] Address: [address] [place] [address] Performed By: #### T SPN ####[facility] BLOOD BANKCLIA [id number] [place] [address] [place] Bacteria Ur Culton Bacteria identified Cx Nom (U) ORGANISM ID: 1 10,000 -<50,000 CFU/ml Normal urogenital montserrat Normal [facility] Comment on above: Performed By: #### 6 30-4 ####[facility] LABCLIA [id number] [place] [address] [place] C. trachomatis+N. gonorrhoea e DNA ALVARO+probe Ql (Unsp spec)on 12-05-2024 C. trachomatis rRNA ALVARO+probe Ql (Unsp spec) Not detected Normal Not detected [facility] Comment on above: Order Comment: Speci men Type: SWABOrdering Facility: [facility] Address: [address] [place] [address] Performed By: #### 3 6902-5 ####[facility] LABCLIA [id number] [place] [address] [place] N. gonorrhoeae rRNA ALVARO+probe Ql (Unsp spec) Not detected Normal Not detected [facility] Comment on above: Order Comment: Speci men Type: SWABOrdering Facility: [facility] Address: [address] [place] [address] Performed By: #### 3 6902-5 ####[facility] LABCLIA [id number] [place] [address] [place] PAP TESTon 12-05-2024 ADEQUACY Satisfactory for interpretation. Normal [facility] Comment on above: Order Comment: Speci men Type: FLUID SPECIMENOrdering Facility: [facility] Address: [address] [place] [address] Performed By: #### L [id number] ####[facility]ORATORYCLIA [id number] [place] [address] [place] [facility] LABCLIA [id number] [place] [address] [place] CASE REPORT Normal [facility] Comment on above: Order Comment: Speci men Type: FLUID SPECIMENOrdering Facility: [facility] Address: [address], [place] [address] Result Comment: Gyne cologic Cytology Report Case: [id number] Authorizing Provider: Danielle Kathleen APRN.FORMING MACHINE ADJUSTER Collected: 12/05/2024 09:06 AM Ordering Location: OB/Gynecology Received: 12/05/2024 01:51 PM First Screen: [place], [place], [place], ASCP Specimen: Pap Test, ThinPrep, Cervix Performed By: #### L [id number] ####[facility]ORATORYCLIA [id number] [address] LABCLIA [id number] [place] [address] [place] CLINICAL HISTORY, CYTOLOGY, NETWORK CABLE INSTALLER Routine Exam Normal [facility] Comment on above: Order Comment: Speci men Type: FLUID SPECIMENOrdering Facility: [facility] Address: [address] [place] [address] Performed By: #### L [id number] ####[facility] LABORATORYCLIA [id number] [address] LABCLIA [id number] [address] [place] FINAL PERFORMING LAB Normal [facility] Comment on above: Order Comment: Speci men Type: FLUID SPECIMENOrdering Facility: [facility] Address: [address] [place] [address] Result Comment: Tech nical component, insulation blanket maker screening performed at [facility], [address] [facility], [place] [id number] CLIA# [id number] Diagnostic interpretation performed at [facility], [address] [place] [id number] CLIA# [id number] Immigration Attorney: Nithya Arellano M.D. Performed By: #### L [id number] ####[facility]ORATORYCLIA [id number] [address] LABCLIA [id number] [place] [address] [place] INTERPRETATION, CYTOLOGY, NETWORK CABLE INSTALLER Normal [facility] Comment on above: Order Comment: Speci men Type: FLUID SPECIMENOrdering Facility: [facility] Address: [address] [place] [address] Result Comment: Nega tive for intraepithelial lesion or malignancy. Performed By: #### L [id number] ####[facility]ATORYCLIA [id number] [address] LABCLIA [id number] [place] [address] [place] LMP 09/30/2024 Normal [facility] Comment on above: Order Comment: Speci men Type: FLUID SPECIMENOrdering Facility: [facility] Address: [address] [place] [address] Performed By: #### L [id number] ####[facility]ORATORYCLIA [id number] [address] LABCLIA [id number] [place] [address] [place] PAP DISCLAIMER COMMENT The Pap Smear is a screening test for cervical cancer. False negative results occur with all screening tests, emphasizing the need for rescreening at recommended intervals, and clinical correlation. Normal [facility] Comment on above: Order Comment: Speci men Type: FLUID SPECIMENOrdering Facility: [facility] Address: [address] [place] [address] Performed By: #### L [id number] ####[facility]ORATORYCLIA [id number] [address] LABCLIA [id number] [place] [address] [place] PAP NURSERY SCHOOL TEACHER COMMENT This specimen has been analyzed by the ThinPrep Imaging System, an automated imaging and review system, which assists the laboratory in evaluating cells on ThinPrep Pap tests. Following automated imaging, selected chance from every slide are reviewed by a insulation blanket maker. Normal [facility] Comment on above: Order Comment: Speci men Type: FLUID SPECIMENOrdering Facility: [facility] Address: [address] [place] [address] Performed By: #### L [id number] ####[facility]ORATORYCLIA [id number] [place] [address] [facility] LABCLIA [id number] [address] POC WASH CREW PERSON ULTRASOUNDon 12-05-19 Indication Confirmation of intrauterine . [...] Read By: Danielle Kathleen CNP MATERNAL MEDICINE [facility] Radiology Study observation (narrative) [facility] Nurse Cytology Reporton 2022 [facility] Nurse Cytology Report . Pathology Reports Accession: Collected Date/Time: Received Date/Time: Pathologist: [id number] 05/25/2023 09:05 EDT 05/25/2023 18:00 EDT [facility] Nurse Cytology Report SPECIMEN: Specimen Description: Liquid Prep Reflex ASCUS+ Specimen: Cervical/Endocervica l Screening or Diagnostic: Screening RELEVANT HISTORY: LMP: 04/2023 SPECIMEN ADEQUACY: SATISFACTORY FOR EVALUATION Endocervical/Transfo rmational zone component absent/insufficient INTERPRETATION/RESUL TS: NEGATIVE FOR INTRAEPITHELIAL LESION OR MALIGNANCY COMMENT: Shift in montserrat consistent with bacterial vaginosis Electronically Signed by Pathology report verified by [facility] Screened by: LDIsidro Electronically signed by Richard Pate Sign-Out Date: 06/02/2023 15:23 Performing Lab: [facility], [address] [place] [address] Pathology Dept Disclaimer The Pap test is a screening test for cervical cancer. As evidenced by published data, it is subject to both inherent false negative and false positive results. Your patient's results should be interpreted in context with pertinent clinical history including gynecological examination. Normal [facility] ([place]) .Auto Diffon 12-28-2022 Basophil, Absolute 0.1 10 3/mcL Normal 0.0-0.2 [facility] 1928[facility] ([place]) Comment on above: Performed By: #### A OREN WEISSIFF, CBC #### [address] [address] Basophils/100 WBC (Bld) 0.6 % Normal 0.0-2.5 [facility] ([place]) Comment on above: Performed By: #### A OREN WEISSIFF, CBC #### [address] [address] Eosinophil, Absolute 0.1 10 3/mcL Normal 0.0-0.4 Pending sale to [facility] ([place]) Comment on above: Performed By: #### A ISELAORENIFF, CBC #### [address] [address] Eosinophils/100 WBC (Bld) 1.2 % Normal 0.0-7.0 [facility] ([place]) Comment on above: Performed By: #### A ISELAORENIFF, CBC #### [address] [address] Lymphocyte, Absolute 1.7 10 3/mcL Normal 0.8-3.9 Pending [facility] to [facility] ([place]) Comment on above: Performed By: #### A ISELAMARTIR, CBC #### [address] [address] Lymphocytes/100 WBC (Bld) 14.8 % Normal 10.0-50.0 [facility] ([place]) Comment on above: Performed By: #### A OREN WEISSIFF, CBC #### [address] [address] Monocyte, Absolute 0.9 10 3/mcL Normal 0.2-1.0 [facility] ([place]) Comment on above: Performed By: #### A ISELAMARTIR, CBC #### [address] [address] Monocytes/100 WBC (Bld) 7.3 % Normal 1.7-13.0 [facility] ([place]) Comment on above: Performed By: #### A MARTIR WEISS, CBC #### [address] [address] Neutrophils/100 WBC (Bld) 76.1 % Normal 37.0-80.0 [facility] ([place]) Comment on above: Performed By: #### A MARTIR WEISS, CBC #### [address] [address] .NEUABSon 12-28-2022 Neutrophil, Absolute 9.0 10 3/mcL High 2.9-6.2 Pending sale to [facility] ([place]) Comment on above: Performed By: #### A MARTIR WEISS, CBC #### [address] [address] CBCon 12-28-2022 Erythrocyte distribution width (RBC) [Ratio] 14.7 % High 11.5-14.5 [facility] ([place]) Comment on above: Performed By: #### A MARTIR WEISS, CBC #### [address] [address] Hematocrit (Bld) [Volume fraction] 34.1 % Low 37.0-47.0 [facility] ([place]) Comment on above: Performed By: #### A ISELA ADKULWINDER, CBC #### [address] [address] Hgb 11.2 G/dL Low 12.0-16.0 [facility] ([place]) Comment on above: Performed By: #### A MARTIR WEISS, CBC #### [address] [address] MCH (RBC) [Entitic mass] 29.7 pg Normal 27.0-31.2 [facility] ([place]) Comment on above: Performed By: #### A MARTIR WEISS, CBC #### [address] [address] MCHC 33.0 G/dL Normal 33.0-37.0 [facility] ([place]) Comment on above: Performed By: #### A MARTIR WEISS, CBC #### [address] [address] MCV (RBC) [Entitic vol] 90.1 fL Normal 80.0-94.0 [facility] ([place]) Comment on above: Performed By: #### A MARTIR WEISS, CBC #### [address] [address] Platelet 563 10 3/mcL High 130-400 [facility] ([place]) Comment on above: Performed By: #### A MARTIR WEISS, CBC #### [address] [address] Platelet mean volume (Bld) [Entitic vol] 8.1 fL Normal 7.4-10.4 [facility] ([place]) Comment on above: Performed By: #### A MARTIR WEISS, CBC #### [address] [address] RBC 3.78 10 6/mcL Low 4.20-5.40 [facility] ([place]) Comment on above: Performed By: #### A MARTIR WEISS, CBC #### [address] [address] WBC 11.8 10 3/mcL High 4.6-10.8 [facility] ([place]) Comment on above: Performed By: #### A MARTIR WEISS, CBC #### [place] [address] [place] [address] LABORATORYOrdered By: Austen Toth on 12-28-2022 Basophil, [...] (Bld) [Volume fraction] 21.0 % Low 37.0-47.0 [facility] ([place]) Comment on above: Performed By: #### A MARTIR WEISS, CBC #### [address] [address] Hgb 7.5 G/dL Low 12.0-16.0 [facility] ([place]) Comment on above: Performed By: #### A MARTIR WEISS, CBC #### [address] [address] LABORATORYOrdered By: Angelica Doe on 12-13-2022 Hematocrit (Bld) [Volume fraction] 21.0 % Invalid Interpretation Code 37.0 - 47.0 % AO Workflow SS Hemoglobin (Bld) [Mass/Vol] 7.5 G/dL Invalid Interpretation Code 12.0 - 16.0 G/dL AO Workflow SS .Auto Diffon 12-12-2022 Basophil, Absolute 0.0 10 3/mcL Normal 0.0-0.2 [facility] ([place]) Comment on above: Performed By: #### A DIFF, CBC, ANEU #### [address] [address] Basophils/100 WBC (Bld) 0.2 % Normal 0.0-2.5 [facility] ([place]) Comment on above: Performed By: #### A DIFF, CBC, ANEU #### [address] [address] Eosinophil, Absolute 0.0 10 3/mcL Normal 0.0-0.4 [facility] to [facility] ([place]) Comment on above: Performed By: #### A DIFF, CBC, ANEU #### [address] [address] Eosinophils/100 WBC (Bld) 0.0 % Normal 0.0-7.0 [facility] ([place] Comment on above: Performed By: #### A DIFF, CBC, ANEU #### [address] [address] Lymphocyte, Absolute 1.1 10 3/mcL Normal 0.8-3.9 Pending [facility] to [facility] ([place]) Comment on above: Performed By: #### A DIFF, CBC, ANEU #### [address] [address] Lymphocytes/100 WBC (Bld) 7.2 % Low 10.0-50.0 [facility] ([place] Comment on above: Performed By: #### A DIFF, CBC, ANEU #### [address] [address] Monocyte, Absolute 1.2 10 3/mcL High 0.2-1.0 [facility] ([place]) Comment on above: Performed By: #### A DIFF, CBC, ANEU #### [address] [address] Monocytes/100 WBC (Bld) 8.0 % Normal 1.7-13.0 [facility] ([place]) Comment on above: Performed By: #### A DIFF, CBC, ANEU #### [address] [address] Neutrophils/100 WBC (Bld) 84.6 % High 37.0-80.0 [facility] ([place] Comment on above: Performed By: #### A DIFF, CBC, ANEU #### [address] [address] .NEUABSon 12-12-2022 Neutrophil, Absolute 12.4 10 3/mcL High 2.9-6.2 [facility] ([place]) Comment on above: Performed By: #### A ISELA, ADIFF, CBC #### [address] [address] CBCon 12-12-2022 Erythrocyte distribution width (RBC) [Ratio] 14.1 % Normal 11.5-14.5 [facility] ([place]) Comment on above: Performed By: #### A DIFF, CBC, ANEU #### [address] [address] Hematocrit (Bld) [Volume fraction] 22.6 % Low 37.0-47.0 [facility] ([place] Comment on above: Performed By: #### A DIFF, CBC, ANEU #### [address] [address] Hgb 7.9 G/dL Low 12.0-16.0 [facility] ([place] Comment on above: Performed By: #### A DIFF, CBC, ANEU #### [address] [address] MCH (RBC) [Entitic mass] 31.4 pg High 27.0-31.2 [facility] ([place] Comment on above: Performed By: #### A DIFF, CBC, ANEU #### [address] [address] MCHC 34.8 G/dL Normal 33.0-37.0 [facility] ([place] Comment on above: Performed By: #### A DIFF, CBC, ANEU #### [address] [address] MCV (RBC) [Entitic vol] 90.0 fL Normal 80.0-94.0 [facility] ([place]) Comment on above: Performed By: #### A DIFF, CBC, ANEU #### [address] [address] Platelet 159 10 3/mcL Normal 130-400 [facility] ([place] Comment on above: Performed By: #### A DIFF, CBC, ANEU #### [address] [address] Platelet mean volume (Bld) [Entitic vol] 9.8 fL Normal 7.4-10.4 [facility] ([place] Comment on above: Performed By: #### A DIFF, CBC, ANEU #### [address] [address] RBC 2.51 10 6/mcL Low 4.20-5.40 [facility] ([place]) Comment on above: Performed By: #### A DIFF, CBC, ANEU #### [address] [address] WBC 14.7 10 3/mcL High 4.6-10.8 [facility] ([place] Comment on above: Performed By: #### A DIFF, CBC, ANEU #### [place] [address] HHon 12-12-2022 Hematocrit (Bld) [Volume fraction] 19.6 % Low 37.0-47.0 [facility] ([place] Comment on above: Performed By: #### A ISELA, ADIFF, CBC #### [place] [address] Hgb 6.8 G/dL Critically abnormal 12.0-16.0 [facility] ([place] Comment on above: Performed By: #### A ISELA, ADIFF, CBC #### [place] [address] LABORATORYOrdered By: Chantel Maldonado on 12-12-2022 Hematocrit [...] Product Ready RBC Ready for Pickup Normal [facility] ([place] Comment on above: Performed By: #### A MARTIR WEISS, CBC #### [address] [address] RPRon 12-12-2022 Reagin Ab RPR Ql (S) Non-Reactive Normal Non-Reactive [facility] ([place]) Comment on above: Result Comment: The RPR [...] By: #### A MARTIR WEISS, CBC #### [address] [address] .Auto Diffon 12-11-2022 Basophil, Absolute 0.1 10 3/mcL Normal 0.0-0.2 Formerly [facility], 1928–[facility] ([place]) Comment on above: Performed By: #### A MARTIR WEISS, CBC #### [address] [address] Basophils/100 WBC (Bld) 0.6 % Normal 0.0-2.5 [facility] ([place]) Comment on above: Performed By: #### A MARTIR WEISS, CBC #### [address] [address] Eosinophil, Absolute 0.0 10 3/mcL Normal 0.0-0.4 Pending sale to [facility] ([place]) Comment on above: Performed By: #### A MARTIR WEISS, CBC #### [address] [address] Eosinophils/100 WBC (Bld) 0.4 % Normal 0.0-7.0 [facility] ([place]) Comment on above: Performed By: #### A MARTIR WEISS, CBC #### [address] [address] Lymphocyte, Absolute 1.5 10 3/mcL Normal 0.8-3.9 Pending sale to [facility] ([place]) Comment on above: Performed By: #### A MARTIR WEISS, CBC #### [address] [address] Lymphocytes/100 WBC (Bld) 13.9 % Normal 10.0-50.0 [facility] ([place] Comment on above: Performed By: #### A MARTIR WEISS, CBC #### [address] [address] Monocyte, Absolute 0.8 10 3/mcL Normal 0.2-1.0 [facility]ly [facility], [facility] ([place] Comment on above: Performed By: #### A MARTIR WEISS, CBC #### [address] [address] Monocytes/100 WBC (Bld) 7.7 % Normal 1.7-13.0 [facility] ([place] Comment on above: Performed By: #### A MARTIR WEISS, CBC #### [address] [address] Neutrophils/100 WBC (Bld) 77.4 % Normal 37.0-80.0 [facility] ([place] Comment on above: Performed By: #### A MARTIR WEISS, CBC #### [address] [address] .NEUABSon 12-11-2022 Neutrophil, Absolute 8.5 10 3/mcL High 2.9-6.2 Pending sale to [facility] ([place]) Comment on above: Performed By: #### A MARTIR WEISS, CBC #### [address] [address] CBCon 12-11-2022 Erythrocyte distribution width (RBC) [Ratio] 14.6 % High 11.5-14.5 [facility] ([place] Comment on above: Performed By: #### A MARTIR WEISS, CBC #### [address] [address] Hematocrit (Bld) [Volume fraction] 30.3 % Low 37.0-47.0 [facility] ([place] Comment on above: Performed By: #### A MARTIR WEISS, CBC #### [address] [address] Hgb 10.4 G/dL Low 12.0-16.0 [facility] ([place] Comment on above: Performed By: #### A MARTIR WEISS, CBC #### [address] [address] MCH (RBC) [Entitic mass] 31.3 pg High 27.0-31.2 [facility] ([place] Comment on above: Performed By: #### A MARTIR WEISS, CBC #### [address] [address] MCHC 34.4 G/dL Normal 33.0-37.0 [facility] ([place] Comment on above: Performed By: #### A MARTIR WEISS, CBC #### [address] [address] MCV (RBC) [Entitic vol] 90.9 fL Normal 80.0-94.0 [facility] ([place] Comment on above: Performed By: #### A MARTIR WEISS, CBC #### [address] [address] Platelet 192 10 3/mcL Normal 130-400 [facility] ([place] Comment on above: Performed By: #### A MARTIR WEISS, CBC #### [address] [address] Platelet mean volume (Bld) [Entitic vol] 9.9 fL Normal 7.4-10.4 [facility] ([place] Comment on above: Performed By: #### A MARTIR WEISS, CBC #### [address] [address] RBC 3.33 10 6/mcL Low 4.20-5.40 [facility] ([place] Comment on above: Performed By: #### A MARTIR WEISS, CBC #### [address] [address] WBC 11.0 10 3/mcL High 4.6-10.8 [facility] ([place] Comment on above: Performed By: #### A ISELA, ADIFF, CBC #### [place] [id number] [place], [place] [address] LABORATORYOrdered By: Светлана Marroquin on 12-11-2022 Basophil, [...] Basophil, Absolute 0.0 10 3/mcL Normal 0.0-0.2 [facility]ly [facility] ([place] Comment on above: Performed By: #### A MARTIR WEISS, CBC #### [address] [address] Basophils/100 WBC (Bld) 0.4 % Normal 0.0-2.5 [facility] ([place] Comment on above: Performed By: #### A MARTIR WEISS, CBC #### [address] [address] Eosinophil, Absolute 0.0 10 3/mcL Normal 0.0-0.4 Pending sale to [facility] ([place]) Comment on above: Performed By: #### A MARTIR WEISS, CBC #### [address] [address] Eosinophils/100 WBC (Bld) 0.5 % Normal 0.0-7.0 [facility] ([place] Comment on above: Performed By: #### A MARTIR WEISS, CBC #### [address] [address] Lymphocyte, Absolute 1.4 10 3/mcL Normal 0.8-3.9 Pending sale to [facility] ([place]) Comment on above: Performed By: #### A MARTIR WEISS, CBC #### [address] [address] Lymphocytes/100 WBC (Bld) 15.2 % Normal 10.0-50.0 [facility] ([place] Comment on above: Performed By: #### A MARTIR WEISS, CBC #### [address] [address] Monocyte, Absolute 0.8 10 3/mcL Normal 0.2-1.0 [facility]ly [facility] ([place] Comment on above: Performed By: #### A MARTIR WEISS, CBC #### [address] [address] Monocytes/100 WBC (Bld) 8.0 % Normal 1.7-13.0 [facility] ([place] Comment on above: Performed By: #### A MARTIR WEISS, CBC #### [address] [address] Neutrophils/100 WBC (Bld) 75.9 % Normal 37.0-80.0 [facility] ([place]) Comment on above: Performed By: #### A MARTIR WEISS, CBC #### [address] [address] .NEUABSon 12-10-2022 Neutrophil, Absolute 7.1 10 3/mcL High 2.9-6.2 Pending sale to [facility] ([place]) Comment on above: Performed By: #### A MARTIR WEISS, CBC #### [address] [address] CBCon 12-10-2022 Erythrocyte distribution width (RBC) [Ratio] 14.6 % High 11.5-14.5 [facility] ([place] Comment on above: Performed By: #### A MARTIR WEISS, CBC #### [address] [address] Hematocrit (Bld) [Volume fraction] 35.4 % Low 37.0-47.0 [facility] ([place] Comment on above: Performed By: #### A MARTIR WEISS, CBC #### [address] [address] Hgb 12.2 G/dL Normal 12.0-16.0 [facility] ([place] Comment on above: Performed By: #### A MARTIR WEISS, CBC #### [address] [address] MCH (RBC) [Entitic mass] 31.4 pg High 27.0-31.2 [facility] ([place]) Comment on above: Performed By: #### A MARTIR WEISS, CBC #### [address] [address] MCHC 34.6 G/dL Normal 33.0-37.0 [facility] ([place] Comment on above: Performed By: #### A MARTIR WEISS, CBC #### [place] [address] [address] MCV (RBC) [Entitic vol] 90.7 fL Normal 80.0-94.0 [facility] ([place] Comment on above: Performed By: #### A MARTIR WEISS, CBC #### [place] [address] [address] Platelet 199 10 3/mcL Normal 130-400 [facility] ([place] Comment on above: Performed By: #### A MARTIR WIESS, CBC #### [place] [address] [address] Platelet mean volume (Bld) [Entitic vol] 10.5 fL High 7.4-10.4 [facility] ([place] Comment on above: Performed By: #### A MARTIR WEISS, CBC #### [address] [address] RBC 3.90 10 6/mcL Low 4.20-5.40 [facility] ([place] Comment on above: Performed By: #### A MARTIR WEISS, CBC #### [address] [address] WBC 9.4 10 3/mcL Normal 4.6-10.8 [facility] ([place]) Comment on above: Performed By: #### A MARTIR WEISS, CBC #### [place] [address] [address] Gel ABOon 12-10-2022 ABO/Rh Interp Negative Invalid Interpretation Code [facility] ([place] Comment on above: Performed By: #### A MARTIR WEISS, CBC #### [place] [address] [address] Gel ABSon 12-10-2022 Antibody Screen Gel Negative Normal [facility] ([place]) Comment on above: Performed By: #### A MARTIR WEISS, CBC #### [place] [address] LABORATORYOrdered By: Светлана Marroquin on 12-10-2022 ABO/Rh [...] Group B Strep (PCR) Negative Normal Negative [facility] ([place]) Comment on above: Performed By: #### T 3 #### [place] [address] #### TSH #### [place] [address] Group B Strep PCR Int Normal [facility] ([place]) Comment on above: Result Comment: Grou p [...] Below Performed By: #### T 3 #### [place] [address] #### TSH #### [place] [address] LABORATORYOrdered By: Chantel Maldonado on 11-10-2022 Group [...] 09-21-2022 ABO/Rh Interp Negative Invalid Interpretation Code [facility] ([place] Comment on above: Performed By: #### A MARTIR WEISS, CBC #### [address] [address] Gel ABSon 09-21-2022 Antibody Screen Gel Negative Normal [facility] ([place]) Comment on above: Performed By: #### A MARTIR WEISS, CBC #### [address] [address] LABORATORYOrdered By: Josiah Ledezma on 09-21-2022 ABO/Rh Interp Negative Invalid Interpretation Code AO BB SS Antibody Screen Gel Negative ABSC (09/21/22 10:07 AM) Invalid Interpretation Code AO BB SS RPRon 09-07-2022 Reagin Ab RPR Ql (S) Non-Reactive Normal Non-Reactive [facility] ([place]) Comment on above: Result Comment: The RPR [...] globulins. Performed By: #### T 3 #### [place] [address] #### TSH #### [address] [address] .Manual Diffon 09-06-2022 Bands 2.0 % Normal 0.0-5.0 [facility] ([place]) Comment on above: Performed By: #### A MARTIR WEISS, CBC #### [address] [address] Basophil %, Manual 0.0 % Normal 0.0-2.5 [facility] ([place]) Comment on above: Performed By: #### A MARTIR WEISS, CBC #### [address] [address] Basophil, Abs Manual 0.0 10 3/mcL Normal 0.0-0.2 Pending sale to [facility] ([place]) Comment on above: Performed By: #### A MARTIR WEISS, CBC #### [address] [address] Eosinophil %, Manual 0.0 % Normal 0.0-7.0 [facility]ly [facility], [facility] ([place] Comment on above: Performed By: #### A MARTIR WEISS, CBC #### [address] [address] Eosinophil, Abs Manual 0.0 10 3/mcL Normal 0.0-0.4 [facility] ([place] Comment on above: Performed By: #### A MARTIR WEISS, CBC #### [address] [address] Lymphocyte %, Manual 11.0 % Normal 10.0-50.0 [facility] ([place] Comment on above: Performed By: #### A MARTIR WEISS, CBC #### [address] [address] Lymphocyte, Abs Manual 1.4 10 3/mcL Normal 0.8-3.9 [facility] ([place]) Comment on above: Performed By: #### A MARTIR WEISS, CBC #### [address] [address] Metamyelocyte 2.0 % Normal [facility] ([place] Comment on above: Performed By: #### A MARTIR WEISS, CBC #### [address] [address] Monocyte %, Manual 7.0 % Normal 1.7-13.0 [facility] ([place] Comment on above: Performed By: #### A MARTIR WEISS, CBC #### [address] [address] Monocyte, Abs Manual 0.9 10 3/mcL Normal 0.2-1.0 Pending sale to [facility] ([place] Comment on above: Performed By: #### A MARTIR WEISS, CBC #### [place] [id number] Neutrophil %, Manual 78.0 % Normal 37.0-80.0 [facility] ([place] Comment on above: Performed By: #### A MARTIR WEISS, CBC #### [address] [address] Neutrophil, Abs Manual 10.1 10 3/mcL High 2.9-6.2 [facility] ([place] Comment on above: Performed By: #### A MARTIR WEISS, CBC #### [address] [address] Nucleated RBC 0.0 /100 WBC Normal [facility] ([place] Comment on above: Performed By: #### A MARTIR WEISS, CBC #### [address] [address] .Morphon 09-06-2022 Platelet Estimate Normal Normal [facility] ([place] Comment on above: Performed By: #### A MARTIR WEISS, CBC #### [address] [address] Toxic Gran 1+ Normal [facility] ([place]) Comment on above: Performed By: #### A MARTIR WEISS, CBC #### [address] [address] CBCon 09-06-2022 Erythrocyte distribution width (RBC) [Ratio] 14.0 % Normal 11.5-14.5 [facility] ([place]) Comment on above: Performed By: #### A MARTIR WEISS, CBC #### [address] [address] Hematocrit (Bld) [Volume fraction] 32.8 % Low 37.0-47.0 [facility] ([place] Comment on above: Performed By: #### A MARTIR WEISS, CBC #### [address] [address] Hgb 11.7 G/dL Low 12.0-16.0 [facility] ([place] Comment on above: Performed By: #### A MARTIR WEISS, CBC #### [address] [address] MCH (RBC) [Entitic mass] 32.6 pg High 27.0-31.2 [facility] ([place] Comment on above: Performed By: #### A MARTIR WEISS, CBC #### [address] [address] MCHC 35.6 G/dL Normal 33.0-37.0 [facility] ([place] Comment on above: Performed By: #### A MARTIR WEISS, CBC #### [address] [address] MCV (RBC) [Entitic vol] 91.5 fL Normal 80.0-94.0 [facility] ([place] Comment on above: Performed By: #### A MARTIR WIESS, CBC #### [address] [address] Platelet 259 10 3/mcL Normal 130-400 [facility] ([place] Comment on above: Performed By: #### A MARTIR WEISS, CBC #### [address] [address] Platelet mean volume (Bld) [Entitic vol] 8.9 fL Normal 7.4-10.4 [facility] ([place] Comment on above: Performed By: #### A MARTIR WEISS, CBC #### [address] [address] RBC 3.58 10 6/mcL Low 4.20-5.40 [facility] ([place] Comment on above: Performed By: #### A MARTIR WEISS, CBC #### [address] [address] WBC 12.9 10 3/mcL High 4.6-10.8 [facility] ([place]) Comment on above: Performed By: #### A MARTIR WEISS, CBC #### [address] [address] WPE2Ggi 09-06-2022 Glucose [Mass/Vol] 95 mg/dL Normal 70-140 [facility] ([place]) Comment on above: Performed By: #### A MARTIR WEISS, CBC #### [place] [address] LABORATORYOrdered By: Светлана Marroquin on 09-06-2022 Glucose [...] Basophil, Absolute 0.0 10 3/mcL Normal 0.0-0.2 [facility]ly [facility] ([place]) Comment on above: Performed By: #### T 3 #### [place] [address] #### TSH #### [address] [address] Basophils/100 WBC (Bld) 0.3 % Normal 0.0-2.5 [facility] ([place]) Comment on above: Performed By: #### T 3 #### [place] [address] #### TSH #### [address] [address] Eosinophil, Absolute 0.1 10 3/mcL Normal 0.0-0.4 Pending sale to [facility] ([place]) Comment on above: Performed By: #### T 3 #### [place] [address] #### TSH #### [address] [address] Eosinophils/100 WBC (Bld) 0.8 % Normal 0.0-7.0 [facility] ([place]) Comment on above: Performed By: #### T 3 #### [place] [address] #### TSH #### [address] [address] Lymphocyte, Absolute 1.7 10 3/mcL Normal 0.8-3.9 Pending sale to [facility] ([place]) Comment on above: Performed By: #### T 3 #### [place] [address] #### TSH #### [address] [address] Lymphocytes/100 WBC (Bld) 14.0 % Normal 10.0-50.0 [facility] ([place]) Comment on above: Performed By: #### T 3 #### [place] [address] #### TSH #### [address] [address] Monocyte, Absolute 1.2 10 3/mcL High 0.2-1.0 [facility]ly [facility] ([place]) Comment on above: Performed By: #### T 3 #### [place] [address] #### TSH #### [address] [address] Monocytes/100 WBC (Bld) 9.3 % Normal 1.7-13.0 [facility] ([place]) Comment on above: Performed By: #### T 3 #### [place] [address] #### TSH #### [address] [address] Neutrophils/100 WBC (Bld) 75.6 % Normal 37.0-80.0 [facility] ([place]) Comment on above: Performed By: #### T 3 #### [place] [address] #### TSH #### [address] [address] .NEUABSon 08-02-2022 Neutrophil, Absolute 9.4 10 3/mcL High 2.9-6.2 Pending sale to [facility] ([place]) Comment on above: Performed By: #### T 3 #### [place] [address] #### TSH #### [address] [address] CBCon 08-02-2022 Erythrocyte distribution width (RBC) [Ratio] 14.1 % Normal 11.5-14.5 [facility] ([place]) Comment on above: Performed By: #### T 3 #### [place] [address] #### TSH #### [place] [address] Hematocrit (Bld) [Volume fraction] 32.5 % Low 37.0-47.0 [facility] ([place] Comment on above: Performed By: #### T 3 #### [place] [address] #### TSH #### [place] [address] Hgb 11.3 G/dL Low 12.0-16.0 [facility] ([place] Comment on above: Performed By: #### T 3 #### [place] [address] #### TSH #### [place] [address] MCH (RBC) [Entitic mass] 31.3 pg High 27.0-31.2 [facility] ([place]) Comment on above: Performed By: #### T 3 #### [place] [address] #### TSH #### [place] [address] MCHC 34.7 G/dL Normal 33.0-37.0 [facility] ([place] Comment on above: Performed By: #### T 3 #### [place] [address] #### TSH #### [address] [address] MCV (RBC) [Entitic vol] 90.3 fL Normal 80.0-94.0 [facility] ([place] Comment on above: Performed By: #### T 3 #### [place] [address] #### TSH #### [address] [address] Platelet 257 10 3/mcL Normal 130-400 [facility] ([place] Comment on above: Performed By: #### T 3 #### [place] [address] #### TSH #### [address] [address] Platelet mean volume (Bld) [Entitic vol] 8.7 fL Normal 7.4-10.4 [facility] ([place] Comment on above: Performed By: #### T 3 #### [place] [address] #### TSH #### [place] [address] RBC 3.60 10 6/mcL Low 4.20-5.40 [facility] ([place] Comment on above: Performed By: #### T 3 #### [place] [address] #### TSH #### [place] [address] WBC 12.5 10 3/mcL High 4.6-10.8 [facility] ([place] Comment on above: Performed By: #### T 3 #### [place] [address] #### TSH #### [place] [address] LABORATORYOrdered By: Ariana Burden on 08-02-2022 Basophil, [...] 08-02-2022 Total T3 156 ng/dL Normal 60-181 [facility] ([place] Comment on above: Performed By: #### T 3 #### [place] [address] #### TSH #### [address] [address] TSHon 08-02-2022 TSH Qn 2.08 m[IU]/L Normal 0.36-3.74 [facility] ([place] Comment on above: Performed By: #### T 3 #### [place] [address] #### TSH #### [address] [address] Progress Noteon 07-04-2022 Traffic Technician Authentication Interface Message Text [facility] - at [place] [address] [place] OFFICE VISIT NOTE DOS: 07/04/2022 07/04/2022 Chief Complaint She presents for review of progress in thus far and for comprehensive review of her maternal -obstetric- risks in this . The reasons for the visit are as highlighted in the concluding summary communication to thread cutter tender which is my problem-based office review. History [...] 81 mg daily. Collaborative Care with her Home Demonstrator: Please arrange for early Glucola given BMI [...] MFM cons (more content not included)... Normal [facility] LABORATORYOrdered By: Josiah Ledezma on 05-18-2022 ABO/Rh [...] 37.08 kg/m2 Gia Escobar MD Work Phone: [facility] 06-23-2025 09:47-0400 Body weight 97.98 kg Gia Escobar MD Work Phone: [facility] 06-23-2025 09:47-0400 Diastolic blood pressure 80 mm[Hg] Gia Escobar MD Work Phone: [facility] 06-23-2025 09:47-0400 Systolic blood pressure 128 mm[Hg] Gia Escobar MD Work Phone: [facility] 06-09-2025 09:44-0400 Body mass index (BMI) [Ratio] 36.39 kg/m2 Gia Escobar MD Work Phone: [facility] 06-09-2025 09:44-0400 Body weight 96.16 kg Gia Escobar MD Work Phone: [facility] 06-09-2025 09:44-0400 Diastolic blood pressure 64 mm[Hg] Gia Escobar MD Work Phone: [facility] 06-09-2025 09:44-0400 Systolic blood pressure 118 mm[Hg] Gia Escobar MD Work Phone: [facility] 05-29-2025 15:55-0400 Body mass index (BMI) [Ratio] 36.22 kg/m2 Reji Loes MD Work Phone: [facility] 05-29-2025 15:55-0400 Body weight 95.71 kg Reji Leos MD Work Phone: [facility] 05-29-2025 15:55-0400 Diastolic blood pressure 70 mm[Hg] Reji Leos MD Work Phone: [facility] 05-29-2025 15:55-0400 Systolic blood pressure 124 mm[Hg] Reji Leos MD Work Phone: [facility] 05-15-2025 09:52-0400 Body mass index (BMI) [Ratio] 35.36 kg/m2 Gia Escobar MD Work Phone: [facility] 05-15-2025 09:52-0400 Body weight 93.44 kg Gia Escobar MD Work Phone: [facility] 05-15-2025 09:52-0400 Diastolic blood pressure 60 mm[Hg] Gai Escobar MD Work Phone: [facility] 05-15-2025 09:52-0400 Systolic blood pressure 116 mm[Hg] Gia Escobar MD Work Phone: [facility] 05-01-2025 09:54-0400 Body mass index (BMI) [Ratio] 34.67 kg/m2 Ilda Medina MD Work Phone: [facility] 05-01-2025 09:54-0400 Body weight 91.63 kg Ilda Medina MD Work Phone: [facility] 05-01-2025 09:54-0400 Diastolic blood pressure 64 mm[Hg] Ilda Medina MD Work Phone: [facility] 05-01-2025 09:54-0400 Systolic blood pressure 106 mm[Hg] Ilda Medina MD Work Phone: [facility] 04-17-2025 09:01-0400 Body mass index (BMI) [Ratio] 34.67 kg/m2 Gia Escobar MD Work Phone: [facility] 04-17-2025 09:01-0400 Body weight 91.63 kg Gia Escobar MD Work Phone: [facility] 04-17-2025 09:01-0400 Diastolic blood pressure 60 mm[Hg] Gia Escobar MD Work Phone: [facility] 04-17-2025 09:01-0400 Systolic blood pressure 124 mm[Hg] Gia Escobar MD Work Phone: [facility] 03-20-2025 09:31-0400 Body mass index (BMI) [Ratio] 32.89 kg/m2 Danielle Hever ARCHITECTURE INTERN.FORMING MACHINE ADJUSTER Work Phone: [facility] 03-20-2025 09:31-0400 Body weight 86.91 kg Danielle Hever ARCHITECTURE INTERN.FORMING MACHINE ADJUSTER Work Phone: [facility] 03-20-2025 09:31-0400 Diastolic blood pressure 72 mm[Hg] Danielle Barrington ARCHITECTURE INTERN.FORMING MACHINE ADJUSTER Work Phone: [facility] 03-20-2025 09:31-0400 Systolic blood pressure 120 mm[Hg] Danielle Barrington ARCHITECTURE INTERN.FORMING MACHINE ADJUSTER Work Phone: [facility] 02-18-2025 09:26-0400 Diastolic blood pressure 64 mm[Hg] Warner Tai MD Work Phone: [facility] 02-18-2025 09:26-0400 Heart rate 90 /min Warner Tai MD Work Phone: [facility] 02-18-2025 09:26-0400 Systolic blood pressure 111 mm[Hg] Warner Tai MD Work Phone: [facility] 01-30-2025 09:11-0400 Body mass index (BMI) [Ratio] 31.38 kg/m2 Kalyani Dougherty MD Work Phone: [facility] 01-30-2025 09:11-0400 Body weight 82.92 kg Kalyani Dougherty MD Work Phone: [facility] 01-30-2025 09:11-0400 Diastolic blood pressure 78 mm[Hg] Kalyani Dougherty MD Work Phone: [facility] 01-30-2025 09:11-0400 Systolic blood pressure 110 mm[Hg] Kalyani Dougherty MD Work Phone: [facility] 01-08-2025 10:56-0500 Body height 162.6 cm Noe Jose MD Work Phone: [facility] 01-08-2025 10:56-0500 Body mass index (BMI) [Ratio] 31.07 kg/m2 Noe Jose MD Work Phone: [facility] 01-08-2025 10:56-0500 Body temperature 98.4 [degF] Noe Jose MD Work Phone: [facility] 01-08-2025 10:56-0500 Body weight 82.1 kg Noe Jose MD Work Phone: [facility] 01-08-2025 10:56-0500 Diastolic blood pressure 82 mm[Hg] Noe Jose MD Work Phone: [facility] 01-08-2025 10:56-0500 Heart rate 95 /min Noe Jose MD Work Phone: [facility] 01-08-2025 10:56-0500 SaO2% (BldA) [Mass fraction] 100 % Noe Joes MD Work Phone: [facility] 01-08-2025 10:56-0500 Systolic blood pressure 144 mm[Hg] Noe Jose MD Work Phone: [facility] 01-02-2025 10:03-0500 Body height 161.3 cm Kalyani Dougherty MD Work Phone: [facility] 01-02-2025 10:03-0500 Body mass index (BMI) [Ratio] 31.56 kg/m2 Kalyani Dougherty MD Work Phone: [facility] 01-02-2025 10:03-0500 Body weight 82.1 kg Kalyani Dougherty MD Work Phone: [facility] 01-02-2025 10:03-0500 Diastolic blood pressure 60 mm[Hg] Kalyani Dougherty MD Work Phone: [facility] 01-02-2025 10:03-0500 Systolic blood pressure 100 mm[Hg] Kalyani Dougherty MD Work Phone: [facility] 12-05-2024 08:52-0500 Body height 63 cm Danielle Hever ARCHITECTURE INTERN.FORMING MACHINE ADJUSTER Work Phone: [facility] 12-05-2024 08:19-0500 Body mass index (BMI) [Ratio] 208.23 kg/m2 Danielle Barrington ARCHITECTURE INTERN.FORMING MACHINE ADJUSTER Work Phone: [facility] 12-05-2024 08:19-0500 Body weight 82.64 kg Danielle Hever ARCHITECTURE INTERN.FORMING MACHINE ADJUSTER Work Phone: [facility] 12-05-2024 08:19-0500 Diastolic blood pressure 70 mm[Hg] Danielle Barrington ARCHITECTURE INTERN.FORMING MACHINE ADJUSTER Work Phone: [facility] 12-05-2024 08:19-0500 Systolic blood pressure 124 mm[Hg] Danielle Kathleen ARCHITECTURE INTERN.FORMING MACHINE ADJUSTER Work Phone: [facility] 12-13-2022 15:12-0500 Body temperature 98.42 [degF] JOEY CAMPBELL MD [facility] 12-13-2022 15:12-0500 Diastolic Blood Pressure Non-Invasive 79 1 JOEY CAMPBELL MD [facility] 12-13-2022 15:12-0500 Heart rate 59 /min JOEY CAMPBELL MD [facility] 12-13-2022 15:12-0500 Respiratory rate 16 /min JOEY CAMPBELL MD [facility] 12-13-2022 15:12-0500 Systolic Blood Pressure Non-Invasive 143 1 JOEY CAMPBELL MD [facility] 12-13-2022 08:10-0500 Body temperature 98.6 [degF] JOEY CAMPBELL MD [facility] 12-13-2022 08:10-0500 Diastolic Blood Pressure Non-Invasive 79 1 JOEY CAMPBELL MD [facility] 12-13-2022 08:10-0500 Heart rate 75 /min JOEY CAMPBELL MD [facility] 12-13-2022 08:10-0500 Respiratory rate 16 /min JOEY CAMPBELL MD [facility] 12-13-2022 08:10-0500 Systolic Blood Pressure Non-Invasive 126 1 JOEY CAMPBELL MD [facility] 12-13-2022 01:00-0500 Body temperature 97.7 [degF] JOEY CAMPBELL MD [facility] 12-13-2022 01:00-0500 Diastolic Blood Pressure Non-Invasive 68 1 JOEY CAMPBELL MD [facility] 12-13-2022 01:00-0500 Heart rate 76 /min JOEY CAMPBELL MD [facility] 12-13-2022 01:00-0500 Respiratory rate 18 /min JOEY CAMPBELL MD [facility] 12-13-2022 01:00-0500 Systolic Blood Pressure Non-Invasive 119 1 JOEY CAMPBELL MD [facility] 12-12-2022 17:06-0500 Signs/Symptoms Transfusion Reaction JOEY CAMPBELL MD [facility] 12-12-2022 16:06-0500 Signs/Symptoms Transfusion Reaction No JOEY CAMPBELL MD [facility] 12-12-2022 16:06-0500 Diastolic blood pressure 78 mm[Hg] JOEY CAMPBELL MD [facility] 12-12-2022 16:06-0500 Heart rate 85 /min JOEY CAMPBELL MD [facility] 12-12-2022 16:06-0500 Systolic blood pressure 129 mm[Hg] JOEY CAMPBELL MD [facility] 12-12-2022 15:57-0500 Signs/Symptoms Transfusion Reaction JOEY CAMPBELL MD [facility] 12-12-2022 13:35-0500 Inspected Blood Donor Unit Appearance JOEY CAMPBELL MD [facility] 12-11-2022 20:40-0500 Respiratory Rate - Anes 0 br/min JOEY CAMPBELL MD [facility] 12-11-2022 20:35-0500 Respiratory Rate - Anes 0 br/min JOEY CAMPBELL MD [facility] 12-11-2022 20:30-0500 Respiratory Rate - Anes 0 br/min JOEY CAMPBELL MD [facility] 12-11-2022 18:30-0500 Blood Pressure Cuff Size JOEY CAMPBELL MD [facility] 12-11-2022 18:30-0500 Blood Pressure Location JOEY CAMPBELL MD [facility] 12-11-2022 18:30-0500 Blood Pressure Method JOEY CAMPBELL MD [facility] 12-11-2022 18:30-0500 Body temperature 97.88 [degF] JOEY CAMPBELL MD [facility] 12-11-2022 17:48-0500 Body temperature 97.52 [degF] JOEY CAMPBELL MD [facility] 12-11-2022 16:45-0500 Blood Pressure Cuff Size JOEY CAMPBELL MD [facility] 12-11-2022 16:45-0500 Blood Pressure Location JOEY CAMPBELL MD [facility] 12-11-2022 16:45-0500 Blood Pressure Method JOEY CAMPBELL MD [facility] 12-11-2022 16:30-0500 Body temperature 97.88 [degF] JOEY CAMPBELL MD [facility] 12-11-2022 15:30-0500 Blood Pressure Cuff Size JOEY CAMPBELL MD [facility] 12-11-2022 15:30-0500 Blood Pressure Location JOEY CAMPBELL MD [facility] 12-11-2022 15:30-0500 Blood Pressure Method JOEY CAMPBELL MD [facility] 12-10-2022 17:42-0500 Body height 160 cm JOEY CAMPBELL MD [facility] 12-10-2022 17:42-0500 Body weight 103.63 kg JOEY CAMPBELL MD [facility] 12-10-2022 17:42-0500 Body weight 40.48 kg/m2 JOEY CAMPBELL MD [facility] Encounters Encounter Date Encounter Type Care Provider Facility Start: 06-30-2025 Evaluation and manag ement of inpatient Reji Leos Facility:[facility] Start: 06-24-2025 End: 06-24-2025 ambulatory Zuleyka Liao MA [facility] Start: 06-24-2025 End: 06-24-2025 Patient encounter procedure Zuleyka Liao MA [facility] Comment on above: Population Health Na vigation Outreach (Ob/peds) Start: 06-23-2025 End: 06-23-2025 Patient encounter procedure Gia Escobar MD Work Phone: OB/Gynecology Comment on above: 38 weeks gestation o f (HCC) (Primary Dx); Supervision of high risk in third trimester (HCC); Hx of section; Obesity in (HCC) Start: 06-23-2025 End: 06-23-2025 ambulatory SERGO FENG Facility:[facility] Start: 06-17-2025 End: 06-17-2025 ambulatory REJI LEOS Facility:[facility] Start: 06-09-2025 End: 06-09-2025 Patient encounter procedure Gia Escobar MD Work Phone: OB/Gynecology Comment on above: Supervision of high risk in third trimester (HCC) (Primary Dx); 36 weeks gestation of (HCC); Hx of section; Obesity in (HCC) Start: 06-09-2025 End: 06-09-2025 ambulatory SERGO FENG Facility:[facility] Start: 05-30-2025 End: 05-30-2025 Telephone encounter Reji [...] Start: 05-29-2025 End: 05-29-2025 ambulatory SERGO FENG Facility:[facility] Start: 05-15-2025 End: 05-15-2025 Patient encounter procedure Gia Escobar MD Work Phone: OB/Gynecology Comment on above: Supervision of high risk in third trimester (HCC) (Primary Dx); Hx of section; Obesity in (HCC); Cartilage-hair hypoplasia syndrome (HCC); Other immediate hemorrhage (HCC); 32 weeks gestation of (HCC) Start: 05-15-2025 End: 05-15-2025 ambulatory SERGO FENG Facility:[facility] Start: 05-01-2025 End: 05-01-2025 Patient encounter procedure Ilda Medina MD Work Phone: OB/Gynecology Comment on above: Supervision of high risk in third trimester (HCC) (Primary Dx); Hx of section; Obesity in (HCC); 30 weeks gestation of (HCC) Start: 05-01-2025 End: 05-01-2025 ambulatory SERGO FENG Facility:[facility] Start: 04-17-2025 End: 04-17-2025 Patient encounter procedure Gia Escobar MD Work Phone: OB/Gynecology Comment on above: Supervision of high risk in third trimester (HCC) (Primary Dx); Hx of section; Cartilage-hair hypoplasia syndrome (HCC); Other immediate hemorrhage (HCC); Heart palpitations; Obesity in (HCC); Need for vaccination Start: 04-17-2025 End: 04-17-2025 ambulatory SERGO FENG Facility:[facility] Start: 03-20-2025 End: 03-20-2025 ambulatory SERGO FENG Facility:[facility] Start: 03-20-2025 End: 03-20-2025 Patient encounter procedure Danielle Kathleen APRN.CNP Work Phone: OB/Gynecology Comment on above: Screening for diabet es mellitus (Primary Dx); 24 weeks gestation of (HCC); Supervision of high risk in second trimester (HCC); Rh negative state in antepartum period (HCC) Start: 03-07-2025 End: 05-07-2025 Follow-up encounter Warner Tai MD Work Phone: Preventive Cardiology Start: 03-06-2025 End: 03-06-2025 ambulatory SERGO FENG Facility:[facility] Start: 02-20-2025 End: 04-22-2025 Follow-up encounter Kalyani Dougherty MD Work Phone: OB/Gynecology Start: 02-20-2025 End: 02-20-2025 ambulatory SERGO FENG Facility:[facility] Start: 02-18-2025 End: 02-18-2025 ambulatory [facility] Work Phone: Cardiology Comment on above: Event (Zio patch- 14 days) Start: 02-18-2025 End: 02-18-2025 Patient encounter procedure Warner Tai MD Work Phone: Preventive Cardiology Comment on above: Palpitations (Primar y Dx); 20 weeks gestation of (HCC); Lightheaded Start: 02-18-2025 End: 02-18-2025 ambulatory SERGO FENG Facility:[facility] Start: 02-03-2025 End: 02-04-2025 Telephone encounter Noe Jose MD Work Phone: Hematology/Oncology Comment on above: Patient Question Start: 01-30-2025 End: 01-30-2025 ambulatory KALYANI DOUGHERTY Facility:[facility] Start: 01-30-2025 End: 01-30-2025 Patient encounter procedure Kalyani Dougherty MD Work Phone: OB/Gynecology Comment on above: Encounter for superv ision of normal in multigravida (Primary Dx); 17 weeks gestation of ; Shortness of breath; Palpitations Start: 01-09-2025 End: 01-09-2025 ambulatory SERGO FENG Facility:[facility] Start: 01-08-2025 End: 01-08-2025 ambulatory Noe Jose MD Work Phone: Hematology/Oncology Comment on above: 13 weeks gestation o f ; Encounter for supervision of normal in multigravida; Excessive bleeding Start: 01-08-2025 End: 01-08-2025 Patient encounter procedure Noe Jose MD Work Phone: Hematology/Oncology Start: 01-02-2025 End: 03-04-2025 Follow-up encounter Reji Leos MD Work Phone: OB/Gynecology Start: 01-02-2025 End: 01-02-2025 ambulatory [facility] Facility:[facility] Start: 01-02-2025 End: 01-02-2025 [facility] Facility:[facility] Start: 01-02-2025 End: 01-02-2025 Patient encounter procedure [employer] Operations Specialist [facility] Comment on above: Encounter for antena elizabeth screening for malformation using ultrasound (Primary Dx); 13 weeks gestation of ; Encounter for (NT) nuchal translucency scan 13 weeks gestation o f (Primary Dx); Encounter for supervision of normal in multigravida; Excessive bleeding; Hx of section Start: 12-05-2024 End: 12-05-2024 ambulatory [facility] Facility:[facility] Start: 12-05-2024 End: 12-05-2024 Patient encounter procedure Danielle Kathleen ARCHITECTURE INTERN.FORMING MACHINE ADJUSTER Work Phone: OB/Gynecology Comment on above: with [...] End: 05-29-2023 Outreach Lab AUNDREA ROBB MD [facility] Start: 12-28-2022 End: 12-29-2022 ambulatory MARINA ZAMBRANO ARCHITECTURE INTERN-FORMING MACHINE ADJUSTER Facility:B Start: 12-28-2022 End: 12-28-2022 Patient encounter procedure MARINA ZAMBRANO ARCHITECTURE INTERN-FORMING MACHINE ADJUSTER [facility] Start: 12-10-2022 End: 12-13-2022 Evaluation and management of inpatient JOEY CAMPBELL Facility:[facility] Start: 12-10-2022 End: 12-13-2022 Evaluation and management of inpatient JOEY CAMPBELL MD [facility] Start: 12-09-2022 End: 12-10-2022 ambulatory HEMAL LUIS MD Facility:[facility] Start: 12-09-2022 End: 12-09-2022 Patient encounter procedure HEMAL LUIS MD [facility] Start: 11-10-2022 End: 11-15-2022 ambulatory AUNDREA ROBB MD Facility:[facility] Start: 11-10-2022 End: 11-14-2022 Outreach Lab AUNDREA ROBB MD [facility] Start: 10-26-2022 End: 10-27-2022 ambulatory HEMAL LUIS MD Facility:[facility] Start: 10-26-2022 End: 10-26-2022 Patient encounter procedure HEMAL LUIS MD [facility] Start: 09-21-2022 End: 09-22-2022 ambulatory HEMAL LUIS MD Facility:[facility] Start: 09-21-2022 End: 09-21-2022 Patient encounter procedure HEMAL LUIS MD [facility] Start: 09-06-2022 End: 09-07-2022 ambulatory HEMAL LUIS MD Facility:[facility] Start: 09-06-2022 End: 09-06-2022 Patient encounter procedure HEMAL LUIS MD [facility] Start: 08-02-2022 End: 08-03-2022 ambulatory HEMAL LUIS MD Facility:[facility] Start: 08-02-2022 End: 08-02-2022 Patient encounter procedure HEMAL LUIS MD [facility] Start: 08-02-2022 End: 08-02-2022 ambulatory HEMAL LUIS [facility] Start: 07-04-2022 End: 07-04-2022 ambulatory SERGO FENG [facility] Start: 06-14-2022 End: 06-15-2022 ambulatory HEMAL LUIS MD Facility:[facility] Start: 06-14-2022 End: 06-14-2022 Patient encounter procedure HEMAL LUIS MD [facility] Start: 06-10-2022 End: 06-11-2022 ambulatory HEMAL LUIS MD Facility:[facility] Start: 06-10-2022 End: 06-10-2022 Patient encounter procedure HEMAL LUIS MD [facility] Start: 05-18-2022 End: 05-18-2022 Patient encounter procedure HEMAL LUIS MD [facility] Start: 03-23-2022 End: 03-23-2022 Patient encounter procedure SERGO FENG ARCHITECTURE INTERN - FORMING MACHINE ADJUSTER [facility] Start: 11-15-2021 End: 11-15-2021 Patient encounter procedure SERGO FENG ARCHITECTURE INTERN - FORMING MACHINE ADJUSTER [facility] Start: 11-02-2021 End: 11-06-2021 Outreach Lab HEMAL LUIS MD [facility] Start: 11-02-2021 End: 11-02-2021 Patient encounter procedure SERGO FENG ARCHITECTURE INTERN - FORMING MACHINE ADJUSTER [facility] Start: 10-29-2021 End: 10-29-2021 Patient encounter procedure SERGO FENG ARCHITECTURE INTERN - FORMING MACHINE ADJUSTER [facility] Procedures Date Procedure Procedure Detail Performing Clinician Start: 06-23-2025 Urnls dip stick/tabl et rgnt non-auto w/o micrscp Gia Escobar MD Work Phone: Start: 05-29-2025 Urnls dip stick/tabl et rgnt non-auto w/o micrscp Reji Leos MD Work Phone: Start: 06-05-2025 Antibody screen SERGO FENG Comment on above: Order Comment: Speci men Type: BLOOD SPECIMENOrdering Facility: [facility] Address: [address] [place] [address] Performed By: #### T SPN ####CC MAIN BLOOD BANKCLIA [id number] [address] Start: 01-02-2025 Antibody screen SERGO FENG Comment on above: Order Comment: Speci men Type: BLOOD SPECIMENOrdering Facility: [facility] Address: [address] [place] [address] Performed By: #### T SPN ####CC MAIN BLOOD BANKCLIA [id number] [address] [place] Start: 01-02-2025 Us preg uterus after 1st trimest 11/13 gestation Danielle Hever ARCHITECTURE INTERN.FORMING MACHINE ADJUSTER Work Phone: Start: 12-05-2024 H/O: section Hx of ce sarean section Danielle Barrington ARCHITECTURE INTERN.FORMING MACHINE ADJUSTER Work Phone: Start: 12-05-2024 Us uterus l imited fetuses Danielle Barrington ARCHITECTURE INTERN.FORMING MACHINE ADJUSTER Work Phone: Start: 12-05-2024 Adult depression scr eening assessment Kalyani Dougherty MD Work Phone: Start: 12-11-2022 section MARINA ZAMBRANO ARCHITECTURE INTERN-FORMING MACHINE ADJUSTER Dentition (body structure) R JUAN FENG ARCHITECTURE INTERN - FORMING MACHINE ADJUSTER Comment on above: wisdom teeth H/O: section [...] RSV Vaccine (1 - 1-dose 75+ series) [facility] Start: 04-17-2035 Urine microalbumin profile [facility] Start: 10-12-2032 Urine microalbumin profile DTaP,Tdap,Td Vaccine (2 - Td or Tdap) [facility] Start: 12-05-2027 Screening for malign ant neoplasm of cervix Cervical Cancer Screening [facility] Start: 12-05-2025 Anxiety Screening Anxiety Screening [facility] Start: 12-05-2025 Depression Screening Depression Scre ening [facility] Start: 08-11-2025 End: 08-11-2025 Patient encounter procedure 08/11/2025 11:30 AM EDT Office Visit OB/Gynecology [address] [place] [id number] Reji Leos MD [address] [place] [id number] WEEK POST OP OB/Gynecology Comment on above: 6 WEEK POST OP Start: 07-14-2025 Influenza vaccination [facility] Start: 07-07-2025 End: 07-07-2025 Patient encounter procedure 07/07/2025 9:20 AM EDT Office Visit OB/Gynecology [address] [place] [place] [id number] Reji Leos MD [address] [place] [id number] 1 week incision check OB/Gynecology Comment on above: 1 week incision chec k Start: 06-23-2025 End: 06-23-2025 Patient encounter procedure 06/23/2025 9:50 AM EDT Routine Office Visit OB/Gynecology [address] [place] [address] Gia Escobar MD [address] [place] [address] OB OB/Gynecology Comment on above: OB Start: 06-17-2025 End: 06-17-2025 Patient encounter procedure 06/17/2025 10:10 AM EDT Routine Office Visit OB/Gynecology [address] [place] [address] Reji Leos MD [address] [place] [address] OB Pre Op C/S 06/30 @ [facility] OB/Gynecology Comment on above: OB Pre Op C/S 06/30 @ [facility] Start: 06-09-2025 End: 06-09-2025 Patient encounter procedure 06/09/2025 9:40 AM EDT Routine Office Visit OB/Gynecology [address] [place] [address] Gia Escobar MD [address] [place] [address] OB OB/Gynecology Comment on above: OB Start: 05-29-2025 End: 05-29-2025 Patient encounter procedure 05/29/2025 1:50 PM EDT Routine Office Visit OB/Gynecology [address] [place] [address] Reji Leos MD [address] [place] [address] Ob OB/Gynecology Comment on above: Ob Start: 05-15-2025 End: 05-15-2025 Patient encounter procedure 05/15/2025 9:50 AM EDT Routine Office Visit OB/Gynecology [address] [place] [address] Gia Escobar MD [address] [place] [address] Ob OB/Gynecology Comment on above: Ob Start: 05-01-2025 End: 05-01-2025 Patient encounter procedure 05/01/2025 9:50 AM EDT Routine Office Visit OB/Gynecology [address] [place] [address] Ilda Medina MD [address] [place] [address] ob OB/Gynecology Comment on above: ob Start: 04-20-2025 End: 07-20-2025 ANEMIA REFLEX PANEL ANEMIA REFLEX PANEL Lab Routine 24 weeks gestation of ([facility]) Supervision of high risk in second trimester ([facility]) Rh negative state in antepartum period ([facility]) Expected: 04/20/2025 (Approximate), Expires: 07/20/2025 [facility] Comment on above: Expected: 04/20/2025 (Approximate), Expires: 07/20/2025 Start: 04-20-2025 End: 03-20-2026 GESTATIONAL GLUCOSE SCREEN, 1-HOUR, 50 GRAM, NON-FASTING GESTATIONAL GLUCOSE SCREEN, 1-HOUR, 50 GRAM, NON-FASTING Lab Routine Screening for diabetes mellitus 24 weeks gestation of ([facility]) Supervision of high risk in second trimester ([facility]) Rh negative state in antepartum period ([facility]) Expected: 04/20/2025 (Approximate), Expires: 03/20/2026 [facility] Work Phone: Comment on above: Expected: 04/20/2025 (Approximate), Expires: 03/20/2026 Start: 04-20-2025 End: 03-20-2026 SYPHILIS TREPONEMAL W/REFLEX SYPHILIS TREPONEMAL W/REFLEX Lab Routine 24 weeks gestation of ([facility]) Supervision of high risk in second trimester ([facility]) Rh negative state in antepartum period ([facility]) Expected: 04/20/2025 (Approximate), Expires: 03/20/2026 [facility] Comment on above: Expected: 04/20/2025 (Approximate), Expires: 03/20/2026 Start: 04-20-2025 End: 07-20-2025 TYPE + SCREEN TYPE + SCREEN Blood Bank Routine 24 weeks gestation of ([facility]) Supervision of high risk in second trimester ([facility]) Rh negative state in antepartum period ([facility]) Expected: 04/20/2025 (Approximate), Expires: 07/20/2025 [facility] Comment on above: Expected: 04/20/2025 (Approximate), Expires: 07/20/2025 Start: 04-17-2025 End: 04-17-2025 Patient encounter procedure 04/17/2025 9:00 AM EDT Routine Office Visit OB/Gynecology [address] [place] [address] Gia Escobar MD [address] [place] [address] OB OB/Gynecology Comment on above: OB Start: 04-17-2025 End: 04-17-2025 ambulatory 04/17/2025 8:45 AM EDT Results Only [facility] [address] [place] [address] Glucose test [facility] Comment on above: Glucose test Start: 03-20-2025 End: 03-20-2025 Patient encounter procedure 03/20/2025 9:10 AM EDT Routine Office Visit OB/Gynecology [address] [place] [address] Kalyani Dougherty MD [address] [place] [address] OB OB/Gynecology Comment on above: OB Start: 03-06-2025 End: 03-06-2025 Patient encounter procedure 03/06/2025 8:50 AM EDT Office Visit Cardiology [address] [place] [address] Palpitations [R00.2] Cardiology Comment on above: Palpitations [R00.2] Start: 02-20-2025 End: 02-20-2025 Patient encounter procedure Maternal Medicine Comment on above: Anatomy Anatomy/OB Start: 01-30-2025 End: 05-01-2025 Thyrotropin [Units/volume] in Serum or Plasma [facility] Work Phone: Comment on above: Expected: 01/30/2025 , Expires: 05/01/2025 Start: 01-30-2025 End: 05-01-2025 Thyroxine (T4) free [Mass/volume] in Serum or Plasma [facility] Comment on above: Expected: 01/30/2025 , Expires: 05/01/2025 Start: 01-30-2025 End: 01-30-2025 Patient encounter procedure 01/30/2025 9:10 AM EDT Routine Office Visit OB/Gynecology [address] [place] [address] Kalyani Dougherty MD [address] [place] [address] OB OB/Gynecology Comment on above: OB Start: 01-09-2025 End: 01-09-2025 ambulatory 01/09/2025 8:00 AM EST Results Only [facility] [address] [place] [address] [facility] Comment on above: [facility]* Start: 01-08-2025 End: 04-09-2025 [facility] DX PANEL [facility] DX PANEL Lab Routine Excessive bleeding Expected: 01/08/2025, Expires: 04/09/2025 [facility] Work Phone: Comment on above: Expected: 01/08/2025 , Expires: 04/09/2025 Start: 01-02-2025 End: 01-02-2026 OBSTETRIC ULTRASOUND [facility]I OBSTETRIC ULTRASOUND [facility] Anc Imaging Routine 13 weeks gestation of Encounter for supervision of normal in multigravida Expected: 01/02/2025, Expires: 01/02/2026 [facility] Work Phone: Comment on above: Expected: 01/02/2025 , Expires: 01/02/2026 Start: 01-02-2025 End: 01-02-2025 Patient encounter procedure Maternal Medicine Comment on above: Nuchal New On LMP 09/30 Start: 12-05-2024 End: 03-06-2025 ANEMIA REFLEX PANEL ANEMIA REFLEX PANEL Lab Routine with uncertain dates, antepartum 9 weeks gestation of Encounter for supervision of normal in multigravida Expected: 12/05/2024, Expires: 03/06/2025 [facility] [email or web address] Work Phone: Comment on above: Expected: 12/05/2024 , Expires: 03/06/2025 Start: 12-05-2024 End: 03-06-2025 Hemoglobin A1c in Blood HEMOGLOBIN A1C Lab Routine with uncertain dates, antepartum 9 weeks gestation of Encounter for supervision of normal in multigravida Expected: 12/05/2024, Expires: 03/06/2025 [facility] Comment on above: Expected: 12/05/2024 , Expires: 03/06/2025 Start: 12-05-2024 End: 03-06-2025 Hepatitis B virus surface Ag [Presence] in Serum HEPATITIS B SURFACE ANTIGEN Lab Routine with uncertain dates, antepartum 9 weeks gestation of Encounter for supervision of normal in multigravida Expected: 12/05/2024, Expires: 03/06/2025 [facility] Comment on above: Expected: 12/05/2024 , Expires: 03/06/2025 Start: 12-05-2024 End: 03-06-2025 Hepatitis C virus Ab [Presence] in Serum HEPATITIS C ANTIBODY IA WITH CONFIRMATION Lab Routine with uncertain dates, antepartum 9 weeks gestation of Encounter for supervision of normal in multigravida Expected: 12/05/2024, Expires: 03/06/2025 [facility] Comment on above: Expected: 12/05/2024 , Expires: 03/06/2025 Start: 12-05-2024 End: 03-06-2025 HIV 1+2 Ab [Presence] in Serum or Plasma by Immunoassay HIV 1/2 COMBO WITH REFLEX TO DIFFERENTIATION Lab Routine with uncertain dates, antepartum 9 weeks gestation of Encounter for supervision of normal in multigravida Expected: 12/05/2024, Expires: 03/06/2025 [facility] Comment on above: Expected: 12/05/2024 , Expires: 03/06/2025 Start: 12-05-2024 End: 12-05-2025 OBSTETRIC ULTRASOUND WHI OBSTETRIC ULTRASOUND WHI Anc Imaging Routine with uncertain dates, antepartum 9 weeks gestation of Encounter for supervision of normal in multigravida Expected: 12/05/2024, Expires: 12/05/2025 [facility] Comment on above: Expected: 12/05/2024 , Expires: 12/05/2025 Start: 12-05-2024 End: 03-06-2025 RUBELLA IGG ANTIBODY RUBELLA IGG ANTIBODY Lab Routine with uncertain dates, antepartum 9 weeks gestation of Encounter for supervision of normal in multigravida Expected: 12/05/2024, Expires: 03/06/2025 [facility] Comment on above: Expected: 12/05/2024 , Expires: 03/06/2025 Start: 12-05-2024 End: 03-06-2025 SYPHILIS TREPONEMAL W/REFLEX SYPHILIS TREPONEMAL W/REFLEX Lab Routine with uncertain dates, antepartum 9 weeks gestation of Encounter for supervision of normal in multigravida Expected: 12/05/2024, Expires: 03/06/2025 [facility] Comment on above: Expected: 12/05/2024 , Expires: 03/06/2025 Start: 12-05-2024 End: 03-06-2025 TYPE + SCREEN TYPE + SCREEN Blood Bank Routine with uncertain dates, antepartum 9 weeks gestation of Encounter for supervision of normal in multigravida Expected: 12/05/2024, Expires: 03/06/2025 [facility] Comment on above: Expected: 12/05/2024 , Expires: 03/06/2025 Start: 07-14-2024 Covid-19 Vaccine () Covid-19 Vaccine () [facility] Start: 07-14-2024 Influenza vaccination Influenza Vacc ine (#1) [facility] Start: 02-27-2024 HPV Vaccine (1 - 3-d ose SCDM series) HPV Vaccine (1 - 3-dose SCDM series) [facility] Start: 2018 Screening for malign ant neoplasm of cervix Cervical Cancer Screening [facility] Start: 02-27-2016 Hepatitis B Vaccine (1 of 3 - 19+ 3-dose series) Hepatitis B Vaccine (1 of 3 - 19+ 3-dose series) [facility] Start: 02-27-2016 Urine microalbumin profile DTaP,Tdap,Td Vaccine (1 - Tdap) [facility] Start: 2015 Anxiety Screening Anxiety Screening [facility] Start: 2015 [facility]: [facility] Hepatitis C screening Hepatitis C Sc reening [facility] Start: 2015 HIV screening HIV Screening [facility] Bacteria identified in Urine by Culture BACTERIAL CULTURE, URINE Microbiology Routine with uncertain dates, antepartum 9 weeks gestation of Encounter for supervision of normal in multigravida 12/05/2024 9:06 AM [facility] Chlamydia trachomatis+Neisseria gonorrhoeae DNA [Presence] in Unspecified specimen by ALVARO with probe detection GONORRHEA/CHLAMYDIA NAAT Lab Routine with uncertain dates, antepartum 9 weeks gestation of Encounter for supervision of normal in multigravida 12/05/2024 9:06 AM [facility] End: 02-18-2026 Echocardiography ECHO Cardiology Routine Palpitations 1 Occurrences starting 02/18/2025 until 02/18/2026 [facility] Comment on above: 1 Occurrences starti ng 02/18/2025 until 02/18/2026 OUTSIDE VENDOR CARDI AC OUTPATIENT EXTENDED RHYTHM RECORDING (WITHOUT TELEMETRY) OUTSIDE VENDOR CARDIAC OUTPATIENT EXTENDED RHYTHM RECORDING (WITHOUT TELEMETRY) Holter Routine Palpitations Ordered: 02/18/2025 [facility] Work Phone: Comment on above: Ordered: 02/18/2025 PAP TEST PAP TEST Lab Rou reji with uncertain dates, antepartum 9 weeks gestation of Screening for cervical cancer Encounter for supervision of normal in multigravida 12/05/2024 9:06 AM [facility] ROUTINE, GR OUP B STREPTOCOCCUS BY PCR ROUTINE, GROUP B STREPTOCOCCUS BY PCR Microbiology Routine 36 weeks gestation of (HCC) 06/09/2025 1:44 PM EDT [facility] URINE OB DIP B/O URINE OB DIP B/ O Lab Routine Supervision of high risk in third trimester (HCC) Hx of section Obesity in (HCC) Cartilage-hair hypoplasia syndrome (HCC) Other immediate hemorrhage (HCC) 32 weeks gestation of (HCC) Ordered: 05/15/2025 [facility] Work Phone: Comment on above: Ordered: 05/15/2025 URINE OB DIP B/O URINE OB DIP B/ O Lab Routine 36 weeks gestation of (HCC) Supervision of high risk in third trimester (HCC) Hx of section Obesity in (HCC) Ordered: 06/09/2025 [facility] Work Phone: Comment on above: Ordered: 06/09/2025 Immunizations Immunization Date Immunization Notes Care Provider Mariel river 04-17-2025 RHO(D) immune globul in- IV or IM Gia Escobar MD Work Phone: [facility] 04-17-2025 tetanus toxoid, redu rishi diphtheria toxoid, and acellular pertussis vaccine, adsorbed Gia Escobar MD Work Phone: [facility] 10-12-2022 tetanus toxoid, redu rishi diphtheria toxoid, and acellular pertussis vaccine, adsorbed; Translations: [Boostrix (Tdap)] HEMAL LUIS MD [facility] Comment on above: Result Comment: [facility]# [phone] 06-07-2002 diphtheria, tetanus toxoids and acellular pertussis vaccine, unspecified formulation Reji Leos MD Work Phone: [facility] 06-07-2002 measles, mumps and rubella virus vaccine Reji Leos MD Work Phone: [facility] 06-07-2002 poliovirus vaccine, inactivated Reji Leos MD Work Phone: [facility] 03-15-1999 diphtheria, tetanus toxoids and acellular pertussis vaccine, unspecified formulation Reji Leos MD Work Phone: [facility] 03-15-1999 haemophilus influenz ae type b vaccine, PRP-OMP conjugate Reji Leos MD Work Phone: [facility] 03-15-1999 hepatitis B vaccine, pediatric or pediatric/adolescent dosage Reji Leos MD Work Phone: [facility] 03-23-1998 diphtheria, tetanus toxoids and acellular pertussis vaccine, unspecified formulation Reji Leos MD Work Phone: [facility] 03-23-1998 haemophilus influenz ae type b vaccine, PRP-OMP conjugate Reji Leos MD Work Phone: [facility] 03-23-1998 measles, mumps and rubella virus vaccine Reji Leos MD Work Phone: [facility] 03-23-1998 trivalent poliovirus vaccine, live, oral Reji Leos MD Work Phone: [facility] 1997 diphtheria, tetanus toxoids and acellular pertussis vaccine, unspecified formulation Reji Leos MD Work Phone: [facility] 1997 haemophilus influenz ae type b vaccine, PRP-OMP conjugate Reji Leos MD Work Phone: [facility] 1997 trivalent poliovirus vaccine, live, oral Reji Leos MD Work Phone: [facility] 1997 diphtheria, tetanus toxoids and acellular pertussis vaccine, unspecified formulation Reji Loes MD Work Phone: [facility] 1997 hepatitis B vaccine, pediatric or pediatric/adolescent dosage Reji Leos MD Work Phone: [facility] 1997 trivalent poliovirus vaccine, live, oral Reji Leos MD Work Phone: [facility] 1997 hepatitis B vaccine, pediatric or pediatric/adolescent dosage Reji Leos MD Work Phone: [facility] Payers Date Payer Category Payer Self-[facility] [id number] 2024 Unknown RASHAD QUINONES [employer] PPO [id number] 2024-Present [phone] [address] [place] [address] PPO [id number] 2022 Unknown [id number] 2022 Unknown [id number] 1997 Unknown [id number] 1997 Unknown [id number] 1997 Unknown [id number] .1997 Unknown [id number] .1997 Unknown [id number] .1997 Unknown [id number] .1997 Unknown [id number] [id number] .1997 Unknown [id number] [id number] .1997 Unknown [id number] 1997 Unknown [id number] 1997 Unknown [id number] 1997 Unknown [id number] 1997 Unknown [id number] Unknown [id number] Social History Date Type Detail Facility Start: 07-26-2019 End: 11-29-2024 Never smoked tobacco (finding) [facility] Comment on above: No smoke exposure Start: 1995 Sex Assigned At Female [facility] Start: 11-29-2024 Tobacco use and exposure Smokeless tobacco non-user [facility] Start: 12-05-2024 End: 06-23-2025 Alcoholic beverage intake Ex-drinker (finding) [facility] Start: 12-05-2024 End: 01-02-2025 History of Social function [facility] Start: 12-05-2024 End: 01-02-2025 Tobacco use panel [facility] Start: 04-04-2018 National Score (1-10 0), lower number is lower risk Not on file [facility] Start: 11-29-2024 Education 13 [facility] Start: 10-14-2024 [facility] Start: 11-29-2024 Gender identity Identifies as female gender (finding) [facility] Start: 11-29-2024 Sexual orientation Heterosexual (vero carranza) [facility] Goals Date Patient Goal Desired Activity /State Personal health goal Functional Status Date Assessment Result Facility 12-13-2022 Functional Status Precautions maintained [facility] 12-13-2022 Functional Status [facility] 12-13-2022 Functional [facility] [place] 12-13-2022 Functional Status [facility]13[facility] Functional Status [facility]-12-2022 Functional Status [facility] [place] 12-11-2022 Functional Status Initiated [facility] 12-10-2022 Functional Status Isabela [facility] 12-10-2022 [facility] Status Date Assessment Result Facility 12-13-2022 Mental Status Orientation Oriented x 4 [facility] 12-13-2022 Mental Status [facility] 12-12-2022 Mental Status [facility] Clinical Notes 06-09-2022 to 06-24-2025 Zuleyka Liao MA - 06/24/2025 10:28 AM EDTPrenatal Quick Notes - Gia Escobar MD - 06/23/2025 9:54 AM EDTPrenatal Quick Notes - Gia Escobar MD - 06/23/2025 9:54 AM EDTPatient Instructions Note Date & Type Note Facility 06-24-2025 Note HNO ID: [id number] Author: ZULEYKA LIAO MA Service: ? 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 Reason for Outreach Medicaid OB/Peds Care Gaps due: N/A Patient Contacted: Unable or unnecessary to reach patient: [place] rail track layer added Navigation Signature: Zuleyka Hummel MA June [...] affecting in second trimester*02/20/2025 Encounter Status:Closed by UZLEYKA LIAO on 06/24/25 [facility] 06-23-2025 Progress note Formatting of t his [...] week ASSESSMENT/PLAN: 1. 38 weeks gestation of ([facility]) - ICD9: V22.2, ICD10: Z3A.38 (primary diagnosis) - URINE OB DIP B/O 2. Supervision of high risk in third trimester ([facility]) - ICD9: V23.9, ICD10: O09.93 - URINE OB DIP B/O 3. Hx of section - ICD9: V45.89, ICD10: Z98.891 - URINE OB DIP B/O 4. Obesity in ([facility]) - ICD9: 649.10, ICD10: O99.210 - URINE OB DIP B/O Gia Escobar MD [facility] 06-23-2025 Miscellaneous Notes S: Zuleyka Nielsen is [...] week ASSESSMENT/PLAN: 1. 38 weeks gestation of (FORM[facility]LY [facility]) - ICD9: V22.2, ICD10: Z3A.38 (primary diagnosis) - URINE OB DIP B/O 2. Supervision of high risk in third trimester ([facility]) - ICD9: V23.9, ICD10: O09.93 - URINE OB DIP B/O 3. Hx of section - ICD9: V45.89, ICD10: Z98.891 - URINE OB DIP B/O 4. Obesity in (HCC) - ICD9: 649.10, ICD10: O99.210 - URINE OB DIP B/O Gia Escobar MD documented in this encounter [facility] 06-23-2025 Instructions Zuleyka Vargas MA - 06/23/2025 9:45 AM EDT SEQUENTIAL SCREENINGS The [facility] offers sequential screenings for women who are [...] It will require an appointment with our training technician. This is not an ultrasound performed [...] the above symptoms, contact our office at [phone] and ask to speak with a nurse. After hours, you can call doctors registry at [phone] OR call [facility] at [phone] and ask to have the doctor technical sales consultant paged. If you consider this an emergency, dial or go to your nearest emergency department. NEED HELP? Are you dealing with a violent or abusive relationship? Are you a victim of rape or sexual assult? Call [facility] ([place]) 24 hour Crisis Hotline: 921.166.3255 or 885-973-2328. MANUAL Your Guide to a Healthy manual is now on-line. Visit [email or web address] to download your free copy documented in this encounter [facility] 06-09-2025 Progress note Formatting of t his [...] discussed with the Patient or Patient's Authorized Auto Radiator Specialist. As applicable, any other physician, advance practice provider, medical student, or other health professional student that will be observing or involved in the sensitive examination for educational or training purposes was discussed with the Patient or Authorized Auto Radiator Specialist. The Patient or Authorized Auto Radiator Specialist has agreed to proceed with the sensitive [...] URINE OB DIP B/O Gia Escobar MD [facility] 06-09-2025 Miscellaneous Notes S: Zuleyka Nielsen is [...] discussed with the Patient or Patient's Authorized Auto Radiator Specialist. As applicable, any other physician, advance practice provider, medical student, or other health professional student that will be observing or involved in the sensitive examination for educational or training purposes was discussed with the Patient or Authorized Auto Radiator Specialist. The Patient or Authorized Auto Radiator Specialist has agreed to proceed with the sensitive [...] Gia Escobar MD documented in this encounter [facility] 06-09-2025 Instructions Meghana Lopez MA - 06/09/2025 9:41 AM EDT SEQUENTIAL SCREENINGS The [facility] offers sequential screenings for women who are [...] It will require an appointment with our training technician. This is not an ultrasound performed [...] the above symptoms, contact our office at [phone] and ask to speak with a nurse. After hours, you can call doctors registry at [phone] OR call [facility] at [phone] and ask to have the doctor technical sales consultant paged. If you consider this an emergency, dial or go to your nearest emergency department. NEED HELP? Are you dealing with a violent or abusive relationship? Are you a victim of rape or sexual assult? Call [facility] ([place]) 24 hour Crisis Hotline: 435.667.2086 or 602-344-2071. MANUAL Your Guide to a Healthy manual is now on-line. Visit [email or web address] to download your free copy documented in this encounter [facility] 05-30-2025 Telephone encounter Note Order signed and faxed. Ena Wolff RN [facility] 05-30-2025 Miscellaneous Notes Order signed and faxed. Ena Wolff RN Written order received from [facility] for breast pump. Placed in RR inbox for signature. Katya Leonard RN documented in this encounter [facility] 05-30-2025 Telephone encounter Note Written order received from [employer] for breast pump. Placed in RR inbox for signature. Katya Leonard, RN [facility] 05-29-2025 Progress note Formatting of t his [...] in second trimester (HCC) Reji Leos M.D. [facility] 05-29-2025 Miscellaneous Notes RR- VB No. LOF [...] Supervision of high risk in second trimester ([facility]) Reji Leos M.D. documented in this encounter [facility] 05-29-2025 Instructions Meghana Lopez MA - 05/29/2025 3:55 PM EDT SEQUENTIAL SCREENINGS The [facility] offers sequential screenings for women who are [...] It will require an appointment with our training technician. This is not an ultrasound performed [...] the above symptoms, contact our office at [phone] and ask to speak with a nurse. After hours, you can call doctors registry at [phone] OR call [facility] at [phone] and ask to have the doctor technical sales consultant paged. If you consider this an emergency, dial 9-1-3 or go to your nearest emergency department. NEED HELP? Are you dealing with a violent or abusive relationship? Are you a victim of rape or sexual assult? Call [facility] ([place]) 24 hour Crisis Hotline: 748.474.7037 or 887-525-3114. MANUAL Your Guide to a Healthy manual is now on-line. Visit [email or web address] to download your free copy documented in this encounter [facility] 05-15-2025 Progress note Formatting of t his [...] URINE OB DIP B/O Gia Escobar MD [facility] 05-15-2025 Miscellaneous Notes S: Zuleyka Nielsen is [...] Gia Escobar MD documented in this encounter [facility] 05-15-2025 Instructions Concepcion Cintron MA - 05/15/2025 9:49 AM EDT SEQUENTIAL SCREENINGS The [facility] offers sequential screenings for women who are [...] It will require an appointment with our training technician. This is not an ultrasound performed [...] the above symptoms, contact our office at [phone] and ask to speak with a nurse. After hours, you can call doctors registry at [phone] OR call [facility] at [phone] and ask to have the doctor technical sales consultant paged. If you consider this an emergency, dial or go to your nearest emergency department. NEED HELP? Are you dealing with a violent or abusive relationship? Are you a victim of rape or sexual assult? Call [facility] ([place]) 24 hour Crisis Hotline: 644.603.1626 or 737-574-4142. MANUAL Your Guide to a Healthy manual is now on-line. Visit [email or web address] to download your free copy documented in this encounter [facility] 05-01-2025 Progress note Formatting of t his [...] PTL & FM precautions Ilda Medina MD [facility] 05-01-2025 Miscellaneous Notes KJ - S: Zuleyka denies LOF, contractions or vaginal bleeding. O: 30w3d, see flow sheet SENSITIVE EXAM: Sensitive exam not performed. A/P: Assessment & Plan Supervision of high risk in third trimester (HCC) Hx of section Plans repeat Obesity in (HCC) 30 weeks gestation of (HCC) Reviewed PTL & FM precautions Ilda Medina MD documented in this encounter [facility] 05-01-2025 Meghaan Le MA - 05/01/2025 9:55 AM EDT SEQUENTIAL SCREENINGS The [facility] offers sequential screenings for women who are [...] It will require an appointment with our training technician. This is not an ultrasound performed [...] the above symptoms, contact our office at [phone] and ask to speak with a nurse. After hours, you can call doctors registry at [phone] OR call [facility] at [phone] and ask to have the doctor technical sales consultant paged. If you consider this an emergency, dial 9-6-1 or go to your nearest emergency department. NEED HELP? Are you dealing with a violent or abusive relationship? Are you a victim of rape or sexual assult? Call [facility] ([place]) 24 hour Crisis Hotline: 665.279.4720 or 284-340-4554. MANUAL Your Guide to a Healthy manual is now on-line. Visit [email or web address] to download your free copy documented in this encounter [facility] 04-17-2025 Progress note Formatting of t his [...] 7+ YR (ADACEL, BOOSTRIX) Gia Escobar MD [facility] 04-17-2025 Miscellaneous Notes S: Zuleyka Nielsen is [...] Gia Escobar MD documented in this encounter [facility] 04-17-2025 Note HNO ID: [id number] Author: MARY NARVAEZ LPN Service: ? Author [...] severely ill: Yes Patient denies history of Guillain-Rice Syndrome (a severe paralytic illness): Yes Tdap Adacel injection was given without incident. See immunizations for details of immunizations administered today. VIS sheet provided: Yes Provider Dr. Gia Escobar was present in office at time of injection. Mary Narvaez LPN [facility] 04-17-2025 History of Presen t illness Narrative [...] severely ill: Yes Patient denies history of Guillain-Rice Syndrome (a severe paralytic illness): Yes Tdap Adacel injection was given without incident. See immunizations for details of immunizations administered today. VIS sheet provided: Yes Provider Dr. Gia Escobar was present in office at time of injection. Mary Narvaez LPN documented in this encounter [facility] 04-17-2025 Instructions Concepcion Cintron MA - 04/17/2025 8:59 AM EDT SEQUENTIAL SCREENINGS The [facility] offers sequential screenings for women who are [...] It will require an appointment with our training technician. This is not an ultrasound performed [...] the above symptoms, contact our office at [phone] and ask to speak with a nurse. After hours, you can call doctors registry at [phone] OR call [facility] at [phone] and ask to have the doctor technical sales consultant paged. If you consider this an emergency, dial 07-14-4 or go to your nearest emergency department. NEED HELP? Are you dealing with a violent or abusive relationship? Are you a victim of rape or sexual assult? Call [facility] ([place]) 24 hour Crisis Hotline: 519.742.8699 or 580-418-2986. MANUAL Your Guide to a Healthy manual is now on-line. Visit [email or web address] to download your free copy documented in this encounter [facility] 03-20-2025 Progress note Formatting of t his [...] 4. Rh negative state in antepartum period ([facility]LY [facility]) - ICD9: 646.83, ICD10: O26.899, Z67.91 - GESTATIONAL GLUCOSE SCREEN, 1-HOUR, 50 GRAM, NON-FASTING - SYPHILIS TREPONEMAL W/REFLEX - ANEMIA REFLEX PANEL - TYPE + SCREEN RTO to office in 4 wks Danielle Kathleen APRN.FORMING MACHINE ADJUSTER [facility] 03-20-2025 Miscellaneous Notes RM- Pt doing well today. Denies Vaginal Bleeding, Leaking fluid, or contractions. Pt reports good movement. ASSESSMENT/PLAN: 1. Screening for diabetes mellitus - ICD9: V77.1, ICD10: Z13.1 (primary diagnosis) - GESTATIONAL GLUCOSE SCREEN, 1-HOUR, 50 GRAM, NON-FASTING 2. 24 weeks gestation of (FORMERLY [facility]) - ICD9: V22.2, ICD10: Z3A.24 - GESTATIONAL GLUCOSE SCREEN, 1-HOUR, 50 GRAM, NON-FASTING - SYPHILIS TREPONEMAL W/REFLEX - ANEMIA REFLEX PANEL - TYPE + SCREEN 3. Supervision of high risk in second trimester (FORM[facility]LY [facility]) - ICD9: V23.9, ICD10: O09.92 - GESTATIONAL GLUCOSE SCREEN, 1-HOUR, 50 GRAM, NON-FASTING - SYPHILIS TREPONEMAL W/REFLEX - ANEMIA REFLEX PANEL - TYPE + SCREEN 4. Rh negative state in antepartum period ([facility]) - ICD9: 646.83, ICD10: O26.899, Z67.91 - GESTATIONAL GLUCOSE SCREEN, 1-HOUR, 50 GRAM, NON-FASTING - SYPHILIS TREPONEMAL W/REFLEX - ANEMIA REFLEX PANEL - TYPE + SCREEN RTO to office in 4 wks Danielle Kathleen APRN.FORMING MACHINE ADJUSTER documented in this encounter [facility] 03-20-2025 Instructions Zuleyka Vargas MA - 03/20/2025 9:31 AM EDT SEQUENTIAL SCREENINGS The [facility] offers sequential screenings for women who are [...] It will require an appointment with our training technician. This is not an ultrasound performed [...] the above symptoms, contact our office at [phone] and ask to speak with a nurse. After hours, you can call doctors registry at [phone] OR call [facility] at [phone] and ask to have the doctor technical sales consultant paged. If you consider this an emergency, dial 9-2-5 or go to your nearest emergency department. NEED HELP? Are you dealing with a violent or abusive relationship? Are you a victim of rape or sexual assult? Call [facility] ([place]) 24 hour Crisis Hotline: 293.644.2842 or 153-713-8406. MANUAL Your Guide to a Healthy manual is now on-line. Visit [email or web address] to download your free copy documented in this encounter [facility] 02-18-2025 Note Education (CARDMN) ZULEYKA NIELSEN ([id number]) 1995 F Date Time Provider Department 02/18/25 [...] Encounter Status:Closed by NORAH ENRIQUEZ on 02/18/25 [facility] 02-18-2025 Note HNO ID: [id number] Author: ?, ?, ? Service: ? Author Type: ? Type: Progress Notes Filed: 02/18/2025 10:34 Note Text: EVENT MONITOR DISPOSABLE PATCH INSTRUCTIONS Patient Name: Zuleyka Nielsen Clinic Number: [id number] Skin prepped and cleansed with alcohol Patch secured to prepped area Monitor Activated Serial #: [id number] Patient Instructed: Prescribed order timeframe Bathing guidelines Usage of event button and diary documentation Return of monitor at the end of prescribed order Call with problems [phone] or [phone]. [phone] Patient expresses a good understanding of instructions Norah Dobson [facility] 02-18-2025 History of Presen t illness Narrative EVENT MONITOR DISPOSABLE PATCH INSTRUCTIONS Patient Name: Zuleyka Nielsen Clinic Number: [id number] Skin prepped and cleansed with alcohol Patch secured to prepped area Monitor Activated Serial #: [id number] Patient Instructed: Prescribed order timeframe Bathing guidelines Usage of event button and diary documentation Return of monitor at the end of prescribed order Call with problems [phone] or [phone]. [phone] Patient expresses a good understanding of instructions Norah Dobson documented in this encounter [facility] 02-18-2025 History of Presen t illness Narrative Images from the original note were not included. Heart, Vascular, and Thoracic [place] [facility] Department of Cardiovascular Medicine SECTION [...] She has no overt syncope. Recommended 14-day construction services technician (zio patch) and transthoracic echocardiogram. If construction services technician reveals SVT and she becomes more symptomatic, [...] my office phone number, office fax number, [employer] instructions, and my work email address. Zuleyka Nielsen was strongly encouraged to use [employer] for communication if possible, but my email address was provided if needed. Warner Tai MD AMBULATORY PATIENT EDUCATION Topic: Arrhythmias/Palpitations Instruction Provided To: Patient Barriers: None Motivation to Learn: Interested Methods of Instruction: Verbal instruction and/or handouts. Patient Leans Best By: Multiple Methods Patient Verbalized: Understanding documented in this encounter [facility] 02-18-2025 Note HNO ID: [id number] Author: WARNER TAI MD Service: ? Author Type: Physician Type: Progress Notes Filed: 02/18/2025 10:18 Note Text: Heart, Vascular, and Thoracic [place] [facility] Department of Cardiovascular Medicine SECTION [...] history of atheroscleroti (more content not included)... [facility] 02-18-2025 Note HNO ID: [id number] Author: FCO REEVES MD Service: ? Author [...] VE Couplets or VE Triplets were present. [facility] 02-03-2025 Telephone encounter Note Message was sent to Dr. Jose. Key Ford RN [facility] Work Phone: 02-03-2025 Miscellaneous Notes Message was sent to Dr. Jose. Key Ford RN Patient was informed to follow up with Dr. Jose regarding 01/09 lab results, per Marina Dougherty. Please advise. documented in this encounter [facility] 02-03-2025 Telephone encounter Note Called patient reviewed that vWD panel is normal. No intervention needed now, but might be worth rechecking shortly after delivery, especially if there seems to be excessive post bleeding. Noe Jose MD February 03, 2025 [facility] Work Phone: 02-03-2025 Miscellaneous Notes Called patient reviewed that vWD panel is normal. No intervention needed now, but might be worth rechecking shortly after delivery, especially if there seems to be excessive post bleeding. Noe Jose MD February 03, 2025 documented in this encounter [facility] 02-03-2025 Telephone encounter Note Patient was informed to follow up with Dr. Jose regarding 01/09 lab results, per Marina Dougherty. Please advise. [facility] Work Phone: 01-30-2025 Progress note Formatting of [...] - RTO anatomy US Kalyani Dougherty DO [facility] 01-30-2025 Miscellaneous Notes SW- Has palpations and [...] Kalyani Dougherty DO documented in this encounter [facility] 01-30-2025 Instructions Zuleyka Vargas MA - 01/30/2025 9:11 AM EDT SEQUENTIAL SCREENINGS The [facility] offers sequential screenings for women who are [...] It will require an appointment with our training technician. This is not an ultrasound performed [...] the above symptoms, contact our office at [phone] and ask to speak with a nurse. After hours, you can call doctors registry at [phone] OR call [facility] at [phone] and ask to have the doctor technical sales consultant paged. If you consider this an emergency, dial 9-1-9 or go to your nearest emergency department. NEED HELP? Are you dealing with a violent or abusive relationship? Are you a victim of rape or sexual assult? Call [facility] ([place]) 24 hour Crisis Hotline: 416.200.7637 or 192-870-3554. MANUAL Your Guide to a Healthy manual is now on-line. Visit [email or web address] to download your free copy documented in this encounter [facility] 01-08-2025 Note HNO ID: [id number] Author: NOE JOSE MD Service: ? Author [...] which included preparing to see the patient, qjbh-mv-wakh patient care, completing clinical documentation, obtaining and/or reviewing separately obtained history, counseling and educating the patient/family/caregiver, ordering medications, tests, or procedures, independently interpreting results (not separately reported), and communicating results to the patient/family/caregiver. Electronically Signed: Noe Jose MD January 08, 2025 11:06 AM [facility] 01-08-2025 History of Presen t illness Narrative [...] which included preparing to see the patient, fjvs-ds-uiwr patient care, completing clinical documentation, obtaining and/or reviewing separately obtained history, counseling and educating the patient/family/caregiver, ordering medications, tests, or procedures, independently interpreting results (not separately reported), and communicating results to the patient/family/caregiver. Electronically Signed: Noe Jose MD January 08, 2025 11:06 AM documented in this encounter [facility] 01-02-2025 Progress note Formatting of t his note might be different from the original. Anatomy ultrasound reviewed. No abnormalities identified. Follow up as clinically indicated. Please place copy in ob chart. Reji Leos MD [facility] Work Phone: 01-02-2025 Miscellaneous Notes Anatomy ultrasound reviewed. No abnormalities identified. Follow up as clinically indicated. Please place copy in ob chart. Reji Leos MD documented in this encounter [facility] 01-02-2025 Progress note Formatting of t his note might be different from the original. SW- Pt doing well. No pain, lof, vb. NT today and final report pending. Declines carrier screening and aneuploidy screening. NOB labs to be completed today. Anatomy US ordered. Patient reports easy bleeding. Does not know family history, and states they are Yazidism and do not seek medical care. Referral placed to hematology. RTO 4 wks. Kalyani Dougherty DO [facility] 01-02-2025 Miscellaneous Notes SW- Pt doing well. No pain, lof, vb. NT today and final report pending. Declines carrier screening and aneuploidy screening. NOB labs to be completed today. Anatomy US ordered. Patient reports easy bleeding. Does not know family history, and states they are Yazidism and do not seek medical care. Referral placed to hematology. RTO 4 wks. Kalyani Dougherty DO documented in this encounter [facility] 01-02-2025 Instructions Zuleyka Vargas MA - 01/02/2025 9:57 AM EST SEQUENTIAL SCREENINGS The [facility] offers sequential screenings for women who are [...] It will require an appointment with our training technician. This is not an ultrasound performed [...] the above symptoms, contact our office at [phone] and ask to speak with a nurse. After hours, you can call doctors registry at [phone] OR call [facility] at [phone] and ask to have the doctor technical sales consultant paged. If you consider this an emergency, dial 6-9-3 or go to your nearest emergency department. NEED HELP? Are you dealing with a violent or abusive relationship? Are you a victim of rape or sexual assult? Call [facility] ([facility] 24 hour Crisis Hotline: 573.139.5436 or 920-967-6316. MANUAL Your Guide to a Healthy manual is now on-line. Visit [email or web address] to download your free copy documented in this encounter [facility] 11-29-2024 Note HNO ID: [id number] Author: DANIELLE KATHLEEN APRN.FORMING MACHINE ADJUSTER Service: ? Author Type: Nurse Practitioner Type: Progress Notes Filed: 12/05/2024 12:30 Note Text: Patient declined solar fabrication technician. INITIAL OB ASSESSMENT HPI: Zuleyka is a [...] discussed with the Patient or Patient's Authorized Auto Radiator Specialist. As applicable, any other physician, advance practice provider, medical student, or other health professional student that will be obse (more content not included)... [facility] 11-29-2024 History of Presen t illness Narrative Patient declined solar fabrication technician. INITIAL OB ASSESSMENT HPI: Zuleyka is a [...] discussed with the Patient or Patient's Authorized Auto Radiator Specialist. As applicable, any other physician, advance practice provider, medical student, or other health professional student that will be observing or involved in the sensitive examination for educational or training purposes was discussed with the Patient or Authorized Auto Radiator Specialist. The Patient or Authorized Auto Radiator Specialist has agreed to proceed with the sensitive [...] activity, CRL consistent with LMP. Danielle Kathleen, ARCHITECTURE INTERN.FORMING MACHINE ADJUSTER ASSESSMENT: 29 year old at 9w3d wks gestational age PLAN: 1) Patient oriented to practice. Patient given new OB orientation folder. Discussed nutrition, folic acid supplementation, dietary guidelines, exercise, smoking, alcohol, caffeine, and drug use. Discussed gestational weight gain guidelines. Discussed routine OB labs including STD/HIV. Discussed how to access Your guide to a health and the [employer]olly Driver. Reviewed midwifery and general internist and physician leader services that are available. 2) Screening: Hemoglobin [...] provided. The patient Previously ordered at previous [facility] waiting on records 3) Patient offered option [...] Danielle Kathleen APRN.CNP documented in this encounter [facility] 11-29-2024 Instructions Mary Narvaez LPN - 11/29/2024 12:14 PM EST Please select the following link to access the [facility] Your Guide to a Healthy . [email or web address] Please select the following link to access the [facility] Your Guide to a Healthy . [email or web address] documented in this encounter [facility] 12-13-2022 Note Date of Service 12/11/21 After [...] JOEY CAMPBELL MD on 12/13/2022 01:04 PM [facility] 12-12-2022 Evaluation + Plan note Extrac josue from: Title:Clinical Document Author:HEMAL LUIS MD Date:12/12/22 Subjective Comfortable with pain meds Lochia small. Baby is nursing well. . Objective Looks well and no significant pallor. CVS: RRR Lungs: CTA B, decreased AE at bases. Abdomen: Soft, uterus firm at U- 1. Dressing with small stains,; dry. Extremities: Nontender with tr edema , SCDS on VITALS TejisoAursGGVyucbKUMwW2VRN4XncmYb(kg) 12/12 08:0036.5--732587YS58/36863.6 12/12 07:00----82--95RA 12/12 05:58----74--97RA 12/12 05:00----66--95RA 12/12 [...] 12/11/22 20:36:00 EST, Dose = 1 spray(s), Sutherland, Perineum, q1h, PRN, Other (see order comments), [...] Meds: None Problems (18) Absence of menstruation (13171559) Allergy, food (3398137548) Amenorrhea (24226639) Bleeding (9273750251) Constipation (73824889) Encounter for supervision of normal in multigravida in third trimester (699748936) GERD (gastroesophageal reflux disease) (012279482) History of abnormal cervical Pap smear (3199559174) History of miscarriage (787539742) Hypercholesteremia (47996156) Increased BMI (body mass index) (68116058) Irregular periods/menstrual cycles (777319142) PCOS (polycystic ovarian syndrome) (716583888) Positive test (595887367) (657304258) Screening for cardiovascular condition (286908928) Screening for diabetes mellitus (499758447) Seasonal allergies (5754068168) ASSESSMENT/PLAN: POD #1 after complicated by atony [...] Signs Call Parameters Future Scheduled Tests Laboratory* [facility] Lab Send out (Blood Specimens) 06/09/22 * [facility] Lab Send out (Blood Specimens) 06/09/22 [facility] 01-30-2023 Anesthesiology Consult note Patient: ZULEYKA NIELSEN Age: 27 years Sex: Female : 1995 Associated Diagnoses: None Author: URI STONE ARCHITECTURE INTERN-MUSHROOM GROWTH MEDIA MIXER Assessment Postanesthesia assessment Vitals: Vital signs from [...] by URI STONE on 12/12/2022 08:08 AM [facility]01-29-2023 Hospital Discharge instructions Patient Education 12/11/2022 19:43:53 7b- Depression and Blues (08/2020) (CUSTOM) [place] Depression and Blues All mothers are at [...] psychosis. Often, a screening tool called the [place] Depression Scale is used to diagnose depression [...] music. Avoid alcohol. Ask for help with labor arbitrator hearing office, cooking, grocery shopping, or running errands as needed. Do nottry to do everything. Talk to people close to you about how you are feeling. Get support from your partner, family members, and friends. Try to stay positive in how you think. Think about the things you are grateful for. Do not spend a lot of time alone. Only take mpwq-glg-gfygysp or prescription medicine as directed by your [...] get worse. Resource: ExitCare Patient Information 2014 [employer]. This information is not intended to replace [...] may still have mild discomfort. Only take uowa-pgu-qebdnkc or prescription medicine as directedby your caregiver. [...] clots. Document Released: 07/22/2003 Document Re-Released: 08/27/2010 [facility] Patient Information 2011 [employer]. Follow Up Care 12/10/2022 17:19:57 With:JOEY CAMPBELL Address: [address] [place] [address] [address]- [phone] Business (1) When:Within 2 Week(s) [facility] 01-29-2023 Anesthesiology Consult note Patient: ZULEYKA NIELSEN Age: 27 years Sex: Female : 1995 Associated Diagnoses: None Author: URI STONE APRN-MUSHROOM GROWTH MEDIA MIXER Preoperative Information Time of last food or [...] 2 tab(s), Oral, q4h benzocaine topical 20% Sutherland 1 spray(s), Perineum, q1h carboprost 250 mcg/ml [...] list: Medical Allergy, food / SNOMED CT 4413290829 / Confirmed Amenorrhea / SNOMED CT 53681250 / Confirmed Absence of menstruation / SNOMED CT 98565855 / Confirmed Constipation / SNOMED CT 62256801 / Confirmed GERD (gastroesophageal reflux disease) / SNOMED CT 835023144 / Confirmed History of miscarriage / SNOMED CT 210300477 / Confirmed History of abnormal cervical Pap smear / SNOMED CT 0682029931 / Confirmed Hypercholesteremia / SNOMED CT 71677785 / Confirmed Increased BMI (body mass index) / SNOMED CT 68205798 / Confirmed Irregular periods/menstrual cycles / SNOMED CT 749813688 / Confirmed Encounter for supervision of normal in multigravida in third trimester / SNOMED CT 117595597 / Confirmed Screening for diabetes mellitus / SNOMED CT 543209290 / Confirmed Screening for cardiovascular condition / SNOMED CT 899017955 / Confirmed PCOS (polycystic ovarian syndrome) / SNOMED CT 738001834 / Confirmed Positive test / SNOMED CT 308177543 / Confirmed / SNOMED CT 362088740 / Confirmed Seasonal allergies / SNOMED CT 7890793373 / Confirmed, Active Problems (17) Absence of [...] Seasonal allergies Histories Past Medical History: Resolved (612022080): Onset on 08/11/2021 at 26 years. Resolved in the month of 10/2021 at 26 years. Contraceptive management (34435253): Resolved. Annual physical exam (216144005): Resolved. Screening cholesterol level (689060706): Resolved. Family History: Cancer Grandparent Hypothyroid Grandparent Hypertension Father Heart disease Father Heart attack Father Diabetes Grandparent Father Prostate cancer Grandparent Procedure history: Teeth (1365369777). Comments: 11/02/2021 14:19 EST - Lalita Herrera LPN wisdom teeth Social History Social & Psychosocial Habits Alcohol 07/26/2019 Use: Never Substance Abuse 07/26/2019 Use: Never Tobacco 07/26/2019 Tobacco Use: Never (less than 100 in l Comment: No smoke exposure - 07/26/2019 10:51 - Devora Nielsen LPN Home/Environment 07/26/2019 Primary Elevators Inspector: Self Nutrition/Health 07/26/2019 Caffeine intake amount: All [...] Signs(last 24 hrs) Last Charted Heart Rate Jlwsrfsfd673 bpm (DEC 11 20:40) Resp Rate 18 br/min (DEC 11 18:30) SBP97 mmHg (DEC 11 20:40) DBP60 mmHg (DEC 11 20:40) Measurements from flowsheet : Measurements 12/10/2022 17:42 EST Height 160 cm Admission Weight 103.63 kg [place] Body Weight 52.38 kg BSA Admission 2.05 [...] Type TRAY ZHANG CATH 16F W/BAG 10/CA [id number] 12/11/2022 20:42 EST SN - CTm - [...] Intra-Op EBL 800 mL 12/11/2022 20:38 EST [place] Delivery Summary PCS Operative Report Note 12/11/2022 [...] Position Supine Standard Intra-op 12/11/2022 19:36 EST [place] Obstetrics Progress Note Progress Note 12/11/2022 19:36 [...] Attendee SN - CAt - Role Performed MUSHROOM GROWTH MEDIA MIXER SN - CAt - Role Performed Educational Guidance Counselor 1 SN - CAt - Role Performed Scrub 1 SN - CAt - Role Performed School Age Program Teacher 1 12/11/2022 19:33 EST SN - CAt [...] evident Teaching Method Explanation Preferred Written Language [place] Island[place] Family/Caregiver Prefer Written Language [place] Preferred Spoken Language [place] Family/Caregiver Prefer Spoken Language [place] Ed-Surgery Verbalizes/Nonverbally indicates understanding 12/11/2022 19:14 EST [...] Monitoring Method External toco Uterine Contraction Frequency Connell readjusted Uterine Contraction Intensity, Ext Palp Mild [...] Monitoring Method External toco Uterine Contraction Frequency Connell readjusted Uterine Contraction Intensity, Ext Palp Mild [...] feelings, concerns Skin Temperature Warm Skin Description Abernathy, Dry Skin Integrity Intact, Pressure points intact [...] Secondary Diagnosis Mor (more content not included)... [facility]01-29-2023 Note Date of Service 12/11/22 Chief Complaint [...] JOEY CAMPBELL MD on 12/11/2022 07:42 PM [facility]01-28-2023 Note Date of Service 12/10/22 Chief Complaint [...] well as her level 2 US with [facility]. She recieved rhogam and tdap during . [...] Alcohol Use: Never., 07/26/2019 Home/Environment Self Primary Elevators Inspector:., 07/26/2019 Nutrition/Health Caffeine intake amount: All of [...] JOEY CAMPBELL MD on 12/10/2022 07:04 PM [facility]07-28-2022 Evaluation + Plan note Future Scheduled Tests Laboratory* [facility] Lab Send out (Blood Specimens) 06/09/22 * [facility] Lab Send out (Blood Specimens) 06/09/22 [facility] Anesthesiology Consult note* URI STONE APRN-MUSHROOM GROWTH MEDIA MIXER: PERFORM, SIGN, VERIFY Event Display: Anesthesiology Consultation Authored Date: [id number] Patient: ZULEYKA NIELSEN Age: 27 years Sex: Female : 1995 Associated Diagnoses: None Author: URI STONE APRN-MUSHROOM GROWTH MEDIA MIXER Assessment Postanesthesia assessment Vitals: Vital signs from [...] VERIFY Event Display: Anesthesiology Consultation Authored Date: [id number] Patient: ZULEYKA NIELSEN Age: 27 years Sex: [...] 2 tab(s), Oral, q4h benzocaine topical 20% Sutherland 1 spray(s), Perineum, q1h carboprost 250 mcg/ml [...] list: Medical Allergy, food / SNOMED CT 6603948736 / Confirmed Amenorrhea / SNOMED CT 43270495 / Confirmed Absence of menstruation / SNOMED CT 12102297 / Confirmed Constipation / SNOMED CT 82344093 / Confirmed GERD (gastroesophageal reflux disease) / SNOMED CT 072269885 / Confirmed History of miscarriage / SNOMED CT 338873782 / Confirmed History of abnormal cervical Pap smear / SNOMED CT 9684595160 / Confirmed Hypercholesteremia / SNOMED CT 78197074 / Confirmed Increased BMI (body mass index) / SNOMED CT 23704472 / Confirmed Irregular periods/menstrual cycles / SNOMED CT 978828174 / Confirmed Encounter for supervision of normal in multigravida in third trimester / SNOMED CT 987257727 / Confirmed Screening for diabetes mellitus / SNOMED CT 232825100 / Confirmed Screening for cardiovascular condition / SNOMED CT 749501812 / Confirmed PCOS (polycystic ovarian syndrome) / SNOMED CT 320246174 / Confirmed Positive test / SNOMED CT 158415705 / Confirmed / SNOMED CT 503504651 / Confirmed Seasonal allergies / SNOMED CT 1163394871 / Confirmed, Active Problems (17) Absence of [...] Seasonal allergies Histories Past Medical History: Resolved ([id number]): Onset on 08/11/2021 at 26 years. Resolved in the month of 10/2021 at 26 years. Contraceptive management ([id number]): Resolved. Annual physical exam ([id number]): Resolved. Screening cholesterol level ([id number]): Resolved. Family History: Cancer Grandparent Hypothyroid Grandparent Hypertension Father Heart disease Father Heart attack Father Diabetes Grandparent Father Prostate cancer Grandparent Procedure history: Teeth ([id number]). Comments: 11/02/2021 14:19 IZZY - Lalita Herrera LPN wisdom teeth Social History Social & Psychosocial Habits Alcohol 07/26/2019 Use: Never Substance Abuse 07/26/2019 Use: Never Tobacco 07/26/2019 Tobacco Use: Never (less than 100 in l Comment: No smoke exposure - 07/26/2019 10:51 - Devora Nielsen LPN Home/Environment 07/26/2019 Primary Elevators Inspector: Self Nutrition/Health 07/26/2019 Caffeine intake amount: All [...] Signs(last 24 hrs) Last Charted Heart Rate [id number] bpm (DEC 11 20:40) Resp Rate 18 br/min (DEC 11 18:30) SBP97 mmHg (DEC 11 20:40) DBP60 mmHg (DEC 11 20:40) Measurements from flowsheet : Measurements 12/10/2022 17:42 EST Height 160 cm Admission Weight 103.63 kg [place] Body Weight 52.38 kg BSA Admission 2.05 [...] Type TRAY ZHANG CATH 16F W/BAG 10/CA [id number] 12/11/2022 20:42 EST SN - CTm - Surgery Stop 12/11/2022 20:42 12/11/2022 20:42 EST SN - CTm - Surgery Stop Surgery Stop Intra-Op Urine Catheter 200 mL AO OB Surgery Intraop Record [facility] OB Surgery Intraop Record 12/11/2022 20:41 EST [...] Intra-Op EBL 800 mL 12/11/2022 20:38 EST [place] Delivery Summary PCS Operative Report Note 12/11/2022 [...] Position Supine Standard Intra-op 12/11/2022 19:36 EST [place] Obstetrics Progress Note Progress Note 12/11/2022 19:36 [...] Attendee SN - CAt - Role Performed MUSHROOM GROWTH MEDIA MIXER SN - CAt - Role Performed Educational Guidance Counselor 1 SN - CAt - Role Performed Scrub 1 SN - CAt - Role Performed School Age Program Teacher 1 12/11/2022 19:33 EST SN - CAt [...] evident Teaching Method Explanation Preferred Written Language [place] Family/Caregiver Prefer Written Language [place] Preferred Spoken Language [place] Family/Caregiver Prefer Spoken Language [place] Ed-Surgery Verbalizes/Nonverbally indicates understanding 12/11/2022 19:14 EST [...] Monitoring Method External toco Uterine Contraction Frequency Connell readjusted Uterine Contraction Intensity, Ext Palp Mild [...] Monitoring Method External toco Uterine Contraction Frequency Connell readjusted Uterine Contraction Intensity, Ext Palp Mild [...] feelings, concerns Skin Temperature Warm Skin Description Abernathy, Dry Skin Integrity Intact, Pressure points intact [...] evident Teaching Method Explanation Preferred Written Language [place] Family/Caregiver Prefer Written Language [place] Preferred Spoken Language [place] Family/Caregiver Prefer Spoken Language [place] Ed- Monitoring Verbalizes/Nonverbally indicates understanding Ed-Contractions Verbalizes/Nonverbally [...] Transport Mode Order Detail Wheelchair and Nurse Health And Safety Instructor Details Form Health And Safety Instructor Details Form 12/11/2022 15:00 EST Uterine Contraction [...] Monitoring Method External toco Uterine Contraction Frequency Connell readjusted Uterine Contraction Intensity, Ext Palp Mild [...] Monitoring Method External toco Uterine Contraction Frequency Connell readjusted Uterine Contraction Intensity, Ext Palp Mild [...] Monitoring Method External toco Uterine Contraction Frequency Connell readjusted Uterine Contraction Intensity, Ext Palp Mild [...] Method Explanation, Printed materials Preferred Written Language [place] Family/Caregiver Prefer Written Language [place] Preferred Spoken Language [place] Family/Caregiver Prefer Spoken Language [place] Ed- Monitoring Verbalizes/Nonverbally indicates understanding Ed-Contractions Verbalizes/Nonverbally [...] Transport Mode Order Detail Wheelchair and Nurse Health And Safety Instructor Details Form Health And Safety Instructor Details Form 12/11/2022 7:30 EST Temperature Temporal [...] feelings, concerns Skin Temperature Warm Skin Description Abernathy, Dry Skin Integrity Intact, Pressure points intact [...] Cooperative Appearance Clean Orientation Oriented x 4 Construction Helper Significant other Ambulation Repositions self Orientation Assessment [...] evident Teaching Method Explanation Preferred Spoken Language [place] Ed-LD Activity Verbalizes/Nonverbally indicates understanding, Demonstrates Ed-LD [...] level maintained, Precautions maintained 12/10/2022 18:48 EST [place] History and Physical History and Physical 12/10/2022 [...] OB Visit Outcome Admitted Chief Complaint SROM [place] OB Screen Note OB Screening [place] OB Screening Form [place] OB Screening Form [place] 12/10/2022 18:14 EST Reg [facility] [place] No [...] Person #1 We May Share JOEL Nielsen [phone] Designated Person #1 Relationship Spouse Privacy Restrictions Requested None Height 160 cm Admission Weight 103.63 kg [place] Body Weight 52.38 kg BSA Admission 2.05 [...] Sterilization Planned No Discharge Physician Ganesh Feng ARCHITECTURE INTERN [facility] Participant No Safe Sleep Environment for Baby [...] Evaluation Verbalizes/Nonverbally indicates understanding Preferred Written Language [place]er Preferred Spoken Language [place] Chief Complaint SROM Mode of Arrival Ambulatory Accompanied by Spouse Information Given by Patient Patient's Current Physicians Dr Luis Emergency Contact Number Anival Nielsen [phone] Belongings At Bedside Jacket, Pants, Shirt, Shoes, [...] evident Teaching Method Explanation Preferred Written Language [place] Preferred Spoken Language [place] Ed- Monitoring Verbalizes/Nonverbally indicates understanding Ed-Contractions Verbalizes/Nonverbally [...] Distention Absent Skin Temperature Warm Skin Description Abernathy, Dry Skin Integrity Intact, Pressure points intact [...] Cooperative Appearance Clean Orientation Oriented x 4 Construction Helper Significant other Ambulation Repositions self Orientation Assessment [...] Use Yes RN Coordination of Care Other: [id number] Adaptive Feeding Equipment None Appetite Excellent 12/10/2022 17:22 EST Monitoring Annotations 27 year old EDC 12/07/2022 admitted to room 216 with complaints of SROM at 0930 12/10/22. To bathroom. Changed into gown. . Assessment and Plan [place] [employer]esthesi[employer] (ASA) physical status classification: Class II, E. Anesthetic Preoperative Plan Anesthetic technique: Spinal. Postoperative pain management: duramorph. Informed consent: signed by patient. Digitally Signed by URI STONE on 12/11/2022 09:04 PM [facility] Evaluation + Plan note Future Appointments Appointment Date:11/02/2021 09:40:00 AM Scheduled Provider:SERGO FENG APRN, CNP Location:[facility] Appointment Type:PC OV Appointment Date:11/15/2021 04:30:00 PM Scheduled Provider: Location:[facility] Appointment Type:US Pelvis Non-OB Complete Appointment Date:11/18/2021 08:20:00 AM Scheduled Provider:SERGO FENG APRN, CNP Location:[facility] Appointment Type:PC OV Future Scheduled Tests Radiology* US Pelvis Non-OB Complete 11/15/21 * XR Abdomen AP 05/11/21 [facility] Evaluation + Plan note Future Appointments Appointment Date:11/15/2021 04:30:00 PM Scheduled Provider: Location:[facility] Appointment Type:US Pelvis Non-OB Complete Appointment Date:11/18/2021 08:20:00 AM Scheduled Provider:SERGO FENG APRN, CNP Location:[facility] Appointment Type:PC OV Future Scheduled Tests Laboratory* [facility] Request 11/02/21 * hCG, quantitative (AH) 11/02/21 Radiology* US Pelvis Non-OB Complete 11/15/21 * US Pelvis Non-OB Complete 11/02/21 * XR Abdomen AP 05/11/21 [facility] Evaluation + Plan note Future Appointments Appointment Date:11/15/2021 04:30:00 PM Scheduled Provider: Location:[facility] Appointment Type:US Pelvis Non-OB Complete Appointment Date:11/18/2021 08:20:00 AM Scheduled Provider:SERGO FENG ARCHITECTURE INTERN - FORMING MACHINE ADJUSTER Location:[facility] Appointment Type:PC OV Future Scheduled Tests Laboratory* hCG, quantitative (AH) 11/02/21 Radiology* US Pelvis Non-OB Complete 11/15/21 * US Pelvis Non-OB Complete 11/02/21 * XR Abdomen AP 05/11/21 [facility] Evaluation + Plan note Future Appointments Appointment Date:11/18/2021 08:20:00 AM Scheduled Provider:SERGO FENG ARCHITECTURE INTERN - FORMING MACHINE ADJUSTER Location:[facility] Appointment Type:PC OV Future Scheduled Tests Laboratory* hCG, quantitative (AH) 11/02/21 Radiology* US Pelvis Non-OB Complete 11/02/21 * XR Abdomen AP 05/11/21 [facility] Evaluation + Plan note Future Appointments Appointment Date:04/15/2022 08:20:00 AM Scheduled Provider:SERGO FENG ARCHITECTURE INTERN - FORMING MACHINE ADJUSTER Location:[facility] Appointment Type:PC OV Diagnostic Tests Pending * Testosterone, Free and Total 03/23/22 * Cortisol, Free Serum 03/23/22 * Aldosterone 03/23/22 Future Scheduled Tests Laboratory* hCG, quantitative (AH) 11/02/21 Radiology* US Pelvis Non-OB Complete 11/02/21 * XR Abdomen AP 05/11/21 [facility] Evaluation + Plan note Future Appointments Appointment Date:05/31/2022 09:00:00 AM Scheduled Provider:HEMAL LUIS MD Location:[facility] Appointment Type: OV Diagnostic Tests Pending * Panel (AO) 05/18/22 * Urine Culture 05/18/22 Future Scheduled Tests Laboratory* hCG, quantitative (AH) 11/02/21 Radiology* US Pelvis Non-OB Complete 11/02/21 [facility] Evaluation + Plan note Future Appointments Appointment Date:06/28/2022 09:45:00 AM Scheduled Provider:HEMAL LUIS MD Location:[facility] Appointment Type: OV Future Scheduled Tests Laboratory* hCG, quantitative (AH) 11/02/21 * MISC Lab Send out (Blood Specimens) 06/09/22 * MISC Lab Send out (Blood Specimens) 06/09/22 Radiology* US Pelvis Non-OB Complete 11/02/21 [facility] evaluation + Plan note Future Appointments Appointment Date:08/24/2022 09:00:00 AM Scheduled Provider:HEMAL LUIS MD Location:[facility] Appointment Type: OV Future Scheduled Tests Laboratory* hCG, quantitative (AH) 11/02/21 * MISC Lab Send out (Blood Specimens) 06/09/22 * MISC Lab Send out (Blood Specimens) 06/09/22 Radiology* US Pelvis Non-OB Complete 11/02/21 [facility] Evaluation + Plan note Future Appointments Appointment Date:09/21/2022 09:00:00 AM Scheduled Provider:HEMAL LUIS MD Location:[facility] Appointment Type: OV Diagnostic Tests Pending * Rapid Plasma Reagin Test 09/06/22 Future Scheduled Tests Laboratory* hCG, quantitative (AH) 11/02/21 * MISC Lab Send out (Blood Specimens) 06/09/22 * MISC Lab Send out (Blood Specimens) 06/09/22 Radiology* US Pelvis Non-OB Complete 11/02/21 [facility] Evaluation + Plan note Future Appointments Appointment Date:10/12/2022 09:00:00 AM Scheduled Provider:HEMAL LUIS MD Location:[facility] Appointment Type: OV OB Routine Follow Up Future Scheduled Tests Laboratory* hCG, quantitative (AH) 11/02/21 * MISC Lab Send out (Blood Specimens) 06/09/22 * MISC Lab Send out (Blood Specimens) 06/09/22 Radiology* US Pelvis Non-OB Complete 11/02/21 [facility] evaluation + Plan note Future Appointments Appointment Date:10/27/2022 09:15:00 AM Scheduled Provider:AUNDREA ROBB MD Location:[facility] Appointment Type: OV Future Scheduled Tests Laboratory* hCG, quantitative (AH) 11/02/21 * MISC Lab Send out (Blood Specimens) 06/09/22 * MISC Lab Send out (Blood Specimens) 06/09/22 Radiology* US Pelvis Non-OB Complete 11/02/21 [facility] evaluation + Plan note Future Appointments Appointment Date:11/17/2022 09:15:00 AM Scheduled Provider:AUNDREA ROBB MD Location:[facility] Appointment Type: OV OB Routine Follow Up Future Scheduled Tests Laboratory* MISC Lab Send out (Blood Specimens) 06/09/22 * MISC Lab Send out (Blood Specimens) 06/09/22 [facility] [employer] + Plan note Future Appointments Appointment Date:01/23/2023 01:00:00 PM Scheduled Provider:JOEY CAMPBELL MD Location:[facility] Appointment Type: OV Future Scheduled Tests Laboratory* MISC Lab Send out (Blood Specimens) 06/09/22 * MISC Lab Send out (Blood Specimens) 06/09/22 [facility] [employer] note* Diagnosis with uncertain dates, antepartum- Primary state, incidental 9 weeks gestation of state, incidental Screening for cervical cancer Screening for malignant neoplasm of the cervix Encounter for supervision of normal in multigravida Nausea and vomiting during Hx of section Other postprocedural status Other immediate hemorrhage [facility]* Diagnosis Encounter for screening for malformation using ultrasound- Primary 13 weeks gestation of state, incidental Encounter for (NT) nuchal translucency scan Other specified screening [facility]* Diagnosis 13 weeks gestation of - Primary state, incidental Encounter for supervision of normal in multigravida Excessive bleeding Hx of section Other postprocedural status [facility]* Diagnosis 13 weeks gestation of state, incidental Encounter for supervision of normal in multigravida Excessive bleeding [facility]* Diagnosis Encounter for supervision of normal in multigravida- Primary 17 weeks gestation of state, incidental Shortness of breath Palpitations documented [facility] this [facility]* Diagnosis Palpitations- Primary 20 weeks gestation of ([facility]) state, incidental Lightheaded Dizziness and giddiness documented in this encounter [facility]* Diagnosis Palpitations- Primary documented in this encounter [facility] note* Diagnosis Rh negative state in antepartum period ([facility])- Primary Rhesus isoimmunization affecting management of mother, antepartum condition documented in this encounter [facility] note* Diagnosis Screening for diabetes mellitus- Primary 24 weeks gestation of ([facility]) state, incidental Supervision of high risk in second trimester ([facility]) Unspecified high-risk Rh negative state in antepartum period ([facility]) Rhesus isoimmunization affecting management of mother, antepartum condition [facility]* Diagnosis Supervision of high risk in third trimester (HCC)- Primary Unspecified high-risk Hx of section Other postprocedural status 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 Other immediate hemorrhage ([facility]) Heart palpitations Palpitations Obesity in (HCC) Obesity complicating , childbirth, or the puerperium, unspecified as to episode of care or not applicable Need for vaccination Need for prophylactic vaccination and inoculation against unspecified single disease documented in this encounter [facility] note* Diagnosis Supervision of high risk in third trimester (HCC)- Primary Unspecified high-risk Hx of section Other postprocedural status Obesity in (HCC) Obesity complicating , childbirth, or the puerperium, unspecified as to episode of care or not applicable 30 weeks gestation of ([facility]) state, incidental * Assessment & Plan Note - Ilda Medina MD - 05/01/2025 10:24 AM EDTAssociated Problem(s): Hx of section Plans repeat documented in this encounter [facility] note* Diagnosis Supervision of high risk in third trimester (HCC)- Primary Unspecified high-risk Hx of section Other postprocedural status Obesity in (HCC) Obesity complicating , childbirth, or the puerperium, unspecified as to episode of care or not applicable 30 weeks gestation of ([facility]) state, incidental Supervision of high risk in third trimester (HCC)- Primary Unspecified high-risk Hx of section Other postprocedural status Obesity in (HCC) Obesity complicating , childbirth, or the puerperium, unspecified as to episode of care or not applicable Cartilage-hair hypoplasia syndrome (HCC) Chondrodystrophy Other immediate hemorrhage (HCC) 32 weeks gestation of ([facility]) state, incidental documented in this encounter [facility] note* Diagnosis Supervision of high risk in third trimester (HCC)- Primary Unspecified high-risk Hx of section Other postprocedural status Obesity in ([facility]) Obesity complicating , childbirth, or the puerperium, unspecified as to episode of care or not applicable 30 weeks gestation of ([facility]) state, incidental Supervision of high risk in third trimester (HCC)- Primary Unspecified high-risk Hx of section Other postprocedural status 34 weeks gestation of ([facility]) state, incidental Supervision of high risk in second trimester ([facility]) Unspecified high-risk * Assessment & Plan Note - Reji Leos MD - 05/29/2025 4:16 PM EDT Associated Problem(s): Hx of section Orders: URINE OB DIP B/O * Assessment & Plan Note - Reji Leos MD - 05/29/2025 4:16 PM EDT Associated Problem(s): Supervision of high risk in second trimester (HCC) documented in this encounter [facility] note* Diagnosis Supervision of high risk in third trimester (HCC)- Primary Unspecified high-risk Hx of section Other postprocedural status Obesity in (HCC) Obesity complicating , childbirth, or the puerperium, unspecified as to episode of care or not applicable 30 weeks gestation of ([facility]) state, incidental Supervision of high risk in third trimester (HCC)- Primary Unspecified high-risk Hx of section Other postprocedural status 34 weeks gestation of ([facility]) state, incidental Supervision of high risk in second trimester (HCC) Unspecified high-risk Supervision of high risk in third trimester ([facility])- Primary Unspecified high-risk 36 weeks gestation of ([facility]) state, incidental Hx of section Other postprocedural status Obesity in ([facility]) Obesity complicating , childbirth, or the puerperium, unspecified as to episode of care or not applicable [facility] Diagnosis Supervision of high risk in third trimester ([facility])- Primary Unspecified high-risk Hx of section Other postprocedural status Obesity in ([facility]) Obesity complicating , childbirth, or the puerperium, unspecified as to episode of care or not applicable 30 weeks gestation of ([facility]) state, incidental Supervision of high risk in third trimester ([facility])- Primary Unspecified high-risk Hx of section Other postprocedural status 34 weeks gestation of ([facility]) state, incidental Supervision of high risk in second trimester ([facility]) Unspecified high-risk Supervision of high risk in third trimester ([facility])- Primary Unspecified high-risk Hx of section Other postprocedural status Obesity in ([facility]) Obesity complicating , childbirth, or the puerperium, unspecified as to episode of care or not applicable 37 weeks gestation of ([facility]) state, incidental 38 weeks gestation of ([facility])- Primary state, incidental Supervision of high risk in third trimester ([facility]) Unspecified high-risk Hx of section Other postprocedural status Obesity in ([facility]) Obesity complicating , childbirth, or the puerperium, unspecified as to episode of care or not applicable documented in this encounter [facility] course Narrative No data available for this section [facility] Hospital Discharge instructions No data available for this section [facility] Progress note No data available for this section [facility] Reason for referral (narrative)* Diagnostic Procedure Only (Routine) - Authorized Specialty Diagnoses / Procedures Referred By Kenyatta kurtz Referred To Contact [facility] Diagnoses with uncertain dates, antepartum 9 weeks gestation of Encounter for supervision of normal in multigravida Procedures OBSTETRIC ULTRASOUND WHI US PREG UTERUS AFTER 1ST TRIMEST GESTATION Danielle Kathleen APRN.CNP [address] [place] [address] [facility] [address] [place] [address] Referral ID Status Reason Start Date Expiration Date Visits Requested Visits Authorized [id number] Authorized Auto-Generat ed Referral 12/05/2024 12/05/2025 1 1 [facility] Summary Purpose Family History No Family History Records FoundNo Family History Records FoundNo Family History Records FoundNo Family History Records Found Advance Directives No Advanced Directives Records FoundNo Advanced Directives Records FoundNo Advanced Directives Records FoundNo Advanced Directives Records Found Additional Source Comments Care Team (unrecognized sect ion and content) Pressure Welder Relationship Specialty Start Date End Date Sergo Feng CNP [address] [place] [id number] PCP - General Family Medicine 04/04/18 Pressure Welder Relationship Specialty Start Date End Date Sergo Feng CNP [address] [place] [id number] PCP - General Family Medicine 04/04/18 Pressure Welder Relationship Specialty Start Date End Date Sergo Feng CNP [address] [place] [id number] PCP - General Family Medicine 04/04/18 Pressure Welder Relationship Specialty Start Date End Date Sergo Feng CNP [address] [place] [address] PCP - General Family Medicine 04/04/18 Pressure Welder Relationship Specialty Start Date End Date Sergo Feng, FORMING MACHINE ADJUSTER [address] [place] [address] PCP - General Family Medicine 04/04/18 Pressure Welder Relationship Specialty Start Date End Date Sergo Feng, FORMING MACHINE ADJUSTER [address] [place] [address] PCP - General Family Medicine 04/04/18 Pressure Welder Relationship Specialty Start Date End Date Sergo Feng, FORMING MACHINE ADJUSTER [address] [place] [address] PCP - General Family Medicine 04/04/18 Warner Tai MD [address] [place] [address] Primary Staff Physician Cardiology 02/18/25 Pressure Welder Relationship Specialty Start Date End Date Sergo Feng, FORMING MACHINE ADJUSTER [address] [place] [address] PCP - General Family Medicine 04/04/18 Warner Tai MD [address] [place], [place] [id number] Primary Staff Physician Cardiology 02/18/25 Pressure Welder Relationship Specialty Start Date End Date Sergo Feng, FORMING MACHINE ADJUSTER [address] [place], [place] [id number] PCP - General Family Medicine 04/04/18 Warner Tai MD [address] [place] [address] Primary Staff Physician Cardiology 02/18/25 Pressure Welder Relationship Specialty Start Date End Date Sergo Feng, FORMING MACHINE ADJUSTER [address] [place], [place] [address]597 PCP - General Family Medicine 04/04/18 Warner Tai MD [address] [place], [place] [id number] Primary Staff Physician Cardiology 02/18/25 Pressure Welder Relationship Specialty Start Date End Date Sergo Feng, FORMING MACHINE ADJUSTER [address] [place] [id number] PCP - General Family Medicine 04/04/18 Warner Tai MD [address] [place] [address] Primary Staff Physician Cardiology 02/18/25 Pressure Welder Relationship Specialty Start Date End Date Sergo Feng, FORMING MACHINE ADJUSTER [address] [place], [place] [id number] PCP - General Family Medicine 04/04/18 Warner Tai MD [address] [place], [place] [id number] Primary Staff Physician Cardiology 02/18/25 Pressure Welder Relationship Specialty Start Date End Date Sergo Feng, FORMING MACHINE ADJUSTER [address] [place] [address] [id number] PCP - General Family Medicine 04/04/18 Warner Tai MD [address] [place] [address] Primary Staff Physician Cardiology 02/18/25 Pressure Welder Relationship Specialty Start Date End Date Sergo Feng, FORMING MACHINE ADJUSTER [address] [place], [place] [id number] PCP - General Family Medicine 04/04/18 Warner Tai MD [address] [place], [place] [id number] Primary Staff Physician Cardiology 02/18/25 Pressure Welder Relationship Specialty Start Date End Date Sergo Feng, FORMING MACHINE ADJUSTER [address] [place] [id number] PCP - General Family Medicine 04/04/18 Warner Tai MD [address] [place] [address] Primary Staff Physician Cardiology 02/18/25 Pressure Welder Relationship Specialty Start Date End Date Sergo Feng, FORMING MACHINE ADJUSTER [address] [place], [place] [id number] PCP - General Family Medicine 04/04/18 Warner Tai MD [address] [place], [place] [phone] Primary Staff Physician Cardiology 02/18/25 Pressure Welder Relationship Specialty Start Date End Date Sergo Feng, FORMING MACHINE ADJUSTER [address] [place] [address] [id number] PCP - General Family Medicine 04/04/18 Warner Tai MD [address] [place] [address] Primary Staff Physician Cardiology 02/18/25 Pressure Welder Relationship Specialty Start Date End Date Sergo Feng CNP [address] [place] [id number] PCP - General Family Medicine 04/04/18 Warner Tai MD [address] [place] [address] Primary Staff Physician Cardiology 02/18/25 Care Team (unrecognized sect ion and content) Care Team Personnel Name: SERGO FENG APRN, CNP Position: P4 Advanced Practice Nurse Med Service: Employed Provider Member Role: Primary Care Physician Address: Address: [address] [place] [address]- Care Team Related Persons Name: ANIVAL NIELSEN Care Team Personnel Name: SERGO FENG APRN FORMING MACHINE ADJUSTER Position: P4 Advanced Practice Nurse Med Service: Employed Provider Member Role: Primary Care Physician Address: Address: [address] [place] [address]- Care Team Related Persons Name: ANIVAL NIELSEN Care Team Personnel Name: SERGO FENG APRN FORMING MACHINE ADJUSTER Position: P4 Advanced Practice Nurse Med Service: Employed Provider Member Role: Primary Care Physician Address: Address: [address] [place] [address]- Care Team Related Persons Name: ANIVAL NIELSEN Care Team Personnel Name: SERGO FENG APRN - FORMING MACHINE ADJUSTER Position: P4 Advanced Practice Nurse Med Service: Employed Provider Member Role: Primary Care Physician Address: Address: [address] [place] [address]- Care Team Related Persons Name: ANIVAL NIELSEN Care Team Personnel Name: SERGO FENG APRN - FORMING MACHINE ADJUSTER Position: P4 Advanced Practice Nurse Member Role: Primary Care Physician Address: Address: [address] [place] [address]- [place] Care Team Related Persons Name: MEJIA NIELSENY Care Team Personnel Name: SERGO FENG ARCHITECTURE INTERN - FORMING MACHINE ADJUSTER Position: P4 Advanced Practice Nurse Member Role: Primary Care Physician Address: Address: [address] [place] [address]- Care Team Related Persons Name: MEJIA NIELSENY Care Team Personnel Name: SERGO FENG ARCHITECTURE INTERN - FORMING MACHINE ADJUSTER Position: P4 Advanced Practice Nurse Member Role: Primary Care Physician Address: Address: [address] [place] [address]- Care Team Related Persons Name: MEJIA NIELSENY Care Team Personnel Name: SERGO FENG ARCHITECTURE INTERN - FORMING MACHINE ADJUSTER Position: P4 Advanced Practice Nurse Member Role: Primary Care Physician Address: Address: [address] [place] [address]- Care Team Related Persons Name: MEJIA NIELSENY Care Team Personnel Name: SERGO FENG ARCHITECTURE INTERN - FORMING MACHINE ADJUSTER Position: P4 Advanced Practice Nurse Member Role: Primary Care Physician Address: Address: [address] [place] [address]- Care Team Related Persons Name: MEJIA NIELSENY Care Team Personnel Name: SERGO FENG ARCHITECTURE INTERN - FORMING MACHINE ADJUSTER Position: P4 Advanced Practice Nurse Member Role: Primary Care Physician Address: Address: [address] [place] [address]- [place] Care Team Related Persons Name: ANIVAL NIELSEN Name: TATYANA NIELSEN Address: Home [facility] [place], [place] [id number] [place] Care Team Personnel Name: SERGO FENG ARCHITECTURE INTERN - FORMING MACHINE ADJUSTER Position: P4 Advanced Practice Nurse Member Role: Primary Care Physician Address: Address: [address] [place] [address]- Care Team Related Persons Name: ANIVAL NIELSEN INFORMATION SOURCE (unrecogn ized section and content) DATE CREATED AUTHOR 08/14/2022 [facility] DATE CREATED AUTHOR AUTHOR'S ORGANIZ ATION 06/08/2023 [facility] ([place] DATE CREATED AUTHOR AUTHOR'S ORGANIZ ATION 06/26/2025 [facility] DATE CREATED AUTHOR AUTHOR'S ORGANIZ ATION 06/30/2025 [facility] Source Comments (unrecognize d section and content) In the event this informatio n is protected by the Federal Confidentiality of Alcohol and Drug Abuse Patient Records regulations: The Federal rules restrict any use of the information to criminally investigate or prosecute any alcohol or drug abuse patient.[facility] FoundationIn the event this information is protected by the Federal Confidentiality of Alcohol and Drug Abuse Patient Records regulations: The Federal rules restrict any use of the information to criminally investigate or prosecute any alcohol or drug abuse patient.[facility] FoundationIn the event this information is protected by the Federal Confidentiality of Alcohol and Drug Abuse Patient Records regulations: The Federal rules restrict any use of the information to criminally investigate or prosecute any alcohol or drug abuse patient.[facility] FoundationIn the event this information is protected by the Federal Confidentiality of Alcohol and Drug Abuse Patient Records regulations: The Federal rules restrict any use of the information to criminally investigate or prosecute any alcohol or drug abuse patient.[facility] FoundationIn the event this information is protected by the Federal Confidentiality of Alcohol and Drug Abuse Patient Records regulations: The Federal rules restrict any use of the information to criminally investigate or prosecute any alcohol or drug abuse patient.[facility] FoundationIn the event this information is protected by the Federal Confidentiality of Alcohol and Drug Abuse Patient Records regulations: The Federal rules restrict any use of the information to criminally investigate or prosecute any alcohol or drug abuse patient.[facility] FoundationIn the event this information is protected by the Federal Confidentiality of Alcohol and Drug Abuse Patient Records regulations: The Federal rules restrict any use of the information to criminally investigate or prosecute any alcohol or drug abuse patient.[facility] FoundationIn the event this information is protected by the Federal Confidentiality of Alcohol and Drug Abuse Patient Records regulations: The Federal rules restrict any use of the information to criminally investigate or prosecute any alcohol or drug abuse patient.[facility] FoundationIn the event this information is protected by the Federal Confidentiality of Alcohol and Drug Abuse Patient Records regulations: The Federal rules restrict any use of the information to criminally investigate or prosecute any alcohol or drug abuse patient.[facility] FoundationIn the event this information is protected by the Federal Confidentiality of Alcohol and Drug Abuse Patient Records regulations: The Federal rules restrict any use of the information to criminally investigate or prosecute any alcohol or drug abuse patient.[facility] FoundationIn the event this information is protected by the Federal Confidentiality of Alcohol and Drug Abuse Patient Records regulations: The Federal rules restrict any use of the information to criminally investigate or prosecute any alcohol or drug abuse patient.[facility] FoundationIn the event this information is protected by the Federal Confidentiality of Alcohol and Drug Abuse Patient Records regulations: The Federal rules restrict any use of the information to criminally investigate or prosecute any alcohol or drug abuse patient.[facility] FoundationIn the event this information is protected by the Federal Confidentiality of Alcohol and Drug Abuse Patient Records regulations: The Federal rules restrict any use of the information to criminally investigate or prosecute any alcohol or drug abuse patient.[facility] FoundationIn the event this information is protected by the Federal Confidentiality of Alcohol and Drug Abuse Patient Records regulations: The Federal rules restrict any use of the information to criminally investigate or prosecute any alcohol or drug abuse patient.[facility] FoundationIn the event this information is protected by the Federal Confidentiality of Alcohol and Drug Abuse Patient Records regulations: The Federal rules restrict any use of the information to criminally investigate or prosecute any alcohol or drug abuse patient.[facility] FoundationIn the event this information is protected by the Federal Confidentiality of Alcohol and Drug Abuse Patient Records regulations: The Federal rules restrict any use of the information to criminally investigate or prosecute any alcohol or drug abuse patient.[facility] FoundationIn the event this information is protected by the Federal Confidentiality of Alcohol and Drug Abuse Patient Records regulations: The Federal rules restrict any use of the information to criminally investigate or prosecute any alcohol or drug abuse patient.[facility] FoundationIn the event this information is protected by the Federal Confidentiality of Alcohol and Drug Abuse Patient Records regulations: The Federal rules restrict any use of the information to criminally investigate or prosecute any alcohol or drug abuse patient.[facility] FoundationIn the event this information is protected by the Federal Confidentiality of Alcohol and Drug Abuse Patient Records regulations: The Federal rules restrict any use of the information to criminally investigate or prosecute any alcohol or drug abuse patient.[facility] FoundationIn the event this information is protected by the Federal Confidentiality of Alcohol and Drug Abuse Patient Records regulations: The Federal rules restrict any use of the information to criminally investigate or prosecute any alcohol or drug abuse patient.[facility] FoundationIn the event this information is protected by the Federal Confidentiality of Alcohol and Drug Abuse Patient Records regulations: The Federal rules restrict any use of the information to criminally investigate or prosecute any alcohol or drug abuse patient.[facility] Reason for Visit (unrecogniz ed section and content) Reason Comments Initial OB Visit Reason Comments [place] Specialty Diagnoses / Procedures Referred By Contac t Referred To Contact [facility] Diagnoses with uncertain dates, antepartum 9 weeks gestation of Encounter for supervision of normal in multigravida Procedures OBSTETRIC ULTRASOUND WHI US PREG UTERUS AFTER 1ST TRIMEST GESTATION Danielle Kathleen APRN.FORMING MACHINE ADJUSTER [address] [place] [address] Phone: tel: fax: [facility] [address] [place] [address] Referral ID Status Reason Start Date Expiration Date V isits Requested Visits Authorized [id number] Closed Auto-Generate d Referral 12/05/2024 12/05/2025 1 1 Reason Onset Date Comments Care 01/02/2025 Reason Comments New Patient Evaluation Specialty Diagnoses / Procedures Referred By Viancaac t Referred To Contact Hematology Diagnoses 13 weeks gestation of Encounter for supervision of normal in multigravida Excessive bleeding Procedures CONSULT TO HEMATOLOGY OFFICE/OUTPATIENT NEW HIGH MDM 60 MINUTES Kalyani Dougherty MD [address] [place] [address] Phone: tel: fax: Referral ID Status Reason Start Date Expiration Date V isits Requested Visits Authorized [id number] Closed PCP Requested Referral 01/02/2025 01/02/2026 1 [...] 60 MINUTES Kalyani Dougherty MD [address] [place] [address] Phone: tel: fax: Referral ID Status Reason Start Date Expiration Date V isits Requested Visits Authorized [id number] Closed PCP Requested Referral 01/30/2025 01/30/2026 1 [...] BE BASED ON THE PRIMARY CLINICAL RECORDS. [facility]. provides no warranty or guarantee of the accuracy or completeness of information in this document.
[2025-06-30] MEDS: 0.9% Saline Lock 10 ML Syringe IV (22:07)
[2025-07-01] VITALS (7 sets, daily range): BP systolic 110–130; BP diastolic 67–80; PULSE 63–84; RESP 16–18; TEMP 36.2–36.7; O2SAT 94–100
[2025-07-01] MEDS: 0.9% Saline Lock 10 ML Syringe IV ×3 (00:06→11:34)
[2025-07-01] MEDS: Ketorolac 30 MG/ML Syringe IV ×3 (00:06→11:33)
[2025-07-01 06:33] LABS: Hematocrit 32.5 % (37-47); Hemoglobin 11.3 g/dL (12.0-15.0); Mean Corp Hgb Conc 34.8 g/dL (32-36); Mean Corpuscular Volume 92.9 fL (81-99); Mean Platelet Vol. 10.8 fl (6.2-12.0); Platelet Count 220 K/mm3 (150-450); RBC Distribution Width CV 13.1 % (11.6-14.6); RBC Distribution Width SD 44.2 fl (35.1-43.9); Red Blood Count 3.50 M/mm3 (4.2-5.4); White Blood Count 12.8 K/mm3 (4.4-11.0)
--- NOTE | 2025-07-01 08:46 | PN.OBGYN_ITS ---
Subjective Subjective Pain controlled Objective Data Objective Data Vital Signs: Vital Signs Temp Pulse Resp BP Pulse Ox O2 Del Method 97.8 F 78 16 130/80 H 94 Room Air 07/01/25 03:19 07/01/25 03:19 07/01/25 03:19 07/01/25 03:19 07/01/25 03:19 07/01/25 03:19 Oxygen Delivery Method Room Air Weight: 213 lb 13.574 oz Body Mass Index (BMI) 37.8 Intake & Output: Intake and Output for Last 24 Hours 06/29/25 06/30/25 07/01/25 23:59 23:59 23:59 Intake Total 2555.0 / 2555.0 Output Total 1800 / 1800 550 / 550 Balance 755.0 / 755.0 -550 / -550 Lab / Micro Data 07/01/25 06:20 Labs: Laboratory Results - last 24 hr 06/30/25 10:15: WBC 11.5 H, RBC 3.64 L, Hgb 11.8 L, Hct 33.8 L, MCV 92.9, MCH 32.4 H, MCHC 34.9, RDW Std Deviation 44.2 H, RDW Coeff of Khalida 13.2, Plt Count 233, MPV 11.2, Immature Gran % (Auto) 2.300 H, Neut % (Auto) 67.4, Lymph % (Auto) 18.6 L, [place] % (Auto) 10.9 H, Eos % (Auto) 0.5, Baso % (Auto) 0.3, A bsolute Neuts (auto) 7.8 H, Absolute Lymphs (auto) 2.14, Nucleated RBC % 0, Syphilis Total Ab Nonreactive, Blood Type A NEGATIVE, Antibody Screen NEGATIVE 07/01/25 06:20: WBC 12.8 H, RBC 3.50 L, Hgb 11.3 L, Hct 32.5 L, MCV 92.9, MCH 32.3 H, MCHC 34.8, RDW Std Deviation 44.2 H, RDW Coeff of Khalida 13.1, Plt Count 220, MPV 10.8 Physical Exam Const alert, oriented x3 and no apparent distress HEENT normocephalic GI soft to palpation, non-tender and non-distended GI Narrative: fundus firm, mid & below umbilicus Incision - bandage c/d/i Extremity normal to inspection and no calf tenderness Assessment & Plan (1) Previous delivery affecting : PLAN: Plan Heme - HDS, CBC reviewed GI/ - no issues Routine PP care
[2025-07-01] MEDS: Senna/Docusate Sodium 1 Tablet PO (11:33)
[2025-07-02 01:44] VITALS: BP 116/70; PULSE 66; RESP 16; TEMP 36.6; O2SAT 97
[2025-07-02 07:53] VITALS: BP 117/74; PULSE 75; RESP 16; TEMP 36.6
--- NOTE | 2025-07-02 08:31 | DS.PCM_ITS ---
Providers Date of Admission: 06/30/25 Primary Care Physician: DAPHNIE Parra Reason For Visit: REPEAT C SECTION Diagnosis Discharge Diagnosis (1) Previous delivery affecting : Status: Acute Code(s): O34.219 - Maternal care for unspecified type scar from previous delivery (2) Post-operative pain: Status: Acute Code(s): G89.18 - Other acute postprocedural pain (3) Care and examination of lactating mother: Status: Acute Code(s): Z39.1 - Encounter for care and examination of lactating mother Medications at Discharge Home Medications vit no.95-ferrous fumarate 28 mg-folic acid 800 mcg tablet ( Formula) 1 tab PO DAILY 06/30/25 acetaminophen 500 mg tablet 1,000 mg (2 x 500 mg) PO Q6 #0 tabs 07/02/25 ibuprofen 600 mg tablet 600 mg PO Q6H #0 tabs 07/02/25 oxycodone 5 mg tablet 5 - 10 mg (1 - 2 x 5 mg) PO Q4H PRN PRN Pain Score 4-10 3 days #10 tabs 07/02/25 sennosides 8.6 mg-docusate sodium 50 mg tablet (Stimulant Laxative Plus) 1 - 2 tab PO DAILY #0 tabs 07/02/25 Hospital Course Operations section Procedures None Summary of Care Provided Minutes Spent on Discharge: 15 Hospital Course: Patient had section. Hospital course was uneventful. Physical Exam Narrative Patient seen at bedside. Ambulating and voiding without difficulty. Bleeding decreased. Denies any headache, dizziness, SOB, or CP. with minimal support. Desires discharge home today. Const alert and no apparent distress General Appearance: cooperative and comfortable Exam Limitations: no limitations HEENT normocephalic Eyes General Eye: normal appearance of both eyes Neck full ROM General: normal visual inspection Chest Chest: symmetrical chest wall rise Resp normal respiratory effort and normal air movement Effort and Inspection: symmetric chest movement Auscultation: clear to auscultation bilaterally Cardio regular rate and regular rhythm GI normal to inspection, nondistended, normoactive bowel sounds Back/Spine normal ROM Extremity full ROM and no calf tenderness General Extremity: normal exam except as noted Skin no rashes or lesions noted Wound Narrative: Dressing is dry and intact. Neuro CN's II-XII intact bilaterally Psych mental status grossly normal Weight / BMI Weight Weight: 213 lb 13.574 oz Body Mass Index (BMI) 37.8 ABG / Lab / Microbiology Data 07/01/25 06:20 D/C Instructions Discharge Activity: May Drive (2 weeks) and May Shower May resume sexual activity in: 6-8 weeks Weight Bearing Status: Weight bearing as tolerated Lifting Restricted to (Lbs): 25 Call your doctor if your incision/area has: Continuous Slow Oozing, Sudden Increased Bleeding, Increased Pain/ Swelling, Increased Redness, Foul Smelling Discharge and Swelling at the incision site Call your doctor if you observe: Fever of 101 or Higher, Numbness or Tingling, Using more than 1 pad per hour, Shortness of breath, Dizziness, Swelling in the ankles, Chest pain, Calf discomfort and Uncontrolled pain Suture Line Care: Avoid Pulling/Pushing Remove Dressing in: 5 days (Remove yourself or call office and schedule appointment for dressing removal.) DC O2, CPAP, BIPAP Needs Home O2 Discharge instructions: No When: 5 days for dressing removal or 2 weeks for post appointment. Meaningful Use Info Meaningful Use Meaningful Use Diagnoses (Choose all that apply): None applicable Discharge Plan Admission Admit Date/Time: 06/30/25 09:51 Primary Reason for Your Visit: Repeat Section Attending Provider: Paty Staton Primary Care Provider: Santiago Feng NP Discharge Orders/Prescriptions Prescriptions: New sennosides-docusate sodium [Stimulant Laxative Plus] 8.6-50 mg Tablet 1 - 2 tab PO DAILY Qty: 0 0RF acetaminophen 500 mg Tablet 1,000 mg PO Q6 Qty: 0 0RF ibuprofen 600 mg Tablet 600 mg PO Q6H Qty: 0 0RF oxycodone 5 mg Tablet 5 - 10 mg PO Q4H PRN PRN (Reason: Pain Score 4-10) 3 Days Qty: 10 0RF Continued PNV cmb#95-ferrous fumarate-FA [ Formula] 28 mg iron- 800 mcg tablet 1 tab PO DAILY Referrals / Follow Up: Santiago Feng NP, [employer] [Primary Care Provider] - Disposition Disposition (needs filled in before D/C Order can be placed): Home, Self Care
[2025-07-02] MEDS: Senna/Docusate Sodium 1 Tablet PO (10:18)
--- NOTE | 2025-07-02 11:30 | CASEMGMT ---
Social Work Assessment Labor and Delivery Unit Patient Address: [facility] [place] [address] Phone number: [phone] Date of Referral: 06/30/25 Time of Referral:? 1849 Referred By: Dr. Staton Date of Intervention: ??07/02/25 Time of Intervention:? 8473 Reason for Referral:? history of depression Sw completed chart review and acknowledges social work consult due to maternal history of depression. Sw presented to bedside and introduced self to mother of baby (AUSTIN- Zuleyka) and father of baby (ANUSHKA- Anival). Sw explained reason for sw involvement and completed psychosocial assessment. History obtained from: medical records, MOB and FOB Household composition: Currently residing in the family home is ANUSHKA AVILA and their 2 year old son, Ferdinand. baby will also be included in the home when ready for discharge. Parents deny any problems or concerns with housing, stating that it is safe and secure. Patient's parent/guardian status:? ?AUSTIN and ANUSHKA met each other while in high school. They have been together for almost 9 years and have been for 5. No concerns reported of domestic violence or intimate partner violence reported. Reading baby is second baby for parents. Medical History: ?AUSTIN is 30 year old female who is 3, para 1- now 2 following labor and delivery of . AUSTIN received routine care during with [facility] beginning in first trimester. AUSTIN presented to hospital on 06/30/25 for scheduled repeat at 39 weeks gestation. Baby girl, named Ivana Fields, was born weighing 6lb 14oz with apgars of 8 and 9 at one and five minutes of life, respectfully. AUSTIN is breast feeding and baby will be followed by Dr. Feng for pediatrics. Educational Status:? Both parents graduated from high school, parents deny problems with reading, learning or comprehension. Financial Status: Both parents are gainfully employed outside of the home. AUSTIN works at [employer] and is able to take 12 weeks off of work for maternity leave. ANUSHKA is a finley and is able to take a week off of work now that baby is here. Infant Supplies:??All necessary baby supplies obtained, including: car seat, safe sleep space, clothes, diapers and wipes. AUSTIN states that she also has a breast pump for home. Childcare/Caregiver(s): MOB and ANUSHKA will be the primary caregivers to baby. When both parents have returned to work paternal grandma will provide childcare. ? Transportation:?? Both parents have their drivers license and reliable means of transportation, no barriers. Programs/Agencies Involved: ???Parents are not connected to any community agencies that provide them with financial assistance as they are over income. Children Services/Legal Issues:???No prior involvement with children services, no issues or concerns warranting referral to be made at this time. Behavioral Health Issues: ??Mental Health History:?FOB states that he never struggled with any depression or anxiety prior to the delivery of their son. FOB states that when their son was born he struggled with some anxiety. FOB states that he was not prepared for all the ways that his life changed when his son was born. FOB states that prior to his son being born he had never cared for a baby or changed a diaper. FOR states that he talked to his primary care doctor about this and they prescribed him medication to help manage his mental health. FOB states that he took the medication for a couple of weeks, but it made him feel sick so he stopped taking it. FOB states that over time he started to feel better and his anxious symptoms dissipated. AUSTIN states that she also experienced depression, however her symptoms did not present themselves until her son was 6 months old. AUSTIN states that there was not anything specific that happened at that time. AUSTIN reports that she was tearful all the time, more on edge and more quick to snap at things that were miniscule. AUSTIN states that she also discussed her mental health symptoms with her primary care doctor and she was prescribed medication for about a year and then she stopped taking it. AUSTIN states that during her she felt fine, denies feeling anxious, down, sad or tearful. AUSTIN reports that since her baby has been born she has felt good and feels like herself. ?? Substance Use History:?Parents deny substance use prior to and during . ? Family History: No family history of substance use or significant mental health history. Drug Screens: ??No drug screens observed while completing chart review. Family/Social Stressors:? Parents deny any problems, concerns or stressors. Parents report that they feel more mentally and emotionally prepared for this time. Support Systems: MOB states that paternal grandparents are their biggest supports at this time. Depression/Shaken Baby/Safe Sleeping:?Sw and parents discussed signs and symptoms of baby blues and depression and anxiety at length. Parents were open to discuss the symptoms that they experienced when they had their first baby two years ago. ANUSHKA open about his experiences as a father/ man and what he went through during the period. FOB states that he is more prepared emotionally for this period. FOB reports that he is extremely excited for their baby, he feels more comfortable being active in care. MOB states that FOB has done all diaper changes except for one. FOB states that he has held baby, changed her and has done skin to skin. FOB states that he has a sense of feeling complete now that their baby is here. MOB states that she feels really good as well. MOB states that she does not feel overwhelmed, anxious, down, tearful or sad. Parents report to feeling comfortable talking to their primary care provider if they feel like they are starting to struggle with their mental health during this period. Sw educated parents on shaken baby prevention and ABCs of safe sleep, parents express understanding. ASSESSMENT:? MOB and baby admitted following labor and delivery. MOB and FOB have both experienced symptoms of after the of their first baby, and were receptive to mental health support. Parents were receptive to discussing their symptoms. Both MOB and FOB report to feeling more prepared emotionally and mentally going into this period, stating that they are more prepared on what the next few days and months look like with a . FOB states they are only worried about what it will look like with a and a two year old. Parents talked about things they will do together to navigate life with two children two and under. MOB was observed laying in bed comfortably holding baby. MOB was stroking baby's face lovingly and comforting her when she starts to cry. MOB provided appropriate hands on care. FOB was observed laying in reclining chair comfortably. Both parents were talkative, made eye contact and participated openly in completion of assessment, conversation flowed easily and naturally. Parents have natural supports in place and have all necessary baby supplies. PLAN:? No other services requested or indicated. MOB and baby to be discharged when medically ready. Parents were provided literature regarding: signs and symptoms of baby blues and mood and anxiety disorders, Help Me Grow, shaken baby prevention, ABCs of safe sleep and a list of county resources that are available for them should any needs present themselves. Darshana Huertas, CHAIR, OIL SPREADER OPERATOR
[2025-07-02 12:45] VITALS: BP 131/80; PULSE 86; RESP 16
== END 2025-07-02 13:15 | disposition home or self-care (01) | DRG 788 ==
PROVIDERS: Admitting Provider Obstetrics & Gynecology; PCP Nurse Practitioner Family; Referring Provider Obstetrics & Gynecology; Visit Provider Obstetrics & Gynecology
PROC: 10D00Z1 Extraction of Products of Conception, Low, Open Approach (ICD-10-PCS; CPT 59514; principal; 2025-06-30 11:45)
DX: O34.219 Maternal care for unspecified type scar from previous cesarean delivery (principal); O69.81X0 Labor and delivery complicated by cord around neck, without compression, not applicable or unspecified; Z37.0 Single live birth; Z3A.39 39 weeks gestation of pregnancy; Z87.59 Personal history of other complications of pregnancy, childbirth and the puerperium
CPT/HCPCS: 59050; 85025; 85027; 86780; 86850; 86900; 86901; 99221; A4216; G0378; J2405